=== PATIENT | male | born 1940 | race Asian ===

== ENCOUNTER 2016-05-21 | Outpatient (CLI) | payer MEDICARE, MEDICAID | END 2016-05-21 05:33 | disposition short-term general hospital (02) | CPT/HCPCS: A0425; A0428 ==

== ENCOUNTER 2016-05-21 | Outpatient (CLI) | payer MEDICARE, MEDICAID | END 2016-05-21 00:58 | disposition critical access hospital (66) | CPT/HCPCS: A0425; A0429 ==

== ENCOUNTER 2016-05-21 01:14 | Emergency (ER) | payer MEDICARE, MEDICAID ==
[2016-05-21] MEDS ORDERED: cefTRIAXone 1 GM in SODIUM CHLORIDE 0.9% MINIBAG 100 ML IV STA (02:50)
[2016-05-21] MEDS ORDERED: SODIUM CHLORIDE 0.9% 1,000 ML IV ONE (02:51)
[2016-05-21] MEDS ORDERED: cefTRIAXone 1 GM VIAL ONE (02:53)
== END 2016-05-21 05:31 | disposition short-term general hospital (02) ==
DX: J18.9 Pneumonia, unspecified organism (principal); E86.0 Dehydration; E11.9 Type 2 diabetes mellitus without complications; I10 Essential (primary) hypertension; Z79.82 Long term (current) use of aspirin; Z79.4 Long term (current) use of insulin; Z87.891 Personal history of nicotine dependence; I69.354 Hemiplegia and hemiparesis following cerebral infarction affecting left non-dominant side

== ENCOUNTER 2016-07-24 11:15 | Outpatient (CLI) | payer MEDICARE, MEDICAID | END 2016-07-24 11:16 | disposition critical access hospital (66) | DX: R06.00 Dyspnea, unspecified (principal); R50.9 Fever, unspecified | CPT/HCPCS: A0425; A0427 ==

== ENCOUNTER 2016-07-24 11:32 | Inpatient (IN) | payer MEDICARE, MEDICAID ==
[2016-07-24] MEDS ORDERED: IPRATROPIUM/ALBUTEROL 3 ML NEB INH STA (11:49)
[2016-07-24] MEDS ORDERED: IPRATROPIUM/ALBUTEROL 3 ML NEB INH ONE (11:53)
[2016-07-24] MEDS ORDERED: LORazepam 0.5 MG TABLET PO PRN (15:05)
[2016-07-24] MEDS ORDERED: HYDROcod/ACETAM 5/325 MG TABLET PO PRN (15:06)
[2016-07-24] MEDS ORDERED: SODIUM CHLORIDE FLUSH 0.9% 10 ML SYRINGE IVP PRN (15:06)
[2016-07-24] MEDS ORDERED: PROCHLORPERAZINE 10 MG/2 ML VIAL IVP PRN (15:06)
[2016-07-24] MEDS ORDERED: HYDROcod/ACETAM 10 MG/325 MG TABLET PO PRN (15:06)
[2016-07-24] MEDS ORDERED: ACETAMINOPHEN 325 MG TABLET PO PRN ×2 (15:06→16:48)
[2016-07-24] MEDS ORDERED: ONDANSETRON 4 MG/2 ML VIAL IVP PRN (15:06)
[2016-07-24] MEDS ORDERED: LORazepam 0.5 MG TABLET PEG PRN (15:57)
[2016-07-24] MEDS ORDERED: CLINDAMYCIN 900 MG/50 ML 50 ML IV SCH (16:00)
[2016-07-24] MEDS ORDERED: HYDROcod/ACETAM 5/325 MG TABLET PEG PRN (16:06)
[2016-07-24] MEDS: SODIUM CHLORIDE 0.9% 1,000 ML IV SCH (16:43)
[2016-07-24] MEDS ORDERED: SACCHAROMYCES BOULARDII 250 MG CAPSULE PO SCH (17:00)
[2016-07-24] MEDS: INSULIN ASPART 300 UNIT/3 ML PEN SUBQ SCH ×2 (17:02→21:29)
[2016-07-24] MEDS: SACCHAROMYCES BOULARDII 250 MG CAPSULE PEG SCH (17:10)
[2016-07-24] MEDS: IPRATROPIUM/ALBUTEROL 3 ML NEB INH SCH (17:20)
[2016-07-24] MEDS: HYDROmorphone 1 MG/ML SYRINGE IVP PRN ×2 (19:31→22:28)
[2016-07-24] MEDS ORDERED: METOPROLOL TARTRATE 25 MG TABLET PO SCH (21:00)
[2016-07-24] MEDS ORDERED: ATORVASTATIN 40 MG TABLET PO SCH (21:00)
[2016-07-24] MEDS: ATORVASTATIN 40 MG TABLET PEG SCH (21:18)
[2016-07-24] MEDS: METOPROLOL TARTRATE 25 MG TABLET PEG SCH (21:18)
[2016-07-24] MEDS: DOXAZOSIN 1 MG TABLET PO SCH (21:19)
[2016-07-24] MEDS: methylPREDNISolone SUCCINATE 40 MG/ML VIAL IVP SCH (21:19)
[2016-07-24] MEDS: HYDROcod/ACETAM 10 MG/325 MG TABLET PEG PRN (21:24)
[2016-07-24] MEDS: INSULIN GLARGINE 300 UNIT/3 ML PEN SUBQ SCH (21:29)
[2016-07-24] MEDS: SODIUM CHLORIDE FLUSH 0.9% 10 ML SYRINGE IVP SCH (21:29)
[2016-07-25] MEDS: CLINDAMYCIN 900 MG/50 ML 50 ML IV SCH ×3 (00:36→17:14)
[2016-07-25] MEDS: SODIUM CHLORIDE 0.9% 1,000 ML IV SCH ×3 (03:03→13:47)
[2016-07-25] MEDS: HYDROmorphone 1 MG/ML SYRINGE IVP PRN ×2 (03:35→08:58)
[2016-07-25] MEDS: SODIUM CHLORIDE FLUSH 0.9% 10 ML SYRINGE IVP SCH ×3 (05:30→23:11)
[2016-07-25] MEDS: methylPREDNISolone SUCCINATE 40 MG/ML VIAL IVP SCH ×3 (05:38→23:05)
[2016-07-25] MEDS ORDERED: PANTOPRAZOLE 40 MG TABLET PO SCH (07:00)
[2016-07-25] MEDS: IPRATROPIUM/ALBUTEROL 3 ML NEB INH SCH ×3 (07:10→14:53)
[2016-07-25] MEDS: INSULIN ASPART 300 UNIT/3 ML PEN SUBQ SCH ×3 (08:35→17:46)
[2016-07-25] MEDS: SACCHAROMYCES BOULARDII 250 MG CAPSULE PEG SCH ×2 (08:36→17:51)
[2016-07-25] MEDS: ENOXAPARIN 40 MG/0.4 ML SYRINGE SUBQ SCH (08:36)
[2016-07-25] MEDS: POLYETHYLENE GLYCOL 3350 17 GM PACKET PEG SCH (08:36)
[2016-07-25] MEDS: METOPROLOL TARTRATE 25 MG TABLET PEG SCH ×2 (08:37→23:06)
[2016-07-25] MEDS: ASPIRIN CHEW 81 MG TABLET PEG SCH (08:37)
[2016-07-25] MEDS ORDERED: ASPIRIN CHEW 81 MG TABLET PO SCH (09:00)
[2016-07-25] MEDS ORDERED: DOXAZOSIN 1 MG TABLET PO SCH (09:00)
[2016-07-25] MEDS ORDERED: POLYETHYLENE GLYCOL 3350 17 GM PACKET PO SCH (09:00)
[2016-07-25] MEDS: GABAPENTIN 100 MG CAPSULE PO SCH ×2 (17:21→23:09)
[2016-07-25] MEDS: IPRATROPIUM/ALBUTEROL 3 ML NEB INH PRN (20:40)
[2016-07-25] MEDS ORDERED: INSULIN ASPART 300 UNIT/3 ML PEN SUBQ SCH (21:00)
[2016-07-25] MEDS: DOXAZOSIN 1 MG TABLET PO SCH (23:05)
[2016-07-25] MEDS: ATORVASTATIN 40 MG TABLET PEG SCH (23:06)
[2016-07-25] MEDS: INSULIN GLARGINE 300 UNIT/3 ML PEN SUBQ SCH (23:22)
[2016-07-26] MEDS: SODIUM CHLORIDE 0.9% 1,000 ML IV SCH (01:12)
[2016-07-26] MEDS: CLINDAMYCIN 900 MG/50 ML 50 ML IV SCH ×3 (01:12→18:59)
[2016-07-26] MEDS: GABAPENTIN 100 MG CAPSULE PO SCH ×3 (06:36→21:03)
[2016-07-26] MEDS: methylPREDNISolone SUCCINATE 40 MG/ML VIAL IVP SCH ×3 (06:36→21:08)
[2016-07-26] MEDS: SODIUM CHLORIDE FLUSH 0.9% 10 ML SYRINGE IVP SCH ×3 (06:36→21:08)
[2016-07-26] MEDS: INSULIN ASPART 300 UNIT/3 ML PEN SUBQ SCH ×2 (06:51→07:24)
[2016-07-26] MEDS: IPRATROPIUM/ALBUTEROL 3 ML NEB INH PRN ×3 (07:38→20:45)
[2016-07-26] MEDS: SACCHAROMYCES BOULARDII 250 MG CAPSULE PEG SCH ×2 (08:54→17:44)
[2016-07-26] MEDS: ENOXAPARIN 40 MG/0.4 ML SYRINGE SUBQ SCH (08:54)
[2016-07-26] MEDS: ASPIRIN CHEW 81 MG TABLET PEG SCH (08:54)
[2016-07-26] MEDS: METOPROLOL TARTRATE 25 MG TABLET PEG SCH ×2 (08:55→21:03)
[2016-07-26] MEDS ORDERED: MIN OIL/DIMETHICON/COCONUT OIL 92 GM TUBE TOP ONE (10:36)
[2016-07-26] MEDS: POLYETHYLENE GLYCOL 3350 17 GM PACKET PEG SCH (11:28)
[2016-07-26] MEDS: INSU100V10 SUBQ SCH ×2 (11:50→18:59)
[2016-07-26] MEDS ORDERED: INSULIN ASPART 300 UNIT/3 ML PEN SUBQ SCH ×2 (12:00)
[2016-07-26] MEDS ORDERED: INSU100I18 SUBQ SCH (12:00)
[2016-07-26] MEDS: HYDROcod/ACETAM 10 MG/325 MG TABLET PEG PRN (19:00)
[2016-07-26] MEDS ORDERED: FUROSEMIDE 20 MG/2 ML VIAL IVP SCH (20:47)
[2016-07-26] MEDS ORDERED: INSULIN GLARGINE 300 UNIT/3 ML PEN SUBQ SCH (21:00)
[2016-07-26] MEDS: ATORVASTATIN 40 MG TABLET PEG SCH (21:03)
[2016-07-26] MEDS: amLODIPine 5 MG TABLET PEG SCH (21:03)
[2016-07-26] MEDS: DOXAZOSIN 1 MG TABLET PO SCH (21:03)
[2016-07-27] MEDS: INSULIN REGULAR HUMAN 100 UNIT/1 ML 10 ML MDV SUBQ SCH ×3 (01:07→11:46)
[2016-07-27] MEDS: CLINDAMYCIN 900 MG/50 ML 50 ML IV SCH ×2 (01:12→09:13)
[2016-07-27] MEDS: SODIUM CHLORIDE FLUSH 0.9% 10 ML SYRINGE IVP SCH ×3 (01:12→09:13)
[2016-07-27] MEDS: GABAPENTIN 100 MG CAPSULE PO SCH ×2 (06:58→13:29)
[2016-07-27] MEDS: methylPREDNISolone SUCCINATE 40 MG/ML VIAL IVP SCH ×2 (06:58→13:29)
[2016-07-27] MEDS ORDERED: predniSONE 20 MG TABLET PO SCH (08:00)
[2016-07-27] MEDS: POLYETHYLENE GLYCOL 3350 17 GM PACKET PEG SCH (09:17)
[2016-07-27] MEDS: ASPIRIN CHEW 81 MG TABLET PEG SCH (09:18)
[2016-07-27] MEDS: METOPROLOL TARTRATE 25 MG TABLET PEG SCH (09:18)
[2016-07-27] MEDS: SACCHAROMYCES BOULARDII 250 MG CAPSULE PEG SCH (09:18)
[2016-07-27] MEDS: amLODIPine 5 MG TABLET PEG SCH (09:18)
[2016-07-27] MEDS: ENOXAPARIN 40 MG/0.4 ML SYRINGE SUBQ SCH (09:25)
[2016-07-27] MEDS: HYDROmorphone 1 MG/ML SYRINGE IVP PRN (09:31)
[2016-07-27] MEDS: IPRATROPIUM/ALBUTEROL 3 ML NEB INH PRN (09:37)
[2016-07-27] MEDS: HYDROcod/ACETAM 10 MG/325 MG TABLET PEG PRN (16:35)
== END 2016-07-27 17:20 | disposition home health service (06) | DRG 871 ==
DX: A41.9 Sepsis, unspecified organism (principal); J44.9 Chronic obstructive pulmonary disease, unspecified; J69.0 Pneumonitis due to inhalation of food and vomit; J18.9 Pneumonia, unspecified organism; M10.9 Gout, unspecified; J44.0 Chronic obstructive pulmonary disease with (acute) lower respiratory infection; I69.954 Hemiplegia and hemiparesis following unspecified cerebrovascular disease affecting left non-dominant side; J44.1 Chronic obstructive pulmonary disease with (acute) exacerbation; Z79.4 Long term (current) use of insulin; G89.29 Other chronic pain; M79.602 Pain in left arm; T38.0X5A Adverse effect of glucocorticoids and synthetic analogues, initial encounter; E09.9 Drug or chemical induced diabetes mellitus without complications; M79.605 Pain in left leg; I10 Essential (primary) hypertension; E78.5 Hyperlipidemia, unspecified; H91.90 Unspecified hearing loss, unspecified ear; M24.522 Contracture, left elbow; I69.991 Dysphagia following unspecified cerebrovascular disease; Z93.1 Gastrostomy status; Z87.891 Personal history of nicotine dependence; Z86.73 Personal history of transient ischemic attack (TIA), and cerebral infarction without residual deficits; Z79.82 Long term (current) use of aspirin; Z79.891 Long term (current) use of opiate analgesic; Z79.899 Other long term (current) drug therapy

== ENCOUNTER 2016-07-27 17:23 | Outpatient (CLI) | payer MEDICARE, MEDICAID | END 2016-07-28 17:24 | disposition home or self-care (01) | DX: Z74.01 Bed confinement status (principal) | CPT/HCPCS: A0425; A0428 ==

== ENCOUNTER 2016-08-31 09:43 | Outpatient (CLI) | payer MEDICARE, MEDICAID | END 2016-08-31 09:44 | disposition critical access hospital (66) | LOC: EMS 09:43 | PROVIDERS: ATTEND Surgery | DX: R19.7 Diarrhea, unspecified (principal) | CPT/HCPCS: A0425; A0429 ==

== ENCOUNTER 2016-08-31 10:02 | Inpatient (IN) | payer MEDICARE, MEDICAID ==
[2016-08-31] MEDS ORDERED: SODIUM CHLORIDE 0.9% 1,000 ML IV ONE (10:14)
[2016-08-31] MEDS ORDERED: PANTOPRAZOLE 40 MG VIAL IVP STA (12:32)
[2016-08-31] MEDS ORDERED: PANTOPRAZOLE 40 MG VIAL ONE (12:44)
[2016-08-31] MEDS ORDERED: MORPHINE 2 MG/ML SYRINGE IVP PRN (13:40)
[2016-08-31] MEDS ORDERED: SODIUM CHLORIDE FLUSH 0.9% 10 ML SYRINGE IVP PRN (13:40)
[2016-08-31] MEDS ORDERED: ONDANSETRON 4 MG/2 ML VIAL IVP PRN (13:40)
[2016-08-31] MEDS ORDERED: SODIUM CHLORIDE 0.9% 1,000 ML IV SCH ×2 (14:00→18:00)
[2016-08-31] MEDS: SODIUM CHLORIDE FLUSH 0.9% 10 ML SYRINGE IVP SCH (14:44)
[2016-08-31] MEDS: ALBUTEROL NEB 2.5 MG/3 ML INH PRN ×2 (15:30→23:00)
[2016-08-31] MEDS ORDERED: DEXTROSE 5% 1,000 ML IV PRN (16:19)
[2016-08-31] MEDS ORDERED: DEXTROSE 50% ABBOJECT 25 GM/50 ML SYRINGE IVP PRN (16:19)
[2016-08-31] MEDS ORDERED: DEXTROSE GEL 37.5 GM TUBE PO PRN (16:19)
[2016-08-31] MEDS ORDERED: GLUCAGON 1 MG/ML VIAL SUBQ PRN (16:19)
[2016-08-31] MEDS: INSULIN REGULAR HUMAN 100 UNIT/1 ML 10 ML MDV SUBQ SCH (17:43)
[2016-08-31] MEDS: PIPERACILLIN/TAZOBACTAM 3.375 GM in SODIUM CHLORIDE 0.9% MINIBAG 100 ML IV SCH (17:44)
[2016-08-31] MEDS ORDERED: ACETAMINOPHEN 325 MG TABLET PO SCH (18:00)
[2016-08-31] MEDS ORDERED: diphenhydrAMINE INJ 50 MG/ML VIAL IVP SCH (18:00)
[2016-08-31] MEDS: D5.45NS W/20 MEQ KCL 1,000 ML IV SCH (19:07)
[2016-08-31] MEDS: GABAPENTIN 100 MG CAPSULE PO SCH (20:45)
[2016-08-31] MEDS ORDERED: LIDOCAINE 1% 50 ML MDV SUBQ ONE (21:00)
[2016-08-31] MEDS ORDERED: PROPOFOL 200 MG/20 ML VIAL IVP ONE (21:00)
[2016-08-31] MEDS ORDERED: ROCURONIUM 50 MG/5 ML VIAL IVP ONE (21:00)
[2016-08-31] MEDS ORDERED: MIDAZOLAM 2 MG/2 ML VIAL IVP ONE (21:00)
[2016-08-31] MEDS ORDERED: ePHEDrine 50 MG/ML VIAL IVP ONE (21:00)
[2016-08-31] MEDS ORDERED: fentaNYL 100 MCG/2 ML VIAL IVP ONE (21:00)
[2016-08-31] MEDS ORDERED: SUCCINYLCHOLINE 200 MG/10 ML VIAL IVP ONE (21:00)
[2016-08-31] MEDS ORDERED: LACTATED RINGERS 1,000 ML IV ONE ×2 (21:31→22:30)
[2016-09-01] MEDS: DOXAZOSIN 1 MG TABLET PO SCH ×2 (00:14→21:37)
[2016-09-01] MEDS: GABAPENTIN 100 MG CAPSULE PO SCH ×4 (00:15→21:37)
[2016-09-01] MEDS: D5.45NS W/20 MEQ KCL 1,000 ML IV SCH ×3 (00:49→22:23)
[2016-09-01] MEDS: PIPERACILLIN/TAZOBACTAM 3.375 GM in SODIUM CHLORIDE 0.9% MINIBAG 100 ML IV SCH ×5 (00:49→22:22)
[2016-09-01] MEDS: PANTOPRAZOLE 40 MG VIAL IVP SCH ×3 (00:50→21:37)
[2016-09-01] MEDS: SODIUM CHLORIDE FLUSH 0.9% 10 ML SYRINGE IVP SCH ×4 (00:50→21:37)
[2016-09-01] MEDS: INSULIN REGULAR HUMAN 100 UNIT/1 ML 10 ML MDV SUBQ SCH ×4 (00:50→19:26)
[2016-09-01] MEDS: POLYETHYLENE GLYCOL 3350 17 GM PACKET PO SCH (09:16)
[2016-09-01] MEDS: INSULIN GLARGINE 300 UNIT/3 ML PEN SUBQ SCH (09:17)
[2016-09-01] MEDS: FERROUS SULFATE 325 MG TABLET PO SCH ×2 (09:17→17:05)
[2016-09-01] MEDS: LORazepam 0.5 MG TABLET PO PRN (22:59)
[2016-09-02] MEDS: INSULIN REGULAR HUMAN 100 UNIT/1 ML 10 ML MDV SUBQ SCH ×4 (00:39→18:15)
[2016-09-02] MEDS: HYDROcod/ACETAM 5/325 MG TABLET PO PRN (00:48)
[2016-09-02] MEDS: GABAPENTIN 100 MG CAPSULE PO SCH ×3 (05:49→20:59)
[2016-09-02] MEDS: PIPERACILLIN/TAZOBACTAM 3.375 GM in SODIUM CHLORIDE 0.9% MINIBAG 100 ML IV SCH ×4 (05:49→22:31)
[2016-09-02] MEDS: D5.45NS W/20 MEQ KCL 1,000 ML IV SCH (05:49)
[2016-09-02] MEDS: SODIUM CHLORIDE FLUSH 0.9% 10 ML SYRINGE IVP SCH ×3 (05:50→21:00)
[2016-09-02] MEDS: ALBUTEROL NEB 2.5 MG/3 ML INH PRN (07:30)
[2016-09-02] MEDS: INSULIN GLARGINE 300 UNIT/3 ML PEN SUBQ SCH (09:12)
[2016-09-02] MEDS: PANTOPRAZOLE 40 MG VIAL IVP SCH ×2 (09:12→20:59)
[2016-09-02] MEDS: POLYETHYLENE GLYCOL 3350 17 GM PACKET PO SCH (09:12)
[2016-09-02] MEDS: FERROUS SULFATE 325 MG TABLET PO SCH ×2 (09:13→18:15)
[2016-09-02] MEDS ORDERED: SODIUM CHLORIDE 0.9% 1,000 ML IV SCH (16:00)
[2016-09-02] MEDS: DOXAZOSIN 1 MG TABLET PO SCH (21:00)
[2016-09-02] MEDS ORDERED: amLODIPine 5 MG TABLET PO ONE (22:18)
[2016-09-03] MEDS: INSULIN REGULAR HUMAN 100 UNIT/1 ML 10 ML MDV SUBQ SCH ×5 (00:40→23:57)
[2016-09-03] MEDS: amLODIPine 5 MG TABLET PEG SCH ×2 (00:43→09:03)
[2016-09-03] MEDS: HYDROcod/ACETAM 5/325 MG TABLET PO PRN ×2 (00:58→18:34)
[2016-09-03] MEDS: GABAPENTIN 100 MG CAPSULE PO SCH ×3 (05:15→21:34)
[2016-09-03] MEDS: PIPERACILLIN/TAZOBACTAM 3.375 GM in SODIUM CHLORIDE 0.9% MINIBAG 100 ML IV SCH ×4 (05:15→22:03)
[2016-09-03] MEDS: SODIUM CHLORIDE FLUSH 0.9% 10 ML SYRINGE IVP SCH ×3 (05:15→21:34)
[2016-09-03] MEDS ORDERED: MAGNESIUM SULFATE 2 GRAM 50 ML IV ONE (08:00)
[2016-09-03] MEDS: ALBUTEROL NEB 2.5 MG/3 ML INH PRN (08:00)
[2016-09-03] MEDS ORDERED: amLODIPine 5 MG TABLET PEG SCH (09:00)
[2016-09-03] MEDS: FERROUS SULFATE 325 MG TABLET PO SCH ×2 (09:03→18:34)
[2016-09-03] MEDS: POLYETHYLENE GLYCOL 3350 17 GM PACKET PO SCH (09:03)
[2016-09-03] MEDS: PANTOPRAZOLE 40 MG VIAL IVP SCH (09:03)
[2016-09-03] MEDS: INSULIN GLARGINE 300 UNIT/3 ML PEN SUBQ SCH (09:12)
[2016-09-03] MEDS ORDERED: FUROSEMIDE 40 MG/4 ML VIAL IVP SCH (14:00)
[2016-09-03] MEDS ORDERED: IPRATROPIUM/ALBUTEROL 3 ML NEB INH SCH (14:04)
[2016-09-03] MEDS: SACCHAROMYCES BOULARDII 250 MG CAPSULE PO SCH (18:34)
[2016-09-03] MEDS: LORazepam 0.5 MG TABLET PO PRN (18:35)
[2016-09-03] MEDS: DOXAZOSIN 1 MG TABLET PO SCH (21:33)
[2016-09-04] MEDS: PIPERACILLIN/TAZOBACTAM 3.375 GM in SODIUM CHLORIDE 0.9% MINIBAG 100 ML IV SCH ×2 (04:59→11:50)
[2016-09-04] MEDS: SODIUM CHLORIDE FLUSH 0.9% 10 ML SYRINGE IVP SCH ×2 (04:59→15:10)
[2016-09-04] MEDS: INSULIN REGULAR HUMAN 100 UNIT/1 ML 10 ML MDV SUBQ SCH ×2 (06:28→15:10)
[2016-09-04] MEDS: GABAPENTIN 100 MG CAPSULE PO SCH ×2 (06:28→15:10)
[2016-09-04] MEDS: POLYETHYLENE GLYCOL 3350 17 GM PACKET PO SCH (09:33)
[2016-09-04] MEDS: SACCHAROMYCES BOULARDII 250 MG CAPSULE PO SCH (09:34)
[2016-09-04] MEDS: amLODIPine 5 MG TABLET PEG SCH (09:34)
[2016-09-04] MEDS: FERROUS SULFATE 325 MG TABLET PO SCH (09:34)
[2016-09-04] MEDS: INSULIN GLARGINE 300 UNIT/3 ML PEN SUBQ SCH (10:44)
[2016-09-04] MEDS ORDERED: POTASSIUM CHLORIDE 20 MEQ TABLET PO SCH (11:00)
[2016-09-04] MEDS ORDERED: POTASSIUM CHLORIDE 20 MEQ/15 ML UDC PEG SCH (11:26)
[2016-09-04] MEDS: HYDROcod/ACETAM 5/325 MG TABLET PO PRN (12:29)
== END 2016-09-04 16:55 | disposition home health service (06) | DRG 378 ==
PROC: 0DB78ZX Excision of Stomach, Pylorus, Via Natural or Artificial Opening Endoscopic, Diagnostic (ICD-10-PCS; 2016-08-31)
PROC: 30233N1 Transfusion of Nonautologous Red Blood Cells into Peripheral Vein, Percutaneous Approach (ICD-10-PCS; 2016-08-31)
PROC: 0W3P8ZZ Control Bleeding in Gastrointestinal Tract, Via Natural or Artificial Opening Endoscopic (ICD-10-PCS; principal; 2016-08-31 20:00)
DX: K92.2 Gastrointestinal hemorrhage, unspecified (principal); K25.0 Acute gastric ulcer with hemorrhage; D62 Acute posthemorrhagic anemia; I69.954 Hemiplegia and hemiparesis following unspecified cerebrovascular disease affecting left non-dominant side; G89.29 Other chronic pain; I13.10 Hypertensive heart and chronic kidney disease without heart failure, with stage 1 through stage 4 chronic kidney disease, or unspecified chronic kidney disease; E11.22 Type 2 diabetes mellitus with diabetic chronic kidney disease; E11.42 Type 2 diabetes mellitus with diabetic polyneuropathy; N18.3 Chronic kidney disease, stage 3 (moderate); M1A.9XX0 Chronic gout, unspecified, without tophus (tophi); K57.30 Diverticulosis of large intestine without perforation or abscess without bleeding; E78.5 Hyperlipidemia, unspecified; J44.9 Chronic obstructive pulmonary disease, unspecified; R79.89 Other specified abnormal findings of blood chemistry; F17.211 Nicotine dependence, cigarettes, in remission; H91.90 Unspecified hearing loss, unspecified ear; Z87.01 Personal history of pneumonia (recurrent); Z79.82 Long term (current) use of aspirin; Z79.4 Long term (current) use of insulin; Z79.51 Long term (current) use of inhaled steroids; Z79.891 Long term (current) use of opiate analgesic; Z79.899 Other long term (current) drug therapy; Z93.1 Gastrostomy status; Z99.3 Dependence on wheelchair

== ENCOUNTER 2016-09-04 17:01 | Outpatient (CLI) | payer MEDICARE, MEDICAID | END 2016-09-04 17:02 | disposition home or self-care (01) | LOC: EMS 17:01 | PROVIDERS: ATTEND Surgery | DX: K92.2 Gastrointestinal hemorrhage, unspecified (principal) | CPT/HCPCS: A0425; A0428 ==

== ENCOUNTER 2016-09-11 14:30 | Outpatient (CLI) | payer MEDICARE, MEDICAID ==
--- NOTE | 2016-09-12 09:07 | CONSULTATION NOTE ---
DATE OF CONSULTATION: 09/11/2016 00:00:00 REQUESTING PROVIDER: Dr. Louis Alcantara. Time of visit [id number] TOPIC: Initial palliative care consult. Thank you, Dr. Alcantara, for asking the palliative care consult service to be involved in the care of your patient. I am asked to provide support for pain and symptoms, as well as goals of care. The patient is seen in his home setting secondary to a considerable and taxing effort for him to leave the home secondary to his CVA with left hemiparesis, fatigue and recent hospitalization. History is obtained from medical records. Records reviewed include hospitalizations and physician office records. EXAM LIMITATIONS: The patient is unable to participate secondary to aphasia and cognitive deficits. Most of the information is obtained from his daughter and primary caregiver, Iris. BRIEF HISTORY OF PRESENT ILLNESS: This is a 76-year-old Greek man who had a significant stroke with severe left hemiparesis on 03/24/2016. He had a fairly long and complicated course, which included transitioning in [facility]. On discharge from the hospital at that point in time, he was discharged back to his daughter's home and was actually on hospice for a few days. In the daughter's perspective, they had not really been given other options as far as weighing benefits and burdens and possible home health referral. The patient did become much more acutely, ill , and after 2 or 3 days the patient's daughter revoked the hospice benefit and chose to have him seen at the hospital where he was diagnosed with a left lower lobe pneumonia, for which they treated. He was seen at [facility] from to 05/22 and then was discharged to [facility]. After rehabilitation stay, he was then discharged back to his daughter's home for ongoing care with home health services from [facility] at that time. He was hospitalized yet again from 07/24/2016 to 07/27/2016 at [facility] with community-acquired pneumonia/aspiration pneumonia, COPD exacerbation. Had been doing fairly well until he developed black tarry stools and blood in his PEG tube on 08/31, for which he was again hospitalized from 08/31 to 09/04/2016 with a GI bleed. At that point in time was diagnosed with a pyloric ulcer and anemia due to acute blood loss. He is currently now at home, has been mostly bedbound. There had been concern at one point that he had recurrent aspiration, but this cleared up. This was thought to be related to his tube feedings and had decreased his tube feedings from 70-40 mL an hour. As you can see, the patient has had ongoing sequelae related to his stroke and these also include severe central left-sided stroke pain, aphasia, dysphagia, left hemiparesis, is developing some contractures on that left side, as well as a history of decubitus ulcers. I am seeing the patient today in followup to provide palliative care support, given the seriousness of his illness. There are still quite a few residual questions from his posthospital stay and identifying ways to focus on quality of life, given his current situation and symptom burden. He does remain at high risk for the sequela of recurrent aspiration pneumonia. He does have a large amount of oral secretions. He does have a strong cough, but does have inspiratory and expiratory wheezing in his upper airways and diminished in bases. They do have oral suction, for which the daughter does assist him with managing his secretions. He has been mostly bound except for short periods of time in his wheelchair, does need a Kari lift, and does present with fairly acute uncontrolled neuropathic pain. The patient actually communicates by hand motion about his sharp, shooting, and uses little hand motions to show the landis. This is how he communicates if he needs some pain medication. He had been trialed on gabapentin at 100 mg t.i.d., but has had no titration around, and also intermittent Vicodin. The daughter has concern about opioid dependence with this and also side effects. The other unresolved question is about how best to manage his current tube feeding schedule given his most recent hospitalization. He is on a diabetic source, reports blood sugars are within acceptable range at 50 mL hour, which may be off an hour total. The patient's stools have returned back to normal. They are somewhat on the loose side, but no further signs or symptoms of bleeding, though of note he has not been discharged on any PPI. PAST MEDICAL HISTORY: Includes CVA on 03/24 with residual left-sided weakness, dysphagia and PEG tube placement, insulin-dependent diabetes, hypertension, hyperlipidemia, COPD, gout, chronic hearing loss, nicotine dependence in remission. ALLERGIES: NO KNOWN DRUG ALLERGIES. CURRENT MEDICATION LIST Includes 1. Lorazepam 0.5 mg tabs, 1/2-1 tab as needed for anxiety. 2. Metoprolol tartrate 25 mg b.i.d. 3. Lantus 20 units subcutaneously daily. 4. Does have lispro available as needed. 5. Hydrocodone 5 mg/325 mg 1 tab q.4h. p.r.n. pain. 6. Doxazosin 2 mg q.p.m. 7. Atorvastatin 40 mg q.p.m. 8. Aspirin 81 mg daily. 9. Albuterol inhaler 1-2 puffs q.4h. p.r.n. dyspnea or wheezing. 10. Norvasc. 11. Amlodipine 5 mg daily. 12. Gabapentin 100 mg t.i.d. 13. Risperdal 0.5 mg, currently not using. The patient had a bad reaction to Seroquel. CODE STATUS: THE PATIENT IS A FULL CODE. Please see palliative care discussion. 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 He is currently as of 4 years ago and came to live with his daughter and her family. He is currently being cared for by a fairly robust family system. His daughter, Iris, is the primary caregiver. She has a sister in [place] who comes in and offers respite every 4-6 weeks. He has 2 younger sons from a previous marriage that are in the household, still going to school. There is Iris's family and his grandchildren in the house as well. She has 4 young children. He had come up about 4 years ago to be part of the family constellation. Iris is a [employer] worker, but is unable to access the full [employer], so is looking at agencies who support for this. Marital status, currently . Use of alcohol, none. Tobacco, strong history of smoking, quit right before 03/2016. FAMILY HISTORY: The patient's parents of old age. PERFORMANCE STATUS: The patient is mostly bedbound. They can Kari lift him up into the wheelchair. He is not currently doing any therapy and remains quite sedentary, dependent for all ADLs and IADLs and tube feedings. REVIEW OF SYSTEMS This is done with the daughter. ENT: The patient has difficulty managing his secretions, has significant hearing loss. CARDIOVASCULAR: Unknown. RESPIRATORY: Has a fairly strong cough, a large amount of sputum production, needing suctioning on a frequent basis. Does get some shortness of breath with this. GASTROINTESTINAL: Currently having soft to loose stools. GENITOURINARY: He is incontinent of urine. MUSCULOSKELETAL: Has severe, sharp, shooting pains on his left side, some stiffness and contractions on his left leg. INTEGUMENTARY: History of decubitus. Currently denies any breakdown. NEUROLOGIC: Continues to interact, make verbalizations with his family. Is not really aware or in the present, though does recognize family members and interacts. PSYCHIATRIC: He does have some periods of agitation. ENDOCRINE: Longstanding diabetes. HEMATOLOGIC/IMMUNOLOGIC: He did have recurrent pneumonia. The daughter thought it was once; it does look like twice in the records. As well as recent GI bleed. PHYSICAL EXAMINATION GENERAL APPEARANCE: He does appear chronically ill, frequent coughing, easily distressed, particularly related to his pain, flicking his hand through the process when manipulated or touched. EYES: He has double glasses on. Daughter reports that he feels like that works better, per his report. ENT: He does have a few residual teeth. No signs or symptoms of candidiasis. RESPIRATORY: As noted above. CARDIOVASCULAR: His pulse is 77, blood pressure 152/58, O2 saturation on room air 95%. Temperature is 98.9. ABDOMEN: He does have active bowel tones. Peg site. SKIN: Quite dry. Feet very fungal, no skin breakdown noted though. EXTREMITIES: He does have spontaneous movement and able to move his right arm and right leg with left leg quite straightened and contracted and left arm pulled up. PALLIATIVE CARE DISCUSSION: Who is present, myself, the palliative care practitioner, Giovanna, and daughter, Iris. The patient is unable to participate. In reviewing their goals of care and definition of quality of life , the family is quite happy to have him present. They have adapted the living situation so to be able to respond to his needs. Everyone pretty participates to assist with his care needs, but the majority of it falls to Iris. She is a capable and adequate caregiver. The patient is obviously safely cared for and deeply loved by his family system. In questioning why they still continue to have a FULL CODE, this is complicated in the context that her perception is he continues to cry, that he wants to be around, his 2 young sons and still teenagers, is hoping to participate or be present for some of those events as best they can tell. He is still interacting with the family. They are concerned about receiving ongoing intervention, but also her and her sister who are the major decision makers do recognize that they do not want him to experience prolong suffering including CPR, but are not quite ready to make that transition. Their approach is living in the moment, weighing the benefits and burdens as those decisions come along. They feel it is consistent with who their father is to keep fighting. They are continuing to weigh the benefits and burdens and feel like that is consistent with their healthcare belief model, but are wanting to balance that with relief of suffering and not causing undue harm. We did review the purpose of the POLST, some of the decisions around that. I did provide [employer] for [employer] and encouraged her and his sister to continue with the conversations with the goal for us to have information to be able to support them best as they interact with the healthcare system to be able to meet their needs. Unfortunately, had somewhat of a negative experience with hospice in the context that her perception was all they wanted to do was continue to give him morphine and not really explore the underlying etiology of his pain and distress, thus, the revocation several months ago. His strengths come from their commitment and family system. IMPRESSION: This is a 76-year-old gentleman with multiple comorbidities and continued complications as a results of his CVA and left hemiparesis. He remains at high risk for recurrent aspiration and ongoing complications related to his bedbound status and dependency on tube feedings. Family goals include wanting to focus on quality of life, extend quantity of life, weighing benefits and burdens of decisions as they come along. RECOMMENDATIONS/COUNSELING DONE 1. Central stroke syndrome, acute pain uncontrolled. Counseling done regarding pain management of his current condition. In weighing benefits and burdens, including increasing gabapentin, changing to methadone, increasing opioid dosing. Did settle on titrating gabapentin up to effect. Currently, only on 100 mg t.i.d., originally did get some relief, so expect he may do better with escalating doses. Given the concern for side effects of sedation, will titrate slowly every few days starting with 200 mg in the evening x3 days, add another 100 mg in the a.m. for 3 days, add another 100 mg at noon for 3 days, and then increase to 300 mg in the evening and will see the patient in 2 weeks for further titration instructions. 2. Protein-calorie malnutrition. The patient does appear quite thin with upper and lower body wasting. He is currently on 50 mL an hour of diabetic service. He is serv[facility] by [facility]. I will follow up with the dietitian for further recommendations. It does appear he will decrease aspiration risk, a lower volume may be indicated, but will get the feedback from the dietitian. 3. Caloric ulcer. The patient is not currently on any PPI. I will follow up with his PCP. Surgical recommendations are PPI and Carafate. Carafate would be contraindicated in the context of his tube feeding, would most likely clog the tube. 4. Dysphagia. The patient does have a significant amount of oral secretions. Continues to be at high risk for aspiration pneumonia. We do have the head of the bed up, but the patient does slide down. He does have a strong cough reflex, but I suspect will continue to struggle with this ongoing. 5. Advanced care planning. The patient has had multiple hospitalizations, as well as complications related to his stroke in the last few months. Suspect that this will continue. Daughter is exploring, continuing weighing the benefits and burdens of interventions, particularly on hospitalization if they occur, will need ongoing support regarding this. Have introduced the POLST again. Will continue to provide support. Did provide [employer] for [employer]. We also discussed planning and planning for the future. It does appear she has a fairly good handle of the seriousness of his current condition. Thank you, Dr. Alcantara, for asking the palliative care consult service to be involved in the care of your patient. I will continue to follow him, particularly given the difficulty for getting him and out of the house and transportation. I suspect he will continue to have exacerbations and complications regarding the sequela of his stroke. We will continue to support the daughter and developing goals of care regarding this. TIME SPENT: 90 minutes with greater than 50% of this done in counseling and coordination of care regarding management of pain, coordination of services, goals of care, and anticipatory guidance. JOB #: [id number] EXT JOB #:[id number] ZOHAIB
== END 2016-09-11 14:31 | disposition home or self-care (01) ==
LOC: PC 14:30
PROVIDERS: ATTEND Nurse Practitioner Adult Health
DX: Z51.5 Encounter for palliative care (principal); I63.9 Cerebral infarction, unspecified; G81.94 Hemiplegia, unspecified affecting left nondominant side; K25.9 Gastric ulcer, unspecified as acute or chronic, without hemorrhage or perforation; E46 Unspecified protein-calorie malnutrition; Z74.01 Bed confinement status; Z93.1 Gastrostomy status; I69.319 Unspecified symptoms and signs involving cognitive functions following cerebral infarction; I69.320 Aphasia following cerebral infarction; I69.391 Dysphagia following cerebral infarction; R13.10 Dysphagia, unspecified; R05 Cough; Z79.891 Long term (current) use of opiate analgesic; E11.9 Type 2 diabetes mellitus without complications; I10 Essential (primary) hypertension; E78.5 Hyperlipidemia, unspecified; J44.9 Chronic obstructive pulmonary disease, unspecified; M10.9 Gout, unspecified; H91.90 Unspecified hearing loss, unspecified ear; Z87.891 Personal history of nicotine dependence; Z79.82 Long term (current) use of aspirin; Z79.4 Long term (current) use of insulin; Z79.51 Long term (current) use of inhaled steroids; R45.1 Restlessness and agitation
CPT/HCPCS: 99345

== ENCOUNTER 2016-09-27 16:13 | Outpatient (CLI) | payer MEDICARE, MEDICAID ==
--- NOTE | 2016-09-28 18:12 | CONSULTATION NOTE ---
DATE OF CONSULTATION: 09/27/2016 00:00:00 REQUESTING PROVIDER: Louis Alcantara MD. TIME OF VISIT: 1445 to 1545 TOPIC: Followup palliative care consult. Thank you, Dr. Alcantara, for asking the palliative care consult service to be involved in the care of your patient. I am asked to provide support for pain and symptom management, as well as goals of care. The patient is seen in his home setting secondary to considerable and taxing effort for him to leave the home. He is with CVA, left hemiparesis, fatigue, recent hospitalization, and bed -bound mostly. EXAM LIMITATIONS: The patient is unable to participate secondary to aphasia and cognitive deficits. Information is obtained from his daughter, primary caregiver , Iris. BRIEF HISTORY OF PRESENT ILLNESS: This is a 76-year-old [place] man who had a severe stroke with left hemiparesis on 03/24/2016. He has continued to have a long and complicated course with recurrent pneumonias, most likely related to aspiration, and intermittent COPD exacerbations. He was recently hospitalized to 09/04/2016 with a GI bleed and diagnosis of pyloric acid anemia secondary to his acute blood loss. He has transitioned back home, does have fairly high care needs, and is supported by his tube feedings. The patient had continued to improve. We had started him on some gabapentin for fairly acute central stroke pain syndrome. He has settled at gabapentin 300 mg twice a day with fairly good results, has not needed any hydrocodone for breakthrough pain though he is quite tender with some hyperalgesia to his left side. His respiratory status remains quite fragile. Iris had been able to make contact with [facility] as far as tube feedings. He has slowly increased his feedings to finally at 90 mL an hour to be able to meet his caloric needs. They did find actually running it through the day, when he is more awake and alert, he has tolerated this well with less coughing and less oral secretions. Unfortunately, in the last 24 hours, he has noted some increased cough and wheezing. I do find the patient today afebrile, but with rhonchi in the upper airways that do clear some with cough, but also expiratory and inspiratory rales in his right lower lobe and diminished in his left. He is a long-time smoker and his breath sounds are fairly diminished throughout. He does have oral suction and has needed that less as time has gone over the last few weeks, other than this recent exacerbation. ALLERGIES: NO KNOWN DRUG ALLERGIES. MEDICATION LIST 1. Lorazepam 0.5 mg tabs, 1/2 to 1 tab as needed for anxiety. 2. Metoprolol tartrate 25 mg b.i.d. 3. Lantus 20 units subcu daily. 4. Lispro available as needed; has not needed recently. 5. Hydrocodone 5/325 one tab q.4h. p.r.n. pain. 6. Doxazosin 2 mg 2 tabs at night. 7. Atorvastatin 40 mg in the evening. 8. Aspirin 81 daily. 9. Albuterol inhaler 1-2 puffs q.4h. p.r.n. dyspnea or wheezing. 10. Amlodipine 5 mg daily. 11. Gabapentin 300 mg b.i.d. 12. Protonix 20 mg BID 13. Ondansetron 4 mg every 6 hours as needed for nausea CODE STATUS: Patient remains a FULL CODE. Please see palliative care discussion. 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 He does have a few short sentences that do occasionally make sense. Iris is his primary caregiver. Her sister was here recently to give her somewhat of a break , but she is set up as his main [employer] worker. They are trying to hire for the rest of his hours, he has 213 hours, hoping to get a break. She has young children in the home and now with summer, more activities, which is very stimulating and supportive for he patient. PERFORMANCE STATUS: The patient is mostly bed-bound. They can Kari lift him up in the wheelchair. He remains quite sedentary. REVIEW OF SYSTEMS: This is done with the daughter. ENT: Doing better with managing his secretions. He does have significant hearing loss. CARDIOVASCULAR: Unknown. RESPIRATORY: He does have a strong cough effort. His sputum production had gone down. There is concern that his cough has increased over the last 24 hours. GASTROINTESTINAL: Soft to loose stools without any signs or symptoms of bleeding. GENITOURINARY: He is incontinent of urine but able to tell his daughter when he needs to be changed. MUSCULOSKELETAL: Has sharp shooting pains on his left side, some stiffness and contracture in his left arm and hand. INTEGUMENTARY: History of decubitus. Daughter reports no skin breakdown currently. NEUROLOGIC: Able to interact with family though certainly not oriented to place and time or have any insight into his current situation. PSYCHIATRIC: He does have some intermittent periods of agitation excitement. ENDOCRINE: Longstanding diabetes. HEMATOLOGIC/IMMUNOLOGIC: Continues to have recurrent pneumonia, looks like it has been twice, in the last several months. PHYSICAL EXAMINATION GENERAL APPEARANCE: He does appear actually much better than the last time I saw him a few weeks ago. He is making eye contact. He has some cough but less than prior. EYES: He has glasses on. ENT: A few residual teeth. No signs or symptoms of candidiasis. RESPIRATORY: As noted before. CARDIOVASCULAR: Temperature 97.2, O2 saturation on room air 94%, pulse 66, blood pressure 142/68. ABDOMEN: With active bowel tones. PEG tube site without any signs or symptoms of infection. SKIN: Remains quite dry. No skin breakdown noted on the back, side or heels. EXTREMITIES: He does have some spontaneous movement and able to move his right arm and leg. Left leg is quite stiffened and left hand quite contracted, as well as his arm. They do try to put something in that left hand to help prevent issues, but he will not leave it in there. PALLIATIVE CARE DISCUSSION: Who is present; myself, Giovanna AGUSTIN and daughter Iris. The hope with them that they would be able to have a conversation with the daughter when she came. Iris does have a POLST form, is aware of the fragility of the situation. She would not want his suffering prolonged, but currently would continue to treat the pneumonia as long as he has some perceived quality of life. The patient himself stated several times at this visit that he has cheated twice, that he is wanting to be around for his children. He is Mosque and finds comfort in his geeta. He uses his rosary frequently. It has been quite hectic as far as transitioning and integrating his care routine into the current family constellation and Iris is exhibiting some signs and symptoms of caregiver fatigue, is hoping to get some respite soon. She is aware of needing to further define goals of care and will follow up with her sister. IMPRESSION: This is a 76-year-old gentleman with multiple comorbidities and complications as a result of cerebrovascular accident and left hemiparesis, concerned about recent development of cough and adventitious breath sounds. The patient does appear much stronger and symptoms have just developed in the last 24 hours. Agreed to give another 24 hours to see if the patient improves or worsens. RECOMMENDATIONS/COUNSELING DONE 1. Central stroke syndrome. Pain improved. Titrated up to 300 mg b.i.d., this does appear to be managing him and can titrate further if needed. Has not needed hydrocodone for breakthrough and daughter is pleased with improvement. The patient is less distressed. 2. Protein-calorie malnutrition. He is working with [employer] has gotten his infusion up to 90 mL an hour. They have decreased it today to 75 secondary to increased cough. 3. Pyloric ulcer. The patient is now currently on PPI 40 mg b.i.d. No other signs and symptoms of bleeding noted. 4. Dysphagia. The patient remains high risk for recurrent aspiration pneumonia. He is in the bed with the head up, he does have a strong cough reflex. Concerned may be developing aspiration pneumonia again. 5. Advanced care planning. The patient has had multiple hospitalizations as well as complications. I suspect this will continue. Daughter, Iris, is aware the need to further define goals of care and will be talking to her sister. She does have [employer] for [employer]. She does have insight and understanding of the seriousness of his current condition. TIME SPENT: Sixty minutes with greater than 50% of this done in counseling and evaluation of his current respiratory status. The decision was made to hold and see if the patient improved or will treat with antibiotics, weighing the benefits and burdens. ADDENDUM: Call to Iris 1800, cough about the same, not worse. No fever, chills, increase of confusion from baseline. Feels is doing pretty well. Discussed if pain not adequately controlled can go up to TID on Gabepentin. Appt set for 4 weeks, will call if concerns sooner, reviewed s/s of worsening respiratory status and threshold to treat. JOB #: [id number] EXT JOB #:[id number] ZOHAIB
== END 2016-09-27 16:14 | disposition home or self-care (01) ==
LOC: PC 16:13
PROVIDERS: ATTEND Nurse Practitioner Adult Health
DX: Z51.5 Encounter for palliative care (principal); E46 Unspecified protein-calorie malnutrition; K52.9 Noninfective gastroenteritis and colitis, unspecified; R13.10 Dysphagia, unspecified; I63.9 Cerebral infarction, unspecified; G81.94 Hemiplegia, unspecified affecting left nondominant side; R53.83 Other fatigue; Z74.01 Bed confinement status; Z93.1 Gastrostomy status; E11.9 Type 2 diabetes mellitus without complications
CPT/HCPCS: 99350

== ENCOUNTER 2016-10-25 14:00 | Outpatient (CLI) | payer MEDICARE, MEDICAID ==
--- NOTE | 2016-10-25 16:38 | PROVIDER PROGRESS NOTE ---
Palliative Care Follow Up - Referral Referring Provider: Dr. Alcantara Time of Visit: [id number] Referral setting: Home (It is with considerable and taxing effort for the patient to leave the home, up in wheelchair with jose antonio lift for short periods of time, otherwise mostly bedbound) - Information Sources History obtained from: Family (Daughter not present for visit, but spoke by phone, exwife and son providing support/information) Exam limitations: Clinical condition (Patient with severe stroke, communcates some with family using verbalizations, some sentences and nonverbal gesturing) - History of Present Illness Update Brief HPI Update: This is a 76 year old Monegasque man who had a severe stroke with left hemiparesis on 04/03/2016. He has had recurrent pneumonias related to aspiration , and most recent hospitalization with a BID bleed. He has continued to improve , color improved, continues with cough but managing secretions. Tolerating TF at 90 ml per hour. Seems in good spirits. Daughters perception, pain improved on Gabapentin 300 mg BID for central left sided stroke pain. Social History - Living Situation Living arrangement: At home Living Situation: With family, With caregiver(s) (Patient care for by extended family, main caregiver Iris daughter, but his young sons and ex- provide hands on care. TOMAS pays daughter, and now has new CG for supplemental hours) Medications/Allergies - Medications Home Medications: Ambulatory Orders Medication Instructions Recorded Confirmed Aspirin 81 mg PEG DAILY 05/21/16 10/25/16 Insulin Glargine [Lantus] 20 unit SUBQ 0800 05/21/16 10/25/16 Atorvastatin Calcium 40 mg PEG QPM 07/25/16 10/25/16 Hydrocodone/Acetaminophen 1 tab PEG Q4HR PRN 07/25/16 10/25/16 [Hydrocodon-Acetaminophen 5-325] Insulin Lispro [Humalog Kwikpen 1 - 5 units SUBQ Q6HR PRN 07/25/16 10/25/16 U-100] Metoprolol Tartrate 25 mg PEG BID 07/25/16 10/25/16 Doxazosin Mesylate [Cardura] 4 mg PEG QPM 08/31/16 10/25/16 Gabapentin 300 mg PEG BID 08/31/16 10/25/16 Lorazepam 0.5 - 1 tab PEG BID PRN 08/31/16 10/25/16 Albuterol Sulf [Ventolin Hfa 1 - 2 puffs INH Q4HR PRN 10/17/16 10/25/16 Inhaler] Ondansetron [Ondansetron Odt] 4 mg PO Q6HR PRN 10/17/16 10/25/16 Pantoprazole Sodium [Protonix] 20 mg PEG BID 10/17/16 10/25/16 amLODIPine [Norvasc] 5 mg PEG DAILY 10/17/16 10/25/16 - Allergies Allergies/Adverse Reactions: Allergies Allergy/AdvReac Type Severity Reaction Status Date / Time No Known Drug Allergies Allergy Verified 05/21/16 01:22 Review of Systems - Constitutional Constitutional: reports: Fatigue, Weakness, Other (unable to weigh) - Eyes Eyes: reports: Corrective lenses (unknown), Other - Ears, Nose & Throat Ears, Nose & Throat: reports: Hearing loss, Other (few teeth left). denies: Mouth lesions - Cardiovascular Cariovascular: denies: Irregular heart rate, Edema - Respiratory Respiratory: reports: Cough (Cough strong, frequent, has oral suction can use independently) - Gastrointestinal Gastrointestinal: reports: Other (patient on TF). denies: Abdominal distention , Constipation, Diarrhea, Black stools, Bloody stools, Reflux/heartburn, Bloating - Genitourinary Genitourinary: reports: Incontinence - Musculoskeletal Musculoskeletal: reports: Stiffness, Limited range of motion (left sided hemiparesis) - Integumentary Integumentary: reports: Dryness (particularly in feet, no skin breakdown noted) - Neurological Neurological: reports: Memory problems, Slurred speech - Psychiatric Psychiatric: reports: Anxiety. denies: Depression - Endocrine Endocrine: reports: Intolerance to cold - Hematologic/Lymphatic Hematologic/Lymphatic: reports: Recurrent infections (aspiraton pnemonia) Physical Examination - Vital Signs Temperature: 96.8 C Pulse Rate: 68 Respiratory Rate: 18 O2 Saturation: 98 Blood Pressure: 142/60 - Physical Exam General Appearance: positive: No acute distress, Anxious Eyes Bilateral: positive: Conjunctivae nml ENT: positive: No signs of dehydration. negative: Oral lesions Neck: positive: No JVD, Trachea midline Respiratory: positive: No respiratory distress, Rhonchi (clear with cough effort , better than baseline last several visits). negative: Wheezes Cardiovascular: positive: Irregularly irregular Abdomen: positive: Nml bowel sounds Skin: positive: Dryness (bilat dryness/fungal nails) Extremities: positive: No pedal edema Neurologic/Psychiatric: positive: Mood/affect nml (Very demonstrative, waving and gesturing to communcate), Disoriented to place, Disoriented to time, Weakness (Patient able to move right arm without limitation, limited right leg, no movement left leg/arm contracted) Palliative Care - POLST Patient has POLST: No POLST Status: Full Code Pain: Pain improved, Location (left side contracture, swelling hyperanalgesia) Drowsiness: None Nausea: None Anxiety: Mild (1-3) Insomnia: Sleeps well Constipation: No Feelings of wellbeing/Perceived Quality of Life: Improved Performance Status: Family committed to caring for him at home, are going to have respite stay [place] [facility] [place] so daughter can have bday alliance party for daughter. Have not defined goals of care as far as POLST yet, remains full code, wanting sister to make joint decision with her, she visits every 6 weeks. Have forms to review. - Palliative Care Discussion: Surrogate decision maker []. Patient/Family understanding of the illness []. Information preferences []. Most important goals []. Patient/Family concerns [] . Family conference []. Impression and Recommendations - Palliative Care Impression: This is a 76 year old man at home with sequela of severe stroke with multiple comorbidities. Patient currently improved, tolerating and clearing secretions with cough and suction, tolerating TF. No further signs of GI bleeding, and pain improved. Scheduled for respite stay at [facility] this [place]. Recommendations/Counseling Done: 1. Central Pain Stroke syndrome. Patient improved on gabapentin 300 mg BID, have not needed to titrate, has hydrocodone for BTP, needing rarely. New Rx written. 2. Protien Calorie Malnutrition, do not have weights, but appears still thin but more filled out in face. Is getting 90 ml /hour of diabetic source with 30 ml flush q 3 hours. Off at night, helped with secretion management and aspiration risk. 3.Pyloric ulcer, no reported signs of bleeding or discomfort GERD. 4. Dysphagia, remains at risk for aspiration pneumonia, cough stronger, less need for oral suction. 5. Advanced Care Planning. Patient stable last few weeks, family pleased, increase TOMAS support. Will need to revisit when daughter present POLST and concerns. Time Spent: 30 minutes with greater than 50% done with counseling regarding care needs and facilitating transfer orders to [facility].
== END 2016-10-25 14:01 | disposition home or self-care (01) ==
LOC: PC 14:00
PROVIDERS: ATTEND Nurse Practitioner Adult Health
DX: Z51.5 Encounter for palliative care (principal); G89.0 Central pain syndrome; E46 Unspecified protein-calorie malnutrition; K25.9 Gastric ulcer, unspecified as acute or chronic, without hemorrhage or perforation; K21.9 Gastro-esophageal reflux disease without esophagitis; R13.10 Dysphagia, unspecified; Z74.01 Bed confinement status; I69.354 Hemiplegia and hemiparesis following cerebral infarction affecting left non-dominant side; R05 Cough; Z79.82 Long term (current) use of aspirin; Z79.4 Long term (current) use of insulin; Z79.51 Long term (current) use of inhaled steroids; Z93.1 Gastrostomy status; R53.83 Other fatigue; R53.1 Weakness; H91.90 Unspecified hearing loss, unspecified ear; R32 Unspecified urinary incontinence; F41.9 Anxiety disorder, unspecified; J69.0 Pneumonitis due to inhalation of food and vomit; R41.0 Disorientation, unspecified
CPT/HCPCS: 99348

== ENCOUNTER 2016-11-18 21:09 | Outpatient (CLI) | payer MEDICARE, MEDICAID | END 2016-11-18 21:10 | disposition critical access hospital (66) | LOC: EMS 21:09 | PROVIDERS: ATTEND Surgery | DX: Z43.1 Encounter for attention to gastrostomy (principal) | CPT/HCPCS: A0425; A0429 ==

== ENCOUNTER 2016-11-18 21:25 | Emergency (ER) | payer MEDICARE, MEDICAID ==
[2016-11-18 21:32] VITALS: BP 180/66
--- NOTE | 2016-11-18 23:33 | XRAY Preliminary Report ---
Exam: XR Abdomen 2 View IMPRESSION: Linear metallic density that is seen in the left upper quadrant, could be a foreign body measuring 2 cm, could be in the stomach. There is a tube which projects at the left upper quadrant, c ould be extending into the left upper quadrant. Correlate clinically. [facility] SITE ID: [id number]
--- NOTE | 2016-11-18 23:35 | XRAY Report ---
EXAM: ABDOMEN RADIOGRAPHY EXAM DATE: 11/18/2016 11:08 PM. CLINICAL HISTORY: Dislodged feeding tube, possible remnants . COMPARISON: CT abdomen pelvis 08/31/2016. TECHNIQUE: 2 views. FINDINGS: Bowel Gas Pattern: Nonobstructive nonspecific bowel gas pattern. Linear metallic density that is seen in the left upper quadrant, could be a foreign body measuring 2 cm, could be in the stomach. There is a tube which projects at the left upper quadrant, could be exte nding into the left upper quadrant. Correlate clinically. No definite free air is seen. IMPRESSION: Linear metallic density that is seen in the left upper quadrant, could be a foreign body measuring 2 cm, could be in the stomach. There is a tube which projects at the left upper quadrant, c ould be extending into the left upper quadrant. Correlate clinically. KUNAL Referring Provider Line: [phone] SITE ID: [id number]
[2016-11-18] MEDS ORDERED: LORazepam 0.5 MG TABLET ONE (23:57)
[2016-11-18] MEDS ORDERED: HYDROcod/ACETAM 5/325 MG TABLET ONE (23:57)
[2016-11-19] MEDS ORDERED: LIDOCAINE 2% URO-JET 5 ML SYRINGE UR ONE (00:03)
--- NOTE | 2016-11-19 00:05 | XRAY Preliminary Report ---
Exam: XR Abdomen 1 View IMPRESSION: The previously seen tube has been removed. Linear metallic density foreign body measuring 2 cm is seen in the left upper quadrant, unchanged. [facility] SITE ID: [id number]
--- NOTE | 2016-11-19 00:07 | XRAY Report ---
EXAM: ABDOMEN RADIOGRAPHY EXAM DATE: 11/18/2016 11:19 PM. CLINICAL HISTORY: Retained portion of feeding tube. COMPARISON: Abdomen x-ray 11/18/2016. TECHNIQUE: 1 view. FINDINGS: Bowel Gas Pattern: Within normal limits. No dilated loops. Other: The previously seen tube has been removed. Linear metallic density foreign body measuring 2 cm is seen in the left upper quadrant, unchanged. IMPRESSION: The previously seen tube has been removed. Linear metallic density foreign body measuring 2 cm is seen in the left upper quadrant, unchanged. [facility] Referring Provider Line: [phone] SITE ID: [id number]
[2016-11-19] MEDS ORDERED: SODIUM CHLORIDE FLUSH 0.9% 10 ML SYRINGE IVP ONE (00:10)
--- NOTE | 2016-11-19 01:05 | ED Physician Documentation ---
History of Present Illness - Stated complaint Stated Complaint: DISLODGED FEEDING TUBE - Chief complaint Chief Complaint: General - History obtained from History obtained from: Patient, Family - History of Present Illness Timing: Today - Additonal information Additional information: Patient is a 76 year old male with a history of a prior stroke with a PEG tube in place. patient is coming in becomes his peg tub came out. the tube has been out for about 45 minutes. Review of Systems Constitutional: denies: Fever, Chills Nose: denies: Rhinorrhea / runny nose, Congestion Throat: denies: Sore throat Cardiac: denies: Chest pain / pressure, Palpitations GI: reports: Constipation. denies: Abdominal Pain, Nausea, Vomiting : denies: Dysuria, Frequency Skin: denies: Rash, Lesions Musculoskeletal: denies: Neck pain, Back pain, Extremity pain Neurologic: denies: Generalized weakness, Focal weakness, Numbness Psychiatric: denies: Depressed Immunocompromised: denies: Immunocompromised PD PAST MEDICAL HISTORY - Past Medical History Cardiovascular: Hypertension Respiratory: COPD Neuro: CVA Endocrine/Autoimmune: Type 2 diabetes GI: None : None HEENT: Chronic hearing loss Psych: Anxiety Musculoskeletal: Gout Derm: None - Past Surgical History Past Surgical History: Yes General: Other - Present Medications Home Medications: Ambulatory Orders Medication Instructions Recorded Confirmed Aspirin 81 mg PEG DAILY 05/21/16 10/25/16 Insulin Glargine [Lantus] 20 unit SUBQ 0800 05/21/16 10/25/16 Atorvastatin Calcium 40 mg PEG QPM 07/25/16 10/25/16 Hydrocodone/Acetaminophen 1 tab PEG Q4HR PRN 07/25/16 10/25/16 [Hydrocodon-Acetaminophen 5-325] Insulin Lispro [Humalog Kwikpen 1 - 5 units SUBQ Q6HR PRN 07/25/16 10/25/16 U-100] Metoprolol Tartrate 25 mg PEG BID 07/25/16 10/25/16 Doxazosin Mesylate [Cardura] 4 mg PEG QPM 08/31/16 10/25/16 Gabapentin 300 mg PEG BID 08/31/16 10/25/16 Lorazepam 0.5 - 1 tab PEG BID PRN 08/31/16 10/25/16 Albuterol Sulf [Ventolin Hfa 1 - 2 puffs INH Q4HR PRN 10/17/16 10/25/16 Inhaler] Ondansetron [Ondansetron Odt] 4 mg PO Q6HR PRN 10/17/16 10/25/16 Pantoprazole Sodium [Protonix] 20 mg PEG BID 10/17/16 10/25/16 amLODIPine [Norvasc] 5 mg PEG DAILY 10/17/16 10/25/16 Aspirin [Aspirin] 81 mg PO DAILY 11/18/16 11/18/16 Atorvastatin Calcium 40 mg PO DAILY 11/18/16 11/18/16 Doxazosin [Cardura] 1 mg PO BID 11/18/16 11/18/16 - Allergies Allergies/Adverse Reactions: Allergies Allergy/AdvReac Type Severity Reaction Status Date / Time No Known Drug Allergies Allergy Verified 11/18/16 21:32 - Social History Does the pt smoke?: No Smoking Status: Former smoker Does the pt drink ETOH?: No Does the pt have substance abuse?: No - Immunizations Immunizations are current?: Yes - POLST Patient has POLST: No PD ED PE NORMAL - Vitals Vital signs reviewed: Yes - General General: Alert and oriented X 3 - HEENT HEENT: Atraumatic - Neck Neck: Supple, no meningeal sign - Cardiac Cardiac: RRR, No murmur - Derm Derm: Normal color, Warm and dry, No rash - Extremities Extremities: No deformity, No edema - Neuro Neuro: Alert and oriented X 3 - Psych Psych: Normal mood PD ED PE EXPANDED - General General: Alert, No acute distress - HEENT HEENT: Dry mucous membranes - Respiratory Respiratory: Other (course breath sounds bilaterally) - Abdomen Abdomen: Surgical scars (Peg tub side in left upper quadrant) Results - Vitals Vitals: Vital Signs - 24 hr 11/18/16 21:27 Temperature 36.3 C L Heart Rate 67 Respiratory 18 Rate Blood Pressure 180/66 H O2 Saturation 96 Oxygen O2 Source [Without Activity] Room air O2 Source Room air - Rads (name of study) abd x-ray Radiology: Final report received (properly placed g tube) PD MEDICAL DECISION MAKING - ED course Complexity details: reviewed old records, reviewed results, re-evaluated patient , considered differential, d/w patient, d/w family ED course: Patient was seen and examined at bedside. Patient's g tube had been dislodged and it looked like it was torn on the end so an x-ray was performed to make sure there was no retained fb. after imaging was completed 18g G tube was placed and confirmed by gastrograffin x-ray. patient was treated with his home night meds and was stable for discharge with outpatient follow up. Departure - Departure Disposition: 01 Home, Self Care Clinical Impression: PEG (percutaneous endoscopic gastrostomy) adjustment/replacement/removal Condition: Good Instructions: ED G Tube Replacement Follow-Up: Louis Alcantara MD [Primary Care Provider] - As Needed Comments: Your PEG tube is replaced in the right position. You can use it as you previously were. You are showing signs of constipation so you might want to decrease the amount of opiates that they are taking. YOu should follow up with your doctor as needed. You may return to the emergency department at any time for new, worsening or uncontrollable symptoms.
--- NOTE | 2016-11-19 01:22 | XRAY Preliminary Report ---
Exam: XR Abdomen 1 View IMPRESSION: Gastrostomy tube tip located within the stomach. [facility] SITE ID: [id number]
--- NOTE | 2016-11-19 01:24 | XRAY Report ---
EXAM: ABDOMEN RADIOGRAPHY EXAM DATE: 11/19/2016 01:02 AM. CLINICAL HISTORY: Gastrostomy tube replacement. COMPARISON: 11/18/2016 TECHNIQUE: 1 view. 120 ML Gastrografin contrast material was injected via the gastrostomy tube prior to exposure. FINDINGS: Bowel Gas Pattern: No abnormally dilated bowel loops. Other: Gastrostomy tube tip is located within the stomach. No definite contrast extravasation on the provided radiograph. IMPRESSION: Gastrostomy tube tip located within the stomach. KENNETHA Referring Provider Line: [phone] SITE ID: [id number]
[2016-11-19] MEDS ORDERED: HYDROcod/ACETAM 5/325 MG TABLET ONE ×2 (01:38→01:40)
[2016-11-19] MEDS ORDERED: LORazepam 0.5 MG TABLET ONE (01:38)
[2016-11-19] MEDS: LORazepam 0.5 MG TABLET PO STA (01:40)
[2016-11-19] MEDS: HYDROcod/ACETAM 5/325 MG TABLET PO STA (01:40)
[2016-11-19] MEDS ORDERED: MIN OIL/DIMETHICON/COCONUT OIL 92 GM TUBE TOP ONE (02:23)
== END 2016-11-19 02:30 | disposition home or self-care (01) ==
LOC: EDUNIT# → ED 21:25
DX: K94.23 Gastrostomy malfunction (principal); I10 Essential (primary) hypertension; J44.9 Chronic obstructive pulmonary disease, unspecified; Z86.73 Personal history of transient ischemic attack (TIA), and cerebral infarction without residual deficits; E11.9 Type 2 diabetes mellitus without complications; Z79.4 Long term (current) use of insulin; M10.9 Gout, unspecified; Z79.82 Long term (current) use of aspirin; Z87.891 Personal history of nicotine dependence
CPT/HCPCS: 74000; 74020; 99283; A6250; A9270

== ENCOUNTER 2016-11-19 02:33 | Outpatient (CLI) | payer MEDICARE, MEDICAID | END 2016-11-19 02:34 | disposition home or self-care (01) | LOC: EMS 02:33 | PROVIDERS: ATTEND Surgery | DX: Z43.1 Encounter for attention to gastrostomy (principal) | CPT/HCPCS: A0425; A0428 ==

== ENCOUNTER 2016-12-12 12:00 | Outpatient (CLI) | payer MEDICARE, MEDICAID ==
--- NOTE | 2016-12-12 18:07 | PROVIDER PROGRESS NOTE ---
Palliative Care Follow Up - Referral Referring Provider: Louis Alcantara MD Time of Visit: 12:00 Referral setting: Home (Seen in home setting due to considerable and taxing effort for the patient to leave the home; he is up in a wheelchair with Kari lift for short period of time, otherwise mostly bedbound.) - Information Sources History obtained from: Patient, Family Exam limitations: Clinical condition (verbal communication severely limited and very difficult to interpret; uses hand gestures) - History of Present Illness Update Brief HPI Update: This is a 76-year-old Croatian man who had a severe stroke with left hemiparesis on 04/03/2016. He has had recurrent pneumonias related to aspiration , and his most recent hospitalization on 08/31/2016 was for a GI bleed. He has been generally stable since the prior palliative care visit in October 2016. He looks well, his face remains healthily filled out, his L side pain is adequately managed with scheduled gabapentin and [place] for BTP. Secretions are managed with suctioning. His respiratory status is stable. PEG tube is in place and runs it at 90ml during the day. He has developed persistent pruritus and has scratched raw an area on the right side of his back about 7 cm in diameter as well as a larger sized area on his coccyx and buttocks. His daughter reports that he will take a wash cloth and rub it vigorously until the skin is excoriated. The sacral lesion has a purplish discoloration and may involve some deep tissue damage. His daughter has tried various topical solutions, including Dessitin and A&D, as well as a steroid cream, and has seen it improve, then it returns as he continues to scratch at these two areas. She used cetirizine that had previously been prescribed for itching and found that he became too sedated, but she did give it to him along with [place]. The daughter is the TOMAS caregiver, her mother and the patients teenage son also help care for and they are careful to reposition him every 2 hours and also sit him in his wheelchair every day via Kari lift. He is immobile and mainly bedbound so is at high risk of skin breakdown. Information obtained from daughter, patient, and EMR chart notes from [facility]. Social History - Living Situation Living arrangement: At home Living Situation: With family (Lives with his large, loving extended family. His daughter is his TOMAS caregiver and his former assists with his care, as does his teenage son. He appears well cared for.) Medications/Allergies - Medications Home Medications: Ambulatory Orders Medication Instructions Recorded Confirmed Aspirin 81 mg PEG DAILY 05/21/16 10/25/16 Insulin Glargine [Lantus] 20 unit SUBQ 0800 05/21/16 10/25/16 Atorvastatin Calcium 40 mg PEG QPM 07/25/16 10/25/16 Hydrocodone/Acetaminophen 1 tab PEG Q4HR PRN 07/25/16 12/13/16 [Hydrocodon-Acetaminophen 5-325] Insulin Lispro [Humalog Kwikpen 1 - 5 units SUBQ Q6HR PRN 07/25/16 10/25/16 U-100] Metoprolol Tartrate 25 mg PEG BID 07/25/16 10/25/16 Doxazosin Mesylate [Cardura] 4 mg PEG QPM 08/31/16 10/25/16 Gabapentin 300 mg PEG BID 08/31/16 10/25/16 Lorazepam 0.5 - 1 tab PEG BID PRN 08/31/16 10/25/16 Albuterol Sulf [Ventolin Hfa 1 - 2 puffs INH Q4HR PRN 10/17/16 10/25/16 Inhaler] Ondansetron [Ondansetron Odt] 4 mg PO Q6HR PRN 10/17/16 10/25/16 Pantoprazole Sodium [Protonix] 40 mg PEG BID 10/17/16 12/13/16 amLODIPine [Norvasc] 5 mg PEG DAILY 10/17/16 10/25/16 Aspirin [Aspirin] 81 mg PO DAILY 11/18/16 11/18/16 Atorvastatin Calcium 40 mg PO DAILY 11/18/16 11/18/16 Doxazosin [Cardura] 1 mg PO BID 11/18/16 11/18/16 - Allergies Allergies/Adverse Reactions: Allergies Allergy/AdvReac Type Severity Reaction Status Date / Time No Known Drug Allergies Allergy Verified 11/18/16 21:32 Review of Systems - Constitutional Constitutional: reports: Weakness - Respiratory Respiratory: reports: Sputum production - Gastrointestinal Gastrointestinal: denies: Bloody stools - Musculoskeletal Musculoskeletal: reports: Limited range of motion (left side, with hand contractures), Other (pain on left side) - Integumentary Integumentary: reports: Pruritis (excoriated skin, self-inflicted, on L side of back and buttocks/sacral region) - Neurological Neurological: reports: General weakness, Other (alert, interactive, very difficult to understand his speech patterns) Physical Examination - Vital Signs Temperature: 97.2 C Pulse Rate: 58 O2 Saturation: 95 Blood Pressure: 152/60 - Physical Exam General Appearance: positive: Alert, Mild distress (regarding his pruritus, discomfort on left side) ENT: positive: Other (missing numerous teeth) Neck: positive: Trachea midline Respiratory: positive: Other (crackles on RLL, diminished breath sounds bilaterally, uses accessory muscles) Abdomen: positive: Nml bowel sounds, No distention Skin: positive: Puritis Extremities: positive: No pedal edema, Other (protective bootie on left foot) Neurologic/Psychiatric: positive: Disoriented to place, Disoriented to time, Other (no insight or understanding of his situation) Palliative Care - POLST Patient has POLST: No Pain: Pain unchanged (Left side pain is stable, but pruritus persists and intensified) Drowsiness: None Nausea: None Dyspnea: None Constipation: No Performance Status: Current level of functioning: Bedbound, total care Palliative Care Performance Status: 30% - Palliative Care Discussion: Who is present: Patient, family members, the TOMAS caregiver arrived toward the end of my visit. Surrogate decision maker: Iris Warren, daughter, TOMAS full-time caregiver, Home [phone] Most important goals: Patient currently has no POLST, but Iris has been given a blank copy. She has not yet spoken to her sister about defining their goals of care, and will include all the siblings in the family discussion. Patient/family concerns: Persistent and severe itching is compromising his skin. Also Iris is requesting another respite break and will speak to her university lecturer regarding her eligibility and initiating the process. Impression and Recommendations - Palliative Care Impression: This is a 76-year-old man with multiple comorbidities and complications following a CVA and left hemiparesis less than a year ago. His condition is currently stable, but he has developed persistent pruritus so aggravating that he has excoriated the skin on his back, buttocks and sacral area and is at risk for skin breakdown. Recommendations/Counseling Done: 1. Central stroke syndrome: Continue gabapentin 300mg BID, pain controlled currently, can increase if needed. Renewed script for [place] 08/3250 tab PT Q4h prn. 2. Pruritus of back and buttocks: Use half dose of cetirizine and do not administer it at same time as [place], to avoid over sedation. Start hydrocortisone cream 2.5% apply topically BID until resolved. Continue barrier cream. 3. Pyloric ulcer: Renewed script for pantoprazole 40mg BID per tube. 4. Advanced care planning: Iris to speak with her sister and other sibling (teenage son of her father) to define their goals of care. Time Spent: 45 minutes with greater than 50% done in counseling and evaluation of pruritus and symptom management, and discussing advanced care planning.
== END 2016-12-12 12:01 | disposition home or self-care (01) ==
LOC: PC 12:00
PROVIDERS: ATTEND Nurse Practitioner
DX: Z51.5 Encounter for palliative care (principal); I69.354 Hemiplegia and hemiparesis following cerebral infarction affecting left non-dominant side; Z74.01 Bed confinement status; L29.9 Pruritus, unspecified; Z79.82 Long term (current) use of aspirin; Z79.4 Long term (current) use of insulin; Z79.891 Long term (current) use of opiate analgesic; Z79.51 Long term (current) use of inhaled steroids; K25.9 Gastric ulcer, unspecified as acute or chronic, without hemorrhage or perforation; S30.810D Abrasion of lower back and pelvis, subsequent encounter; Y28.8XXD Contact with other sharp object, undetermined intent, subsequent encounter
CPT/HCPCS: 99349

== ENCOUNTER 2016-12-28 21:08 | Outpatient (CLI) | payer MEDICARE, MEDICAID | END 2016-12-28 21:09 | disposition critical access hospital (66) | LOC: EMS 21:08 | PROVIDERS: ATTEND Surgery | DX: R58 Hemorrhage, not elsewhere classified (principal) | CPT/HCPCS: A0425; A0429 ==

== ENCOUNTER 2016-12-28 21:24 | Inpatient (IN) | payer MEDICARE, MEDICAID ==
[2016-12-28] MEDS ORDERED: PANTOPRAZOLE 40 MG VIAL IVP STA (21:41)
[2016-12-28] MEDS ORDERED: FAMOTIDINE 20 MG/50 ML 50 ML IV ONE ×2 (21:44→21:56)
--- NOTE | 2016-12-28 21:44 | ED Physician Documentation ---
PD HPI GI BLEED - Stated complaint Stated Complaint: FEEDING TUBE COMPLICATIONS - Chief complaint Chief Complaint: Abd Pain - History obtained from History obtained from: Patient, Family, EMS - History of Present Illness Timing - onset: How many hours ago (1), Today Timing - duration: Hours (1) Timing - details: Gradual onset Pain level max: 0 Pain level now: 0 Associated symptoms: Coffee ground emesis (dark blood from G tube today). No: Black/tarry stool, Constipation, Abdominal pain Contributing factors: Other (has been off PPI for the last week due to insurance issues). No: Anticoagulated Improved by: Other (nothing) Worsened by: Other (nothing) Similar symptoms before: Diagnosis (upper GI bleed, ulcer) Recently seen: Not recently seen Review of Systems Ten Systems: 10 systems reviewed and negative Constitutional: denies: Fever, Chills Nose: denies: Rhinorrhea / runny nose, Congestion Respiratory: denies: Cough Skin: denies: Rash Musculoskeletal: denies: Neck pain, Back pain Neurologic: denies: Headache PD PAST MEDICAL HISTORY - Past Medical History Past Medical History: Yes Cardiovascular: Hypertension Respiratory: COPD Neuro: CVA Endocrine/Autoimmune: Type 2 diabetes GI: None : None HEENT: Chronic hearing loss Psych: Anxiety Musculoskeletal: Gout Derm: None - Past Surgical History Past Surgical History: Yes General: Other - Present Medications Home Medications: Ambulatory Orders Medication Instructions Recorded Confirmed Aspirin 81 mg PEG DAILY 05/21/16 12/28/16 Insulin Glargine [Lantus] 20 unit SUBQ 0800 05/21/16 12/28/16 Atorvastatin Calcium 40 mg PEG QPM 07/25/16 12/28/16 Hydrocodone/Acetaminophen 1 tab PEG Q4HR PRN 07/25/16 12/28/16 [Hydrocodon-Acetaminophen 5-325] Insulin Lispro [Humalog Kwikpen 1 - 5 units SUBQ Q6HR PRN 07/25/16 12/28/16 U-100] Metoprolol Tartrate 25 mg PEG BID 07/25/16 12/28/16 Doxazosin Mesylate [Cardura] 4 mg PEG QPM 08/31/16 12/28/16 Gabapentin 300 mg PEG BID 08/31/16 12/28/16 Lorazepam 0.5 - 1 tab PEG BID PRN 08/31/16 12/28/16 Albuterol Sulf [Ventolin Hfa 1 - 2 puffs INH Q4HR PRN 10/17/16 12/28/16 Inhaler] Ondansetron [Ondansetron Odt] 4 mg PO Q6HR PRN 10/17/16 12/28/16 Pantoprazole Sodium [Protonix] 40 mg PEG BID 10/17/16 12/28/16 amLODIPine [Norvasc] 5 mg PEG DAILY 10/17/16 12/28/16 Aspirin [Aspirin] 81 mg PO DAILY 11/18/16 12/28/16 Atorvastatin Calcium 40 mg PO DAILY 11/18/16 12/28/16 Doxazosin [Cardura] 1 mg PO BID 11/18/16 12/28/16 - Allergies Allergies/Adverse Reactions: Allergies Allergy/AdvReac Type Severity Reaction Status Date / Time No Known Drug Allergies Allergy Verified 12/28/16 21:35 - Social History Does the pt smoke?: No Smoking Status: Former smoker Does the pt drink ETOH?: No Does the pt have substance abuse?: No - Immunizations Immunizations are current?: Yes - POLST Patient has POLST: No PD ED PE NORMAL - Vitals Vital signs reviewed: Yes - General General: No acute distress, Well developed/nourished, Other (alert) - HEENT HEENT: PERRL, Moist mucous membranes - Neck Neck: Supple, no meningeal sign - Cardiac Cardiac: RRR, Strong equal pulses - Respiratory Respiratory: No respiratory distress, Clear bilaterally - Abdomen Abdomen: Soft, Non tender, Other (PEG tube in place, coffee ground stomach fluid from g-tube. gastroccult +) - Rectal Rectal: Other (obvious melena, had bowel movement in the ED) - Derm Derm: Warm and dry - Neuro Neuro: Other (alert, difficult to understand speech) Results - Vitals Vitals: Vital Signs - 24 hr 12/28/16 12/28/16 21:32 21:41 Temperature 36.4 C L Heart Rate 90 Heart Rate [ 86 Apical] Respiratory 24 18 Rate Blood Pressure 124/90 H Blood Pressure 126/53 L [Right Brachial artery] O2 Saturation 97 98 Oxygen O2 Source [Without Activity] Room air O2 Source Room air - Labs Labs: Laboratory Tests 12/28/16 12/28/16 12/28/16 21:48 21:48 21:48 WBC 17.2 H RBC 4.47 L Hgb 11.1 L Hct 35.4 L MCV 79.1 L MCH 24.9 L MCHC 31.5 L RDW 16.6 H Plt Count 246 MPV 9.8 Neut # 12.9 H Lymph # 2.6 Pierce # 0.9 Eos # 0.6 Baso # 0.1 Absolute Nucleated RBC 0.00 Nucleated RBCs 0.0 PT 13.1 H INR 1.2 APTT 23.4 L Sodium 142 Potassium 5.0 Chloride 102 Carbon Dioxide 30 Anion Gap 10.0 BUN 55 H Creatinine 0.9 Estimated GFR (MDRD) 82 L Glucose 224 H Calcium 9.1 Total Bilirubin 0.5 AST 49 H ALT 53 Alkaline Phosphatase 90 Total Protein 6.5 L Albumin 3.0 L Globulin 3.5 Albumin/Globulin Ratio 0.9 L Lipase 41 Blood Type Antibody Screen 12/28/16 21:48 WBC RBC Hgb Hct MCV MCH MCHC RDW Plt Count MPV Neut # Lymph # Pierce # Eos # Baso # Absolute Nucleated RBC Nucleated RBCs PT INR APTT Sodium Potassium Chloride Carbon Dioxide Anion Gap BUN Creatinine Estimated GFR (MDRD) Glucose Calcium Total Bilirubin AST ALT Alkaline Phosphatase Total Protein Albumin Globulin Albumin/Globulin Ratio Lipase Blood Type O POSITIVE Antibody Screen NEGATIVE PD MEDICAL DECISION MAKING - ED course Complexity details: reviewed results, re-evaluated patient, considered differential, d/w patient, d/w family, d/w oncology consultant ED course: Patient is a 76-year-old male with a feeding tube who has stopped his PPI and now has an upper GI bleed. Coffee-ground emesis present. Coffee-ground gastric contents removed through the G-tube as well. Given Protonix, IV fluids. Discussed with Dr. Alvarez, hospitalist who will admit. Also discussed with Dr. Marie, surgery who will come and evaluate the patient in the morning. Patient has a history of bleeding ulcers. This document was made in part using voice recognition software. While efforts are made to proofread this document, sound alike and grammatical errors may occur. Departure - Departure Disposition: 66 [facility] DC/Marleen Clinical Impression: Upper GI bleed Condition: Stable Discharge Date/Time: 12/28/16 22:27
[2016-12-28] MEDS ORDERED: PANTOPRAZOLE 40 MG VIAL ONE (21:56)
[2016-12-28] MEDS ORDERED: SODIUM CHLORIDE 0.9% 1,000 ML IV ONE (21:57)
[2016-12-28] MEDS ORDERED: LORazepam 0.5 MG TABLET PEG PRN (22:01)
[2016-12-28 22:04] LABS: BASOPHILS # (AUTO) 0.1 10^3/uL (0.0-0.1); BASOPHILS % (AUTO) 0.5 %; EOSINOPHILS # (AUTO) 0.6 10^3/uL (0.0-0.7); EOSINOPHILS % (AUTO) 3.7 %; HCT - HEMATOCRIT 35.4 % (42.0-52.0); HGB - HEMOGLOBIN 11.1 g/dL (14.0-18.0); LYMPHOCYTES # (AUTO) 2.6 10^3/uL (1.5-3.5); LYMPHOCYTES % (AUTO) 15.2 %; MEAN CORPUSCULAR HEMOGLOBIN 24.9 pg (27.0-31.0); MEAN CORPUSCULAR HGB CONC 31.5 g/dL (32.0-36.0); MEAN CORPUSCULAR VOLUME 79.1 fL (80.0-94.0); MEAN PLATELET VOLUME 9.8 fL (7.4-11.4); MONOCYTES # (AUTO) 0.9 10^3/uL (0.0-1.0); MONOCYTES % (AUTO) 5.4 %; NEUTROPHILS # (AUTO) 12.9 10^3/uL (1.5-6.6); NEUTROPHILS % (AUTO) 75.2 %; RED BLOOD COUNT 4.47 10^6/uL (4.70-6.10); RED CELL DISTRIBUTION WIDTH 16.6 % (12.0-15.0); UNCORRECTED WHITE BLOOD COUNT 17.2 x10^3/uL; WHITE BLOOD COUNT 17.2 x10^3/uL (4.8-10.8)
[2016-12-28] MEDS ORDERED: ACETAMINOPHEN 325 MG TABLET PO PRN (22:04)
[2016-12-28] MEDS ORDERED: SODIUM CHLORIDE FLUSH 0.9% 10 ML SYRINGE IVP PRN (22:04)
[2016-12-28] MEDS ORDERED: PROCHLORPERAZINE 10 MG/2 ML VIAL IVP PRN (22:04)
[2016-12-28] MEDS ORDERED: ONDANSETRON ODT 4 MG TABLET TL PRN (22:04)
[2016-12-28] MEDS ORDERED: HYDROcod/ACETAM 10 MG/325 MG TABLET PEG PRN (22:04)
[2016-12-28 22:08] LABS: INR 1.2 (0.8-1.2); PT - PROTHROMBIN TIME 13.1 secs (9.9-12.6)
[2016-12-28 22:12] LABS: ALBUMIN/GLOBULIN RATIO 0.9 (1.0-2.2); BILIRUBIN,TOTAL 0.5 mg/dL (0.2-1.0); CALCIUM 9.1 mg/dL (8.5-10.3); CREATININE 0.9 mg/dL (0.6-1.2); TOTAL PROTEIN 6.5 g/dL (6.7-8.2)
[2016-12-28 22:13] LABS: PARTIAL THROMBOPLASTIN TIME 23.4 secs (24.9-33.3)
[2016-12-28] MEDS ORDERED: SODIUM CHLORIDE 0.9% 1,000 ML IV SCH (23:00)
[2016-12-28] MEDS: HYDROcod/ACETAM 5/325 MG TABLET PEG PRN (23:43)
[2016-12-28] MEDS ORDERED: PROPOFOL 1000 MG/100 ML 0 ML IV ONE (23:49)
[2016-12-29] MEDS ORDERED: LORazepam 2 MG/ML SYRINGE IVP PRN (00:59)
--- NOTE | 2016-12-29 03:02 | HISTORY & PHYSICAL EXAMINATION ---
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 We were unable to get history from the patient secondary to his aphasia and the history was provided by the patient's daughter and emergency room physician. According to the patient's daughter the patient was in his normal state of health until this evening when the patient was complaining of nausea. The patient's daughter who takes care of the patient noted that the patient had brought up some bloody content in his mouth and therefore she went to check his feeding tube and when she irrigated it she noted there was lewis blood coming out of his PEG tube and she decided to bring him into the emergency department given his recent GI bleeding. The patient's daughter states that the patient has continued on his aspirin since his discharge from the hospital and had been taking Protonix orally until just a week ago when she states that he ran out of his Protonix. She states that she went to the pharmacy to refill it but his insurance company would not allow him to refill it as they thought it was too early for refill. The patient has gone 1 week without taking any PPIs. The patient otherwise denies any headaches, blurred vision, runny nose, sore throat, nasal congestion, cough, fevers, chills , chest pain, shortness of air, orthopnea, PND, increased lower extremity swelling, abdominal pain, changes in weight, urinary urgency, urinary frequency , dysuria or any new focal neurologic deficits. On presentation to the emergency department the patient was afebrile his heart rate was in the 90s but blood pressure was stable and he was not in any respiratory distress. When the emergency room physician went to assess the patient the patient had an episode of hematemesis and had obvious bleeding from his PEG tube. The patient also had an episode of melanotic stools in the emergency department. The patient's lab work revealed a hemoglobin of 11.1 which was near the patient's previous baseline and a leukocytosis of 17.2. The patient otherwise had no other significant lab abnormalities. Although the patient's hemoglobin was stable and he was hemodynamically stable it was obvious he was having a active GI bleed which appeared likely to be an upper GI bleed. The patient was admitted for upper GI bleed and surgery was notified of the patient's admission and asked that the patient be kept n.p.o. for likely EGD tomorrow morning. History - Past Medical History Cardiovascular: reports: Hypertension Respiratory: reports: COPD Neuro: reports: CVA Endocrine/Autoimmune: reports: Type 2 diabetes GI: reports: None : reports: None HEENT: reports: Chronic hearing loss Psych: reports: Anxiety Musculoskeletal: reports: Gout Derm: reports: None MRSA Hx?: No Other Past Medical History: 1. CVA on 03/24/2017 with residual left-sided weakness, dysphasia status post PEG tube placement with current PEG tube feedings and aphasia. 2. Insulin-dependent diabetes. 3. Hypertension. 4. Hyperlipidemia. 5. 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 Moved to [facility] about 4 years ago to be closer to his daughter after he had gone through a bad divorce and was very stressed out. The patient is currently . He has 5 children. He currently lives with his daughter and 2 sons. The patient was previously completely independent prior to his stroke in March 2016. Patient is now completely dependent on his daughter for most of his daily activities of living. The patient was a heavy smoker until March 2016 when he had a stroke. The patient smoked up to 3 packs a day but more recently had been down to just a pack a day. He been smoking over 50 years. He does not drink alcohol or use any illicit drugs. - Substance History Use: Uses substance without health or social issues: NONE Abuse: Recurrent use of substance despite neg consequences: NONE Dependence: Experiences withdrawal or developed tolerances: NONE - POLST Patient has POLST: No POLST Status: Full Code (The family is still deciding about CODE STATUS. The daughter however stated that she does not want him to live on a ventilator or in a vegetative state.) Meds/Allgy - Home Medications Home Medications: Ambulatory Orders Medication Instructions Recorded Confirmed Aspirin 81 mg PEG DAILY 05/21/16 12/28/16 Insulin Glargine [Lantus] 20 unit SUBQ 0800 05/21/16 12/28/16 Atorvastatin Calcium 40 mg PEG QPM 07/25/16 12/28/16 Hydrocodone/Acetaminophen 1 tab PEG Q4HR PRN 07/25/16 12/28/16 [Hydrocodon-Acetaminophen 5-325] Insulin Lispro [Humalog Kwikpen 1 - 5 units SUBQ Q6HR PRN 07/25/16 12/28/16 U-100] Metoprolol Tartrate 25 mg PEG BID 07/25/16 12/28/16 Doxazosin Mesylate [Cardura] 4 mg PEG QPM 08/31/16 12/28/16 Gabapentin 300 mg PEG BID 08/31/16 12/28/16 Lorazepam 0.5 - 1 tab PEG BID PRN 08/31/16 12/28/16 Albuterol Sulf [Ventolin Hfa 1 - 2 puffs INH Q4HR PRN 10/17/16 12/28/16 Inhaler] Ondansetron [Ondansetron Odt] 4 mg PO Q6HR PRN 10/17/16 12/28/16 Pantoprazole Sodium [Protonix] 40 mg PEG BID 10/17/16 12/28/16 amLODIPine [Norvasc] 5 mg PEG DAILY 10/17/16 12/28/16 Aspirin [Aspirin] 81 mg PO DAILY 11/18/16 12/28/16 Atorvastatin Calcium 40 mg PO DAILY 11/18/16 12/28/16 Doxazosin [Cardura] 1 mg PO BID 11/18/16 12/28/16 - Allergies Allergies/Adverse Reactions: Allergies Allergy/AdvReac Type Severity Reaction Status Date / Time No Known Drug Allergies Allergy Verified 12/28/16 21:35 Review of Systems - Other Findings Other Findings: A Comprehensive of review of systems was performed the pertinent positives and negatives are stated above in the HPI the remainder of the review of systems is negative. Exam - Vital Signs Reviewed Vital Signs: Yes Vital Signs: Vital Signs x48h Temp Pulse Pulse Resp BP BP Pulse Ox 12/29/16 00:56 37.3 C 87 18 137/46 H 97 12/28/16 22:15 81 27 H 103/63 97 - Physical Exam General Appearance: positive: No acute distress, Alert, Other (Patient has aphasia but is attempting to speak and his daughter can understand more of what he is saying that can I) Eyes Bilateral: positive: Normal inspection, PERRL, EOMI, No lid inflammation, Conjunctivae nml, No scleral icterus ENT: positive: ENT inspection nml, Pharynx nml, Dry mucous membranes. negative : Purulent nasal drainage, Pharyngeal erythema, Oral lesions Neck: positive: Nml inspection, Thyroid nml, No JVD, Trachea midline. negative : Thyromegaly, Lymphadenopathy (R), Lymphadenopathy (L), Stiff neck, Carotid bruit, Tracheal deviation Respiratory: positive: Chest non-tender, No respiratory distress, Breath sounds nml. negative: Wheezes, Rales, Rhonchi Cardiovascular: positive: Regular rate & rhythm, No murmur, No gallop Peripheral Pulses: positive: 2+ Abdomen: positive: Non-tender, No organomegaly, Nml bowel sounds, No distention , Other (Patient has blood from his PEG tube). negative: Guarding, Rebound, Hepatomegaly Rectal: positive: Black stool (Patient has dark stool that appears melanotic And smells like GI bleed) Back: positive: Nml inspection. negative: CVA tenderness (R), CVA tenderness (L ) Skin: positive: Color nml, No rash, Warm. negative: Cyanosis, Pallor Extremities: positive: Non-tender, Nml appearance, No pedal edema. negative: Joint swelling Neurologic/Psychiatric: positive: Oriented x3, CN's nml (2-12), Weakness (Left- sided hemiparesis with contracture of the left upper extremity.), Slurred/abnml speech (Aphasia), Other (Aphasia) Conclusion/Plan - Problem List (1) Upper GI bleed Conclusion/Plan: The patient presented with blood from his PEG tube. On presentation to the emergency department the patient had an episode of hematemesis and had melanotic stools. The patient's hemoglobin on presentation was stable and patient was hemodynamically stable. However he appear to be having a active upper GI bleed. Because of the patient's GI bleed is likely secondary to the patient running out of Protonix 1 week ago and being unable to get a refill. He is also continued on aspirin for CVA since his previous hospitalization with upper GI bleed. On previous hospitalization for upper GI bleed the patient was found to have 2 medium sized ulcers in the pylorus of the stomach and required epinephrine injection at that time. Patient likely has bleeding from same ulcers which had not completely healed. Plan: 2 large-bore IVs Protonix IV twice daily Surgery consult for EGD N.p.o. Transfuse packed red blood cells if hemoglobin drops below 7 or patient has active bleeding with hemodynamic instability or drastic drop in hemoglobin. H&H every 6 hours Monitor closely Hold aspirin (2) Diabetes Conclusion/Plan: Patient has history of diabetes blood glucose on presentation is elevated at 224. Plan: Patient will be placed on home dose of Lantus and n.p.o. sliding scale until patient is able to restart PEG tube feedings after EGD. We will check hemoglobin A1c We will check patient's blood sugars before meals at bedtime Qualifiers: Diabetes mellitus type: type 2 (3) Hypertension Conclusion/Plan: Patient's blood pressure is well controlled on presentation. Plan: We will hold antihypertensive medication as the patient is currently having an active GI bleed and we are concerned for possibility of hypotension or hemodynamic instability. 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 The patient is on a statin and aspirin at home. Plan: We will continue the patient's home dose of statin but we will hold aspirin as the patient is currently having an upper GI bleed. - Lab Results Lab results reviewed: Yes Fish Bones: 12/28/16 21:48 12/28/16 21:48 Other Lab Results: Laboratory Results WBC 17.2 x10^3/uL (4.8-10.8) H 12/28/16 21:48 RBC 4.47 10^6/uL (4.70-6.10) L 12/28/16 21:48 Hgb 11.1 g/dL (14.0-18.0) L 12/28/16 21:48 Hct 35.4 % (42.0-52.0) L 12/28/16 21:48 MCV 79.1 fL (80.0-94.0) L 12/28/16 21:48 MCH 24.9 pg (27.0-31.0) L 12/28/16 21:48 MCHC 31.5 g/dL (32.0-36.0) L 12/28/16 21:48 RDW 16.6 % (12.0-15.0) H 12/28/16 21:48 Plt Count 246 10^3/uL (130-450) 12/28/16 21:48 MPV 9.8 fL (7.4-11.4) 12/28/16 21:48 Neut # 12.9 10^3/uL (1.5-6.6) H 12/28/16 21:48 Lymph # 2.6 10^3/uL (1.5-3.5) 12/28/16 21:48 Gilchrist # 0.9 10^3/uL (0.0-1.0) 12/28/16 21:48 Eos # 0.6 10^3/uL (0.0-0.7) 12/28/16 21:48 Baso # 0.1 10^3/uL (0.0-0.1) 12/28/16 21:48 Absolute Nucleated RBC 0.00 x10^3/uL 12/28/16 21:48 Nucleated RBCs 0.0 /100WBC 12/28/16 21:48 PT 13.1 secs (9.9-12.6) H 12/28/16 21:48 INR 1.2 (0.8-1.2) 12/28/16 21:48 APTT 23.4 secs (24.9-33.3) L 12/28/16 21:48 Sodium 142 mmol/L (135-145) 12/28/16 21:48 Potassium 5.0 mmol/L (3.5-5.0) 12/28/16 21:48 Chloride 102 mmol/L (101-111) 12/28/16 21:48 Carbon Dioxide 30 mmol/L (21-32) 12/28/16 21:48 Anion Gap 10.0 (6-13) 12/28/16 21:48 BUN 55 mg/dL (6-20) H 12/28/16 21:48 Creatinine 0.9 mg/dL (0.6-1.2) 12/28/16 21:48 Estimated GFR (MDRD) 82 (>89) L 12/28/16 21:48 Glucose 224 mg/dL (70-100) H 12/28/16 21:48 Calcium 9.1 mg/dL (8.5-10.3) 12/28/16 21:48 Total Bilirubin 0.5 mg/dL (0.2-1.0) 12/28/16 21:48 AST 49 IU/L (10-42) H 12/28/16 21:48 ALT 53 IU/L (10-60) 12/28/16 21:48 Alkaline Phosphatase 90 IU/L (42-121) 12/28/16 21:48 Total Protein 6.5 g/dL (6.7-8.2) L 12/28/16 21:48 Albumin 3.0 g/dL (3.2-5.5) L 12/28/16 21:48 Globulin 3.5 g/dL (2.1-4.2) 12/28/16 21:48 Albumin/Globulin Ratio 0.9 (1.0-2.2) L 12/28/16 21:48 Lipase 41 U/L (22-51) 12/28/16 21:48 Blood Type O POSITIVE 12/28/16 21:48 Antibody Screen NEGATIVE 12/28/16 21:48 - Diagnostic Imaging Results Diagnostic Imaging Results Comments: No imaging EGD from 08/31/2016 Impression: 1. 2 medium-sized ulcers were found in the pylorus; submucosal injection of 3 mL of epinephrine 1: 10,000 was performed around the bleeding site 2. Retroflexed views revealed no abnormalities. Issues/Core Measures - Anticipated LOS Anticipated Stay Length: 2 or more midnights - DVT/VTE - Prophylaxis VTE/DVT Device ordered at admit?: Yes
[2016-12-29 03:11] LABS: BILIRUBIN,URINE NEGATIVE (NEGATIVE); PH,URINE 6.5 PH (5.0-7.5)
[2016-12-29 03:28] LABS: UA CHARGE (STRIP ONLY) YES; UR CULTURE IF IND NOT INDICATED
[2016-12-29 05:24] LABS: BASOPHILS # (AUTO) 0.1 10^3/uL (0.0-0.1); BASOPHILS % (AUTO) 0.5 %; EOSINOPHILS # (AUTO) 0.1 10^3/uL (0.0-0.7); HCT - HEMATOCRIT 29.5 % (42.0-52.0); HGB - HEMOGLOBIN 9.3 g/dL (14.0-18.0); LYMPHOCYTES # (AUTO) 1.7 10^3/uL (1.5-3.5); LYMPHOCYTES % (AUTO) 12.2 %; MEAN CORPUSCULAR HEMOGLOBIN 24.9 pg (27.0-31.0); MEAN CORPUSCULAR HGB CONC 31.6 g/dL (32.0-36.0); MEAN CORPUSCULAR VOLUME 78.9 fL (80.0-94.0); MEAN PLATELET VOLUME 9.9 fL (7.4-11.4); MONOCYTES # (AUTO) 0.9 10^3/uL (0.0-1.0); MONOCYTES % (AUTO) 6.4 %; NEUTROPHILS # (AUTO) 11.1 10^3/uL (1.5-6.6); NEUTROPHILS % (AUTO) 79.9 %; RED BLOOD COUNT 3.74 10^6/uL (4.70-6.10); RED CELL DISTRIBUTION WIDTH 16.7 % (12.0-15.0)
[2016-12-29 05:28] LABS: INR 1.1 (0.8-1.2); PT - PROTHROMBIN TIME 12.5 secs (9.9-12.6)
[2016-12-29 05:38] LABS: ALBUMIN/GLOBULIN RATIO 0.9 (1.0-2.2); BILIRUBIN,TOTAL 0.6 mg/dL (0.2-1.0); CALCIUM 8.6 mg/dL (8.5-10.3); CREATININE 0.7 mg/dL (0.6-1.2); POTASSIUM 4.2 mmol/L (3.5-5.0)
[2016-12-29] MEDS ORDERED: INSULIN REGULAR HUMAN 100 UNIT/1 ML 10 ML MDV SUBQ SCH (06:00)
[2016-12-29 06:10] LABS: HEMOGLOBIN A1C 0.43 g/dL
[2016-12-29] MEDS: SODIUM CHLORIDE FLUSH 0.9% 10 ML SYRINGE IVP SCH ×2 (06:22→11:34)
[2016-12-29] MEDS ORDERED: INSULIN GLARGINE 300 UNIT/3 ML PEN SUBQ SCH (08:00)
[2016-12-29] MEDS ORDERED: POLYETHYLENE GLYCOL 3350 17 GM PACKET PO SCH (09:00)
[2016-12-29] MEDS ORDERED: GABAPENTIN 100 MG CAPSULE PEG SCH (09:00)
[2016-12-29] MEDS ORDERED: PANTOPRAZOLE 40 MG VIAL IVP SCH ×2 (09:00)
[2016-12-29] MEDS ORDERED: PROPOFOL 200 MG/20 ML VIAL IVP ONE (09:35)
[2016-12-29] MEDS ORDERED: SODIUM CHLORIDE 0.9% 1,000 ML IV ONE (09:35)
[2016-12-29 10:03] VITALS: BP 103/57
[2016-12-29] MEDS: HYDROcod/ACETAM 5/325 MG TABLET PEG PRN (10:10)
--- NOTE | 2016-12-29 11:53 | Discharge Plan ---
Discharge Plan Disposition: 01 Home, Self Care Condition: Good Prescriptions: Pantoprazole Sodium [Protonix] 40 mg PEG BID #30 tablet. Diet: Regular (PEG TUBE FEEDING) Activity Restrictions: Activity as Tolerated Shower Restrictions: No Driving Restrictions: No Assistance Devices: Wheelchair Weight Bearing: Full Weight Instruction Topics: Feeding Tube PEG Additional Instructions or Follow Up instructions: YOU CAN RETURN TO PEG FEEDINGS TOLERATED. YOU WILL NEED TO CONTINUE HOME MEDICATIONS EXCEPT THE ASPIRIN AT THIS TIME. YOU HAVE BEEN GIVEN A PPI-PROTON PUMP INHIBITOR MEDICATION CALLED PROTONIX. TAKE PRESCRIBED. YOU WILL BE ON A HIGHER DOSE FOR TWO WEEKS AND THEN YOU CAN ADD BACK THE ASPIRIN LOW DOSE AFTER SEEING YOUR PRIMARY CARE PROVIDER AND IT HAS BEEN ABOUT TWO WEEKS. CONTINUE TO MONITOR FOR BLEEDING AROUND THE SITE OR RECTALLY. CONTINUE WITH YOUR ACTIVITES FOR DAILY LIVING TOLERATED. CONTINUE WITH THE SAME SLEEPING AND EATING TIMES. RETURN TO THE ER IF YOU HAVE SYMPTOMS THAT RETURN OR WORSEN. CALL 911 IF YOU HAVE CHEST PAIN OR SHORTNESS OF BREATH TRY TO AVOID FOODS THAT WILL UPSET YOUR STOMACH. NO MOTRIN OR ALEVE OR NAPROXEN BECAUSE THESE MEDICATIONS CAN CAUSE STOMACH BLEEDING. No Smoking: If you smoke, Please STOP! Call for help.
--- NOTE | 2016-12-29 12:00 | DISCHARGE SUMMARY ---
"Discharge Summary Admit Date: 12/28/16 Discharge Date: 12/29/16 Discharging Provider: RADHA HAM APRN Primary Care Provider: NELSY Condition at Discharge: Good Discharge Disposition: 01 Home, Self Care Discharge Facility Name: HOME - DIAGNOSES Admission Diagnoses: 1. ACUTE GI BLEEDING, UPPER UNSPECIFIED 2. TYPE TWO DIABETES WITHOUT COMPLICATIONS 3. ESSENTIAL HYPERTENSION 4. HX OF CVA/TIA WITH LEFT SIDED HEMIPARESIS Discharge Diagnoses with Status of Each Condition: 1. ACUTE GI BLEEDING, UPPER WITH GASTRITIS AND ANTRAL ULCER 2. 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 ESSENTIAL HYPERTENSION 4. 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 We were unable to get history from the patient secondary to his aphasia and the history was provided by the patient's daughter and emergency room physician. According to the patient's daughter the patient was in his normal state of health until this evening when the patient was complaining of nausea. The patient's daughter who takes care of the patient noted that the patient had brought up some bloody content in his mouth and therefore she went to check his feeding tube and when she irrigated it she noted there was lewis blood coming out of his PEG tube and she decided to bring him into the emergency department given his recent GI bleeding. The patient's daughter states that the patient has continued on his aspirin since his discharge from the hospital and had been taking Protonix orally until just a week ago when she states that he ran out of his Protonix. She states that she went to the pharmacy to refill it but his insurance company would not allow him to refill it as they thought it was too early for refill. The patient has gone 1 week without taking any PPIs. The patient otherwise denies any headaches, blurred vision, runny nose, sore throat, nasal congestion, cough, fevers, chills , chest pain, shortness of air, orthopnea, PND, increased lower extremity swelling, abdominal pain, changes in weight, urinary urgency, urinary frequency , dysuria or any new focal neurologic deficits. On presentation to the emergency department the patient was afebrile his heart rate was in the 90s but blood pressure was stable and he was not in any respiratory distress. When the emergency room physician went to assess the patient the patient had an episode of hematemesis and had obvious bleeding from his PEG tube. The patient also had an episode of melanotic stools in the emergency department. The patient's lab work revealed a hemoglobin of 11.1 which was near the patient's previous baseline and a leukocytosis of 17.2. The patient otherwise had no other significant lab abnormalities. Although the patient's hemoglobin was stable and he was hemodynamically stable it was obvious he was having a active GI bleed which appeared likely to be an upper GI bleed. The patient was admitted for upper GI bleed and surgery was notified of the patient's admission and asked that the patient be kept n.p.o. for likely EGD tomorrow morning. - CONSULTS | PROCEDURES Consultations: SURGERY- DR MARIE Procedures: EGD FOR GI BLEEDING WITH A BLOCKED PYLORUS AND ANTRAL ULCER - HOSPITAL COURSE Hospital Course: On presentation to the emergency department the patient was afebrile his heart rate was in the 90s but blood pressure was stable and he was not in any respiratory distress. When the emergency room physician went to assess the patient the patient had an episode of hematemesis and had obvious bleeding from his PEG tube. The patient also had an episode of melanotic stools in the emergency department. The patient's lab work revealed a hemoglobin of 11.1 which was near the patient's previous baseline and a leukocytosis of 17.2. The patient otherwise had no other significant lab abnormalities. Although the patient's hemoglobin was stable and he was hemodynamically stable it was obvious he was having a active GI bleed which appeared likely to be an upper GI bleed. The patient was admitted for upper GI bleed and surgery was notified of the patient's admission and asked that the patient be kept n.p.o. for likely EGD tomorrow morning. Patient was monitored for additional bleeding, H/H monitored with labs and he was given IV Protonix. vital signs monitored and he was NPO before procedure. Patient underwent a EGD with Dr Nish Marie and found to have the balloon from the PEG tube to be blocking the opening of the tube and mild gastritis and antral ulcer. He corrected the balloon and patient was able to now tolerate feeding again. He was instructed to increase his dosage of PPI and stop the aspirin daily at least for two weeks. He was given PPI Protonix while hospitalized and continued on all home medications except ASA when not NPO prior to the procedure. He was continued on his home pain medications. He was on SCD for DVT prophylaxis. He was stable and not febrile at discharge. His family was contacted regarding his discharge and instructed this author that the patient would need BLS transport home. Social work contacted to make arrangements for transport home - ALLERGIES Allergies/Adverse Reactions: Allergies Allergy/AdvReac Type Severity Reaction Status Date / Time No Known Drug Allergies Allergy Verified 12/28/16 21:35 - MEDICATIONS Home Medications: Ambulatory Orders Medication Instructions Recorded Confirmed Insulin Glargine [Lantus] 20 unit SUBQ 0800 05/21/16 12/28/16 Atorvastatin Calcium 40 mg PEG QPM 07/25/16 12/28/16 Hydrocodone/Acetaminophen 1 tab PEG Q4HR PRN 07/25/16 12/28/16 [Hydrocodon-Acetaminophen 5-325] Insulin Lispro [Humalog Kwikpen 1 - 5 units SUBQ Q6HR PRN 07/25/16 12/28/16 U-100] Metoprolol Tartrate 25 mg PEG BID 07/25/16 12/28/16 Doxazosin Mesylate [Cardura] 4 mg PEG QPM 08/31/16 12/28/16 Gabapentin 300 mg PEG BID 08/31/16 12/28/16 Lorazepam 0.5 - 1 tab PEG BID PRN 08/31/16 12/28/16 Albuterol Sulf [Ventolin Hfa 1 - 2 puffs INH Q4HR PRN 10/17/16 12/28/16 Inhaler] Ondansetron [Ondansetron Odt] 4 mg PO Q6HR PRN 10/17/16 12/28/16 amLODIPine [Norvasc] 5 mg PEG DAILY 10/17/16 12/28/16 Aspirin [Aspirin] 81 mg PO DAILY 11/18/16 12/28/16 Atorvastatin Calcium 40 mg PO DAILY 11/18/16 12/28/16 Doxazosin [Cardura] 1 mg PO BID 08/13/17 09/22/17 Pantoprazole Sodium [Protonix] 40 mg PEG BID #30 tablet. 12/29/16 - PHYSICAL EXAM AT DISCHARGE General Appearance: positive: No acute distress, Alert Eyes Bilateral: positive: Normal inspection, PERRL ENT: positive: ENT inspection nml, Pharynx nml, No signs of dehydration Neck: positive: Nml inspection, Thyroid nml, No JVD Respiratory: positive: Chest non-tender, No respiratory distress, Breath sounds nml Cardiovascular: positive: Regular rate & rhythm, No murmur, No gallop Peripheral Pulses: positive: 2+ Abdomen: positive: Non-tender, No organomegaly, No distention, Other (peg tube placement). negative: Guarding, Rebound Rectal: positive: Stool - heme POS Back: positive: Nml inspection Skin: positive: Color nml, No rash, Warm Extremities: positive: Non-tender, Full ROM, No pedal edema Neurologic/Psychiatric: positive: Disoriented to place, Disoriented to time ( PATIENT KNOWS HIS NAME AND CAN MUMBLE WITH PAIN, ALERT), Weakness - LABS Result Diagrams: 12/29/16 04:50 12/29/16 04:50 Other Lab Results: Abnormal Lab Results 12/28/16 12/28/16 12/28/16 21:48 21:48 21:48 WBC 17.2 x10^3/uL H x10^3/uL (4.8-10.8) RBC 4.47 10^6/uL L 10^6/uL (4.70-6.10) Hgb 11.1 g/dL L g/dL (14.0-18.0) Hct 35.4 % L % (42.0-52.0) MCV 79.1 fL L fL (80.0-94.0) MCH 24.9 pg L pg (27.0-31.0) MCHC 31.5 g/dL L g/dL (32.0-36.0) RDW 16.6 % H % (12.0-15.0) Neut # 12.9 10^3/uL H 10^3/uL (1.5-6.6) PT 13.1 secs H secs (9.9-12.6) APTT 23.4 secs L secs (24.9-33.3) BUN 55 mg/dL H mg/dL (6-20) Estimated GFR (MDRD) 82 L (>89) Glucose 224 mg/dL H mg/dL (70-100) Estim Average Glucose AST 49 IU/L H IU/L (10-42) Total Protein 6.5 g/dL L g/dL (6.7-8.2) Albumin 3.0 g/dL L g/dL (3.2-5.5) Albumin/Globulin Ratio 0.9 L (1.0-2.2) 12/29/16 12/29/16 12/29/16 04:50 04:50 04:50 WBC 14.0 x10^3/uL H x10^3/uL (4.8-10.8) RBC 3.74 10^6/uL L 10^6/uL (4.70-6.10) Hgb 9.3 g/dL L g/dL (14.0-18.0) Hct 29.5 % L % (42.0-52.0) MCV 78.9 fL L fL (80.0-94.0) MCH 24.9 pg L pg (27.0-31.0) MCHC 31.6 g/dL L g/dL (32.0-36.0) RDW 16.7 % H % (12.0-15.0) Neut # 11.1 10^3/uL H 10^3/uL (1.5-6.6) PT APTT BUN 62 mg/dL H mg/dL (6-20) Estimated GFR (MDRD) Glucose 171 mg/dL H mg/dL (70-100) Estim Average Glucose 131 H (70-100) AST Total Protein 6.0 g/dL L g/dL (6.7-8.2) Albumin 2.9 g/dL L g/dL (3.2-5.5) Albumin/Globulin Ratio 0.9 L (1.0-2.2) - DIAGNOSTIC IMAGING Diagnostic Imaging Results: Prelim report reviewed Diagnostic Imaging Results Comments: EGD: IMPRESSION FOR GASTRITIS AND ANTRAL ULCERATION AT THE PEG TUBE SITE - FOLLOW UP Follow Up: PATIENT FAMILY ADVISED OF PATIENT RETURNING HOME. HE WAS SENT WITH DISCHARGE INSTRUCTIONS FOR FOLLOWUP FOR THE GI BLEED AROUND THE PEG TUBE. HE HAD AN ANTRAL ULCERATION THAT WAS BLEEDING AROUND THE PEG TUBE SITE WITH MODERATE GASTRITIS. HE WAS INSTRUCTED TO SEE HIS PRIMARY CARE PROVIDER WITHIN THE FIRST WEEK OF DISCHARGE. HE IS NOT TO TAKE ANY ASPIRIN OR NSAIDS HE IS ON A PPI PER SURGERY PATIENT WAS SENT WITH PRESCRIPTIONS FOR PPI AND INSTRUCTED TO RETURN IF SYMPTOMS WORSEN - TIME SPENT Time Spent in Discharge (Minutes): 32"
[2016-12-29] MEDS ORDERED: LIDOCAINE-MPF 2% 5 ML VIAL IM ONE (13:19)
[2016-12-29] MEDS ORDERED: ATORVASTATIN 40 MG TABLET PEG SCH (21:00)
[2016-12-29] MEDS ORDERED: DOXAZOSIN 4 MG TABLET PEG SCH (21:00)
--- NOTE | 2017-01-03 02:17 | CONSULTATION NOTE ---
DATE OF CONSULTATION: 12/29/2016 00:00:00 REFERRING PHYSICIAN: Bentley Alvarez MD. REASON FOR REFERRAL: Upper gastrointestinal bleeding. HISTORY OF PRESENT ILLNESS: The patient is a 76-year-old male with history of stroke. He has had a pr evious upper GI bleed, recently undergoing an esophagogastroduodenoscopy. At that time, he was found to have a gastric ulcer, which was injected and clipped controlling the bleeding. He has had previous ly placed PEG tube and is getting feedings through this. The day prior to this consult the patient's daughter noticed blood coming from the PEG tube and then brought him to the emergency room to be eval uated. He had been on proton pump inhibitor,but this has been stopped within the last week. In the em ergency room, the patient was found to have a hemoglobin 11. This was the same as previous admission. PAST MEDICAL HISTORY: Hypertension, COPD, stroke, diabetes, gout, anxiety. PAST SURGICAL HISTORY: PEG tube placement. SOCIAL HISTORY: The patient is being taken care of by his daughter. HABITS: The patient is not currently using any drugs, alcohol or drug use. MEDICATIONS: 1. Aspirin. 2. Insulin. 3. Atorvastatin. 4. Andale. 5. Metoprolol. 6. Cardura. 7. Gabapentin. 8. Lorazepam. 9. Albuterol. 10. Zofran. 11. Protonix. 12. Norvasc. ALLERGIES TO MEDICATIONS: NONE. REVIEW OF SYSTEMS: Unable to be obtained due to the patient to having history of strokes and not able to communicate. PHYSICAL EXAMINATION: VITAL SIGNS: Temperature is 37.3, pulse 87, respiration 18, blood pressure 137/46. GENERAL: The patient is lying in bed. He does speak incoherently. HEART: Regular. ABDOMEN: Soft, nontender. PEG tube in the left upper quadrant. LUNGS: Clear. DIAGNOSTIC DATA: Hemoglobin 11. ASSESSMENT: Upper gastrointestinal bleed with a recent history due to ulcer disease. He had been on p roton pump inhibitors until the last week. Given that it was over a month ago that he has been on pro ton pump inhibitors I would think any ulcer disease that he had wound have healed. Because this is a new onset further investigation is needed. PLAN: We will contact the patient's daughter, who has power of trial attorney and will get consent for esop hagogastroduodenoscopy with possible biopsy or control of bleeding. Once consent had been obtained we will proceed with the procedure. JOB #: [id number] EXT JOB #:[id number]
== END 2016-12-29 13:20 | disposition home or self-care (01) | DRG 378 ==
LOC: EDUNIT# → ED 21:24 → MS2 22:04
PROVIDERS: ADMIT Internal Medicine; ATTEND Nurse Practitioner
PROC: 0DB98ZX Excision of Duodenum, Via Natural or Artificial Opening Endoscopic, Diagnostic (ICD-10-PCS; principal; 2016-12-28)
PROC: 0DB68ZX Excision of Stomach, Via Natural or Artificial Opening Endoscopic, Diagnostic (ICD-10-PCS; 2016-12-28)
DX: K92.0 Hematemesis (principal); K25.4 Chronic or unspecified gastric ulcer with hemorrhage; I69.954 Hemiplegia and hemiparesis following unspecified cerebrovascular disease affecting left non-dominant side; E11.9 Type 2 diabetes mellitus without complications; K44.9 Diaphragmatic hernia without obstruction or gangrene; K29.80 Duodenitis without bleeding; K20.9 Esophagitis, unspecified; I69.991 Dysphagia following unspecified cerebrovascular disease; I69.920 Aphasia following unspecified cerebrovascular disease; J44.9 Chronic obstructive pulmonary disease, unspecified; I10 Essential (primary) hypertension; E78.5 Hyperlipidemia, unspecified; M10.9 Gout, unspecified; H91.90 Unspecified hearing loss, unspecified ear; Z79.82 Long term (current) use of aspirin; Z79.4 Long term (current) use of insulin; Z79.891 Long term (current) use of opiate analgesic; Z79.51 Long term (current) use of inhaled steroids; Z87.891 Personal history of nicotine dependence; Z79.899 Other long term (current) drug therapy; Z93.4 Other artificial openings of gastrointestinal tract status
CPT/HCPCS: 36415; 80053; 81001; 81003; 83036; 83690; 85025; 85610; 85730; 86850; 86900; 86901; 87086; 88106; 88305; 88341; 88342; 96365; 96375; 99284; 99285

== ENCOUNTER 2016-12-29 13:28 | Outpatient (CLI) | payer MEDICARE, MEDICAID | END 2016-12-29 13:29 | disposition home or self-care (01) | LOC: EMS 13:28 | PROVIDERS: ATTEND Surgery | DX: R58 Hemorrhage, not elsewhere classified (principal) | CPT/HCPCS: A0425; A0428 ==

== ENCOUNTER 2017-01-16 17:02 | Outpatient (CLI) | payer MEDICARE, MEDICAID | END 2017-01-16 17:03 | disposition critical access hospital (66) | LOC: EMS 17:02 | PROVIDERS: ATTEND Surgery | DX: T85.598A Other mechanical complication of other gastrointestinal prosthetic devices, implants and grafts, initial encounter (principal) | CPT/HCPCS: A0425; A0428; A0429 ==

== ENCOUNTER 2017-01-16 17:08 | Emergency (ER) | payer MEDICARE, MEDICAID ==
[2017-01-16 17:17] VITALS: BP 163/37
--- NOTE | 2017-01-16 17:34 | ED Physician Documentation ---
History of Present Illness - Stated complaint Stated Complaint: CLOGGED PEG TUBE - Chief complaint Chief Complaint: General - History obtained from History obtained from: EMS - History of Present Illness Timing: Other (Nonverbal gentleman with a PEG tube due to previous stroke and aspiration pneumonia presents because of clogged PEG tube.) Review of Systems Unable to obtain: Confused PD PAST MEDICAL HISTORY - Past Medical History Cardiovascular: Hypertension Respiratory: COPD Neuro: CVA Endocrine/Autoimmune: Type 2 diabetes GI: None : None HEENT: Chronic hearing loss Psych: Anxiety Musculoskeletal: Gout Derm: None - Past Surgical History Past Surgical History: Yes General: Other - Present Medications Home Medications: Ambulatory Orders Medication Instructions Recorded Confirmed Insulin Glargine [Lantus] 20 unit SUBQ 0800 05/21/16 12/28/16 Atorvastatin Calcium 40 mg PEG QPM 07/25/16 12/28/16 Hydrocodone/Acetaminophen 1 tab PEG Q4HR PRN 07/25/16 12/28/16 [Hydrocodon-Acetaminophen 5-325] Insulin Lispro [Humalog Kwikpen 1 - 5 units SUBQ Q6HR PRN 07/25/16 12/28/16 U-100] Metoprolol Tartrate 25 mg PEG BID 07/25/16 12/28/16 Doxazosin Mesylate [Cardura] 4 mg PEG QPM 08/31/16 12/28/16 Gabapentin 300 mg PEG BID 08/31/16 12/28/16 Lorazepam 0.5 - 1 tab PEG BID PRN 08/31/16 12/28/16 Albuterol Sulf [Ventolin Hfa 1 - 2 puffs INH Q4HR PRN 10/17/16 12/28/16 Inhaler] Ondansetron [Ondansetron Odt] 4 mg PO Q6HR PRN 10/17/16 12/28/16 amLODIPine [Norvasc] 5 mg PEG DAILY 10/17/16 12/28/16 Aspirin [Aspirin] 81 mg PO DAILY 11/18/16 12/28/16 Atorvastatin Calcium 40 mg PO DAILY 11/18/16 12/28/16 Doxazosin [Cardura] 1 mg PO BID 11/18/16 12/28/16 Pantoprazole Sodium [Protonix] 40 mg PEG BID #30 tablet. 12/29/16 - Allergies Allergies/Adverse Reactions: Allergies Allergy/AdvReac Type Severity Reaction Status Date / Time No Known Drug Allergies Allergy Verified 12/28/16 21:35 - Social History Does the pt smoke?: No Smoking Status: Former smoker Does the pt drink ETOH?: No Does the pt have substance abuse?: No - Immunizations Immunizations are current?: Yes - POLST Patient has POLST: No POLST Status: Full Code (The family is still deciding about CODE STATUS. The daughter however stated that she does not want him to live on a ventilator or in a vegetative state.) PD ED PE NORMAL - Vitals Vital signs reviewed: Yes - General General: Other (He is alert and cooperative but basically nonverbal, he is able to say a few things, he is contractured on the left side.) - Abdomen Abdomen: Non tender, Other (PEG tube in place.) - Psych Psych: Normal mood, Normal affect Results - Vitals Vitals: Vital Signs - 24 hr 01/16/17 17:10 Temperature 36.1 C L Heart Rate 68 Respiratory 20 Rate Blood Pressure 163/37 H O2 Saturation 94 Oxygen O2 Source [Without Activity] Room air O2 Source Room air PD MEDICAL DECISION MAKING - ED course ED course: Initially I was unable to clear the PEG tube with Coke, I used a wire guide and was able to unclog it and then it flushed easily. Departure - Departure Disposition: 01 Home, Self Care Clinical Impression: Malfunction of percutaneous endoscopic gastrostomy (PEG) tube Condition: Good Record reviewed to determine appropriate education?: Yes Instructions: Feeding Tube PEG Comments: Your blood pressure was elevated today on check into the emergency department. This does not mean that you have hypertension, it is a common phenomenon to come to the emergency department and have elevated blood pressure. I recommend that she see your primary care physician within the week to have it rechecked when you are feeling better.
== END 2017-01-16 17:59 | disposition home or self-care (01) ==
LOC: EDUNIT# → ED 17:08
DX: K94.23 Gastrostomy malfunction (principal); I10 Essential (primary) hypertension; J44.9 Chronic obstructive pulmonary disease, unspecified; Z86.73 Personal history of transient ischemic attack (TIA), and cerebral infarction without residual deficits; E11.9 Type 2 diabetes mellitus without complications; Z79.4 Long term (current) use of insulin; M10.9 Gout, unspecified; Z79.82 Long term (current) use of aspirin; Z87.891 Personal history of nicotine dependence
CPT/HCPCS: 99283

== ENCOUNTER 2017-01-16 18:00 | Outpatient (CLI) | payer MEDICARE, MEDICAID | END 2017-01-16 18:01 | LOC: EMS 18:00 | PROVIDERS: ATTEND Surgery | DX: T85.598A Other mechanical complication of other gastrointestinal prosthetic devices, implants and grafts, initial encounter (principal) ==

== ENCOUNTER 2017-01-23 13:30 | Outpatient (CLI) | payer MEDICARE, MEDICAID ==
--- NOTE | 2017-01-23 20:56 | CONSULTATION NOTE ---
Palliative Care Follow Up - Referral Referring Provider: Dr. Louis Alcantara Referral setting: Home (Seen in home setting secondary to due to considerable and taxing effort for the patient to leave the home since he is mostly bedbound secondary to advanced stage COPD and hemiparesis s/p CVA, and is able to tolerate being in a wheelchair for only short periods of time.) - History of Present Illness Update Brief HPI Update: This is a 76-year-old Irish man who had a severe stroke with left hemiparesis on 04/03/2016. He has a history of recurrent pneumonias related to aspiration and he was hospitalized in August 2016 for GI bleed and was found to have two ulcers. He has had subsequent ER visits in December for GI bleeding and last week for a clogged feeding tube, which occurred while he was at [facility] for [employer]-sponsored respite. He continues to be stable, apart from the clogged tube occurring while he was at [facility] for 5 days last week. His daughter is his TOMAS caregiver and takes extremely good care of him, and his improving appearance reflects this good care. He sleeps often during the day, but easily woke during this visit and was alert and cooperative. His has expressive aphasia but is able to communicate his needs adequately to his family. His breathing is very stable, and his daughter reports having to use the nebulizer only occasionally. She did request a refill for an albuterol MDI inhaler as rescue medicine. She does suction his secretions as needed, which is less than previously. His raw area on his back has improved and there is no open ruelas currently. His daughter continues to use the cetirizine and hydrocortisone cream as needed when his scratching flairs up. It is likely related to a nervous habit. His pain from left side hemiparesis is controlled with 900 mg gabapentin daily, as well as Pandora as needed. He is mostly bedbound but occasionally sits in his wheelchair, transferred using a Kari lift. Daughter requested several prescription refills during my visit. Social History - Living Situation Living arrangement: At home Living Situation: With family (Patient lives with his large, loving extended family. His daughter, Iris, is his TOMAS caregiver and his former assists with his care, as does his teenage son. He is quite obviously well- loved and well-cared for.) Medications/Allergies - Medications Home Medications: Ambulatory Orders Medication Instructions Recorded Confirmed Insulin Glargine [Lantus] 20 unit SUBQ 0800 05/21/16 01/23/17 Atorvastatin Calcium 40 mg PEG QPM 07/25/16 01/23/17 Hydrocodone/Acetaminophen 1 tab PEG Q4HR PRN 07/25/16 01/23/17 [Hydrocodon-Acetaminophen 5-325] Insulin Lispro [Humalog Kwikpen 1 - 5 units SUBQ Q6HR PRN 07/25/16 01/23/17 U-100] Metoprolol Tartrate 25 mg PEG BID 07/25/16 01/23/17 Doxazosin Mesylate [Cardura] 4 mg PEG QPM 08/31/16 01/23/17 Gabapentin 300 mg PEG TID 08/31/16 01/23/17 Lorazepam 0.5 mg PEG BID PRN 08/31/16 01/23/17 Albuterol Sulf [Ventolin Hfa 1 - 2 puffs INH Q4HR PRN 10/17/16 01/23/17 Inhaler] Ondansetron [Ondansetron Odt] 4 mg PO Q6HR PRN 10/17/16 01/23/17 amLODIPine [Norvasc] 5 mg PEG DAILY 10/17/16 01/23/17 Aspirin [Aspirin] 81 mg PEG DAILY 11/18/16 01/23/17 Pantoprazole Sodium [Protonix] 40 mg PEG BID #30 tablet. 12/29/16 01/23/17 Cetirizine [ZyrTEC] 10 mg PEG DAILY PRN 01/23/17 01/23/17 - Allergies Allergies/Adverse Reactions: Allergies Allergy/AdvReac Type Severity Reaction Status Date / Time No Known Drug Allergies Allergy Verified 12/28/16 21:35 Review of Systems - Constitutional Constitutional: reports: Weight stable. denies: Fatigue, Fever, Chills, Poor appetite - Ears, Nose & Throat Ears, Nose & Throat: reports: Hearing loss, Other - Cardiovascular Cardiovascular: denies: Chest pain, Edema, Exertional dyspnea - Respiratory Respiratory: reports: Cough, Sputum production (requires suctioning), SOB at rest (occasional). denies: Pleuritic pain - Gastrointestinal Gastrointestinal: reports: Other (history of ulcers and GI bleeds) - Genitourinary Genitourinary: denies: Dysuria, Incontinence - Musculoskeletal Musculoskeletal: reports: Muscle pain (due to left side hemiparesis, s/p CVA), Limited range of motion (on left side, but improving), Gout (not active) - Integumentary Integumentary: reports: Lesions (on back due to scratching) - Neurological Neurological: reports: Focal weakness (left side hemiparesis) - Hematologic/Lymphatic Hematologic/Lymphatic: reports: Recurrent infections (history of recurrent aspiration pneumonia) Physical Exam - Vital Signs Temperature: 97.8 F Pulse Rate: 52 O2 Saturation: 92 (on room air) Blood Pressure: 120/50 - Physical Exam General Appearance: positive: No acute distress, Alert Eyes Bilateral: positive: EOMI, No lid inflammation, Conjunctivae nml, No scleral icterus ENT: positive: Pharynx nml, No signs of dehydration Neck: positive: Thyroid nml, No JVD, Trachea midline Cardiovascular: positive: Regular rate & rhythm, No murmur, No gallop Respiratory: positive: Chest non-tender, No respiratory distress, Rales (chronic , lower right lobe, less in left lower lobe) Skin: positive: Other (large, resolving discolored area on back due to h/o compulsive scratching) Extremities: positive: No pedal edema Neurologic/Psychiatric: positive: Sensation nml, Mood/affect nml, Disoriented to time, Weakness, Slurred/abnml speech Palliative Care - POLST Patient has POLST: No Pain: Pain unchanged, Location (left side) Tiredness/Fatigue: None Drowsiness/Sedation: Mild (1-3) Nausea: None Depression: None Anxiety: None Dyspnea: None Anorexia: None Sleep: Sleeps well Constipation: No Feelings of wellbeing/Perceived Quality of Life: Good Performance Status: Current level of functioning: Mostly bedbound, requires total care, transferred by Kari lift to wheelchair occasionally. He is continent of bowel and bladder. Palliative Care Performance Status: 30% - Palliative Care Discussion: Who is present: Patient, daughter Iris Simmons's mother, myself. Surrogate decision maker: Iris Warren, daughter, TOMAS full-time caregiver, home [phone]. Most important goals: Daughter has not signed a POLST yet because she does not totally agree with the DNR. She does not want CPR chest compressions performed but does want AED without CPR. She currently does not understand that the POLST can't be parsed like that; the closest is choosing CPR and writing in the "goals " section her preference. Family concerns: Iris was dissatisfied with the care her father received at [facility] for this respite break. She had previously been very satisfied with the care they had given him on his previous stay there. At that time, our Palliative Care RN had prepared a thorough Care Plan and the facility had followed it. This time they did not go through Palliative Care, and the Care Plan was not forwarded to the facility. During his stay there he was sent to the ED for a clogged feeding tube. She also reports he did not have a shower while there, and just had a sponge bath on the final day. Also his PEG tube feedings were not occurring at his regular schedule. I advised her present her concerns to the socially responsible investment adviser. We will also coordinate in the future to be sure the patient's Care Plan is provided to [facility] during respite breaks. Impression and Recommendations - Palliative Care Impression: This is a 76-year-old gentleman with multiple co-morbidities and complications following a CVA and left side hemiparesis almost a year ago. He has experienced significant decline in functionality as a result, but is well cared for by his family and is currently stable. Daughter is still working on getting a POLST she can agree with, one that permits AED but not DNR. He does not meet the criteria for Hospice, we will monitor and transition to Hospice when appropriate. 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 Using Pandora 5/325 1 tab as needed. Pruritis of back and buttocks: Improved, controlled with cetirizine half dose ( ie, 5 mg) and hydrocortisone cream 2.5% BID as needed, and barrier cream as needed. COPD: Stable, use nebulizer as needed and Ventolin (albuterol) MDI inhaler 1-2 puffs q4-6hrs as needed. Advanced care planning: POLST is not in place, daughter does not want chest compressions but does want AED used. Follow this up at our next visit to clarify that isn't doable in the context of EMS; instead her best option is to choose CPR and we fill in the "patient goals" section her preference for no chest compressions, just AED, if possible. [facility] will want to have s signed POLST whenever the patient is there for respite. Schedule follow up visits every 1-2 months or as needed. Time Spent: 45 minutes with greater than 50% done in counseling, medicine reconciliation, and coordination of care, and discussing advanced care planning.
== END 2017-01-23 13:31 | disposition home or self-care (01) ==
LOC: PC 13:30
PROVIDERS: ATTEND Nurse Practitioner
DX: Z51.5 Encounter for palliative care (principal); I69.954 Hemiplegia and hemiparesis following unspecified cerebrovascular disease affecting left non-dominant side; L29.8 Other pruritus; J44.9 Chronic obstructive pulmonary disease, unspecified; Z99.3 Dependence on wheelchair; Z93.1 Gastrostomy status; Z79.51 Long term (current) use of inhaled steroids; Z79.4 Long term (current) use of insulin; Z79.891 Long term (current) use of opiate analgesic; Z79.82 Long term (current) use of aspirin; Z87.01 Personal history of pneumonia (recurrent)
CPT/HCPCS: 99349

== ENCOUNTER 2017-02-13 12:45 | Outpatient (CLI) | payer MEDICARE, MEDICAID ==
--- NOTE | 2017-02-13 19:40 | CONSULTATION NOTE ---
Palliative Care Follow Up - Referral Referring Provider: Dr. Louis Alcantara Time of Visit: 12:45-1:15 Referral setting: Home (Patient cannot leave the home except by ambulance is at a considerable and taxing effort for the patient because he is mostly bedbound) Referral Reason: Late effects of stroke: left hemiparesis nondominant - Information Sources Records reviewed: Previous records reviewed History/Review of Systems obtained from: Family (spoke with daughter for update; ex caregiver at visit) Exam limitations: Clinical condition (patient aphasic and unable to participate) - History of Present Illness Update Brief HPI Update: This is a 76-year-old Iraqi man who had a severe stroke with Left hemiparesis in 03/2016. He has had several hospitalizations for pneumonias, and GI bleeds. This most recently hospitalized 12/28-12/29/2016For another acute GI bleedRelated to gastritis and antral ulcer. This was precipitated by running out of his Protonix. She has not seen any further signs or symptoms of bleeding, bloody stool, any discharge or concerns with the tube feeding. Unfortunately he also recently had an ER visit for a clogged feeding tube during the time he was [facility]. His most pressing symptoms have continued to be the pruritus, with uncontrolled scratching on his right hip and left back area. This is fluctuating and is unclear what precipitates this. It is somewhat exacerbated on examination during my visit today, particularly the right hip area.There is dark pink scar tissue, compounded by moist desquamation.It actually looks somewhat inflamed, it is in the dark moist area and suspicious may be complicated by candidiasis as well.His coccyx, heels, PEG exit site and other pressure points are without any symptoms or concerns. He does have dysphasia, continues with intermittent cough, does have upper airway rhonchi that do clear. He is had less need for respiratory support with nebulizers and suctioning. 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 He is currently up to gabapentin 300 mg 3 times daily, she does use the [place] twice daily. Does feel he is still not currently well controlled. Social History - Living Situation Living arrangement: At home Living Situation: With family Support System: Patient's daughter Iris is her main oversight. She is the DPOAE and his lucero worker. His ex- and her mother does assist during the day while she works. He also has still a son at home who is in high school that assist with meeting his care needs as well. He has his own bedroom, he is in a hospital bed , well attended to by many family members. Medications/Allergies - Medications Home Medications: Ambulatory Orders Medication Instructions Recorded Confirmed Insulin Glargine [Lantus] 20 unit SUBQ 0800 05/21/16 01/23/17 Atorvastatin Calcium 40 mg PEG QPM 07/25/16 01/23/17 Hydrocodone/Acetaminophen 1 tab PEG Q4HR PRN 07/25/16 01/23/17 [Hydrocodon-Acetaminophen 5-325] Insulin Lispro [Humalog Kwikpen 1 - 5 units SUBQ Q6HR PRN 07/25/16 01/23/17 U-100] Metoprolol Tartrate 25 mg PEG BID 07/25/16 01/23/17 Doxazosin Mesylate [Cardura] 4 mg PEG QPM 08/31/16 01/23/17 Gabapentin 400 mg PEG TID 08/31/16 01/23/17 Lorazepam 0.5 mg PEG BID PRN 08/31/16 01/23/17 Albuterol Sulf [Ventolin Hfa 1 - 2 puffs INH Q4HR PRN 10/17/16 01/23/17 Inhaler] Ondansetron [Ondansetron Odt] 4 mg PO Q6HR PRN 10/17/16 01/23/17 amLODIPine [Norvasc] 5 mg PEG DAILY 10/17/16 01/23/17 Aspirin [Aspirin] 81 mg PEG DAILY 11/18/16 01/23/17 Pantoprazole Sodium [Protonix] 40 mg PEG BID #30 tablet. 12/29/16 01/23/17 Cetirizine [ZyrTEC] 10 mg PEG DAILY PRN 01/23/17 01/23/17 Lidocaine [Anecream] 1 applic TOP Q6HR PRN 02/13/17 02/13/17 Nystatin/Triamcin 1 applic TOP BID 02/13/17 02/13/17 [Nystatin-Triamcinolone Ointm] - Allergies Allergies/Adverse Reactions: Allergies Allergy/AdvReac Type Severity Reaction Status Date / Time No Known Drug Allergies Allergy Verified 12/28/16 21:35 Review of Systems - Constitutional Constitutional: reports: Other (unable to weigh; thin) - Eyes Eyes: reports: Corrective lenses - Ears, Nose & Throat Ears, Nose & Throat: reports: Dental decay - Respiratory Respiratory: reports: Cough - Gastrointestinal Gastrointestinal: reports: Other (tube feedings) - Genitourinary Genitourinary: reports: Incontinence - Musculoskeletal Musculoskeletal: reports: Limited range of motion (left hemiplegia) - Integumentary Integumentary: reports: Rash - Neurological Neurological: reports: Memory problems, Other (aphasic) - Psychiatric Psychiatric: reports: Depression (exwife wonders if patient not depressed; her perception presents with depressive affect/irritablilty) - Endocrine Endocrine: reports: Diabetes type 2 - Hematologic/Lymphatic Hematologic/Lymphatic: reports: Anemia (on discharge 12/29) - Other Findings Other Findings: ROS limited, patient unable to participate Physical Exam - Vital Signs Temperature: 97.6 C Pulse Rate: 54 Respiratory Rate: 18 O2 Saturation: 95 (ra@ rest) Blood Pressure: 132/72 - Physical Exam General Appearance: positive: Alert, Anxious Eyes Bilateral: positive: No lid inflammation, Conjunctivae nml ENT: positive: No signs of dehydration, Other (tooth decay/loss) Neck: positive: Trachea midline Cardiovascular: positive: Irregular, Bradycardia Respiratory: positive: Diminished in bases, Rhonchi (upper airways) Abdomen: positive: Soft, Nml bowel sounds Skin: positive: Pallor, Pruritis (excoriation on right hip from scratchy; moist and reddened; patch on left back as well) Neurologic/Psychiatric: positive: Disoriented to person, Disoriented to place, Disoriented to time, Unintelligible speech, Other (strike out and irritable during visit with help from ex- she says he is "mean and ornery " to her at times and others quite sweet) Palliative Care - POLST Patient has POLST: No Pain: Pain worsening, Comment (daugther perceives patient still quite painful; calls out and complains frequently some improvement with moving to TID) Constipation: No - Palliative Care Discussion: Patient remains at home, will supported by his family and daughter. No unmet needs. Patient's daughter not at visit to further any further discussion about advanced directives. Ex-, caregiver, does wonder if patient may benefit from antidepressant, she says she pretty much stays "out of it", but recognizes patient does have some glimmer of his current quality of life and distress with his lack of ability to be independent. 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 Results - Lab Results Lab results reviewed: Yes Lab and Imaging Results: Hct 36.8, Hg 11.3 back to baseline no further s/s of blood loss; White count normal range Impression and Recommendations - Palliative Care Impression: This is a 76-year-old man with multiple co-morbidities including COPD, DM, hypertension and complications following a CVA with left hemiparesis including aphasia, chronic pain syndrome, and dysphagia. This is resulted in the need for tube feedings and presents with high aspiration risk. He has developed persistent pruritis and continues to struggle with skin issues, Is mostly bedbound, but is well cared for by his family. Recommendations/Counseling Done: 1. 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 Does present with neuropathic components of sharp shooting pains, has had some response to gabapentin, but is perceived still to have significant discomfort. Will titrate up slowly prescription added of 100 mg tabs to increase the gabapentin to 400 mg 3 times daily. 2. Rash of unknown etiology. It does fluctuate as far as discomfort, but currently is quite excoriated. Patient is somewhat diaphoretic and rashes area is moist, suspect candidiasis as well. Did order nystatin triamcinolone ointment to apply twice daily for 2 weeks and evaluate response. When skin intact, inst. can use aspercreme/lidocaine (4%) topical to see if this would numb the irritate nerve endings at least temporarily when patient agitated by discomfort. 3. Hyperlipidemia. Blood draw done for lipid panel and follow-up for active his statin. And follow-up labs look adequate. 4. Anemia secondary to acute GI bleed 40573 secondary gastritis and antral ulcer. CBC done, hematocrit hemoglobin only slightly decreased. No further signs or symptoms of bleeding noted. 5. Medication adherence. Unable to review medications his daughter was not present for visit. Did not express any concerns prior to appointment. 6. Depression. Caregiver did express concern for patient's current quality of life, perceived irritability and depressive symptoms, patient somewhat less cooperative and more irritable today. Will explore with daughter perceptions and offer antidepressant if would like to try. Would recommend sertraline 25 mg in liquid form, and titrate to effect. This would also address his underlying anxiety and can be beneficial in patients with dementia. Time Spent: 30 minutes spent with counseling regarding symptom management, management of rash reviewed this with caregiver to follow-up with daughter
== END 2017-02-13 12:46 | disposition home or self-care (01) ==
LOC: PC 12:45
PROVIDERS: ATTEND Nurse Practitioner Adult Health
DX: Z51.5 Encounter for palliative care (principal); I69.954 Hemiplegia and hemiparesis following unspecified cerebrovascular disease affecting left non-dominant side; L29.8 Other pruritus; G89.0 Central pain syndrome; J44.9 Chronic obstructive pulmonary disease, unspecified; E11.9 Type 2 diabetes mellitus without complications; I10 Essential (primary) hypertension; I69.320 Aphasia following cerebral infarction; I69.391 Dysphagia following cerebral infarction; Z74.01 Bed confinement status; E78.5 Hyperlipidemia, unspecified; K29.71 Gastritis, unspecified, with bleeding; K25.4 Chronic or unspecified gastric ulcer with hemorrhage; D50.0 Iron deficiency anemia secondary to blood loss (chronic); F32.9 Major depressive disorder, single episode, unspecified; Z79.51 Long term (current) use of inhaled steroids; Z79.4 Long term (current) use of insulin; Z79.891 Long term (current) use of opiate analgesic; Z79.82 Long term (current) use of aspirin; Z87.01 Personal history of pneumonia (recurrent)
CPT/HCPCS: 99348

== ENCOUNTER 2017-05-19 00:21 | Outpatient (CLI) | payer MEDICARE, MEDICAID | END 2017-05-19 00:22 | disposition critical access hospital (66) | LOC: EMS 00:21 | PROVIDERS: ATTEND Surgery | DX: R07.9 Chest pain, unspecified (principal) | CPT/HCPCS: A0425; A0427 ==

== ENCOUNTER 2017-05-19 00:36 | Emergency (ER) | payer MEDICARE, MEDICAID ==
[2017-05-19 01:26] LABS: BASOPHILS # (AUTO) 0.1 10^3/uL (0.0-0.1); BASOPHILS % (AUTO) 0.8 %; EOSINOPHILS # (AUTO) 1.2 10^3/uL (0.0-0.7); EOSINOPHILS % (AUTO) 8.6 %; HGB - HEMOGLOBIN 12.7 g/dL (14.0-18.0); LYMPHOCYTES # (AUTO) 1.3 10^3/uL (1.5-3.5); LYMPHOCYTES % (AUTO) 9.2 %; MEAN CORPUSCULAR HEMOGLOBIN 23.4 pg (27.0-31.0); MEAN CORPUSCULAR HGB CONC 31.5 g/dL (32.0-36.0); MEAN CORPUSCULAR VOLUME 74.4 fL (80.0-94.0); MEAN PLATELET VOLUME 10.1 fL (7.4-11.4); MONOCYTES # (AUTO) 0.7 10^3/uL (0.0-1.0); MONOCYTES % (AUTO) 4.7 %; NEUTROPHILS # (AUTO) 10.7 10^3/uL (1.5-6.6); NEUTROPHILS % (AUTO) 76.7 %; PLT - PLATELET COUNT 286 10^3/uL (130-450); RED BLOOD COUNT 5.42 10^6/uL (4.70-6.10); RED CELL DISTRIBUTION WIDTH 17.5 % (12.0-15.0); WHITE BLOOD COUNT 13.9 x10^3/uL (4.8-10.8)
[2017-05-19 01:28] LABS: ALBUMIN 3.1 g/dL (3.2-5.5); ALBUMIN/GLOBULIN RATIO 0.7 (1.0-2.2); BILIRUBIN,TOTAL 0.5 mg/dL (0.2-1.0); CALCIUM 8.9 mg/dL (8.5-10.3); CREATININE 0.7 mg/dL (0.6-1.2); MAGNESIUM 2.1 mg/dL (1.7-2.8); PHOSPHORUS 2.8 mg/dL (2.5-4.6); TOTAL PROTEIN 7.5 g/dL (6.7-8.2)
--- NOTE | 2017-05-19 01:38 | XRAY Preliminary Report ---
Exam: XR CHEST 1 VIEW X-RAY IMPRESSION: No acute process seen in the chest. [facility] SITE ID: [id number]
--- NOTE | 2017-05-19 01:47 | XRAY Report ---
EXAM: CHEST RADIOGRAPHY EXAM DATE: 05/19/2017 01:18 AM. CLINICAL HISTORY: Chest pain, shortness of breath. COMPARISON: 09/03/2016. TECHNIQUE: 1 view. FINDINGS: Lungs/Pleura: No focal opacities evident. No pleural effusion. No pneumothorax. Mediastinum: Normal heart size with stable calcified hilar/mediastinal lymph nodes. Other: None. IMPRESSION: No acute process seen in the chest. [facility] Referring Provider Line: [phone] SITE ID: [id number]
--- NOTE | 2017-05-19 01:53 | ED Physician Documentation ---
PD HPI CHEST PAIN - Stated complaint Stated Complaint: CHEST PAIN - Chief complaint Chief Complaint: General - History obtained from History obtained from: Patient, Family, EMS - History of Present Illness Timing - onset: Today Timing - onset during: Rest Timing - details: Gradual onset Quality: Aching Location: Left chest Recently seen: Not recently seen - Additional information Additional information: Patient is a 77 year old male with left sided deficit secondary to a stroke who was brought to the emergency department for chest pain. Patient is minimally verbal and it is difficult to describe the pain. Patient was also found to have multiple excoriations on his back and a vesicular rash on his arm. Daughter states that the rash on the arm is new within the last few days but the rash on his back has been there for months. Review of Systems Unable to obtain: Other (minimally verbal) PD PAST MEDICAL HISTORY - Past Medical History Past Medical History: Yes Cardiovascular: Hypertension Respiratory: COPD Neuro: CVA Endocrine/Autoimmune: Type 2 diabetes GI: None : None HEENT: Chronic hearing loss Psych: Anxiety Musculoskeletal: Gout Derm: None - Past Surgical History Past Surgical History: Yes General: Other - Present Medications Home Medications: Ambulatory Orders Medication Instructions Recorded Confirmed Insulin Glargine [Lantus] 20 unit SUBQ 0800 05/21/16 01/23/17 Atorvastatin Calcium 40 mg PEG QPM 07/25/16 01/23/17 Hydrocodone/Acetaminophen 1 tab PEG Q4HR PRN 07/25/16 01/23/17 [Hydrocodone-Acetamin 5-325 mg] Insulin Lispro [Humalog Kwikpen 1 - 5 units SUBQ Q6HR PRN 07/25/16 01/23/17 U-100] Metoprolol Tartrate 25 mg PEG BID 07/25/16 01/23/17 Doxazosin Mesylate [Cardura] 4 mg PEG QPM 08/31/16 01/23/17 Gabapentin 400 mg PEG TID 08/31/16 01/23/17 Lorazepam 0.5 mg PEG BID PRN 08/31/16 01/23/17 Albuterol Sulf [Ventolin Hfa 1 - 2 puffs INH Q4HR PRN 10/17/16 01/23/17 Inhaler] Ondansetron [Ondansetron Odt] 4 mg PO Q6HR PRN 10/17/16 01/23/17 amLODIPine [Norvasc] 5 mg PEG DAILY 10/17/16 01/23/17 Aspirin [Aspirin] 81 mg PEG DAILY 11/18/16 01/23/17 Pantoprazole Sodium [Protonix] 40 mg PEG BID #30 tablet. 12/29/16 01/23/17 Cetirizine [ZyrTEC] 10 mg PEG DAILY PRN 01/23/17 01/23/17 Lidocaine [Anecream] 1 applic TOP Q6HR PRN 02/13/17 02/13/17 Nystatin/Triamcin 1 applic TOP BID 02/13/17 02/13/17 [Nystatin-Triamcinolone Ointm] Clobetasol 0.05% Oint [Temovate 15 gm TOP BID #600 gm 05/19/17 0.05% Oint] Doxycycline Calcium [Vibramycin] 10 ml PO BID #200 ml 05/19/17 - Allergies Allergies/Adverse Reactions: Allergies Allergy/AdvReac Type Severity Reaction Status Date / Time No Known Drug Allergies Allergy Verified 05/19/17 00:45 - Social History Does the pt smoke?: No Smoking Status: Never smoker Does the pt drink ETOH?: No Does the pt have substance abuse?: No - Immunizations Immunizations are current?: Yes - POLST Patient has POLST: No POLST Status: Full Code (The family is still deciding about CODE STATUS. The daughter however stated that she does not want him to live on a ventilator or in a vegetative state.) PD ED PE NORMAL - Vitals Vital signs reviewed: Yes - General General: Alert and oriented X 3 - HEENT HEENT: Atraumatic - Cardiac Cardiac: No murmur - Abdomen Abdomen: Soft, Non distended PD ED PE EXPANDED - HEENT HEENT: Dry mucous membranes - Respiratory Respiratory: Other (course breath sounds) - Back Back: Other (excorations and skin breakdown of back diffusely) - Derm Derm: Rash (erythematous rash with multiple excoriations on patient's back, minmal active bleeding) - Extremities Extremities: Left arm (contracture of left arm), Right wrist (erythematous rash with phemigus reaction of right wrist, ) - Neuro Neuro: Other (left sided upper and lower deficit with contractures) Results - Vitals Vitals: Vital Signs - 24 hr 05/19/17 00:38 Temperature 36.0 C L Heart Rate 98 Respiratory 20 Rate Blood Pressure 173/68 H O2 Saturation 97 Oxygen O2 Source [] Room air O2 Source Room air - EKG (time done) 0046 Rate: Rate (enter#) (101) Rhythm: Sinus tachycardia Altha: Normal Intervals: Normal MS Ischemia: ST depression Other comments: Other comments (poor quality) 0320 Rate: Rate (enter#) (93) Rhythm: NSR Altha: Normal Intervals: Normal MS QRS: Normal Compare to prior EKG: Unchanged from prior EKG - Labs Labs: Laboratory Tests 05/19/17 05/19/17 05/19/17 01:05 01:05 01:05 WBC 13.9 H RBC 5.42 Hgb 12.7 L Hct 40.3 L MCV 74.4 L MCH 23.4 L MCHC 31.5 L RDW 17.5 H Plt Count 286 MPV 10.1 Neut # 10.7 H Lymph # 1.3 L Henderson # 0.7 Eos # 1.2 H Baso # 0.1 Absolute Nucleated RBC 0.01 Nucleated RBC % 0.0 Sodium 142 Potassium 4.2 Chloride 108 Carbon Dioxide 25 Anion Gap 9.0 BUN 32 H Creatinine 0.7 Estimated GFR (MDRD) 109 Glucose 179 H Calcium 8.9 Phosphorus 2.8 Magnesium 2.1 Total Bilirubin 0.5 AST 27 ALT 28 Alkaline Phosphatase 118 Troponin I < 0.04 B-Natriuretic Peptide Total Protein 7.5 Albumin 3.1 L Globulin 4.3 H Albumin/Globulin Ratio 0.7 L Lipase 16 L 05/19/17 05/19/17 01:05 03:20 WBC RBC Hgb Hct MCV MCH MCHC RDW Plt Count MPV Neut # Lymph # Henderson # Eos # Baso # Absolute Nucleated RBC Nucleated RBC % Sodium Potassium Chloride Carbon Dioxide Anion Gap BUN Creatinine Estimated GFR (MDRD) Glucose Calcium Phosphorus Magnesium Total Bilirubin AST ALT Alkaline Phosphatase Troponin I < 0.04 B-Natriuretic Peptide 64 Total Protein Albumin Globulin Albumin/Globulin Ratio Lipase - Rads (name of study) chest x-ray Radiology: Final report received (no acute disease process) PD MEDICAL DECISION MAKING - ED course Complexity details: reviewed old records, reviewed results, re-evaluated patient , considered differential, d/w patient, d/w family ED course: Patient was seen and examined at bedside. ekg was performed. iv access was gained and labs were drawn. patient was treated with a fluid bolus. Patient's labs showed a mild leukocytosis but not much different from his baseline. Patient's rash was concerning. Hopsitalist was consulted and the case was discussed with her. She stated that the patient likely needed derm consult which would not be able to be offered here inpatient. Case was discussed with the family, along with the option of transfer to another facility. Patient's rash appeared to be bullous pemphigous and family stated that they would try the high dose steroids and doxycycline. Family reported that they would follow up with their doctor on saturday. Patient was treated with vicodin which he normally takes at night. patient required no furhter work up and was stable for discharge with outpatient follow up. Departure - Departure Disposition: Home, Self Care Clinical Impression: Bullous pemphigoid Condition: Stable Instructions: Bullous Pemphigoid Follow-Up: Louis Alcantara MD [Provider Admit Priv/Credential] - Tomorrow Prescriptions: Clobetasol 0.05% Oint [Temovate 0.05% Oint] 15 gm TOP BID #600 gm Doxycycline Calcium [Vibramycin] 10 ml PO BID #200 ml Comments: The chest pain work up today was negative. The rash on the wrist and possibly on the back looks like something called bullous pemphigoid. We will start the patient on doxycycline bid and a high dose steroid cream. You should apply the cream twice a day. Most people have improvement within three weeks. You should follow up with your doctor on saturday for re-evaluation. You may return to the emergency department at any time for new, worsening or uncontrollable symptoms.
[2017-05-19] MEDS ORDERED: MORPHINE SOL 10 MG/0.5 ML SYRINGE PO STA (03:21)
[2017-05-19] MEDS ORDERED: SULFAMETH/TRIMETH DS 800/160 MG TABLET PO STA (03:36)
[2017-05-19] MEDS ORDERED: cephALEXin 250 MG CAPSULE PO STA (03:36)
[2017-05-19] MEDS ORDERED: HYDROcod/ACETAM 5/325 MG TABLET PO STA (03:37)
[2017-05-19 04:35] VITALS: BP 152/61
--- NOTE | 2017-05-19 13:50 | CONSULTATION NOTE ---
DATE OF SERVICE: 05/19/2017 Physician: Marilin Li MD DATE OF CONSULTATION: 05/19/2017 REQUESTING PHYSICIAN: ER physician, Dr. Oliver Martinez. REASON FOR CONSULTATION: To evaluate this patient for a rash, chest pain ,and possible admission to [facility]. SOURCE OF HISTORY: History was obtained interviewing the patient's daughter, Iris, and reviewing medical records and discussing the case with Dr. Martinez. The patient was nonverbal and hard of hearing, could not meaningfully interact. 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 Subsequently, the patient required full care. He receives nutrition via PEG feeding tube. He stays at his home and is taken care of by multiple loving family members, his main caregiver and power of trial attorney is his daughter , Iris. I reviewed an informative note, which was available online from Amanda Sawant, as this patient has palliative retirement visits. In the note from February 2017, is documented that the patient has pruritus and a rash. He does scratch uncontrollably and he develops excoriations and worsening rash. In addition, he has central pain syndrome, for which he had been on opiates and on gabapentin as well. Due to his dysphagia, although he is PEG tube fed, he has microaspirations, as he often coughs and has difficulty handling his oral secretions. Patient's function had been declining and most recently his rash had been giving him significant discomfort. Overnight on 05/18/2017 to 05/19/2017, patient's daughter brought the patient to the ER stating that this patient complained of chest pain. The patient is hard of hearing and basically is nonverbal, although he utters some words, his words are incomprehensible. He cannot be redirected, could not carry a reasonable conversation. It is not really clear in what way he complained of chest pain and what his exact symptoms were, but his family seemed to believe that he had chest discomfort. For the chest discomfort, he had negative Troponin in the ER, which was actually repeated 3 hours later and remained negative. He also had an EKG, which was nonischemic. I discussed my opinion regarding the chest pain, both with Dr. Martinez and with Iris, the patient's daughter, which is that in a bedbound, chronically impaired patient, rapid cardiac rule out per enzyme criteria is the standard of care. In particular, this patient would not be a candidate for stress testing and he would only be considered for invasive cardiology evaluation if there would be a severe presentation such as significant EKG change or elevated troponin. Even then, it would be a judgment call and given the patient's background, conservative management would likely be preferred versus invasive evaluation. In any case, considering current scenario having negative cardiac markers and unremarkable EKG, even if the patient would have a positive stress test, I do not think it would prompt invasive evaluation to follow. Therefore, a stress test really does not have clinical significance and that is even more so because usually a stress test is not appropriate in a bedbound patient. An additional issue I was requested to evaluate for was a skin rash. As mentioned above, the patient has uncontrollable pruritus. He scratches to the point when there is bloody tissue debris under his fingernails. He has deep wounds secondary to scratching. This is one kind of rash which he has in the hip area and on his back. This has been ongoing for several months, got worse due to the time course and due to the patient's uncontrollable scratching, but it is not something that is new. A new issue, however, is blistering erythematous maculopapular rash on the right forearm. The daughter stated that the patient was wearing a watch on the forearm and when he was putting his arm under his body scratching his back, then this rash developed and was partly attributed to wearing a watch. After the watch was removed; however, the rash got significantly worse. There are more blisters and more inflammatory signs. This rash formed during the past couple of days. I examined the patient 's rash and it did look like a pemphigoid rash with blisters. I discussed with the patient's daughter and with Dr. Martinez that at [facility] we neither have the talent nor the resources to treat and evaluate for a rash. In particular, if this is a pemphigoid rash or a complicated rash, which it seems to be, then patient should be evaluated by a specialist such as referral rn, have skin biopsy, and might also need evaluation by a branding specialist. We do not have access to these services in [facility]. Dr. Martinez and I spoke with the patient's daughter together and it was discussed that transfer to another facility could be pursued or they could discharge from the ER and seek help as outpatient. I refer the reader to Dr. Martinez's note regarding that decision. In any case, as far as admitting to [facility], I did not feel that we could treat this here or handle it to any resolution and I do not feel that we could provide necessary services. In fact, we would delay the care of this patient by admitting him here and possibly providing the wrong kind of treatment. Therefore, I did not recommend admission to [facility]. PAST MEDICAL HISTORY 1. Cerebrovascular accident, status post PEG tube placement, with residual deficits of dysphagia and left dense left-sided hemiparesis, chronically impaired bedbound status. 2. History of pneumonia/aspiration. 3. History of gastrointestinal bleed/peptic ulcers. 4. COPD. 5. Diabetes. 6. Hypertension. 7. Central pain syndrome. OUTPATIENT MEDICATIONS: Reviewed per electronic medical record. CODE STATUS: In December 2016, it was FULL CODE. Most recently in Palliative Care's notes it was documented that no chest compressions should be given. However, daughter still considers aggressive interventions and they would want advanced airway management if needed. I did not rediscuss this issue, as the patient is not getting admitted to our hospital. SOCIAL HISTORY: The patient is bedbound, chronically impaired, requires full care. PRIMARY CARE PHYSICIAN: Dr. Louis Alcantara. FAMILY HISTORY: The patient could not provide, he is nonverbal. REVIEW OF SYMPTOMS: The patient could not provide. He is nonverbal and appeared agitated, not redirectable. PHYSICAL EXAMINATION VITAL SIGNS: Temperature 36.7 Celsius. Heart rate between 80 and 90, blood pressure 150/60, respiratory rate 22, oxygen saturation 98% on room air. GENERAL: The patient is a well-developed, chronically ill-appearing male. During my bedside presence, he was gesturing to his daughter. He was uttering some incomprehensible words, appeared agitated, uncomfortable. When I tried to touch him, even just lifting his blanket, made him wince and he tried to push my hand away. He appeared uncomfortable, did not want to be examined or touched. CARDIOVASCULAR: S1, S2, regular. RESPIRATORY: No increased work of breathing, no significant wheezes or crackles. ABDOMEN: Benign. Bowel tones present. LYMPH: No lymphedema. MUSCULOSKELETAL: Thin, frail with left upper extremity contracture. SKIN: Pemphigoid-like, vesicular blistering rash on the right upper extremity. Different kind of rash in other body areas, which appear excoriated, erythematous with different healing stages, with secondary inflammatory signs and possibly secondary superinfection. PSYCH: Agitated. ER workup reviewed per electronic medical record. ACTIVE ISSUES/DIAGNOSES/RECOMMENDATIONS 1. Chest pain. Chest pain is most likely related to gastroesophageal reflux plus/minus aspirations. In addition, could be musculoskeletal pain. Stress test is not recommended in this bedbound patient. The standard of care is rapid cardiac rule out per enzyme criteria and with a negative EKG, that was completed and no further workup is recommended. 2. Regarding different skin rashes, including pemphigoid right upper extremity rash, I recommended the patient get evaluated by a referral rn. He might or might not need acute care and hospital admission. However, here at [facility], we cannot evaluate for or treat concerning skin rashes. Patient might need wound care and ongoing care for the skin rash. I also recommended conservative measures such as using mitts and gloves on the patient's hand to prevent from scratching. I would also increase pain medications and sedatives in this patient who clearly looks uncomfortable. For this, however, he does have outpatient palliative care followup every month and he does have a primary care physician, Dr. Alcantara. I recommended that the patient get transferred to another hospital; however, after discussing it with family, the decision was to discharge him, have outpatient Dermatology evaluation, and then pursue treatment based on Dermatology opinion. Time spent in the care of this patient overnight was 40 minutes, which included review of medical records, coordinating the care with the patient's daughter and the ER physician and this was an outpatient ER consult. cc: Louis Alcantara, TD: 05/19/2017 13:47 [id number]
== END 2017-05-19 05:02 | disposition home or self-care (01) ==
LOC: EDUNIT# → ED 00:36
DX: L12.0 Bullous pemphigoid (principal); K21.9 Gastro-esophageal reflux disease without esophagitis; D72.829 Elevated white blood cell count, unspecified; I69.354 Hemiplegia and hemiparesis following cerebral infarction affecting left non-dominant side; I69.391 Dysphagia following cerebral infarction; I10 Essential (primary) hypertension; J44.9 Chronic obstructive pulmonary disease, unspecified; E11.9 Type 2 diabetes mellitus without complications; Z79.4 Long term (current) use of insulin; M10.9 Gout, unspecified; Z87.11 Personal history of peptic ulcer disease; Z79.82 Long term (current) use of aspirin
CPT/HCPCS: 36415; 71045; 80053; 83690; 83735; 83880; 84100; 84484; 85025; 93005; 99284; A9270; 87252

== ENCOUNTER 2017-05-19 04:59 | Outpatient (CLI) | payer MEDICARE, MEDICAID | END 2017-05-19 05:00 | disposition home or self-care (01) | LOC: EMS 04:59 | PROVIDERS: ATTEND Surgery | DX: R07.9 Chest pain, unspecified (principal); G82.20 Paraplegia, unspecified | CPT/HCPCS: A0425; A0428 ==

== ENCOUNTER 2017-07-31 16:28 | Outpatient (CLI) | payer MEDICARE, MEDICAID ==
--- NOTE | 2017-07-31 20:06 | CONSULTATION NOTE ---
Palliative Care Follow Up - Referral Referring Provider: Dr Alcantara Time of Visit: 07/31/2017. 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 He has had several hospitalizations or emergency room visits for pneumonia and GI bleeds. His most recent ED visit was 05/19/17 for chest pain. EKG was negative and labs showed mild leukocytosis. He was diagnosed with bullous pemphigoid and treated with doxycycline and high dose steroid cream which cleared up the pruritic rash he had had for several months. 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 -The patient has been stable and doing very well since his last ED visit and the treatment and resolution of the bullous pemphigoid. -The patient lives with his daughter and extensive family (his daughter's and their children, his younger sons, his former ). -They have recently moved into a larger home close to their former home. -The patient's daughter is his TOMAS caregiver and reports the chronic pain from left side hemiparesis is currently managed well with [place] twice a day and gabapentin three times a day via PEG. -His breathing and SOB is stabilized, he uses the albuterol inhaler 1-3x/week. -Suctioning his secretions also helps. -She reports patient had diarrhea for a few days recently, but today it has improved and appears to be resolving. -She uses the medicaid respite benefit very sparingly. Last time was for the weekend of the house move. -She needs podiatry to clip the patient's toenails; they are too hard and thick for her to do. Social History - Living Situation Living arrangement: At home Living Situation: With family Support System: -The patient lives with his loving and extended family, which includes his daughter Iris and her and young children, his teenage sons, and his former , Iris's mother. -All the family participates in his caregiving but the bulk of it is done by Iris, who is his TOMAS caregiver. Medications/Allergies - Medications Home Medications: Ambulatory Orders Medication Instructions Recorded Confirmed Insulin Glargine [Lantus] 20 unit SUBQ 0800 05/21/16 07/31/17 Atorvastatin Calcium 40 mg PEG QPM 07/25/16 07/31/17 Hydrocodone/Acetaminophen 1 tab PEG Q4HR PRN 07/25/16 07/31/17 [Hydrocodone-Acetamin 5-325 mg] Insulin Lispro [Humalog Kwikpen 1 - 5 units SUBQ Q6HR PRN 07/25/16 07/31/17 U-100] Metoprolol Tartrate 25 mg PEG BID 07/25/16 07/31/17 Doxazosin Mesylate [Cardura] 4 mg PEG QPM 08/31/16 07/31/17 Gabapentin 400 mg PEG TID 08/31/16 07/31/17 Lorazepam 0.5 mg PEG BID PRN 08/31/16 07/31/17 Albuterol Sulf [Ventolin Hfa 1 - 2 puffs INH Q4HR PRN 10/17/16 07/31/17 Inhaler] Ondansetron [Ondansetron Odt] 4 mg PO Q6HR PRN 10/17/16 01/23/17 amLODIPine [Norvasc] 5 mg PEG DAILY 10/17/16 01/23/17 Aspirin [Aspirin] 81 mg PEG DAILY 11/18/16 07/31/17 Pantoprazole Sodium [Protonix] 40 mg PEG BID #30 tablet. 12/29/16 01/23/17 Cetirizine [ZyrTEC] 10 mg PEG DAILY PRN 01/23/17 07/31/17 - Allergies Allergies/Adverse Reactions: Allergies Allergy/AdvReac Type Severity Reaction Status Date / Time No Known Drug Allergies Allergy Verified 05/19/17 00:45 Review of Systems - Constitutional Constitutional: reports: Weakness, Weight stable. denies: Poor appetite - Ears, Nose & Throat Ears, Nose & Throat: reports: Hearing loss - Cardiovascular Cardiovascular: denies: Chest pain, Edema - Gastrointestinal Gastrointestinal: reports: Diarrhea (x 4 days, now resolving). denies: Poor appetite - Genitourinary Genitourinary: reports: Incontinence - Musculoskeletal Musculoskeletal: reports: Limited range of motion (left side hemiparesis), Muscle weakness (left side, s/p CVA) - Integumentary Integumentary: reports: Other (resolving bullous pemphigoid) - Neurological Neurological: reports: General weakness - Psychiatric Psychiatric: denies: Depression, Behavior disturbances - Endocrine Endocrine: reports: Diabetes type 2 - Other Findings Other Findings: ROS obtained from daughter Physical Exam - Vital Signs Temperature: 96.3 F Pulse Rate: 95 O2 Saturation: 95 (room air) Blood Pressure: 150/62 - Physical Exam General Appearance: positive: No acute distress Eyes Bilateral: positive: No lid inflammation, Conjunctivae nml, No scleral icterus ENT: positive: No signs of dehydration, Other (front teeth missing) Neck: positive: Trachea midline Cardiovascular: positive: Regular rate & rhythm, No murmur, No gallop Respiratory: positive: Chest non-tender, No respiratory distress, Diminished in bases, Wheezes (inspiratory) Abdomen: positive: Non-tender, Soft, Nml bowel sounds Skin: positive: Other (resolving scars and discoloration on back, hips and forearms of the bullous pemphigoid condition) Extremities: positive: No pedal edema Neurologic/Psychiatric: positive: Disoriented to person, Disoriented to place, Disoriented to time, Unintelligible speech Palliative Care - POLST Patient has POLST: No Pain: Pain improved Anorexia: None Sleep: Sleeps well Constipation: No, Comment (had a recent bout of diarrhea for several days which appears to be clearing on its own) Feelings of wellbeing/Perceived Quality of Life: Good Performance Status: bed bound, total dependence for ADLs - Palliative Care Discussion: Iris has not done the POLST yet, and realizes he is currently on full code. She is planning to fill out and POLST and change his code status, but is waiting for another discussion with her sister. They have already discussed this , but she does not remember their decision. There has been a lot going on with the move to this new place, and she is not yet unpacked. I left a blank POLST form. Impression and Recommendations - Palliative Care Impression: This is a 77-year-old man with multiple comorbidities and complications following a CVA that left him with left hemiparesis, aphasia, chronic pain syndrome and dysphagia requiring PEG tube for feeding. He remains at high risk for aspiration pneumonia but has been very stable lately. He has had several days of diarrhea which is resolving. He had a pruritic rash that turned out to be bullous pemphigoid and was diagnosed and successfully treated after a visit to the ED in May. 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 Diarrhea: Acute for several days, and now resolving. Encouraged increased hydration and instructed her to call if conditions returns or worsens, in which case we can take a stool sample. Diabetic foot care: Patient would benefit from regular oversight and maintenance of feet and nails. Referring him to shop girl; sent script to patient's daughter: [facility]. Bullous pemphigoid: Pruritic rash resolved after treatment with doxycycline and high-dose steroid cream. Discoloration and scarring fading on arms, buttocks, back, legs. Advanced care planning: POLST has not been signed. Daughter and her sister have discussed, want to move forward on the code status, and plan to discuss next time they are together. Left a blank POLST form with daughter. Agreed to have follow-up visits every 2-3 months, and as needed. Time Spent: 25 minutes were spent with more than 50% of the time spent on counseling, education, and coordination of care.
== END 2017-07-31 16:29 | disposition home or self-care (01) ==
LOC: PC 16:28
PROVIDERS: ATTEND Nurse Practitioner
DX: Z51.5 Encounter for palliative care (principal); I69.398 Other sequelae of cerebral infarction; R19.7 Diarrhea, unspecified; I69.354 Hemiplegia and hemiparesis following cerebral infarction affecting left non-dominant side; I69.391 Dysphagia following cerebral infarction; I69.320 Aphasia following cerebral infarction; I10 Essential (primary) hypertension; J44.9 Chronic obstructive pulmonary disease, unspecified; M10.9 Gout, unspecified; E11.9 Type 2 diabetes mellitus without complications; H91.90 Unspecified hearing loss, unspecified ear; F17.201 Nicotine dependence, unspecified, in remission; Z79.51 Long term (current) use of inhaled steroids; Z79.82 Long term (current) use of aspirin; Z79.4 Long term (current) use of insulin; Z74.01 Bed confinement status; Z93.1 Gastrostomy status
CPT/HCPCS: 99348

== ENCOUNTER 2017-08-01 17:30 | Emergency (ER) | payer MEDICARE, MEDICAID ==
--- NOTE | 2017-08-01 17:36 | ED Physician Documentation ---
PD HPI ABD PAIN - Stated complaint Stated Complaint: FEEDING TUBE OUT - History obtained from History obtained from: Family, EMS - History of Present Illness Timing - onset: Today (He has a G-tube for history of stroke, came out today and they need it replaced.) Review of Systems Unable to obtain: Confused PD PAST MEDICAL HISTORY - Past Medical History Cardiovascular: Hypertension Respiratory: COPD Neuro: CVA Endocrine/Autoimmune: Type 2 diabetes GI: None : None HEENT: Chronic hearing loss Psych: Anxiety Musculoskeletal: Gout Derm: None - Past Surgical History Past Surgical History: Yes General: Other - Present Medications Home Medications: Ambulatory Orders Medication Instructions Recorded Confirmed Aspirin 81 mg NG DAILY 08/01/17 Atorvastatin Calcium 40 mg NG DAILY 08/01/17 Doxazosin [Cardura] 2 mg NG DAILY 08/01/17 Gabapentin 300 mg NG BID 08/01/17 Gabapentin [Neurontin] 100 mg NG TID 08/01/17 Insulin Glargine [Lantus Solostar] 08/01/17 Metoprolol Tartrate 25 mg NG BID 08/01/17 Pantoprazole [Protonix] 40 mg NG DAILY 08/01/17 amLODIPine [Norvasc] 5 mg NG DAILY 08/01/17 - Allergies Allergies/Adverse Reactions: Allergies Allergy/AdvReac Type Severity Reaction Status Date / Time No Known Drug Allergies Allergy Verified 05/19/17 00:45 - Social History Does the pt smoke?: No Smoking Status: Never smoker Does the pt drink ETOH?: No Does the pt have substance abuse?: No - Immunizations Immunizations are current?: Yes - POLST Patient has POLST: No POLST Status: Full Code (The family is still deciding about CODE STATUS. The daughter however stated that she does not want him to live on a ventilator or in a vegetative state.) PD ED PE NORMAL - Vitals Vital signs reviewed: Yes - General General: Other (He is alert and cooperative, seems to have a hemiplegic left side. He is basically nonverbal) - Abdomen Abdomen: Soft, Non tender, Other (There is a G-tube site in the left upper quadrant.) Results - Vitals Vitals: Vital Signs - 24 hr 08/01/17 17:34 Temperature 36.8 C Heart Rate 76 Respiratory 24 Rate Blood Pressure 145/51 H O2 Saturation 96 Oxygen O2 Source [Without Activity] Room air O2 Source Room air - Rads (name of study) abd xr Radiology: EMP read contemporaneously (Tip of the G-tube is in the stomach without contrast extravasation.) PD MEDICAL DECISION MAKING - ED course ED course: The G-tube was replaced at bedside with a 22 Kazakh G-tube, it was technically easy and he was sent for an x-ray to confirm placement. Departure - Departure Disposition: Home, Self Care Clinical Impression: Dislodged gastrostomy tube Condition: Good Record reviewed to determine appropriate education?: Yes Instructions: ED G Tube Replacement Comments: Call your doctor to arrange a follow-up appointment, make the next available appointment. In the interim, return anytime if worse or if new symptoms develop. Your blood pressure was elevated today on check into the emergency department. This does not mean that you have hypertension, it is a common phenomenon to come to the emergency department and have elevated blood pressure. I recommend that you see your primary care physician within the week to have it rechecked when you are feeling better.
[2017-08-01] MEDS ORDERED: DIATR MEGLU/DIATRIZOATE SODIUM 120 ML BOTTLE PO ONE (18:13)
--- NOTE | 2017-08-01 18:19 | XRAY Report ---
EXAM: ABDOMEN RADIOGRAPHY EXAM DATE: 08/01/2017 06:13 PM. CLINICAL HISTORY: With contrast in G tube, eval placement. COMPARISON: 11/19/2016. TECHNIQUE: 1 view. FINDINGS: Bowel Gas Pattern: There is oral contrast material within the stomach and within a percutaneous gastr ostomy tube. There is no extravasation of contrast. Other: None. IMPRESSION: The tip of the gastrostomy tube is within the stomach with no contrast extravasation seen . [facility] Referring Provider Line: [phone] SITE ID: [id number]
[2017-08-01 19:25] VITALS: BP 143/49
== END 2017-08-01 19:30 | disposition home or self-care (01) ==
LOC: ED 17:30
DX: K94.23 Gastrostomy malfunction (principal); I10 Essential (primary) hypertension; J44.9 Chronic obstructive pulmonary disease, unspecified; E11.9 Type 2 diabetes mellitus without complications; Z79.4 Long term (current) use of insulin; Z86.73 Personal history of transient ischemic attack (TIA), and cerebral infarction without residual deficits; M10.9 Gout, unspecified; Z79.82 Long term (current) use of aspirin
CPT/HCPCS: 74018; 99283; 99284; Q9963

== ENCOUNTER 2017-08-01 19:32 | Outpatient (CLI) | payer MEDICARE, MEDICAID | END 2017-08-01 19:33 | disposition home or self-care (01) | LOC: EMS 19:32 | PROVIDERS: ATTEND Surgery | DX: Z46.59 Encounter for fitting and adjustment of other gastrointestinal appliance and device (principal); R53.1 Weakness | CPT/HCPCS: A0425; A0428 ==

== ENCOUNTER 2017-11-19 16:18 | Outpatient (CLI) | payer MEDICARE, MEDICAID ==
--- NOTE | 2017-11-19 21:12 | CONSULTATION NOTE ---
Palliative Care Follow Up - Referral Referring Provider: Dr. Alcantara Time of Visit: 11/20/2007. [id number] Referral setting: Home (Seen in home setting due to taxing and considerable effort required to leave the home due to being bedbound secondary to late effects of stroke with left hemiparesis.) Referral Reason: Pain control - Information Sources Records reviewed: Previous records reviewed History/Review of Systems obtained from: Patient, Family Exam limitations: Clinical condition (Patient aphasic) - History of Present Illness Update Brief HPI Update: This is a 77-year-old [place] gentleman who had a severe stroke with left hemiparesis in March 2016 and is on PEG tube feeding due to dysphagia. He has had several hospitalizations or emergency room visits for pneumonia and GI bleeds. His most recent ED visit was 05/19/17 for chest pain. EKG was negative and labs showed mild leukocytosis. He was diagnosed with bullous pemphigoid and treated with doxycycline and high dose steroid cream which cleared up the pruritic rash he had had for several months. 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 -Patient has been very stable. About a month ago he was at [facility] for respite for his daughter who is his TOMAS caregiver. -His chronic pain is at baseline and Iris reports it is well controlled with [place] via PEG. They need a new prescription for this visit. -The skin on his back is clear although it is quite scarred and discolored from bullous pemphigoid, which was successfully treated. -There are no pressure wounds on his torso or heels, his skin is looking very good. -Iris's mother, the patient's former , says that he is bathed every other day and she does a skin check and puts lotion on him. He does have dry skin on his feet along with very yellowed, long, fungal toenails and would benefit from synthetic plasterer care. I have previously given a referral prescription to Iris to take him. -He is on full PEG tube feeding; the most recent PEG tube dislocation was back in July. -Iris reports only occasional SOA; they use the nebulizer only occasionally. Social History - Living Situation Living arrangement: At home Living Situation: With family Support System: Patient lives in the home of his daughter, with his extended family around him. Iris, his daughter, is his TOMAS caregiver. His teenage sons are there, his grandchildren, and his former , Iris's mother, lives nearby and is there most days, helping with childcare. Medications/Allergies - Medications Home Medications: Ambulatory Orders Medication Instructions Recorded Confirmed Aspirin 81 mg NG DAILY 08/01/17 11/19/17 Atorvastatin Calcium 40 mg NG DAILY 08/01/17 11/19/17 Doxazosin [Cardura] 2 mg NG DAILY 08/01/17 11/19/17 Gabapentin [Neurontin] 300 mg PEG TID 08/01/17 11/19/17 Metoprolol Tartrate 25 mg NG BID 08/01/17 11/19/17 Pantoprazole [Protonix] 40 mg NG DAILY 08/01/17 11/19/17 amLODIPine [Norvasc] 5 mg NG DAILY 08/01/17 11/19/17 Cetirizine [ZyrTEC] 10 mg PEG DAILY PRN 11/19/17 11/19/17 HYDROcod/ACETAM 5/325 [[place] 5/325] 1 tab PO TID PRN 11/19/17 11/19/17 Insulin Glargine [Lantus Solostar] 20 unit SUBQ 0800 11/19/17 11/19/17 Insulin Lispro [Humalog] 1 - 5 unit SUBQ Q6H PRN 11/19/17 11/19/17 Vitamin B Complex 1 tab PEG DAILY 11/19/17 11/19/17 - Allergies Allergies/Adverse Reactions: Allergies Allergy/AdvReac Type Severity Reaction Status Date / Time No Known Drug Allergies Allergy Verified 05/19/17 00:45 Review of Systems - Constitutional Constitutional: reports: Weakness, Weight stable - Ears, Nose & Throat Ears, Nose & Throat: reports: Hearing loss - Cardiovascular Cardiovascular: denies: Edema - Respiratory Respiratory: reports: Wheezing (mild) - Gastrointestinal Gastrointestinal: denies: Change in bowel habits - Genitourinary Genitourinary: reports: Incontinence - Musculoskeletal Musculoskeletal: reports: Muscle aches, Transfer issues (requires full assist) - Integumentary Integumentary: reports: Pruritis - Psychiatric Psychiatric: reports: Other (Constant incoherent verbalizations when people are present in his room) Physical Exam - Vital Signs Temperature: 96.8 F Pulse Rate: 67 O2 Saturation: 95 Blood Pressure: 140/65 - Physical Exam General Appearance: positive: No acute distress, Alert Eyes Bilateral: positive: No lid inflammation ENT: positive: No signs of dehydration, Other (front teeth missing) Neck: positive: No JVD, Trachea midline Cardiovascular: positive: Regular rate & rhythm, No murmur, No gallop Respiratory: positive: Chest non-tender, No respiratory distress, Diminished in bases, Other (accessory muscle usage) Abdomen: positive: Non-tender, Soft, Nml bowel sounds Skin: positive: No symptoms, Other (scars and discoloration on back s/p bulous pemphigoid, treated previously) Extremities: positive: No pedal edema, Other (Protective bootie on R foot; dry skin on feet; overgrown, fungal toenails). negative: Full ROM (L side hemiparesis) Neurologic/Psychiatric: positive: Disoriented to person, Disoriented to place, Disoriented to time, Unintelligible speech, Flat affect Palliative Care - POLST Patient has POLST: No Pain: Pain unchanged Performance Status: Mostly bedbound; occasionally gets up in his wheelchair. Dependent for all ADLs. PEG tube feeding, NPO. - Palliative Care Discussion: Patient's daughter was not present at today's visit. His former was there , she is not closely involved in his care. She stays at the house during the days to help watch her grandchildren. There is no POLST for this patient. The daughter has stated in the past that she is aware that they should be making a decision on the patient's code status ; she understands that the default is full code. She uses the [facility] respite benefit judiciously; she had the patient on respite about a month ago. Palliative Care provides coordination of patient's medicine orders whenever he goes into respite. Impression and Recommendations - Palliative Care Impression: This is a 77-year-old man with multiple comorbidities and complications s/p CVA in March 2016 that left him with left hemiparesis, aphasia, chronic pain syndrome and dysphagia requiring PEG tube for feeding. He is also bedbound and at high risk for aspiration pneumonia. He is well cared for by family at home, and Palliative Care will continue to provide support and oversight, with eventual transition to Hospice when appropriate. 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 Wrote script today for 90 tablets. Diabetic foot care: Yellowed, overgrown fungal toenails. Patient would benefit from regular oversight and maintenance of feet and nails. I previously supplied a script to the daughter referring him to synthetic plasterer. One is the [facility]. Skin on heels and soles is dry and flaky; recommended exfoliation during bathing and dry skin lotion such as cetaphil. Advanced care planning: No POLST. Daughter was not present today, she has stated in the past she wants to discuss this with her sister in [place], they do want to move forward on the code status. Previously left a blank POLST form with her. Follow-up visits every 2-3 months, and as needed. Time Spent: 30 minutes were spent with more than 50% of the time spent on counseling, education, and coordination of care.
== END 2017-11-19 16:19 | disposition home or self-care (01) ==
LOC: PC 16:18
PROVIDERS: ATTEND Nurse Practitioner
DX: Z51.5 Encounter for palliative care (principal); I69.354 Hemiplegia and hemiparesis following cerebral infarction affecting left non-dominant side; I69.391 Dysphagia following cerebral infarction; R13.10 Dysphagia, unspecified; Z93.1 Gastrostomy status; E11.9 Type 2 diabetes mellitus without complications; Z79.4 Long term (current) use of insulin; J44.9 Chronic obstructive pulmonary disease, unspecified; Z79.82 Long term (current) use of aspirin; M79.1 Myalgia; Z74.01 Bed confinement status
CPT/HCPCS: 99348

== ENCOUNTER 2018-02-14 20:05 | Outpatient (CLI) | payer MEDICARE, MEDICAID ==
[2018-02-14 20:35] LABS: BASOPHILS # (AUTO) 0.1 10^3/uL (0.0-0.1); BASOPHILS % (AUTO) 1.2 %; EOSINOPHILS # (AUTO) 0.7 10^3/uL (0.0-0.7); EOSINOPHILS % (AUTO) 7.9 %; HGB - HEMOGLOBIN 13.6 g/dL (14.0-18.0); LYMPHOCYTES # (AUTO) 1.2 10^3/uL (1.5-3.5); LYMPHOCYTES % (AUTO) 14.3 %; MEAN CORPUSCULAR HEMOGLOBIN 26.6 pg (27.0-31.0); MEAN CORPUSCULAR HGB CONC 32.6 g/dL (32.0-36.0); MEAN CORPUSCULAR VOLUME 81.7 fL (80.0-94.0); MONOCYTES # (AUTO) 0.6 10^3/uL (0.0-1.0); MONOCYTES % (AUTO) 7.3 %; NEUTROPHILS # (AUTO) 5.9 10^3/uL (1.5-6.6); NEUTROPHILS % (AUTO) 69.3 %; PLT - PLATELET COUNT 152 10^3/uL (130-450); RED BLOOD COUNT 5.11 10^6/uL (4.70-6.10); RED CELL DISTRIBUTION WIDTH 16.1 % (12.0-15.0); WHITE BLOOD COUNT 8.5 x10^3/uL (4.8-10.8)
[2018-02-14 20:38] LABS: ALBUMIN 2.9 g/dL (3.2-5.5); ALBUMIN/GLOBULIN RATIO 0.9 (1.0-2.2); BILIRUBIN,TOTAL 0.7 mg/dL (0.2-1.0); CALCIUM 8.4 mg/dL (8.5-10.3); CREATININE 0.8 mg/dL (0.6-1.2); TOTAL PROTEIN 6.2 g/dL (6.7-8.2)
== END 2018-02-14 20:06 | disposition home or self-care (01) ==
LOC: LAB.R 20:05
DX: J44.1 Chronic obstructive pulmonary disease with (acute) exacerbation (principal); I10 Essential (primary) hypertension; D55.1 Anemia due to other disorders of glutathione metabolism
CPT/HCPCS: 80053; 85025

== ENCOUNTER 2018-02-15 10:34 | Outpatient (CLI) | payer MEDICARE, MEDICAID | END 2018-02-15 10:35 | disposition critical access hospital (66) | LOC: EMS 10:34 | PROVIDERS: ATTEND Surgery | DX: Z43.1 Encounter for attention to gastrostomy (principal) | CPT/HCPCS: A0425; A0429 ==

== ENCOUNTER 2018-02-15 10:39 | Emergency (ER) | payer MEDICARE, MEDICAID ==
[2018-02-15] MEDS ORDERED: WATER FOR INJECTION,STERILE 10 ML ONE (11:57)
--- NOTE | 2018-02-15 12:03 | ED Physician Documentation ---
History of Present Illness - Stated complaint Stated Complaint: FEEDING TUBE REMOVAL - Chief complaint Chief Complaint: General - History obtained from History obtained from: Patient, EMS - History of Present Illness Timing: Today Pain level max: 0 Pain level now: 0 - Additonal information Additional information: Patient is a 77-year-old male who present after his feeding tube fell out today. Here for replacement. No complaints. Nothing makes it better or worse Review of Systems Skin: denies: Rash PD PAST MEDICAL HISTORY - Past Medical History Cardiovascular: Hypertension Respiratory: COPD Endocrine/Autoimmune: Type 2 diabetes GI: None : None HEENT: Chronic hearing loss Psych: Anxiety Musculoskeletal: Gout Derm: None - Past Surgical History Past Surgical History: Yes General: Other - Present Medications Home Medications: Ambulatory Orders Medication Instructions Recorded Confirmed Aspirin 81 mg NG DAILY 08/01/17 11/19/17 Atorvastatin Calcium 40 mg NG DAILY 08/01/17 11/19/17 Doxazosin [Cardura] 2 mg NG DAILY 08/01/17 11/19/17 Gabapentin [Neurontin] 300 mg PEG TID 08/01/17 11/19/17 Metoprolol Tartrate 25 mg NG BID 08/01/17 11/19/17 Pantoprazole [Protonix] 40 mg NG DAILY 08/01/17 11/19/17 amLODIPine [Norvasc] 5 mg NG DAILY 08/01/17 11/19/17 Cetirizine [ZyrTEC] 10 mg PEG DAILY PRN 11/19/17 11/19/17 HYDROcod/ACETAM 5/325 [[place] 5/325] 1 tab PO TID PRN 11/19/17 11/19/17 Insulin Glargine [Lantus Solostar] 20 unit SUBQ 0800 11/19/17 11/19/17 Insulin Lispro [Humalog] 1 - 5 unit SUBQ Q6H PRN 11/19/17 11/19/17 Vitamin B Complex 1 tab PEG DAILY 11/19/17 11/19/17 - Allergies Allergies/Adverse Reactions: Allergies Allergy/AdvReac Type Severity Reaction Status Date / Time No Known Drug Allergies Allergy Verified 05/19/17 00:45 - Social History Does the pt smoke?: No Smoking Status: Never smoker Does the pt drink ETOH?: No Does the pt have substance abuse?: No - Immunizations Immunizations are current?: Yes - POLST Patient has POLST: No POLST Status: Full Code (The family is still deciding about CODE STATUS. The daughter however stated that she does not want him to live on a ventilator or in a vegetative state.) PD ED PE NORMAL - Vitals Vital signs reviewed: Yes - General General: No acute distress - HEENT HEENT: Moist mucous membranes - Cardiac Cardiac: RRR - Respiratory Respiratory: No respiratory distress, Clear bilaterally - Abdomen Abdomen: Soft, Non tender - Derm Derm: Warm and dry - Neuro Neuro: Other (alert) Results - Vitals Vitals: Vital Signs - 24 hr 02/15/18 10:44 Temperature 36.2 C L Heart Rate 49 L Respiratory 16 Rate Blood Pressure 155/53 H O2 Saturation 94 Oxygen O2 Source [Without Activity] Room air O2 Source Room air PD MEDICAL DECISION MAKING - ED course Complexity details: considered differential, d/w patient ED course: 22 British G-tube was replaced at the bedside. Tolerated well. Flushes easily and pulls back gastric contents. Dressing applied and will follow up with his doctor. This document was made in part using voice recognition software. While efforts are made to proofread this document, sound alike and grammatical errors may occur. Departure - Departure Disposition: 01 Home, Self Care Clinical Impression: Gastrostomy tube dysfunction Condition: Good Instructions: ED G Tube Replacement Follow-Up: Louis Alcantara MD [Primary Care Provider] - As Needed Comments: His G -tube was replaced today.
[2018-02-15 13:26] VITALS: BP 155/56
== END 2018-02-15 13:30 | disposition home or self-care (01) ==
LOC: EDUNIT# → ED 10:39
DX: K94.29 Other complications of gastrostomy (principal); E11.9 Type 2 diabetes mellitus without complications; I10 Essential (primary) hypertension; Z79.4 Long term (current) use of insulin; Z79.82 Long term (current) use of aspirin
CPT/HCPCS: 43760; 99282; 99283

== ENCOUNTER 2018-02-22 17:04 | Outpatient (CLI) | payer MEDICARE, MEDICAID | END 2018-02-22 17:05 | disposition critical access hospital (66) | LOC: EMS 17:04 | PROVIDERS: ATTEND Surgery | DX: R10.9 Unspecified abdominal pain (principal) | CPT/HCPCS: A0425; A0429 ==

== ENCOUNTER 2018-02-22 17:09 | Emergency (ER) | payer MEDICARE, MEDICAID ==
[2018-02-22 18:10] LABS: BASOPHILS # (AUTO) 0.1 10^3/uL (0.0-0.1); BASOPHILS % (AUTO) 0.6 %; EOSINOPHILS # (AUTO) 0.7 10^3/uL (0.0-0.7); EOSINOPHILS % (AUTO) 7.2 %; HGB - HEMOGLOBIN 14.7 g/dL (14.0-18.0); LYMPHOCYTES % (AUTO) 19.8 %; MEAN CORPUSCULAR HEMOGLOBIN 26.3 pg (27.0-31.0); MEAN CORPUSCULAR HGB CONC 31.8 g/dL (32.0-36.0); MEAN CORPUSCULAR VOLUME 82.8 fL (80.0-94.0); MEAN PLATELET VOLUME 10.2 fL (7.4-11.4); MONOCYTES # (AUTO) 0.6 10^3/uL (0.0-1.0); MONOCYTES % (AUTO) 6.4 %; NEUTROPHILS # (AUTO) 6.6 10^3/uL (1.5-6.6); PLT - PLATELET COUNT 140 10^3/uL (130-450); RED CELL DISTRIBUTION WIDTH 15.8 % (12.0-15.0); WHITE BLOOD COUNT 10.1 x10^3/uL (4.8-10.8)
[2018-02-22] MEDS ORDERED: IOPAMIDOL-300 100 ML VIAL ONE (18:13)
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
[2018-02-22 18:47] LABS: ALBUMIN 3.2 g/dL (3.2-5.5); BILIRUBIN,TOTAL 0.9 mg/dL (0.2-1.0); CALCIUM 8.7 mg/dL (8.5-10.3); CREATININE 0.7 mg/dL (0.6-1.2); TOTAL PROTEIN 6.4 g/dL (6.7-8.2)
[2018-02-22 19:04] LABS: BILIRUBIN,URINE NEGATIVE (NEGATIVE); GLUCOSE, URINE (UA) NEGATIVE (NEGATIVE); KETONES,URINE (UA) NEGATIVE (NEGATIVE); LEUKOCYTE ESTERASE, URINE NEGATIVE (NEGATIVE); NITRITE,URINE NEGATIVE (NEGATIVE); OCCULT BLOOD,URINE NEGATIVE (NEGATIVE); PH,URINE 8.5 PH (5.0-7.5); PROTEIN,URINE TRACE mg/dL (NEGATIVE); UROBILINOGEN,URINE 0.2 (NORMAL) E.U./dL (NORMAL)
[2018-02-22 19:07] LABS: CLARITY,URINE CLEAR (CLEAR)
[2018-02-22] MEDS ORDERED: IOPAMIDOL-300 100 ML VIAL IVP ONE (19:28)
--- NOTE | 2018-02-22 20:13 | CT Report ---
Reason: pain, distended, w/ PEG tube Procedure Date: 02/22/2018 Accession Number: [id number] / [id number] Procedure: CT - Abdomen/Pelvis W/ CPT Code: FULL RESULT: EXAM: CT ABDOMEN AND PELVIS EXAM DATE: 02/22/2018 07:26 PM. CLINICAL HISTORY: Pain, distended, w/ PEG tube. COMPARISONS: 08/31/2016. TECHNIQUE: Routine helical CT imaging was performed through the abdomen and pelvis. IV contrast: ISOVUE 300 100mL. Enteric contrast: No. Reconstructions: Coronal and sagittal. In accordance with CT protocol optimization, one or more of the following dose reduction techniques were utilized for this exam: automated exposure control, adjustment of mA and/or KV based on patient size, or use of iterative reconstructive technique. FINDINGS: Lung Bases: Right lower lobe infiltrate small right effusion. Left basilar atelectasis. Small left effusion Liver: Normal. No masses. Gallbladder/Bile Ducts: Unremarkable. Spleen: Normal. Pancreas: Normal. Adrenal Glands: Right adrenal 8 mm nodule stable. Left adrenal unremarkable. Kidneys: Bilateral renal cysts. Scarring right kidney. Peritoneal Cavity/Bowel: PEG tube in stomach. No retroperitoneal adenopathy. No free fluid in the abdomen. No small bowel distention. Increased fecal material in the colon. The appendix is well visualized and normal. Pelvic Organs: Bladder unremarkable. Mildly enlarged prostate with calcifications Vasculature: Atherosclerotic changes Bones: DJD hips, spine Other: None. IMPRESSION: 1. Right lower lobe infiltrate with small effusion. Left basal atelectasis and small effusion 2. Bilateral renal cysts. 3. Increased fecal material but no obstruction. 4. Normal appendix RADIA
--- NOTE | 2018-02-22 20:21 | XRAY Report ---
Reason: chest pain Procedure Date: 02/22/2018 Accession Number: [id number] / [id number] Procedure: XR - Chest 1 View X-Ray CPT Code: 74963 FULL RESULT: EXAM: CHEST RADIOGRAPHY EXAM DATE: 02/22/2018 07:40 PM. CLINICAL HISTORY: Chest pain. COMPARISON: 05/19/2017. TECHNIQUE: 1 view. FINDINGS: Lungs/Pleura: No focal opacities evident. No pleural effusion. No pneumothorax. Decreased lung volumes. Mediastinum: Top normal size heart ectatic aorta. Calcified mediastinal and hilar lymph nodes Other: None. IMPRESSION: No active disease RADIA
[2018-02-22] MEDS ORDERED: cefTRIAXone 1 GM in SODIUM CHLORIDE 0.9% MINIBAG 100 ML IV STA (22:24)
[2018-02-22] MEDS ORDERED: SODIUM CHLORIDE 0.9% 500 ML IV ONE (22:24)
[2018-02-22] MEDS ORDERED: KETOROLAC 60 MG/2 ML VIAL IVP STA (22:25)
[2018-02-22 23:26] VITALS: BP 117/66
== END 2018-02-22 23:26 | disposition home or self-care (01) ==
LOC: EDUNIT# → ED 17:09
DX: S30.811A Abrasion of abdominal wall, initial encounter (principal); W22.8XXA Striking against or struck by other objects, initial encounter; J18.9 Pneumonia, unspecified organism; K59.03 Drug induced constipation; I25.10 Atherosclerotic heart disease of native coronary artery without angina pectoris; J44.9 Chronic obstructive pulmonary disease, unspecified; E11.9 Type 2 diabetes mellitus without complications; I10 Essential (primary) hypertension; G81.90 Hemiplegia, unspecified affecting unspecified side; Z86.73 Personal history of transient ischemic attack (TIA), and cerebral infarction without residual deficits; Z79.4 Long term (current) use of insulin; Z79.82 Long term (current) use of aspirin; Z93.1 Gastrostomy status
CPT/HCPCS: 36415; 51701; 71045; 74177; 80053; 81003; 83690; 85025; 96365; 96375; 99284; Q9967; 81001; 87086

== ENCOUNTER 2018-02-22 23:34 | Outpatient (CLI) | payer MEDICARE, MEDICAID | END 2018-02-22 23:35 | disposition home or self-care (01) | LOC: EMS 23:34 | PROVIDERS: ATTEND Surgery | DX: J18.9 Pneumonia, unspecified organism (principal); I69.954 Hemiplegia and hemiparesis following unspecified cerebrovascular disease affecting left non-dominant side | CPT/HCPCS: A0425; A0428 ==

== ENCOUNTER 2018-03-06 10:10 | Outpatient (CLI) | payer MEDICARE, MEDICAID ==
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
== END 2018-03-06 10:11 | disposition home or self-care (01) ==
LOC: PC 10:10
PROVIDERS: ATTEND Nurse Practitioner
DX: Z51.5 Encounter for palliative care (principal); I69.954 Hemiplegia and hemiparesis following unspecified cerebrovascular disease affecting left non-dominant side; I69.922 Dysarthria following unspecified cerebrovascular disease; I69.991 Dysphagia following unspecified cerebrovascular disease; R13.10 Dysphagia, unspecified; I69.998 Other sequelae following unspecified cerebrovascular disease; G89.4 Chronic pain syndrome; Z93.1 Gastrostomy status; Z74.01 Bed confinement status; J44.9 Chronic obstructive pulmonary disease, unspecified; N40.0 Benign prostatic hyperplasia without lower urinary tract symptoms; I10 Essential (primary) hypertension; E11.9 Type 2 diabetes mellitus without complications; F43.10 Post-traumatic stress disorder, unspecified; K59.00 Constipation, unspecified; Z79.4 Long term (current) use of insulin; E78.5 Hyperlipidemia, unspecified; M10.9 Gout, unspecified; H91.90 Unspecified hearing loss, unspecified ear; Z87.891 Personal history of nicotine dependence; Z87.01 Personal history of pneumonia (recurrent); Z79.82 Long term (current) use of aspirin; Z79.891 Long term (current) use of opiate analgesic; Z79.2 Long term (current) use of antibiotics; Z79.51 Long term (current) use of inhaled steroids; Z79.52 Long term (current) use of systemic steroids
CPT/HCPCS: 99349

== ENCOUNTER 2018-03-10 11:59 | Emergency (ER) | payer MEDICARE, MEDICAID ==
--- NOTE | 2018-03-10 12:36 | ED Physician Documentation ---
PD HPI DYSPNEA - Stated complaint Stated Complaint: SOA - Chief complaint Chief Complaint: Resp - History obtained from History obtained from: Patient - History of Present Illness Timing - onset: How many days ago (few) Timing - onset during: Light activity Timing - duration: Days Timing - details: Gradual onset, Still present Inciting event(s): URI. No: Out of meds, Immobilization/travel Improved by: Inhaler/neb Worsened by: Exertion, Coughing Associated symptoms: Fever, Cough, Wheezing, Chest pain / discomfort. No: Palpitations, Bilateral edema Similar symptoms before: Diagnosis (asthma and pneumonia) Review of Systems Constitutional: reports: Fever, Chills, Myalgias Nose: reports: Congestion. denies: Rhinorrhea / runny nose Throat: denies: Sore throat Cardiac: reports: Chest pain / pressure (with coughing). denies: Palpitations Respiratory: reports: Dyspnea, Cough, Wheezing GI: denies: Nausea, Vomiting, Diarrhea Skin: denies: Rash, Lesions Neurologic: reports: Difficulty speaking. denies: Altered mental status, Headache PD PAST MEDICAL HISTORY - Past Medical History Past Medical History: No Cardiovascular: Hypertension Respiratory: COPD Neuro: CVA Endocrine/Autoimmune: Type 2 diabetes GI: None : None HEENT: Chronic hearing loss Psych: Anxiety Musculoskeletal: Gout Derm: None - Past Surgical History Past Surgical History: Yes General: Other - Present Medications Home Medications: Ambulatory Orders Medication Instructions Recorded Confirmed Aspirin 81 mg NG DAILY 08/01/17 03/06/18 Atorvastatin Calcium 40 mg NG DAILY 08/01/17 03/10/18 Doxazosin [Cardura] 2 mg NG DAILY 08/01/17 03/06/18 Gabapentin [Neurontin] 300 mg PEG TID 08/01/17 03/10/18 Metoprolol Tartrate 25 mg NG BID 08/01/17 03/10/18 Pantoprazole [Protonix] 40 mg NG DAILY 08/01/17 03/10/18 amLODIPine [Norvasc] 5 mg NG DAILY 08/01/17 03/06/18 Cetirizine [ZyrTEC] 10 mg PEG DAILY PRN 11/19/17 03/06/18 HYDROcod/ACETAM 5/325 [[place] 5/325] 1 tab PO TID PRN 11/19/17 03/10/18 Insulin Glargine [Lantus Solostar] 20 unit SUBQ 0800 11/19/17 03/10/18 Insulin Lispro [Humalog] 1 - 5 unit SUBQ Q6H PRN 11/19/17 03/10/18 Vitamin B Complex 1 tab PEG DAILY 11/19/17 03/10/18 Azithromycin [Zithromax Tri-Zeb] 500 mg PEG DAILY #3 tablet MDD For 02/22/18 03/10/18 3 days Docusate Sodium 250Mg Capsule 250 mg PEG DAILY #10 capsule MDD 02/22/18 03/10/18 [Colace 250Mg Capsule] for 10 days Polyethylene Glycol 3350 [Miralax] 17 gm PO DAILY #10 packet 02/22/18 03/10/18 diphenhydrAMINE [Benadryl] 25 mg PO Q6HR PRN #20 capsule 02/22/18 03/10/18 Albuterol Sulf [Ventolin Hfa 1 - 2 puffs INH Q4HR PRN 03/06/18 03/10/18 Inhaler] Ipratropium/Albuterol [Duoneb] 3 ml PO QID PRN 03/06/18 03/10/18 LORazepam [Ativan] 0.25 - 0.5 mg NG Q8H PRN 03/06/18 03/10/18 Senna [Senokot] 1 - 2 tab NG DAILY PRN 03/06/18 03/10/18 Albuterol 2.5 mg INH Q4H PRN #30 neb 03/10/18 Dexamethasone [Decadron] 4 mg PO DAILY #7 tablet 03/10/18 Docusate Calcium 240 mg PO DAILY #30 capsule 03/10/18 Doxycycline Hyclate 100 mg PO BID #20 capsule 03/10/18 Ipratropium [Atrovent] 0.5 mg INH Q6H #30 neb 03/10/18 QUEtiapine [SEROquel] 25 mg PO ONCE 03/10/18 03/10/18 Risperidone [Risperdal] 0.5 mg PO 03/10/18 Sucralfate 1 gm PO 03/10/18 - Allergies Allergies/Adverse Reactions: Allergies Allergy/AdvReac Type Severity Reaction Status Date / Time No Known Drug Allergies Allergy Verified 05/19/17 00:45 - Social History Does the pt smoke?: No Smoking Status: Never smoker Does the pt drink ETOH?: No Does the pt have substance abuse?: No - Immunizations Immunizations are current?: Yes - POLST Patient has POLST: No POLST Status: Full Code (The family is still deciding about CODE STATUS. The daughter however stated that she does not want him to live on a ventilator or in a vegetative state.) PD ED PE NORMAL - Vitals Vital signs reviewed: Yes - General General: Alert and oriented X 3, No acute distress, Well developed/nourished - HEENT HEENT: Pharynx benign - Neck Neck: Supple, no meningeal sign, No adenopathy - Cardiac Cardiac: RRR, No murmur - Respiratory Respiratory: No: Clear bilaterally (wheezing but no coarse sounds) - Abdomen Abdomen: Soft, Non tender - Derm Derm: Normal color, Warm and dry - Extremities Extremities: No tenderness to palpate, No edema, No calf tenderness / cord Results - Vitals Vitals: Oxygen O2 Source [Without Activity] Room air O2 Source Room air - Labs Labs: Microbiology 03/10/18 13:15 Respiratory Culture - Preliminary Sputum Laboratory Tests 03/10/18 03/10/18 03/10/18 13:00 13:00 13:00 WBC 7.9 RBC 5.20 Hgb 14.0 Hct 42.6 MCV 82.0 MCH 27.0 MCHC 32.9 RDW 16.5 H Plt Count 177 MPV 10.1 Neut # (Auto) 5.5 Lymph # (Auto) 1.1 L [place] # (Auto) 0.6 Eos # (Auto) 0.6 Baso # (Auto) 0.0 Absolute Nucleated RBC 0.00 Nucleated RBC % 0.0 Sodium 137 Potassium 3.7 Chloride 105 Carbon Dioxide 26 Anion Gap 6.0 BUN 21 H Creatinine 0.6 Estimated GFR (MDRD) 130 Glucose 148 H Lactic Acid 1.3 Calcium 8.8 Magnesium 2.0 Total Bilirubin 0.9 AST 26 ALT 27 Alkaline Phosphatase 78 Total Protein 6.6 L Albumin 3.3 Globulin 3.3 Albumin/Globulin Ratio 1.0 Lipase 35 - Rads (name of study) chest xray Radiology: Prelim report reviewed, EMP read contemporaneously (no infiltrates nor other acute process) PD MEDICAL DECISION MAKING - ED course Complexity details: re-evaluated patient (improved), considered differential (has asthma and with current URI symptoms and sputum, consider steroids/abx/ cough meds), d/w patient Departure - Departure Disposition: 01 Home, Self Care Clinical Impression: Bronchitis Dyspnea Qualifiers: Dyspnea type: shortness of breath Qualified Code(s): R06.02 - Shortness of breath Exacerbation of asthma Qualifiers: Asthma severity: moderate Asthma persistence: persistent Qualified Code(s): J45.41 - Moderate persistent asthma with (acute) exacerbation Condition: Stable Record reviewed to determine appropriate education?: Yes Follow-Up: Louis Alcantara MD [Primary Care Provider] - Prescriptions: Albuterol 2.5 mg INH Q4H PRN #30 neb PRN Reason: Wheezing Dexamethasone [Decadron] 4 mg PO DAILY #7 tablet Docusate Calcium 240 mg PO DAILY #30 capsule Doxycycline Hyclate 100 mg PO BID #20 capsule Ipratropium [Atrovent] 0.5 mg INH Q6H #30 neb Comments: Combine the Atrovent with the albuterol you have and use of both together in his nebulizer 4 times a day. Continue albuterol nebulizer every 1-2 hours as needed for wheezing. Give the Decadron steroid daily for the next 7 days. Doxycycline antibiotic twice daily for the next week. Give docusate stool softener daily for the next week or so. Recheck if he is not improving well in the next day or 2 and return to the ER sooner if worsening. Forms: Activity restrictions Discharge Date/Time: 03/10/18 17:00
[2018-03-10] MEDS ORDERED: DEXAMETHASONE 10 MG/ML VIAL IVP STA (12:53)
[2018-03-10] MEDS ORDERED: SODIUM CHLORIDE 0.9% 1,000 ML IV ONE (12:53)
[2018-03-10] MEDS ORDERED: IPRATROPIUM/ALBUTEROL 3 ML NEB INH STA (12:53)
[2018-03-10] MEDS ORDERED: MORPHINE 2 MG/ML CARPUJECT IVP STA (13:33)
[2018-03-10 13:49] LABS: ALBUMIN 3.3 g/dL (3.2-5.5); BILIRUBIN,TOTAL 0.9 mg/dL (0.2-1.0); CALCIUM 8.8 mg/dL (8.5-10.3); CREATININE 0.6 mg/dL (0.6-1.2); TOTAL PROTEIN 6.6 g/dL (6.7-8.2)
--- NOTE | 2018-03-10 14:17 | XRAY Report ---
Reason: dyspnea and cough Procedure Date: 03/10/2018 Accession Number: [id number] / [id number] Procedure: XR - Chest 1 View X-Ray CPT Code: 76874 FULL RESULT: EXAM: CHEST RADIOGRAPHY EXAM DATE: 03/10/2018 01:49 PM. CLINICAL HISTORY: Dyspnea and cough. COMPARISON: 02/22/2018. 05/19/2017. TECHNIQUE: 1 view. FINDINGS: Lungs/Pleura: Stable calcified mass in the right perihilar region with distortion of the right hilum. No new airspace opacities are identified. No sizable pleural effusion or pneumothorax. Elevation of the right hemidiaphragm is more pronounced on today's examination, right lung base therefore not able to be evaluated on single AP portable view. Mediastinum: Stable cardiomediastinal silhouette including tortuous calcified aorta and prominent cardiac shadow. Other: None. IMPRESSION: Interval increase in elevation of the right hemidiaphragm with no definite acute cardiopulmonary abnormality detected. If evaluation of the right lung base is desired, formal PA and lateral radiographs could be considered. RADIA
[2018-03-10 14:22] LABS: BASOPHILS % (AUTO) 0.6 %; EOSINOPHILS # (AUTO) 0.6 10^3/uL (0.0-0.7); EOSINOPHILS % (AUTO) 8.1 %; LYMPHOCYTES # (AUTO) 1.1 10^3/uL (1.5-3.5); LYMPHOCYTES % (AUTO) 14.6 %; MEAN CORPUSCULAR HGB CONC 32.9 g/dL (32.0-36.0); MEAN PLATELET VOLUME 10.1 fL (7.4-11.4); MONOCYTES # (AUTO) 0.6 10^3/uL (0.0-1.0); MONOCYTES % (AUTO) 7.2 %; NEUTROPHILS # (AUTO) 5.5 10^3/uL (1.5-6.6); NEUTROPHILS % (AUTO) 69.5 %; PLT - PLATELET COUNT 177 10^3/uL (130-450); RED CELL DISTRIBUTION WIDTH 16.5 % (12.0-15.0); WHITE BLOOD COUNT 7.9 x10^3/uL (4.8-10.8)
[2018-03-10] MEDS ORDERED: ALBUTEROL NEB 2.5 MG/3 ML INH STA (14:24)
[2018-03-10 16:38] VITALS: BP 165/71
--- NOTE | 2018-03-13 07:36 | ED Physician Documentation ---
ED Addendum - Addendum Addendum: 03/13/18 07:35 Chart accessed for culture review. Sputum culture grows pseudomonas aeruginosa, resistant to tetracycline. It is sensitive to levaquin and thus I recommend start Levaquin 500mg PO BID x 1 week
== END 2018-03-10 17:00 | disposition home or self-care (01) ==
LOC: EDUNIT# → ED 11:59
DX: J40 Bronchitis, not specified as acute or chronic (principal); J45.41 Moderate persistent asthma with (acute) exacerbation; I10 Essential (primary) hypertension; E11.9 Type 2 diabetes mellitus without complications; Z79.4 Long term (current) use of insulin; Z86.73 Personal history of transient ischemic attack (TIA), and cerebral infarction without residual deficits
CPT/HCPCS: 36415; 71045; 80053; 83605; 83690; 83735; 85025; 87070; 87077; 87181; 87205; 94640; 94664; 96361; 96374; 96375; 99283

== ENCOUNTER 2018-06-25 15:35 | Outpatient (CLI) | payer MEDICARE, MEDICAID | END 2018-06-25 15:36 | disposition critical access hospital (66) | LOC: EMS 15:35 | PROVIDERS: ATTEND Surgery | DX: R06.02 Shortness of breath (principal); R05 Cough; R03.0 Elevated blood-pressure reading, without diagnosis of hypertension; R00.0 Tachycardia, unspecified; Z74.01 Bed confinement status | CPT/HCPCS: A0425; A0427 ==

== ENCOUNTER 2018-06-25 15:57 | Inpatient (IN) | payer MEDICARE, MEDICAID ==
--- NOTE | 2018-06-25 16:22 | ED Physician Documentation ---
History of Present Illness - Stated complaint Stated Complaint: SOA - Chief complaint Chief Complaint: Resp - Additonal information Additional information: 78-year-old male was brought to the emergency department by EMS for shortness of breath and hypoxia. The patient has dementia and resides in a nursing facility, the patient does have a history of COPD. The patient does not use oxygen on a regular basis. Staff on the patient short of breath. EMS found the patient tachypneic with saturations around 70% on room air. The patient improved with DuoNeb and oxygen. The patient provides no history secondary to his dementia Review of Systems Unable to obtain: Dementia PD PAST MEDICAL HISTORY - Past Medical History Cardiovascular: Hypertension Respiratory: COPD Neuro: CVA Endocrine/Autoimmune: Type 2 diabetes GI: None : None HEENT: Chronic hearing loss Psych: Anxiety Musculoskeletal: Gout Derm: None - Past Surgical History Past Surgical History: Yes General: Other - Present Medications Home Medications: Ambulatory Orders Medication Instructions Recorded Confirmed Aspirin 81 mg NG DAILY 08/01/17 03/06/18 Atorvastatin Calcium 40 mg NG DAILY 08/01/17 03/10/18 Doxazosin [Cardura] 2 mg NG DAILY 08/01/17 03/06/18 Gabapentin [Neurontin] 300 mg PEG TID 08/01/17 03/10/18 Metoprolol Tartrate 25 mg NG BID 08/01/17 03/10/18 Pantoprazole [Protonix] 40 mg NG DAILY 08/01/17 03/10/18 amLODIPine [Norvasc] 5 mg NG DAILY 08/01/17 03/06/18 Cetirizine [ZyrTEC] 10 mg PEG DAILY PRN 11/19/17 03/06/18 HYDROcod/ACETAM 5/325 [[place] 5/325] 1 tab PO TID PRN 11/19/17 03/10/18 Insulin Glargine [Lantus Solostar] 20 unit SUBQ 0800 11/19/17 03/10/18 Insulin Lispro [Humalog] 1 - 5 unit SUBQ Q6H PRN 11/19/17 03/10/18 Vitamin B Complex 1 tab PEG DAILY 11/19/17 03/10/18 Azithromycin [Zithromax Tri-Zeb] 500 mg PEG DAILY #3 tablet MDD For 02/22/18 03/10/18 3 days Docusate Sodium 250Mg Capsule 250 mg PEG DAILY #10 capsule MDD 02/22/18 03/10/18 [Colace 250Mg Capsule] for 10 days Polyethylene Glycol 3350 [Miralax] 17 gm PO DAILY #10 packet 02/22/18 03/10/18 diphenhydrAMINE [Benadryl] 25 mg PO Q6HR PRN #20 capsule 02/22/18 03/10/18 Albuterol Sulf [Ventolin Hfa 1 - 2 puffs INH Q4HR PRN 03/06/18 03/10/18 Inhaler] Ipratropium/Albuterol [Duoneb] 3 ml PO QID PRN 03/06/18 03/10/18 LORazepam [Ativan] 0.25 - 0.5 mg NG Q8H PRN 03/06/18 03/10/18 Senna [Senokot] 1 - 2 tab NG DAILY PRN 03/06/18 03/10/18 Albuterol 2.5 mg INH Q4H PRN #30 neb 03/10/18 Dexamethasone [Decadron] 4 mg PO DAILY #7 tablet 03/10/18 Docusate Calcium 240 mg PO DAILY #30 capsule 03/10/18 Doxycycline Hyclate 100 mg PO BID #20 capsule 03/10/18 Ipratropium [Atrovent] 0.5 mg INH Q6H #30 neb 03/10/18 QUEtiapine [SEROquel] 25 mg PO ONCE 03/10/18 03/10/18 Risperidone [Risperdal] 0.5 mg PO 03/10/18 Sucralfate 1 gm PO 03/10/18 - Allergies Allergies/Adverse Reactions: Allergies Allergy/AdvReac Type Severity Reaction Status Date / Time No Known Drug Allergies Allergy Verified 06/25/18 16:07 - Social History Does the pt smoke?: No Smoking Status: Never smoker Does the pt drink ETOH?: No Does the pt have substance abuse?: No - Immunizations Immunizations are current?: Yes - POLST Patient has POLST: No POLST Status: Full Code (The family is still deciding about CODE STATUS. The daughter however stated that she does not want him to live on a ventilator or in a vegetative state.) PD ED PE NORMAL - General General: Other (78-year-old male who appears to be in a poor state of health at baseline is slightly Tachypneic but in no respiratory failure) - HEENT HEENT: Atraumatic, PERRL, Other (Poor dental hygiene) - Cardiac Cardiac: RRR, Strong equal pulses - Respiratory Respiratory: Other (Tachypnea, bilateral rhonchi) - Abdomen Abdomen: Soft - Derm Derm: Normal color - Neuro Neuro: Other (The patient's alert, the patient has had a prior stroke with left- sided deficits) Results - Vitals Vitals: Vital Signs - 24 hr 06/25/18 06/25/18 16:01 16:52 Temperature 36.5 C Heart Rate 84 82 Respiratory 26 H 26 H Rate Blood Pressure 130/47 L 129/47 L O2 Saturation 97 92 Oxygen O2 Source [Without Activity] Room air O2 Source Nasal cannula Oxygen Flow Rate 5 - EKG (time done) 16:09 Rate: Rate (enter#) Rhythm: NSR Intervals: Normal NV, Other (Nonspecific intraventricular conduction delay) Ischemia: Non specific changes - Labs Labs: Laboratory Tests 06/25/18 06/25/18 06/25/18 16:17 16:17 16:17 WBC 8.6 RBC 5.50 Hgb 14.4 Hct 45.8 MCV 83.4 MCH 26.1 L MCHC 31.3 L RDW 16.7 H Plt Count 168 MPV 9.9 Neut # (Auto) 7.4 H Lymph # (Auto) 0.4 L [place] # (Auto) 0.6 Eos # (Auto) 0.1 Baso # (Auto) 0.1 Absolute Nucleated RBC 0.00 Nucleated RBC % 0.0 PT 13.1 H INR 1.2 Sodium 143 Potassium 4.4 Chloride 100 L Carbon Dioxide 35 H Anion Gap 8.0 BUN 34 H Creatinine 0.8 Estimated GFR (MDRD) 93 Glucose 312 H Calcium 8.5 Total Bilirubin 0.7 AST 22 ALT 20 Alkaline Phosphatase 75 Troponin I B-Natriuretic Peptide Total Protein 6.6 L Albumin 2.8 L Globulin 3.8 Albumin/Globulin Ratio 0.7 L Lipase 31 06/25/18 06/25/18 16:17 16:17 WBC RBC Hgb Hct MCV MCH MCHC RDW Plt Count MPV Neut # (Auto) Lymph # (Auto) [place] # (Auto) Eos # (Auto) Baso # (Auto) Absolute Nucleated RBC Nucleated RBC % PT INR Sodium Potassium Chloride Carbon Dioxide Anion Gap BUN Creatinine Estimated GFR (MDRD) Glucose Calcium Total Bilirubin AST ALT Alkaline Phosphatase Troponin I < 0.04 B-Natriuretic Peptide 162 H Total Protein Albumin Globulin Albumin/Globulin Ratio Lipase - Rads (name of study) CXR Radiology: Final report received PD MEDICAL DECISION MAKING - ED course ED course: The patient's symptoms appear to be secondary to an acute pneumonia, the patient is also requiring supplemental oxygen and will require admission to the hospital. The case was discussed with the hospitalist Dr. Patel who accepts the patient onto her service. Departure - Departure Disposition: 66 [facility] DC/Xfer Clinical Impression: Hypoxia Pneumonia Qualifiers: Pneumonia type: due to unspecified organism Laterality: unspecified laterality Lung location: unspecified part of lung Qualified Code(s): J18.9 - Pneumonia, unspecified organism COPD (chronic obstructive pulmonary disease) Qualifiers: COPD type: unspecified COPD Qualified Code(s): J44.9 - Chronic obstructive pulmonary disease, unspecified Dementia Qualifiers: Dementia type: unspecified type Dementia behavioral disturbance: without behavioral disturbance Qualified Code(s): F03.90 - Unspecified dementia without behavioral disturbance Condition: Fair
[2018-06-25 16:23] LABS: BASOPHILS # (AUTO) 0.1 10^3/uL (0.0-0.1); BASOPHILS % (AUTO) 0.9 %; EOSINOPHILS # (AUTO) 0.1 10^3/uL (0.0-0.7); EOSINOPHILS % (AUTO) 1.7 %; HGB - HEMOGLOBIN 14.4 g/dL (14.0-18.0); LYMPHOCYTES # (AUTO) 0.4 10^3/uL (1.5-3.5); MEAN CORPUSCULAR HEMOGLOBIN 26.1 pg (27.0-31.0); MEAN CORPUSCULAR HGB CONC 31.3 g/dL (32.0-36.0); MEAN CORPUSCULAR VOLUME 83.4 fL (80.0-94.0); MEAN PLATELET VOLUME 9.9 fL (7.4-11.4); MONOCYTES # (AUTO) 0.6 10^3/uL (0.0-1.0); MONOCYTES % (AUTO) 6.8 %; NEUTROPHILS # (AUTO) 7.4 10^3/uL (1.5-6.6); NEUTROPHILS % (AUTO) 85.6 %; PLT - PLATELET COUNT 168 10^3/uL (130-450); RED CELL DISTRIBUTION WIDTH 16.7 % (12.0-15.0); WHITE BLOOD COUNT 8.6 x10^3/uL (4.8-10.8)
[2018-06-25 16:34] LABS: INR 1.2 (0.8-1.2); PT - PROTHROMBIN TIME 13.1 secs (9.9-12.6)
[2018-06-25 16:36] LABS: ALBUMIN 2.8 g/dL (3.2-5.5); ALBUMIN/GLOBULIN RATIO 0.7 (1.0-2.2); BILIRUBIN,TOTAL 0.7 mg/dL (0.2-1.0); CALCIUM 8.5 mg/dL (8.5-10.3); CREATININE 0.8 mg/dL (0.6-1.2); TOTAL PROTEIN 6.6 g/dL (6.7-8.2)
[2018-06-25] MEDS ORDERED: INSULIN REGULAR HUMAN 100 UNIT/1 ML 10 ML MDV IVP STA (16:39)
--- NOTE | 2018-06-25 17:28 | XRAY Report ---
Reason: soa Procedure Date: 06/25/2018 Accession Number: [id number] / [id number] Procedure: XR - Chest 2 View X-Ray CPT Code: 69355 FULL RESULT: EXAM: CHEST RADIOGRAPHY EXAM DATE: 06/25/2018 04:49 PM. CLINICAL HISTORY: Shortness of breath. COMPARISON: CHEST 1 VIEW 03/10/2018 1:36 PM. TECHNIQUE: 2 views. FINDINGS: Lungs/Pleura: Increased right base haziness. Stable right midlung scarring. Otherwise no focal opacities evident. No pleural effusion. No pneumothorax. Normal volumes. Stable elevation of the right hemidiaphragm. Mediastinum: Normal heart size for technique. Stable right paratracheal and right hilar lymph nodes. Other: No compression fractures identified. IMPRESSION: No left lower lobe haziness concerning for left lower lobe pneumonia. RAD[facility]
[2018-06-25] MEDS ORDERED: CEFEPIME 2 GM in SODIUM CHLORIDE 0.9% MINIBAG 100 ML IV STA (17:39)
--- NOTE | 2018-06-25 18:22 | HISTORY & PHYSICAL EXAMINATION ---
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 He presents to the ER today for shortness of breath and hypoxia. The patients daughter (Iris) noticed the patient developed labored breathing a couple of days ago. The daughter gave the patient his nebulizer treatment. She reports coming home from work today and checked the patient's vital signs given his work of breathing. He was found to be hypoxic with Spo2 of 70% on room air. Given the above constellation of symptoms, EMS was called and the patient was brought to the hospital. The patient is not on oxygen at home. Daughter reports that he has a chronic cough, given his COPD. Work-up in the ER revealed a normal WBC, afebrile, tachypneic in the mid 20s, CXR with new left lower lobe haziness concerning for LLL pneumonia. His blood glucose was in the 300s. He is requiring 4L NC to maintain adequate oxygenation. He was given a dose of cefepime and regular insulin. He is being admitted to the hospital for treatment of pneumonia. Patient has a POLST form at home. Per the daughter, it states the patient is a full code. 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 Moved to [facility] about 5 years ago to be closer to his daughter after he had gone through a bad divorce and was very stressed out. The patient is currently . He has 6 children. He curr ently lives with his daughter and 2 sons. The patient was previously completely independent prior to his stroke in March 2016. Patient is now completely dependent on his daughter for most of his daily activities of living. The patient was a heavy smoker until March 2016 when he had a stroke. The patient smoked up to 3 packs a day. He been smoking over 50 years. He does not drink alcohol or use any illicit drugs. - Substance History Use: Uses substance without health or social issues: NONE - POLST Patient has POLST: No POLST Status: Full Code (The family is still deciding about CODE STATUS. The daughter however stated that she does not want him to live on a ventilator or in a vegetative state.) Meds/Allgy - Home Medications Home Medications: Ambulatory Orders Medication Instructions Recorded Confirmed Aspirin 81 mg NG DAILY 08/01/17 03/06/18 Atorvastatin Calcium 40 mg NG DAILY 08/01/17 03/10/18 Doxazosin [Cardura] 2 mg NG DAILY 08/01/17 03/06/18 Gabapentin [Neurontin] 300 mg PEG TID 08/01/17 03/10/18 Metoprolol Tartrate 25 mg NG BID 08/01/17 03/10/18 Pantoprazole [Protonix] 40 mg NG DAILY 08/01/17 03/10/18 amLODIPine [Norvasc] 5 mg NG DAILY 08/01/17 03/06/18 Cetirizine [ZyrTEC] 10 mg PEG DAILY PRN 11/19/17 03/06/18 HYDROcod/ACETAM 5/325 [[place] 5/325] 1 tab PO TID PRN 11/19/17 03/10/18 Insulin Glargine [Lantus Solostar] 20 unit SUBQ 0800 11/19/17 03/10/18 Insulin Lispro [Humalog] 1 - 5 unit SUBQ Q6H PRN 11/19/17 03/10/18 Vitamin B Complex 1 tab PEG DAILY 11/19/17 03/10/18 Azithromycin [Zithromax Tri-Zeb] 500 mg PEG DAILY #3 tablet MDD For 02/22/18 03/10/18 3 days Docusate Sodium 250Mg Capsule 250 mg PEG DAILY #10 capsule MDD 02/22/18 03/10/18 [Colace 250Mg Capsule] for 10 days Polyethylene Glycol 3350 [Miralax] 17 gm PO DAILY #10 packet 11/17/18 12/03/18 diphenhydrAMINE [Benadryl] 25 mg PO Q6HR PRN #20 capsule 02/22/18 03/10/18 Albuterol Sulf [Ventolin Hfa 1 - 2 puffs INH Q4HR PRN 03/06/18 03/10/18 Inhaler] Ipratropium/Albuterol [Duoneb] 3 ml PO QID PRN 03/06/18 03/10/18 LORazepam [Ativan] 0.25 - 0.5 mg NG Q8H PRN 03/06/18 03/10/18 Senna [Senokot] 1 - 2 tab NG DAILY PRN 03/06/18 03/10/18 Albuterol 2.5 mg INH Q4H PRN #30 neb 03/10/18 Dexamethasone [Decadron] 4 mg PO DAILY #7 tablet 03/10/18 Docusate Calcium 240 mg PO DAILY #30 capsule 03/10/18 Doxycycline Hyclate 100 mg PO BID #20 capsule 03/10/18 Ipratropium [Atrovent] 0.5 mg INH Q6H #30 neb 03/10/18 QUEtiapine [SEROquel] 25 mg PO ONCE 03/10/18 03/10/18 Risperidone [Risperdal] 0.5 mg PO 03/10/18 Sucralfate 1 gm PO 03/10/18 - Allergies Allergies/Adverse Reactions: Allergies Allergy/AdvReac Type Severity Reaction Status Date / Time No Known Drug Allergies Allergy Verified 06/25/18 16:07 Review of Systems - Ears, Nose & Throat Ears, Nose & Throat: reports: Hearing loss (Patient is deaf. He is able to talk per the daughter and he can read lips and write) - Respiratory Respiratory: reports: Cough, SOB at rest - All Other Systems All Other Systems: reports: Other (Review of systems limited given patient's inability to answer questions at this time due to his decreased level of awareness) Prior Level of Functionality: Patient is completely dependent on others for his care. He is incontinent. He does sit up in a wheelchair at home for roughly 4 hours a day Exam - Vital Signs Reviewed Vital Signs: Yes Vital Signs: Vital Signs x48h Temp Pulse Resp BP Pulse Ox 06/25/18 16:52 82 26 H 129/47 L 92 06/25/18 16:01 36.5 C 84 26 H 130/47 L 97 - Physical Exam General Appearance: positive: Mild distress, Other (He is laying in the bed in mild respiratory distress using accessory muscles. He does respond at times with me, mainly letting me know that it is painful to move his left arm.) Eyes Bilateral: positive: Normal inspection ENT: positive: Dry mucous membranes, Other (poor dentition) Neck: positive: Nml inspection, Trachea midline Respiratory: positive: Chest non-tender, Wheezes (end expiration wheezes), Rhonchi Cardiovascular: positive: Regular rate & rhythm, No murmur, No gallop Peripheral Pulses: positive: 2+ Abdomen: positive: Non-tender, No organomegaly, Nml bowel sounds, No distention, Other (PEG tube present with dressing c/d/i) Skin: positive: Warm, Dry Extremities: positive: No pedal edema Neurologic/Psychiatric: positive: Other (He is oriented to self. Left he miplegia.) Conclusion/Plan - Problem List (1) Pneumonia Conclusion/Plan: Patient with tachypnea, hypoxia and CXR evidence of LLL consolidation. He is afebrile and WBC wnl. Lactic acid and blood cultures were obtained in the ER. He was given cefepime. Plan: - continue cefepime - monitor temperature - follow-up labs Qualifiers: Pneumonia type: due to unspecified organism Laterality: unspecified laterality Lung location: unspecified part of lung Qualified Code(s): J18.9 - Pneumonia, unspecified organism (2) Hypoxia Conclusion/Plan: New onset with pneumonia. He is currently on 4L NC to maintain oxygen saturation >92% Plan: - RT consult - titrate oxygen (3) COPD (chronic obstructive pulmonary disease) Conclusion/Plan: Without exacerbation. Plan: - continue home medications Qualifiers: COPD type: unspecified COPD Qualified Code(s): J44.9 - Chronic obstructive pulmonary disease, unspecified (4) Diabetes Conclusion/Plan: Patient with longstanding diabetes on insulin Plan: - continue diabetic tube feeding formula - obtain Hgb A1c - blood glucose q6hr - SSI Qualifiers: Diabetes mellitus type: type 2 Diabetes mellitus intermediate project manager insulin use: with intermediate project manager use Diabetes mellitus complication status: with unspecified complications Qualified Code(s): E11.8 - Type 2 diabetes mellitus with unspecified complications; Z79.4 - longterm (current) use of insulin (5) History of CVA (cerebrovascular accident) Conclusion/Plan: Occured in 2016. He is hemiplegic and bedbound. He is cared for at home by his daughter and caregivers when his daughter is at work. He is fed and medications administered via PEG tube. He does get up to the wheelchair via lift for roughly 4 hours (or a long as tolerated) everyday Plan: - NPO status - continue aspirin and atorvastatin - tube feeding per PEG tube (6) Hypertension Conclusion/Plan: Blood pressure stable. Plan: - continue home amlodipine and metoprolol Qualifiers: Hypertension type: essential hypertension Qualified Code(s): I10 - Essential (primary) hypertension - Lab Results Lab results reviewed: Yes Yogesh Bones: 06/25/18 16:17 06/25/18 16:17 - Diagnostic Imaging Results Diagnostic Imaging Results: positive: Final report reviewed Diagnostic Imaging Results Comments: 2-view CXR 06/25/2018 -- New left lower lobe haziness concerning for left lower lobe pneumonia - EKG Results EKG Interpreted Independently: Yes EKG Comparison: Unchanged from prior EKG EKG Findings: NSR with HR 85 Core Measures - Anticipated LOS I expect patient to be DC'd or transferred within 96 hours.: Yes - DVT/VTE - Prophylaxis VTE/DVT Device ordered at admit?: Yes
[2018-06-25] MEDS ORDERED: LACTATED RINGERS 1,000 ML IV ONE (19:13)
[2018-06-25] MEDS ORDERED: ALBUTEROL NEB 2.5 MG/3 ML INH PRN (19:18)
[2018-06-25] MEDS: IPRATROPIUM/ALBUTEROL 3 ML NEB INH SCH (19:52)
[2018-06-25] MEDS ORDERED: ATORVASTATIN 40 MG TABLET PO SCH (21:00)
[2018-06-25] MEDS ORDERED: DOXAZOSIN 1 MG TABLET PO SCH ×2 (21:00)
[2018-06-25] MEDS ORDERED: ATORVASTATIN 40 MG TABLET PEG SCH (21:00)
[2018-06-25] MEDS ORDERED: METOPROLOL TARTRATE 25 MG TABLET PO SCH (21:00)
[2018-06-25] MEDS ORDERED: guaiFENesin 600 MG TABLET PO SCH (21:00)
[2018-06-25] MEDS ORDERED: METOPROLOL TARTRATE 25 MG TABLET PEG SCH (21:00)
[2018-06-25] MEDS ORDERED: hydrALAZINE INJ 20 MG/ML VIAL IVP PRN (21:12)
[2018-06-25] MEDS ORDERED: guaiFENesin 100 MG/5 ML UDC PEG PRN (21:28)
[2018-06-25] MEDS: GABAPENTIN 300 MG CAPSULE PEG SCH (21:57)
[2018-06-25] MEDS ORDERED: GABAPENTIN 300 MG CAPSULE PO SCH (22:00)
[2018-06-25] MEDS: DEXTROSE 5%-0.45% NACL 1,000 ML IV SCH (22:25)
[2018-06-26] MEDS ORDERED: CEFEPIME 2 GM in SODIUM CHLORIDE 0.9% MINIBAG 100 ML IV SCH (01:00)
[2018-06-26] MEDS: INSULIN REGULAR HUMAN 100 UNIT/1 ML 10 ML MDV SUBQ SCH ×4 (01:02→19:38)
[2018-06-26] MEDS: SODIUM CHLORIDE FLUSH 0.9% 10 ML SYRINGE IVP SCH ×3 (01:05→18:12)
[2018-06-26] MEDS ORDERED: diphenhydrAMINE 25 MG CAPSULE PO PRN (02:13)
[2018-06-26 05:02] LABS: BASOPHILS # (AUTO) 0.1 10^3/uL (0.0-0.1); BASOPHILS % (AUTO) 0.8 %; EOSINOPHILS # (AUTO) 0.6 10^3/uL (0.0-0.7); EOSINOPHILS % (AUTO) 6.4 %; HGB - HEMOGLOBIN 12.8 g/dL (14.0-18.0); LYMPHOCYTES % (AUTO) 11.2 %; MEAN CORPUSCULAR HEMOGLOBIN 26.1 pg (27.0-31.0); MEAN CORPUSCULAR HGB CONC 31.3 g/dL (32.0-36.0); MEAN CORPUSCULAR VOLUME 83.2 fL (80.0-94.0); MEAN PLATELET VOLUME 10.2 fL (7.4-11.4); MONOCYTES # (AUTO) 0.8 10^3/uL (0.0-1.0); MONOCYTES % (AUTO) 9.5 %; NEUTROPHILS # (AUTO) 6.2 10^3/uL (1.5-6.6); NEUTROPHILS % (AUTO) 72.1 %; PLT - PLATELET COUNT 170 10^3/uL (130-450); RED CELL DISTRIBUTION WIDTH 16.2 % (12.0-15.0); WHITE BLOOD COUNT 8.6 x10^3/uL (4.8-10.8)
[2018-06-26 05:13] LABS: CALCIUM 8.7 mg/dL (8.5-10.3); CREATININE 0.9 mg/dL (0.6-1.2)
[2018-06-26] MEDS: GABAPENTIN 300 MG CAPSULE PEG SCH ×3 (05:24→21:26)
[2018-06-26] MEDS ORDERED: GABAPENTIN 100 MG CAPSULE PEG SCH (06:00)
[2018-06-26] MEDS: IPRATROPIUM/ALBUTEROL 3 ML NEB INH SCH ×4 (06:19→19:31)
[2018-06-26] MEDS ORDERED: PANTOPRAZOLE 40 MG TABLET PO SCH ×2 (07:00)
--- NOTE | 2018-06-26 08:11 | PROVIDER PROGRESS NOTE ---
Subjective - Prog Note Date Prog Note Date: 06/26/18 Prog Note Time: 08:00 - Subjective Subjective: Patient awakes to touch, does not sustain attention long Attempts to write on paper, but dozes off quickly after starting On 3L NC Product cough Afebrile, WBC wnl Current Medications - Current Medications Current Medications: Acetaminophen (Tylenol) 650 mg PO Q4HR PRN PRN Reason: Pain or Fever > 38C (100.4F) Albuterol () 2.5 mg INH RTQ4H PRN PRN Reason: Wheezing Last Admin: 06/26/18 01:12 Dose: 2.5 mg Albuterol/Ipratropium (Duoneb) 3 ml INH RTQID EVELIO Last Admin: 06/26/18 06:19 Dose: 3 ml Amlodipine Besylate (Norvasc) 5 mg PEG DAILY [facility] Last Admin: 06/26/18 10:39 Dose: 5 mg Aspirin ([place] Aspirin) 81 mg PEG DAILY [facility] Last Admin: 06/26/18 10:38 Dose: 81 mg Atorvastatin Calcium (Lipitor) 40 mg PEG QPM [facility] Last Admin: 06/25/18 21:58 Dose: 40 mg Diphenhydramine HCl (Benadryl) 25 mg PO Q6HR PRN PRN Reason: ITCHING Last Admin: 06/26/18 10:38 Dose: 25 mg Doxazosin Mesylate (Cardura) 2 mg PO QPM EVELIO Last Admin: 06/25/18 21:33 Dose: Not Given Gabapentin (Neurontin) 300 mg PEG TID [facility] Last Admin: 06/26/18 05:24 Dose: 300 mg Gabapentin (Neurontin) 300 mg PEG TID [facility] Last Admin: 06/26/18 06:27 Dose: Not Given Guaifenesin (Robitussin Liquid) 100 mg PEG Q6HR PRN PRN Reason: Cough Last Admin: 06/25/18 21:58 Dose: 100 mg Hydralazine HCl (Apresoline Inj) 10 mg IVP DAILY PRN PRN Reason: SBP>160 Dextrose/Sodium Chloride (D5.45ns) 1,000 mls @ 100 mls/hr IV .Q10H [facility] Last Admin: 06/26/18 09:03 Dose: 100 mls/hr Cefepime HCl 2 gm/ Sodium (Chloride) 100 mls @ 200 mls/hr IV Q8H [facility] Last Infusion: 06/26/18 10:43 Dose: Infused Insulin Human Regular (Novolin R) 1 - 5 unit SUBQ Q6HR [facility]; Protocol Last Admin: 06/26/18 05:55 Dose: 1 unit Lorazepam (Ativan) 0.5 mg NG Q8H PRN PRN Reason: Anxiety Nystatin (Mycostatin) 5 ml PO QID [facility] Last Admin: 06/26/18 10:39 Dose: 5 ml Oxycodone HCl (Roxicodone) 5 mg PO Q4HR PRN PRN Reason: PAIN Pantoprazole Sodium (Protonix) 40 mg PO QDAC [facility] Last Admin: 06/26/18 06:00 Dose: 40 mg Polyethylene Glycol (Miralax) 17 gm PEG DAILY [facility] Last Admin: 06/26/18 10:39 Dose: 17 gm Sodium Chloride (Normal Saline Flush 0.9%) 10 ml IVP PRN PRN PRN Reason: NEEDED PER PROVIDER ORDERS Sodium Chloride (Normal Saline Flush 0.9%) 10 ml IVP 0100,0900,1700 [facility] Last Admin: 06/26/18 10:39 Dose: Not Given Objective - Vital Signs/Intake & Output Reviewed Vital Signs: Yes Vital Signs: Vital Signs x48h Temp Pulse Pulse Resp BP Pulse Ox 06/26/18 08:00 36.9 C 18 134/47 H 96 06/26/18 06:18 57 L 22 06/26/18 05:00 36.3 C L 62 20 140/44 H 97 06/26/18 01:13 62 22 Intake & Output: Intake & Output 06/23/18 06/24/18 06/25/18 06/26/18 23:59 23:59 23:59 23:59 Intake Total 160 100 Balance 160 100 - Objective General Appearance: positive: No acute distress, Other (drowsy with periods of a lertness.) Eyes Bilateral: positive: Normal inspection, PERRL ENT: positive: Dry mucous membranes, Other (thrush-like appearance of tongue. Poor dentition/missing teeth) Neck: positive: Nml inspection, Trachea midline Respiratory: positive: Chest non-tender, No respiratory distress, Breath sounds nml, Rhonchi Cardiovascular: positive: Regular rate & rhythm, Systolic murmur Peripheral Pulses: 1+ Dorsalis pedis (R), 1+ Dorsalis pedis (L) Abdomen: positive: Non-tender, No organomegaly, Nml bowel sounds, No distention, Other (PEG tube present with dressing c/d/i) Skin: positive: Warm, Dry (blanchable redness to sacrum/buttocks), Other Neurologic/Psychiatric: positive: Other (Oriented to self. Attempts to write with right hand but falls asleep in the middle of writing. Left hemiplegia) - Lab Results Fish Bones: 06/26/18 04:30 06/26/18 04:30 Other Labs: Lab Results x24hrs 06/26/18 06/26/18 06/25/18 Range/Units 04:30 04:30 22:03 WBC 8.6 (4.8-10.8) x10^3/uL RBC 4.90 (4.70-6.10) 10^6/uL Hgb 12.8 L (14.0-18.0) g/dL Hct 40.8 L (42.0-52.0) % MCV 83.2 (80.0-94.0) fL MCH 26.1 L (27.0-31.0) pg MCHC 31.3 L (32.0-36.0) g/dL RDW 16.2 H (12.0-15.0) % Plt Count 170 (130-450) 10^3/uL MPV 10.2 (7.4-11.4) fL Neut # (Auto) 6.2 (1.5-6.6) 10^3/uL Lymph # (Auto) 1.0 L (1.5-3.5) 10^3/uL Bradley # (Auto) 0.8 (0.0-1.0) 10^3/uL Eos # (Auto) 0.6 (0.0-0.7) 10^3/uL Baso # (Auto) 0.1 (0.0-0.1) 10^3/uL Absolute Nucleated RBC 0.01 x10^3/uL Nucleated RBC % 0.1 /100WBC PT (9.9-12.6) secs INR (0.8-1.2) Sodium 147 H (135-145) mmol/L Potassium 3.8 (3.5-5.0) mmol/L Chloride 106 (101-111) mmol/L Carbon Dioxide 32 (21-32) mmol/L Anion Gap 9.0 (6-13) BUN 30 H (6-20) mg/dL Creatinine 0.9 (0.6-1.2) mg/dL Estimated GFR (MDRD) 81 L (>89) Glucose 185 H (70-100) mg/dL Lactic Acid 1.5 (0.5-2.2) mmol/L Calcium 8.7 (8.5-10.3) mg/dL Total Bilirubin (0.2-1.0) mg/dL AST (10-42) IU/L ALT (10-60) IU/L Alkaline Phosphatase (42-121) IU/L Troponin I (<0.49) ng/mL B-Natriuretic Peptide (5-100) pg/mL Total Protein (6.7-8.2) g/dL Albumin (3.2-5.5) g/dL Globulin (2.1-4.2) g/dL Albumin/Globulin Ratio (1.0-2.2) Lipase (22-51) U/L 06/25/18 06/25/18 06/25/18 Range/Units 18:00 16:17 16:17 WBC (4.8-10.8) x10^3/uL RBC (4.70-6.10) 10^6/uL Hgb (14.0-18.0) g/dL Hct (42.0-52.0) % MCV (80.0-94.0) fL MCH (27.0-31.0) pg MCHC (32.0-36.0) g/dL RDW (12.0-15.0) % Plt Count (130-450) 10^3/uL MPV (7.4-11.4) fL Neut # (Auto) (1.5-6.6) 10^3/uL Lymph # (Auto) (1.5-3.5) 10^3/uL Bradley # (Auto) (0.0-1.0) 10^3/uL Eos # (Auto) (0.0-0.7) 10^3/uL Baso # (Auto) (0.0-0.1) 10^3/uL Absolute Nucleated RBC x10^3/uL Nucleated RBC % /100WBC PT (9.9-12.6) secs INR (0.8-1.2) Sodium (135-145) mmol/L Potassium (3.5-5.0) mmol/L Chloride (101-111) mmol/L Carbon Dioxide (21-32) mmol/L Anion Gap (6-13) BUN (6-20) mg/dL Creatinine (0.6-1.2) mg/dL Estimated GFR (MDRD) (>89) Glucose (70-100) mg/dL Lactic Acid 2.1 (0.5-2.2) mmol/L Calcium (8.5-10.3) mg/dL Total Bilirubin (0.2-1.0) mg/dL AST (10-42) IU/L ALT (10-60) IU/L Alkaline Phosphatase (42-121) IU/L Troponin I < 0.04 (<0.49) ng/mL B-Natriuretic Peptide 162 H (5-100) pg/mL Total Protein (6.7-8.2) g/dL Albumin (3.2-5.5) g/dL Globulin (2.1-4.2) g/dL Albumin/Globulin Ratio (1.0-2.2) Lipase (22-51) U/L 06/25/18 06/25/18 06/25/18 Range/Units 16:17 16:17 16:17 WBC 8.6 (4.8-10.8) x10^3/uL RBC 5.50 (4.70-6.10) 10^6/uL Hgb 14.4 (14.0-18.0) g/dL Hct 45.8 (42.0-52.0) % MCV 83.4 (80.0-94.0) fL MCH 26.1 L (27.0-31.0) pg MCHC 31.3 L (32.0-36.0) g/dL RDW 16.7 H (12.0-15.0) % Plt Count 168 (130-450) 10^3/uL MPV 9.9 (7.4-11.4) fL Neut # (Auto) 7.4 H (1.5-6.6) 10^3/uL Lymph # (Auto) 0.4 L (1.5-3.5) 10^3/uL Bradley # (Auto) 0.6 (0.0-1.0) 10^3/uL Eos # (Auto) 0.1 (0.0-0.7) 10^3/uL Baso # (Auto) 0.1 (0.0-0.1) 10^3/uL Absolute Nucleated RBC 0.00 x10^3/uL Nucleated RBC % 0.0 /100WBC PT 13.1 H (9.9-12.6) secs INR 1.2 (0.8-1.2) Sodium 143 (135-145) mmol/L Potassium 4.4 (3.5-5.0) mmol/L Chloride 100 L (101-111) mmol/L Carbon Dioxide 35 H (21-32) mmol/L Anion Gap 8.0 (6-13) BUN 34 H (6-20) mg/dL Creatinine 0.8 (0.6-1.2) mg/dL Estimated GFR (MDRD) 93 (>89) Glucose 312 H (70-100) mg/dL Lactic Acid (0.5-2.2) mmol/L Calcium 8.5 (8.5-10.3) mg/dL Total Bilirubin 0.7 (0.2-1.0) mg/dL AST 22 (10-42) IU/L ALT 20 (10-60) IU/L Alkaline Phosphatase 75 (42-121) IU/L Troponin I (<0.49) ng/mL B-Natriuretic Peptide (5-100) pg/mL Total Protein 6.6 L (6.7-8.2) g/dL Albumin 2.8 L (3.2-5.5) g/dL Globulin 3.8 (2.1-4.2) g/dL Albumin/Globulin Ratio 0.7 L (1.0-2.2) Lipase 31 (22-51) U/L Assessment/Plan - Problem List (1) Pneumonia Impression: Patient with tachypnea, hypoxia and CXR evidence of LLL consolidation upon presentation to the ER. He is afebrile and WBC wnl. Lactic acid wnl. Blood cultures pending. He was given cefepime. He continues to require oxygen. Plan: - continue cefepime - monitor temperature - follow-up labs Qualifiers: Pneumonia type: due to unspecified organism Laterality: unspecified laterality Lung location: unspecified part of lung Qualified Code(s): J18.9 - Pneumonia, unspecified organism (2) Hypoxia Impression: New onset with pneumonia. He is currently on 3-4L NC to maintain oxygen saturation >92% Plan: - RT consult - titrate oxygen - continue duonebs and PRN albuterol (3) COPD (chronic obstructive pulmonary disease) Impression: Without exacerbation. Plan: - continue home medications Qualifiers: COPD type: unspecified COPD Qualified Code(s): J44.9 - Chronic obstructive pulmonary disease, unspecified (4) Diabetes Impression: Patient with longstanding diabetes on insulin. Hgb A1c pending. Blood sugars still slightly elevated. Plan: - dietitian consulted for TF -- per available TF options, will substitute jevity - blood glucose q6hr - SSI - will add back lantus as necessary Qualifiers: Diabetes mellitus type: type 2 Diabetes mellitus chcf insulin use: with superintendent container terminal use Diabetes mellitus complication status: with unspecified complications Qualified Code(s): E11.8 - Type 2 diabetes mellitus with unspecified complications; Z79.4 - marine oil terminal superintendent (current) use of insulin (5) History of CVA (cerebrovascular accident) Impression: Occured in 2016. He is hemiplegic and bedbound. He is cared for at home by his daughter and caregivers when his daughter is at work. He is fed and medications administered via PEG tube. He does get up to the wheelchair via lift for roughly 4 hours (or a long as tolerated) everyday Plan: - NPO status - continue aspirin and atorvastatin - tube feeding per PEG tube - frequent turns (6) Hypertension Impression: Blood pressure stable. Plan: - continue home amlodipine and metoprolol Qualifiers: Hypertension type: essential hypertension Qualified Code(s): I10 - Essential (primary) hypertension
[2018-06-26] MEDS ORDERED: amLODIPine 5 MG TABLET PEG SCH (09:00)
[2018-06-26] MEDS ORDERED: POLYETHYLENE GLYCOL 3350 17 GM PACKET PEG SCH (09:00)
[2018-06-26] MEDS ORDERED: amLODIPine 5 MG TABLET PO SCH (09:00)
[2018-06-26] MEDS ORDERED: ASPIRIN CHEW 81 MG TABLET PO SCH (09:00)
[2018-06-26] MEDS ORDERED: POLYETHYLENE GLYCOL 3350 17 GM PACKET PO SCH (09:00)
[2018-06-26] MEDS ORDERED: ASPIRIN CHEW 81 MG TABLET PEG SCH (09:00)
[2018-06-26] MEDS: DEXTROSE 5%-0.45% NACL 1,000 ML IV SCH (09:03)
[2018-06-26] MEDS: CEFEPIME 2 GM in SODIUM CHLORIDE 0.9% MINIBAG 100 ML IV SCH ×2 (09:38→18:11)
[2018-06-26] MEDS: NYSTATIN 500000 UNITS/5 ML UDC PO SCH ×4 (10:39→21:25)
[2018-06-26] MEDS ORDERED: oxyCODONE 5 MG TABLET PO PRN (10:58)
[2018-06-26] MEDS ORDERED: CETIRIZINE 10 MG TABLET PEG PRN (11:25)
[2018-06-26] MEDS: oxyCODONE 5 MG TABLET PEG PRN (11:55)
[2018-06-26 13:54] LABS: HB2 TOTAL 11.3 g/dL; HEMOGLOBIN A1C 0.64 g/dL; HEMOGLOBIN A1C % 7.3 % (4.6-6.2)
[2018-06-26] MEDS ORDERED: DOXAZOSIN MESYLATE 4 MG PO SCH (21:00)
[2018-06-26] MEDS ORDERED: PANTOPRAZOLE 40 MG TABLET NG SCH (21:00)
[2018-06-26] MEDS: INSULIN GLARGINE 300 UNIT/3 ML PEN SUBQ SCH (21:25)
[2018-06-26] MEDS: METOPROLOL TARTRATE 25 MG TABLET PEG SCH (21:26)
[2018-06-26] MEDS: ATORVASTATIN 40 MG TABLET PEG SCH (21:26)
[2018-06-26] MEDS: DOXAZOSIN 4 MG TABLET PEG SCH (21:27)
[2018-06-27] MEDS: ALBUTEROL NEB 2.5 MG/3 ML INH PRN ×2 (02:25→23:27)
[2018-06-27] MEDS: SODIUM CHLORIDE FLUSH 0.9% 10 ML SYRINGE IVP SCH ×3 (02:33→21:37)
[2018-06-27] MEDS: INSULIN REGULAR HUMAN 100 UNIT/1 ML 10 ML MDV SUBQ SCH ×5 (02:33→18:36)
[2018-06-27] MEDS: CEFEPIME 2 GM in SODIUM CHLORIDE 0.9% MINIBAG 100 ML IV SCH ×3 (02:33→17:17)
[2018-06-27 05:10] LABS: ALBUMIN 2.4 g/dL (3.2-5.5); ALBUMIN/GLOBULIN RATIO 0.7 (1.0-2.2); CALCIUM 8.2 mg/dL (8.5-10.3); CREATININE 0.7 mg/dL (0.6-1.2); MAGNESIUM 2.2 mg/dL (1.7-2.8); PHOSPHORUS 4.5 mg/dL (2.5-4.6); TOTAL PROTEIN 5.7 g/dL (6.7-8.2)
[2018-06-27 05:18] LABS: BASOPHILS # (AUTO) 0.1 10^3/uL (0.0-0.1); BASOPHILS % (AUTO) 0.8 %; EOSINOPHILS # (AUTO) 0.7 10^3/uL (0.0-0.7); EOSINOPHILS % (AUTO) 10.8 %; HGB - HEMOGLOBIN 12.8 g/dL (14.0-18.0); LYMPHOCYTES # (AUTO) 0.7 10^3/uL (1.5-3.5); MEAN CORPUSCULAR HEMOGLOBIN 26.3 pg (27.0-31.0); MEAN CORPUSCULAR HGB CONC 31.3 g/dL (32.0-36.0); MEAN PLATELET VOLUME 10.3 fL (7.4-11.4); MONOCYTES # (AUTO) 0.6 10^3/uL (0.0-1.0); MONOCYTES % (AUTO) 8.5 %; NEUTROPHILS # (AUTO) 4.5 10^3/uL (1.5-6.6); NEUTROPHILS % (AUTO) 68.9 %; PLT - PLATELET COUNT 144 10^3/uL (130-450); RED BLOOD COUNT 4.86 10^6/uL (4.70-6.10); RED CELL DISTRIBUTION WIDTH 16.4 % (12.0-15.0); WHITE BLOOD COUNT 6.5 x10^3/uL (4.8-10.8)
[2018-06-27] MEDS: IPRATROPIUM/ALBUTEROL 3 ML NEB INH SCH ×4 (06:28→19:17)
[2018-06-27] MEDS ORDERED: PANTOPRAZOLE 40 MG TABLET NG SCH (07:00)
[2018-06-27] MEDS: GABAPENTIN 300 MG CAPSULE PEG SCH ×3 (07:44→21:38)
[2018-06-27] MEDS: SCOPOLAMINE PATCH TOP SCH (07:46)
--- NOTE | 2018-06-27 08:12 | PROVIDER PROGRESS NOTE ---
Subjective - Prog Note Date Prog Note Date: 06/27/18 Prog Note Time: 07:45 - Subjective Subjective: Patient mentation is improved, he is more alert and attempts to communicate Communication is limited and patient got frustrated that I was unable to underst and what he was trying to communicate Requiring 3L NC On IV antibiotics Has wet productive cough Current Medications - Current Medications Current Medications: Active Medications Acetaminophen (Tylenol) 650 mg PO Q4HR PRN PRN Reason: Pain or Fever > 38C (100.4F) Albuterol () 2.5 mg INH Q4H PRN PRN Reason: Wheezing Last Admin: 06/27/18 02:25 Dose: 2.5 mg Albuterol/Ipratropium (Duoneb) 3 ml INH RTQID [facility] Last Admin: 06/27/18 06:28 Dose: 3 ml Amlodipine Besylate (Norvasc) 5 mg PEG DAILY [facility] Last Admin: 06/27/18 08:57 Dose: 5 mg Aspirin ([place] Aspirin) 81 mg PEG DAILY [facility] Last Admin: 06/27/18 08:57 Dose: 81 mg Atorvastatin Calcium (Lipitor) 40 mg PEG QPM [facility] Last Admin: 06/26/18 21:26 Dose: 40 mg Cetirizine HCl (Zyrtec) 10 mg PEG DAILY PRN PRN Reason: ITCHING Diphenhydramine HCl (Benadryl) 25 mg PO Q6HR PRN PRN Reason: ITCHING Last Admin: 06/26/18 10:38 Dose: 25 mg Doxazosin Mesylate (Cardura) 4 mg PEG QPM [facility] Last Admin: 06/26/18 21:27 Dose: 4 mg Gabapentin (Neurontin) 300 mg PEG TID [facility] Last Admin: 06/27/18 07:44 Dose: 300 mg Guaifenesin (Robitussin Liquid) 100 mg PEG Q6HR PRN PRN Reason: Cough Last Admin: 06/25/18 21:58 Dose: 100 mg Hydralazine HCl (Apresoline Inj) 10 mg IVP DAILY PRN PRN Reason: SBP>160 Cefepime HCl 2 gm/ Sodium (Chloride) 100 mls @ 200 mls/hr IV Q8H [facility] Last Infusion: 06/27/18 10:30 Dose: Infused Insulin Glargine (Lantus Solostar) 5 unit SUBQ QPM [facility] Last Admin: 06/26/18 21:25 Dose: 5 unit Insulin Human Regular (Novolin R) 1 - 5 unit SUBQ Q6HR [facility]; Protocol Last Admin: 06/27/18 06:58 Dose: 2 unit Lorazepam (Ativan) 0.5 mg NG Q8H PRN PRN Reason: Anxiety Last Admin: 06/27/18 08:57 Dose: 0.5 mg Metoprolol Tartrate (Lopressor) 25 mg PEG BID [facility] Last Admin: 06/27/18 08:56 Dose: 25 mg Nystatin (Mycostatin) 5 ml PO QID [facility] Last Admin: 06/27/18 08:57 Dose: 5 ml Oxycodone HCl (Roxicodone) 5 mg PEG Q4HR PRN PRN Reason: PAIN Last Admin: 06/26/18 11:55 Dose: 5 mg Pantoprazole Sodium (Protonix) 40 mg NG BID [facility] Last Admin: 06/27/18 08:56 Dose: 40 mg Vitamin B Complex 1 each PEG DAILY [facility] Last Admin: 06/27/18 08:58 Dose: Not Given Polyethylene Glycol (Miralax) 17 gm PEG DAILY [facility] Last Admin: 06/27/18 08:55 Dose: 17 gm Scopolamine HBr (Transderm-Scop) 1 patch TOP Q3D [facility] Last Admin: 06/27/18 07:46 Dose: 1 patch Sodium Chloride (Normal Saline Flush 0.9%) 10 ml IVP PRN PRN PRN Reason: NEEDED PER PROVIDER ORDERS Sodium Chloride (Normal Saline Flush 0.9%) 10 ml IVP 0100,0900,1700 [facility] Last Admin: 06/27/18 08:57 Dose: 10 ml Objective - Vital Signs/Intake & Output Reviewed Vital Signs: Yes Vital Signs: Vital Signs x48h Temp Pulse Pulse Resp BP Pulse Ox 06/27/18 06:28 59 L 22 06/27/18 04:11 36.4 C L 63 16 145/56 H 99 06/27/18 02:26 57 L 22 Intake & Output: Intake & Output 06/24/18 06/25/18 06/26/18 06/27/18 23:59 23:59 23:59 23:59 Intake Total 160 3710 837 Output Total 70 Balance 160 3640 837 - Objective General Appearance: positive: No acute distress, Alert Eyes Bilateral: positive: Normal inspection, PERRL, EOMI ENT: positive: Dry mucous membranes, Other (poor dentition) Neck: positive: Nml inspection, Trachea midline Respiratory: positive: Chest non-tender, No respiratory distress, Rhonchi. negative: Wheezes, Rales Cardiovascular: positive: Regular rate & rhythm, Systolic murmur Peripheral Pulses: 2+ Dorsalis pedis (R), 2+ Dorsalis pedis (L) Abdomen: positive: Other (PEG tube present with dressing c/d/i) Skin: positive: Warm, Dry Extremities: positive: No pedal edema Neurologic/Psychiatric: positive: Other (Patient is alert. 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 Attempts to communicate with words today and gets frustrated when unable to convery needs. He was able to write semi-legibly today.) - Lab Results Fish Bones: 06/27/18 04:25 06/27/18 04:25 Other Labs: Lab Results x24hrs 06/27/18 06/27/18 06/27/18 Range/Units 06:07 04:25 04:25 WBC 6.5 (4.8-10.8) x10^3/uL RBC 4.86 (4.70-6.10) 10^6/uL Hgb 12.8 L (14.0-18.0) g/dL Hct 40.8 L (42.0-52.0) % MCV 84.0 (80.0-94.0) fL MCH 26.3 L (27.0-31.0) pg MCHC 31.3 L (32.0-36.0) g/dL RDW 16.4 H (12.0-15.0) % Plt Count 144 (130-450) 10^3/uL MPV 10.3 (7.4-11.4) fL Neut # (Auto) 4.5 (1.5-6.6) 10^3/uL Lymph # (Auto) 0.7 L (1.5-3.5) 10^3/uL [place] # (Auto) 0.6 (0.0-1.0) 10^3/uL Eos # (Auto) 0.7 (0.0-0.7) 10^3/uL Baso # (Auto) 0.1 (0.0-0.1) 10^3/uL Absolute Nucleated RBC 0.00 x10^3/uL Nucleated RBC % 0.1 /100WBC Sodium 139 (135-145) mmol/L Potassium 4.4 (3.5-5.0) mmol/L Chloride 102 (101-111) mmol/L Carbon Dioxide 30 (21-32) mmol/L Anion Gap 7.0 (6-13) BUN 23 H (6-20) mg/dL Creatinine 0.7 (0.6-1.2) mg/dL Estimated GFR (MDRD) 109 (>89) Glucose 194 H (70-100) mg/dL POC Whole Bld Glucose 187 H (70 - 100) mg/dL Glycated Hemoglobin (4.6-6.2) % Estim Average Glucose (70-100) Calcium 8.2 L (8.5-10.3) mg/dL Phosphorus 4.5 (2.5-4.6) mg/dL Magnesium 2.2 (1.7-2.8) mg/dL Total Bilirubin 1.0 (0.2-1.0) mg/dL AST 17 (10-42) IU/L ALT 17 (10-60) IU/L Alkaline Phosphatase 54 (42-121) IU/L Total Protein 5.7 L (6.7-8.2) g/dL Albumin 2.4 L (3.2-5.5) g/dL Globulin 3.3 (2.1-4.2) g/dL Albumin/Globulin Ratio 0.7 L (1.0-2.2) Prealbumin 14 L (18-45) mg/dL 06/27/18 06/26/18 06/26/18 Range/Units 00:00 18:13 11:28 WBC (4.8-10.8) x10^3/uL RBC (4.70-6.10) 10^6/uL Hgb (14.0-18.0) g/dL Hct (42.0-52.0) % MCV (80.0-94.0) fL MCH (27.0-31.0) pg MCHC (32.0-36.0) g/dL RDW (12.0-15.0) % Plt Count (130-450) 10^3/uL MPV (7.4-11.4) fL Neut # (Auto) (1.5-6.6) 10^3/uL Lymph # (Auto) (1.5-3.5) 10^3/uL [place] # (Auto) (0.0-1.0) 10^3/uL Eos # (Auto) (0.0-0.7) 10^3/uL Baso # (Auto) (0.0-0.1) 10^3/uL Absolute Nucleated RBC x10^3/uL Nucleated RBC % /100WBC Sodium (135-145) mmol/L Potassium (3.5-5.0) mmol/L Chloride (101-111) mmol/L Carbon Dioxide (21-32) mmol/L Anion Gap (6-13) BUN (6-20) mg/dL Creatinine (0.6-1.2) mg/dL Estimated GFR (MDRD) (>89) Glucose (70-100) mg/dL POC Whole Bld Glucose 187 H 323 H 193 H (70 - 100) mg/dL Glycated Hemoglobin (4.6-6.2) % Estim Average Glucose (70-100) Calcium (8.5-10.3) mg/dL Phosphorus (2.5-4.6) mg/dL Magnesium (1.7-2.8) mg/dL Total Bilirubin (0.2-1.0) mg/dL AST (10-42) IU/L ALT (10-60) IU/L Alkaline Phosphatase (42-121) IU/L Total Protein (6.7-8.2) g/dL Albumin (3.2-5.5) g/dL Globulin (2.1-4.2) g/dL Albumin/Globulin Ratio (1.0-2.2) Prealbumin (18-45) mg/dL 06/26/18 06/26/18 06/26/18 Range/Units 05:47 04:32 00:38 WBC (4.8-10.8) x10^3/uL RBC (4.70-6.10) 10^6/uL Hgb (14.0-18.0) g/dL Hct (42.0-52.0) % MCV (80.0-94.0) fL MCH (27.0-31.0) pg MCHC (32.0-36.0) g/dL RDW (12.0-15.0) % Plt Count (130-450) 10^3/uL MPV (7.4-11.4) fL Neut # (Auto) (1.5-6.6) 10^3/uL Lymph # (Auto) (1.5-3.5) 10^3/uL [place] # (Auto) (0.0-1.0) 10^3/uL Eos # (Auto) (0.0-0.7) 10^3/uL Baso # (Auto) (0.0-0.1) 10^3/uL Absolute Nucleated RBC x10^3/uL Nucleated RBC % /100WBC Sodium (135-145) mmol/L Potassium (3.5-5.0) mmol/L Chloride (101-111) mmol/L Carbon Dioxide (21-32) mmol/L Anion Gap (6-13) BUN (6-20) mg/dL Creatinine (0.6-1.2) mg/dL Estimated GFR (MDRD) (>89) Glucose (70-100) mg/dL POC Whole Bld Glucose 161 H 182 H (70 - 100) mg/dL Glycated Hemoglobin 7.3 H (4.6-6.2) % Estim Average Glucose 163 H (70-100) Calcium (8.5-10.3) mg/dL Phosphorus (2.5-4.6) mg/dL Magnesium (1.7-2.8) mg/dL Total Bilirubin (0.2-1.0) mg/dL AST (10-42) IU/L ALT (10-60) IU/L Alkaline Phosphatase (42-121) IU/L Total Protein (6.7-8.2) g/dL Albumin (3.2-5.5) g/dL Globulin (2.1-4.2) g/dL Albumin/Globulin Ratio (1.0-2.2) Prealbumin (18-45) mg/dL Assessment/Plan - Problem List (1) Pneumonia Impression: Patient with tachypnea, hypoxia and CXR evidence of LLL consolidation upon presentation to the ER. He is afebrile and WBC wnl. Lactic acid wnl. Blood cultures pending. He was given cefepime. He continues to require oxygen. Plan: - continue cefepime, plan to transition to PO antibiotics tomorrow if oxygenation continues to improve - monitor temperature - follow-up labs Qualifiers: Pneumonia type: due to unspecified organism Laterality: unspecified laterality Lung location: unspecified part of lung Qualified Code(s): J18.9 - Pneumonia, unspecified organism (2) Hypoxia Impression: New onset with pneumonia. He is currently on 2-3L NC to maintain oxygen saturation >92% Plan: - RT consulted - titrate oxygen - continue duonebs and PRN albuterol (3) COPD (chronic obstructive pulmonary disease) Impression: Without exacerbation. Plan: - continue home medications Qualifiers: COPD type: unspecified COPD Qualified Code(s): J44.9 - Chronic obstructive pulmonary disease, unspecified (4) Diabetes Impression: Patient with longstanding diabetes on insulin. Hgb A1c 7.3. Blood sugars still slightly elevated. Plan: - dietitian consulted for TF -- per available TF options, will substitute jevity - blood glucose q6hr - SSI - lantus at 5 units daily, will adjust as necessary Qualifiers: Diabetes mellitus type: type 2 Diabetes mellitus mcc insulin use: with predatory animal exterminator use Diabetes mellitus complication status: with unspecified complications Qualified Code(s): E11.8 - Type 2 diabetes mellitus with unspecified complications; Z79.4 - MCFP (current) use of insulin (5) History of CVA (cerebrovascular accident) Impression: Occured in 2016. He is hemiplegic and bedbound. He is cared for at home by his daughter and caregivers when his daughter is at work. He is fed and medications administered via PEG tube. He does get up to the wheelchair via lift for roughly 4 hours (or a long as tolerated) everyday Plan: - NPO status - continue aspirin and atorvastatin - tube feeding per PEG tube - frequent turns (6) Hypertension Impression: Blood pressure stable. Plan: - continue home amlodipine and metoprolol Qualifiers: Hypertension type: essential hypertension Qualified Code(s): I10 - Essential (primary) hypertension
[2018-06-27] MEDS: POLYETHYLENE GLYCOL 3350 17 GM PACKET PEG SCH (08:55)
[2018-06-27] MEDS: PANTOPRAZOLE 40 MG TABLET NG SCH ×2 (08:56→21:37)
[2018-06-27] MEDS: METOPROLOL TARTRATE 25 MG TABLET PEG SCH (08:56)
[2018-06-27] MEDS: NYSTATIN 500000 UNITS/5 ML UDC PO SCH ×4 (08:57→21:49)
[2018-06-27] MEDS: LORazepam 0.5 MG TABLET NG PRN (08:57)
[2018-06-27] MEDS: amLODIPine 5 MG TABLET PEG SCH (08:57)
[2018-06-27] MEDS: ASPIRIN CHEW 81 MG TABLET PEG SCH (08:57)
[2018-06-27] MEDS ORDERED: DOCUSATE CALCIUM 240 MG PEG SCH (09:00)
[2018-06-27] MEDS: oxyCODONE 5 MG TABLET PEG PRN (13:24)
[2018-06-27] MEDS: DOXAZOSIN 4 MG TABLET PEG SCH (21:37)
[2018-06-27] MEDS: ATORVASTATIN 40 MG TABLET PEG SCH (21:38)
[2018-06-27] MEDS: INSULIN GLARGINE 300 UNIT/3 ML PEN SUBQ SCH (21:50)
[2018-06-28] MEDS: INSULIN REGULAR HUMAN 100 UNIT/1 ML 10 ML MDV SUBQ SCH ×4 (01:13→18:26)
[2018-06-28] MEDS: SODIUM CHLORIDE FLUSH 0.9% 10 ML SYRINGE IVP SCH ×3 (01:14→18:26)
[2018-06-28] MEDS: CEFEPIME 2 GM in SODIUM CHLORIDE 0.9% MINIBAG 100 ML IV SCH ×3 (01:14→17:12)
[2018-06-28 06:58] LABS: BASOPHILS % (AUTO) 0.7 %; EOSINOPHILS # (AUTO) 0.8 10^3/uL (0.0-0.7); EOSINOPHILS % (AUTO) 10.5 %; HGB - HEMOGLOBIN 12.5 g/dL (14.0-18.0); LYMPHOCYTES # (AUTO) 0.6 10^3/uL (1.5-3.5); LYMPHOCYTES % (AUTO) 7.6 %; MEAN CORPUSCULAR HEMOGLOBIN 26.3 pg (27.0-31.0); MEAN CORPUSCULAR HGB CONC 31.2 g/dL (32.0-36.0); MEAN CORPUSCULAR VOLUME 84.2 fL (80.0-94.0); MEAN PLATELET VOLUME 10.2 fL (7.4-11.4); MONOCYTES # (AUTO) 0.6 10^3/uL (0.0-1.0); MONOCYTES % (AUTO) 8.4 %; NEUTROPHILS # (AUTO) 5.4 10^3/uL (1.5-6.6); NEUTROPHILS % (AUTO) 72.8 %; PLT - PLATELET COUNT 156 10^3/uL (130-450); RED BLOOD COUNT 4.75 10^6/uL (4.70-6.10); RED CELL DISTRIBUTION WIDTH 16.1 % (12.0-15.0); WHITE BLOOD COUNT 7.4 x10^3/uL (4.8-10.8)
[2018-06-28] MEDS: GABAPENTIN 300 MG CAPSULE PEG SCH ×3 (07:03→21:33)
[2018-06-28] MEDS: IPRATROPIUM/ALBUTEROL 3 ML NEB INH SCH ×4 (07:13→23:31)
[2018-06-28] MEDS: ACETAMINOPHEN 325 MG TABLET PO PRN (08:28)
[2018-06-28] MEDS: NYSTATIN 500000 UNITS/5 ML UDC PO SCH ×4 (08:28→21:48)
[2018-06-28] MEDS: POLYETHYLENE GLYCOL 3350 17 GM PACKET PEG SCH (08:28)
[2018-06-28] MEDS: PANTOPRAZOLE 40 MG TABLET NG SCH ×2 (08:29→21:33)
[2018-06-28] MEDS: amLODIPine 5 MG TABLET PEG SCH (08:29)
[2018-06-28] MEDS: oxyCODONE 5 MG TABLET PEG PRN ×2 (08:30→18:18)
[2018-06-28] MEDS: ASPIRIN CHEW 81 MG TABLET PEG SCH (08:31)
[2018-06-28] MEDS: LORazepam 0.5 MG TABLET NG PRN (08:31)
[2018-06-28] MEDS: ENOXAPARIN 40 MG/0.4 ML SYRINGE SUBQ SCH (08:39)
[2018-06-28] MEDS ORDERED: VANCOMYCIN PER PHARMACY 1 GM in SODIUM CHLORIDE 0.9% 250 ML IV SCH (09:00)
[2018-06-28] MEDS ORDERED: INSULIN GLARGINE 300 UNIT/3 ML PEN SUBQ SCH (09:00)
--- NOTE | 2018-06-28 09:40 | XRAY Report ---
Reason: sob Procedure Date: 06/28/2018 Accession Number: [id number] / [id number] Procedure: XR - Chest 1 View X-Ray CPT Code: 20950 FULL RESULT: EXAM: CHEST RADIOGRAPHY EXAM DATE: 06/28/2018 09:05 AM. CLINICAL HISTORY: Shortness of breath. COMPARISON: Chest radiograph from 06/25/2018, 03/10/2018. TECHNIQUE: 1 view. FINDINGS: Lungs/Pleura: There is bilateral diffuse interstitial prominence. Mild linear right midlung opacities are most compatible with atelectasis. A small left pleural effusion is present. No definite right pleural effusion. No pneumothorax. Mediastinum: Cardiac silhouette is mildly enlarged. Mediastinal contour is slightly prominent but similar to prior examinations. Pulmonary vasculature is engorged. There appears to be right hilar calcification, suggesting sequela of previous granulomas disease. Other: None. IMPRESSION: 1. Findings suggesting mild CHF/fluid overload. 2. Small left pleural effusion. RADIA
[2018-06-28] MEDS ORDERED: VANCOMYCIN INJ 1.75 GM in SODIUM CHLORIDE 0.9% 500 ML IV SCH ×4 (10:00)
[2018-06-28] MEDS: SODIUM CHLORIDE FLUSH 0.9% 10 ML SYRINGE IVP PRN (11:00)
[2018-06-28] MEDS ORDERED: FUROSEMIDE 20 MG/2 ML VIAL IVP ONE (11:00)
--- NOTE | 2018-06-28 13:49 | PROVIDER PROGRESS NOTE ---
Subjective - Prog Note Date Prog Note Date: 06/28/18 - Subjective Pt reports feeling: No change Subjective: pt can not speak due to his hx of CVA. pt's lung sound is still with crackles, and wet cough, 92% with 2 liter of O2, pt has no O2 at home. order CXR, and add Vancomycin Current Medications - Current Medications Current Medications: Active Medications Acetaminophen (Tylenol) 650 mg PO Q4HR PRN PRN Reason: Pain or Fever > 38C (100.4F) Last Admin: 06/28/18 08:28 Dose: 650 mg Albuterol () 2.5 mg INH Q4H PRN PRN Reason: Wheezing Last Admin: 06/27/18 23:27 Dose: 2.5 mg Albuterol/Ipratropium (Duoneb) 3 ml INH RTQID [facility] Last Admin: 06/28/18 11:35 Dose: 3 ml Amlodipine Besylate (Norvasc) 5 mg PEG DAILY [facility] Last Admin: 06/28/18 08:29 Dose: 5 mg Aspirin ([place] Aspirin) 81 mg PEG DAILY [facility] Last Admin: 06/28/18 08:31 Dose: 81 mg Atorvastatin Calcium (Lipitor) 40 mg PEG QPM [facility] Last Admin: 06/27/18 21:38 Dose: 40 mg Cetirizine HCl (Zyrtec) 10 mg PEG DAILY PRN PRN Reason: ITCHING Diphenhydramine HCl (Benadryl) 25 mg PO Q6HR PRN PRN Reason: ITCHING Last Admin: 06/26/18 10:38 Dose: 25 mg Doxazosin Mesylate (Cardura) 4 mg PEG QPM [facility] Last Admin: 06/27/18 21:37 Dose: 4 mg Enoxaparin Sodium (Lovenox) 40 mg SUBQ DAILY [facility] Last Admin: 06/28/18 08:39 Dose: 40 mg Furosemide (Lasix) 20 mg PO DAILY [facility] Gabapentin (Neurontin) 300 mg PEG TID [facility] Last Admin: 06/28/18 07:03 Dose: 300 mg Guaifenesin (Robitussin Liquid) 100 mg PEG Q6HR PRN PRN Reason: Cough Last Admin: 06/25/18 21:58 Dose: 100 mg Guaifenesin (Mucinex) 600 mg PO BID [facility] Hydralazine HCl (Apresoline Inj) 10 mg IVP DAILY PRN PRN Reason: SBP>160 Cefepime HCl 2 gm/ Sodium (Chloride) 100 mls @ 200 mls/hr IV Q8H [facility] Last Infusion: 06/28/18 09:05 Dose: Infused Vancomycin HCl 1 gm/Vancomycin HCl 250 mg/ Sodium Chloride 250 mls @ 166.667 mls/hr IV Q12H [facility] Insulin Glargine (Lantus Solostar) 5 unit SUBQ QPM [facility] Last Admin: 06/27/18 21:50 Dose: 5 unit Insulin Glargine (Lantus Solostar) 5 unit SUBQ QDBREAKFAST [facility] Last Admin: 06/28/18 08:40 Dose: 5 unit Insulin Human Regular (Novolin R) 1 - 5 unit SUBQ Q6HR [facility]; Protocol Last Admin: 06/28/18 12:17 Dose: 2 unit Lorazepam (Ativan) 0.5 mg NG Q8H PRN PRN Reason: Anxiety Last Admin: 06/28/18 08:31 Dose: 0.5 mg Nystatin (Mycostatin) 5 ml PO QID [facility] Last Admin: 06/28/18 08:28 Dose: 5 ml Oxycodone HCl (Roxicodone) 5 mg PEG Q4HR PRN PRN Reason: PAIN Last Admin: 06/28/18 08:30 Dose: 5 mg Pantoprazole Sodium (Protonix) 40 mg NG BID [facility] Last Admin: 06/28/18 08:29 Dose: 40 mg Vitamin B Complex 1 each PEG DAILY [facility] Last Admin: 06/28/18 08:26 Dose: Not Given Polyethylene Glycol (Miralax) 17 gm PEG DAILY [facility] Last Admin: 06/28/18 08:28 Dose: 17 gm Scopolamine HBr (Transderm-Scop) 1 patch TOP Q3D [facility] Last Admin: 06/27/18 07:46 Dose: 1 patch Sodium Chloride (Normal Saline Flush 0.9%) 10 ml IVP PRN PRN PRN Reason: NEEDED PER PROVIDER ORDERS Last Admin: 06/28/18 11:00 Dose: 10 ml Sodium Chloride (Normal Saline Flush 0.9%) 10 ml IVP 0100,0900,1700 [facility] Last Admin: 06/28/18 08:31 Dose: 10 ml Aspirin 81 mg NG DAILY 08/01/17 Atorvastatin Calcium 40 mg NG DAILY 08/01/17 Gabapentin [Neurontin] 300 mg PEG BID 08/01/17 Metoprolol Tartrate 25 mg PEG BID 08/01/17 Pantoprazole [Protonix] 40 mg PEG BID 08/01/17 amLODIPine [Norvasc] 5 mg NG DAILY 08/01/17 Cetirizine [ZyrTEC] 10 mg PEG DAILY PRN 11/19/17 Insulin Glargine [Lantus Solostar] 20 unit SUBQ 0800 11/19/17 Insulin Lispro [Humalog] 1 - 5 unit SUBQ ACHS PRN 11/19/17 Vitamin B Complex 1 tab PEG DAILY 11/19/17 Albuterol Sulf [Ventolin Hfa Inhaler] 1 - 2 puffs INH Q4HR PRN 03/06/18 Senna [Senokot] 1 - 2 tab PEG DAILY PRN 03/06/18 Docusate Calcium 240 mg PEG DAILY 06/26/18 Doxazosin Mesylate [Cardura] 4 mg PO QPM 06/26/18 Polyethylene Glycol 3350 [Miralax] 17 gm PEG DAILY 06/26/18 Objective - Vital Signs/Intake & Output Reviewed Vital Signs: Yes Vital Signs: Vital Signs x48h Temp Pulse Pulse Resp BP Pulse Ox 06/28/18 11:37 80 24 06/28/18 08:08 37.2 C 79 24 140/57 H 92 06/28/18 07:16 84 24 Intake & Output: Intake & Output 06/25/18 06/26/18 06/27/18 06/28/18 23:59 23:59 23:59 23:59 Intake Total 160 3710 2430 1375 Output Total 70 5 125 Balance 160 3640 2425 1250 - Objective General Appearance: positive: No acute distress, Alert. negative: Lethargic Eyes Bilateral: positive: Normal inspection, PERRL, No lid inflammation, Conjunctivae nml ENT: positive: ENT inspection nml, Pharynx nml, No signs of dehydration. ne gative: Purulent nasal drainage, Pharyngeal erythema, Oral lesions Neck: positive: Nml inspection, Thyroid nml, No JVD, Trachea midline. negative: Thyromegaly, Lymphadenopathy (R), Lymphadenopathy (L), Stiff neck, Swelling/bruising, Tracheal deviation Respiratory: positive: Chest non-tender, No respiratory distress, Rhonchi. negative: Breath sounds nml, Wheezes Cardiovascular: positive: Regular rate & rhythm, No murmur, No gallop. negative: Irregularly irregular, Extrasystoles, Tachycardia, Bradycardia, JVD present, Systolic murmur, Diastolic murmur Peripheral Pulses: 2+ Radial (R), 2+ Radial (L), 2+ Dorsalis pedis (R), 2+ Dorsalis pedis (L) Abdomen: positive: Non-tender, No organomegaly, Nml bowel sounds, No distention. negative: Tenderness, Guarding, Rebound Back: positive: Nml inspection. negative: CVA tenderness (R), CVA tenderness (L) Skin: positive: Color nml, No rash, Warm, Dry. negative: Cyanosis, Diaphoresis, Pallor Extremities: positive: Non-tender, Nml appearance. negative: Full ROM, Pedal edema, Calf tenderness, Joint swelling, Mariah's sign/cords Neurologic/Psychiatric: positive: Slurred/abnml speech. negative: Weakness, Sensory loss, Facial droop - Lab Results Fish Bones: 06/28/18 06:20 06/27/18 04:25 Other Labs: Lab Results x24hrs 06/28/18 06/28/18 06/28/18 Range/Units 11:39 06:55 06:20 WBC 7.4 (4.8-10.8) x10^3/uL RBC 4.75 (4.70-6.10) 10^6/uL Hgb 12.5 L (14.0-18.0) g/dL Hct 40.0 L (42.0-52.0) % MCV 84.2 (80.0-94.0) fL MCH 26.3 L (27.0-31.0) pg MCHC 31.2 L (32.0-36.0) g/dL RDW 16.1 H (12.0-15.0) % Plt Count 156 (130-450) 10^3/uL MPV 10.2 (7.4-11.4) fL Neut # (Auto) 5.4 (1.5-6.6) 10^3/uL Lymph # (Auto) 0.6 L (1.5-3.5) 10^3/uL [place] # (Auto) 0.6 (0.0-1.0) 10^3/uL Eos # (Auto) 0.8 H (0.0-0.7) 10^3/uL Baso # (Auto) 0.0 (0.0-0.1) 10^3/uL Absolute Nucleated RBC 0.00 x10^3/uL Nucleated RBC % 0.1 /100WBC POC Whole Bld Glucose 188 H 208 H (70 - 100) mg/dL 06/27/18 06/27/18 Range/Units 23:53 16:59 WBC (4.8-10.8) x10^3/uL RBC (4.70-6.10) 10^6/uL Hgb (14.0-18.0) g/dL Hct (42.0-52.0) % MCV (80.0-94.0) fL MCH (27.0-31.0) pg MCHC (32.0-36.0) g/dL RDW (12.0-15.0) % Plt Count (130-450) 10^3/uL MPV (7.4-11.4) fL Neut # (Auto) (1.5-6.6) 10^3/uL Lymph # (Auto) (1.5-3.5) 10^3/uL [place] # (Auto) (0.0-1.0) 10^3/uL Eos # (Auto) (0.0-0.7) 10^3/uL Baso # (Auto) (0.0-0.1) 10^3/uL Absolute Nucleated RBC x10^3/uL Nucleated RBC % /100WBC POC Whole Bld Glucose 225 H 218 H (70 - 100) mg/dL ABX Reporting Has patient been on IV antibiotics over the past 48 hours?: Yes Sepsis Event Note (H) - Evaluation Current Stage of Sepsis: Ruled out Assessment/Plan - Problem List (1) Pneumonia Impression: pt' progress is limited, pt still present bilateral lung crackles, O2 dependent at hospital, cough add vancomycin CXR reveals pulmonary edema, add Lasix IV 20mg , then change to PO Lasix ECHO reveals normal EF without wall abnormality continue Cefepime (2) Hypoxia Impression: pt is still on 2-3L NC to maintain oxygen saturation >92% continue - RT consulted - titrate oxygen - continue duonebs and PRN albuterol (3) COPD (chronic obstructive pulmonary disease) Impression: stable, Without exacerbation. Plan: - continue home medications (4) uncontrolled Diabetes Impression: Hgb A1c 7.3. Blood sugars still slightly elevated. slide scale, ACHS, hypoglycemia protocol -add morning 5 units lantus - lantus at 5 units on the night, will adjust as necessary (5) History of CVA (cerebrovascular accident) Impression: CVA was Occured in 2016. He is hemiplegic and bedbound. He is cared for at home by his daughter and caregivers when his daughter is at work. He is fed and medications administered via PEG tube. He does get up to the wheelchair via lift for roughly 4 hours (or a long as tolerated) everyday Plan: - NPO status - continue aspirin and atorvastatin - tube feeding per PEG tube - frequent turns add PT/OT, although pt has hx of CVA, pt will benefit for his pneumonia with PT /OT and ambulation (6) Hypertension Impression: stable. Plan: - continue home amlodipine and metoprolol Qualifiers: Pneumonia type: due to unspecified organism Laterality: unspecified laterality Lung location: unspecified part of lung Qualified Code(s): J18.9 - Pneumonia, unspecified organism
[2018-06-28] MEDS ORDERED: guaiFENesin 600 MG TABLET PO SCH (14:00)
[2018-06-28] MEDS ORDERED: guaiFENesin 100 MG/5 ML UDC PEG PRN (14:30)
[2018-06-28] MEDS: guaiFENesin 100 MG/5 ML UDC PEG SCH ×2 (14:35→18:18)
[2018-06-28] MEDS: MORPHINE 2 MG/ML SYRINGE IVP PRN (21:32)
[2018-06-28] MEDS: ATORVASTATIN 40 MG TABLET PEG SCH (21:33)
[2018-06-28] MEDS: DOXAZOSIN 4 MG TABLET PEG SCH (21:33)
[2018-06-28] MEDS: INSULIN GLARGINE 300 UNIT/3 ML PEN SUBQ SCH (21:48)
[2018-06-28] MEDS ORDERED: VANCOMYCIN 1 GM VIAL ONE (23:03)
[2018-06-28] MEDS ORDERED: VANCOMYCIN 500 MG VIAL ONE (23:03)
[2018-06-28] MEDS: VANCOMYCIN INJ 1 GM, VANCOMYCIN INJ 250 MG in SODIUM CHLORIDE 0.9% 250 ML IV SCH (23:07)
[2018-06-29] MEDS: INSULIN REGULAR HUMAN 100 UNIT/1 ML 10 ML MDV SUBQ SCH ×4 (00:34→20:34)
[2018-06-29] MEDS: guaiFENesin 100 MG/5 ML UDC PEG SCH ×4 (00:35→20:34)
[2018-06-29] MEDS: CEFEPIME 2 GM in SODIUM CHLORIDE 0.9% MINIBAG 100 ML IV SCH ×4 (00:35→19:43)
[2018-06-29] MEDS: MORPHINE 2 MG/ML SYRINGE IVP PRN ×2 (00:36→10:06)
[2018-06-29] MEDS: SODIUM CHLORIDE FLUSH 0.9% 10 ML SYRINGE IVP SCH ×3 (00:36→19:47)
[2018-06-29 05:08] LABS: BASOPHILS # (AUTO) 0.1 10^3/uL (0.0-0.1); BASOPHILS % (AUTO) 0.8 %; EOSINOPHILS # (AUTO) 0.7 10^3/uL (0.0-0.7); EOSINOPHILS % (AUTO) 8.8 %; HGB - HEMOGLOBIN 13.4 g/dL (14.0-18.0); LYMPHOCYTES # (AUTO) 0.7 10^3/uL (1.5-3.5); LYMPHOCYTES % (AUTO) 9.3 %; MEAN CORPUSCULAR HEMOGLOBIN 25.9 pg (27.0-31.0); MEAN CORPUSCULAR HGB CONC 30.7 g/dL (32.0-36.0); MEAN CORPUSCULAR VOLUME 84.3 fL (80.0-94.0); MEAN PLATELET VOLUME 10.2 fL (7.4-11.4); MONOCYTES # (AUTO) 0.5 10^3/uL (0.0-1.0); NEUTROPHILS # (AUTO) 5.5 10^3/uL (1.5-6.6); NEUTROPHILS % (AUTO) 74.1 %; PLT - PLATELET COUNT 156 10^3/uL (130-450); RED BLOOD COUNT 5.19 10^6/uL (4.70-6.10); RED CELL DISTRIBUTION WIDTH 16.4 % (12.0-15.0); WHITE BLOOD COUNT 7.5 x10^3/uL (4.8-10.8)
[2018-06-29 05:21] LABS: ALBUMIN 2.7 g/dL (3.2-5.5); ALBUMIN/GLOBULIN RATIO 0.7 (1.0-2.2); CALCIUM 8.6 mg/dL (8.5-10.3); CREATININE 0.6 mg/dL (0.6-1.2); PHOSPHORUS 3.2 mg/dL (2.5-4.6); TOTAL PROTEIN 6.4 g/dL (6.7-8.2)
[2018-06-29] MEDS: GABAPENTIN 300 MG CAPSULE PEG SCH ×3 (06:59→22:52)
[2018-06-29] MEDS: IPRATROPIUM/ALBUTEROL 3 ML NEB INH SCH ×4 (07:15→20:25)
[2018-06-29] MEDS ORDERED: METOPROLOL TARTRATE 25 MG TABLET PO SCH (07:51)
[2018-06-29] MEDS ORDERED: FUROSEMIDE 20 MG TABLET PO SCH (09:00)
[2018-06-29] MEDS ORDERED: SODIUM CHLORIDE 0.9% 1,000 ML IV ONE (09:17)
[2018-06-29] MEDS: ACETAMINOPHEN 325 MG TABLET PO PRN (09:55)
[2018-06-29] MEDS ORDERED: SODIUM CHLORIDE 0.9% 1,000 ML IV SCH ×2 (10:00→10:18)
[2018-06-29] MEDS: INSULIN GLARGINE 300 UNIT/3 ML PEN SUBQ SCH ×2 (10:24→22:51)
[2018-06-29] MEDS ORDERED: ACETAMINOPHEN 650 MG SUPP PR PRN (10:36)
--- NOTE | 2018-06-29 10:49 | PROVIDER PROGRESS NOTE ---
Subjective - Prog Note Date Prog Note Date: 06/29/18 - Subjective Pt reports feeling: Worse Subjective: pt had lower degree of fever at 38.1. pt does not show respiratory distress in the morning, breathing normal as his baseline. Pt is aphasia as his baseline due to his hx of CVA. Current Medications - Current Medications Current Medications: Active Medications Acetaminophen (Tylenol) 640 mg PEG Q4HR PRN PRN Reason: Pain or Fever > 38C (100.4F) Acetaminophen (Tylenol) 650 mg UT Q6HR PRN PRN Reason: Pain or Fever > 38C (100.4F) Albuterol () 2.5 mg INH Q4H PRN PRN Reason: Wheezing Last Admin: 06/27/18 23:27 Dose: 2.5 mg Albuterol/Ipratropium (Duoneb) 3 ml INH RTQID [facility] Last Admin: 06/29/18 07:15 Dose: 3 ml Amlodipine Besylate (Norvasc) 5 mg PEG DAILY [facility] Last Admin: 06/28/18 08:29 Dose: 5 mg Aspirin ([place] Aspirin) 81 mg PEG DAILY [facility] Last Admin: 06/28/18 08:31 Dose: 81 mg Atorvastatin Calcium (Lipitor) 40 mg PEG QPM [facility] Last Admin: 06/28/18 21:33 Dose: 40 mg Cetirizine HCl (Zyrtec) 10 mg PEG DAILY PRN PRN Reason: ITCHING Diphenhydramine HCl (Benadryl) 25 mg PO Q6HR PRN PRN Reason: ITCHING Last Admin: 06/26/18 10:38 Dose: 25 mg Doxazosin Mesylate (Cardura) 4 mg PEG QPM [facility] Last Admin: 06/28/18 21:33 Dose: 4 mg Enoxaparin Sodium (Lovenox) 40 mg SUBQ DAILY [facility] Last Admin: 06/28/18 08:39 Dose: 40 mg Furosemide (Lasix) 20 mg PO DAILY [facility] Gabapentin (Neurontin) 300 mg PEG TID [facility] Last Admin: 06/29/18 06:59 Dose: 300 mg Guaifenesin (Robitussin Liquid) 100 mg PEG Q6HR [facility] Last Admin: 06/29/18 06:59 Dose: 100 mg Hydralazine HCl (Apresoline Inj) 10 mg IVP DAILY PRN PRN Reason: SBP>160 Cefepime HCl 2 gm/ Sodium (Chloride) 100 mls @ 200 mls/hr IV Q8H [facility] Last Infusion: 06/29/18 10:05 Dose: Infused Vancomycin HCl 1 gm/Vancomycin HCl 250 mg/ Sodium Chloride 250 mls @ 166.667 mls/hr IV Q12H [facility] Last Infusion: 06/29/18 00:37 Dose: Infused Sodium Chloride (Normal Saline 0.9%) 1,000 mls @ 100 mls/hr IV .Q10H [facility] Stop: 06/30/18 06:17 Last Admin: 06/29/18 10:39 Dose: 100 mls/hr Insulin Glargine (Lantus Solostar) 5 unit SUBQ QPM [facility] Last Admin: 06/28/18 21:48 Dose: 5 unit Insulin Glargine (Lantus Solostar) 10 unit SUBQ QDBREAKFAST [facility] Last Admin: 06/29/18 10:24 Dose: 10 unit Insulin Human Regular (Novolin R) 1 - 5 unit SUBQ Q6HR [facility]; Protocol Last Admin: 06/29/18 06:59 Dose: 1 unit Lorazepam (Ativan) 0.5 mg NG Q8H PRN PRN Reason: Anxiety Last Admin: 06/28/18 08:31 Dose: 0.5 mg Metoprolol Tartrate (Lopressor) 25 mg PO BID [facility] Morphine Sulfate (Morphine) 2 mg IVP Q2H PRN PRN Reason: PAIN Last Admin: 06/29/18 10:06 Dose: 2 mg Nystatin (Mycostatin) 5 ml PO QID [facility] Last Admin: 06/28/18 21:48 Dose: 5 ml Oxycodone HCl (Roxicodone) 5 mg PEG Q4HR PRN PRN Reason: PAIN Last Admin: 06/28/18 18:18 Dose: 5 mg Pantoprazole Sodium (Protonix) 40 mg NG BID [facility] Last Admin: 06/28/18 21:33 Dose: 40 mg Vitamin B Complex 1 each PEG DAILY [facility] Last Admin: 06/28/18 08:26 Dose: Not Given Polyethylene Glycol (Miralax) 17 gm PEG DAILY [facility] Last Admin: 06/28/18 08:28 Dose: 17 gm Scopolamine HBr (Transderm-Scop) 1 patch TOP Q3D [facility] Last Admin: 06/27/18 07:46 Dose: 1 patch Sodium Chloride (Normal Saline Flush 0.9%) 10 ml IVP PRN PRN PRN Reason: NEEDED PER PROVIDER ORDERS Last Admin: 06/28/18 11:00 Dose: 10 ml Sodium Chloride (Normal Saline Flush 0.9%) 10 ml IVP 0100,0900,1700 [facility] Last Admin: 06/29/18 09:29 Dose: 10 ml Aspirin 81 mg NG DAILY 08/01/17 Atorvastatin Calcium 40 mg NG DAILY 08/01/17 Gabapentin [Neurontin] 300 mg PEG BID 08/01/17 Metoprolol Tartrate 25 mg PEG BID 08/01/17 Pantoprazole [Protonix] 40 mg PEG BID 08/01/17 amLODIPine [Norvasc] 5 mg NG DAILY 08/01/17 Cetirizine [ZyrTEC] 10 mg PEG DAILY PRN 11/19/17 Insulin Glargine [Lantus Solostar] 20 unit SUBQ 0800 11/19/17 Insulin Lispro [Humalog] 1 - 5 unit SUBQ ACHS PRN 11/19/17 Vitamin B Complex 1 tab PEG DAILY 11/19/17 Albuterol Sulf [Ventolin Hfa Inhaler] 1 - 2 puffs INH Q4HR PRN 03/06/18 Senna [Senokot] 1 - 2 tab PEG DAILY PRN 03/06/18 Docusate Calcium 240 mg PEG DAILY 06/26/18 Doxazosin Mesylate [Cardura] 4 mg PO QPM 06/26/18 Polyethylene Glycol 3350 [Miralax] 17 gm PEG DAILY 06/26/18 Objective - Vital Signs/Intake & Output Reviewed Vital Signs: Yes Vital Signs: Vital Signs x48h Temp Pulse Pulse Resp BP Pulse Ox 06/29/18 10:31 37.7 C H 06/29/18 08:40 38.1 C H 105 H 26 H 116/51 L 93 06/29/18 07:18 90 24 Intake & Output: Intake & Output 06/26/18 06/27/18 06/28/18 06/29/18 23:59 23:59 23:59 23:59 Intake Total 3710 2430 2172 475 Output Total 70 5 125 30 Balance 3640 2425 2047 445 - Objective General Appearance: positive: No acute distress, Alert. negative: Lethargic Eyes Bilateral: positive: Normal inspection, PERRL, No lid inflammation, Conjunctivae nml ENT: positive: ENT inspection nml, Pharynx nml, No signs of dehydration. negative: Purulent nasal drainage, Pharyngeal erythema, Oral lesions Neck: positive: Nml inspection, Thyroid nml, No JVD, Trachea midline. negative: Thyromegaly, Lymphadenopathy (R), Lymphadenopathy (L), Stiff neck, Swelling/bruising, Tracheal deviation Respiratory: positive: Chest non-tender, No respiratory distress, Rhonchi. negative: Wheezes, Rales Cardiovascular: positive: Regular rate & rhythm, No murmur, No gallop. negative: Irregularly irregular, Extrasystoles, Tachycardia, Bradycardia, JVD present, Systolic murmur Peripheral Pulses: 2+ Radial (R), 2+ Radial (L), 2+ Dorsalis pedis (R), 2+ Dorsalis pedis (L) Abdomen: positive: Non-tender, No organomegaly, Nml bowel sounds, No distention. negative: Tenderness, Guarding, Rebound Back: positive: Nml inspection. negative: CVA tenderness (R), CVA tenderness (L) Skin: positive: Color nml, No rash, Warm, Dry. negative: Cyanosis, Diaphoresis, Pallor Extremities: positive: Non-tender. negative: Calf tenderness, Joint swelling, Mariah's sign/cords Neurologic/Psychiatric: positive: Slurred/abnml speech. negative: Facial droop - Lab Results Fish Bones: 06/29/18 04:40 06/29/18 04:40 Other Labs: Lab Results x24hrs 06/29/18 06/29/18 06/29/18 Range/Units 06:29 04:40 04:40 WBC 7.5 (4.8-10.8) x10^3/uL RBC 5.19 (4.70-6.10) 10^6/uL Hgb 13.4 L (14.0-18.0) g/dL Hct 43.7 (42.0-52.0) % MCV 84.3 (80.0-94.0) fL MCH 25.9 L (27.0-31.0) pg MCHC 30.7 L (32.0-36.0) g/dL RDW 16.4 H (12.0-15.0) % Plt Count 156 (130-450) 10^3/uL MPV 10.2 (7.4-11.4) fL Neut # (Auto) 5.5 (1.5-6.6) 10^3/uL Lymph # (Auto) 0.7 L (1.5-3.5) 10^3/uL Anderson # (Auto) 0.5 (0.0-1.0) 10^3/uL Eos # (Auto) 0.7 (0.0-0.7) 10^3/uL Baso # (Auto) 0.1 (0.0-0.1) 10^3/uL Absolute Nucleated RBC 0.01 x10^3/uL Nucleated RBC % 0.1 /100WBC Sodium 140 (135-145) mmol/L Potassium 5.1 H (3.5-5.0) mmol/L Chloride 101 (101-111) mmol/L Carbon Dioxide 32 (21-32) mmol/L Anion Gap 7.0 (6-13) BUN 21 H (6-20) mg/dL Creatinine 0.6 (0.6-1.2) mg/dL Estimated GFR (MDRD) 130 (>89) Glucose 190 H (70-100) mg/dL POC Whole Bld Glucose 178 H (70 - 100) mg/dL Calcium 8.6 (8.5-10.3) mg/dL Phosphorus 3.2 (2.5-4.6) mg/dL Magnesium 2.0 (1.7-2.8) mg/dL Total Bilirubin 1.0 (0.2-1.0) mg/dL AST 20 (10-42) IU/L ALT 18 (10-60) IU/L Alkaline Phosphatase 73 (42-121) IU/L Total Protein 6.4 L (6.7-8.2) g/dL Albumin 2.7 L (3.2-5.5) g/dL Globulin 3.7 (2.1-4.2) g/dL Albumin/Globulin Ratio 0.7 L (1.0-2.2) Prealbumin 17 L (18-45) mg/dL Influenza A (Rapid) (Negative) Influenza B (Rapid) (Negative) 06/29/18 06/28/18 06/28/18 Range/Units 00:22 17:54 14:30 WBC (4.8-10.8) x10^3/uL RBC (4.70-6.10) 10^6/uL Hgb (14.0-18.0) g/dL Hct (42.0-52.0) % MCV (80.0-94.0) fL MCH (27.0-31.0) pg MCHC (32.0-36.0) g/dL RDW (12.0-15.0) % Plt Count (130-450) 10^3/uL MPV (7.4-11.4) fL Neut # (Auto) (1.5-6.6) 10^3/uL Lymph # (Auto) (1.5-3.5) 10^3/uL Anderson # (Auto) (0.0-1.0) 10^3/uL Eos # (Auto) (0.0-0.7) 10^3/uL Baso # (Auto) (0.0-0.1) 10^3/uL Absolute Nucleated RBC x10^3/uL Nucleated RBC % /100WBC Sodium (135-145) mmol/L Potassium (3.5-5.0) mmol/L Chloride (101-111) mmol/L Carbon Dioxide (21-32) mmol/L Anion Gap (6-13) BUN (6-20) mg/dL Creatinine (0.6-1.2) mg/dL Estimated GFR (MDRD) (>89) Glucose (70-100) mg/dL POC Whole Bld Glucose 238 H 214 H (70 - 100) mg/dL Calcium (8.5-10.3) mg/dL Phosphorus (2.5-4.6) mg/dL Magnesium (1.7-2.8) mg/dL Total Bilirubin (0.2-1.0) mg/dL AST (10-42) IU/L ALT (10-60) IU/L Alkaline Phosphatase (42-121) IU/L Total Protein (6.7-8.2) g/dL Albumin (3.2-5.5) g/dL Globulin (2.1-4.2) g/dL Albumin/Globulin Ratio (1.0-2.2) Prealbumin (18-45) mg/dL Influenza A (Rapid) Negative (Negative) Influenza B (Rapid) Negative (Negative) 06/28/18 Range/Units 11:39 WBC (4.8-10.8) x10^3/uL RBC (4.70-6.10) 10^6/uL Hgb (14.0-18.0) g/dL Hct (42.0-52.0) % MCV (80.0-94.0) fL MCH (27.0-31.0) pg MCHC (32.0-36.0) g/dL RDW (12.0-15.0) % Plt Count (130-450) 10^3/uL MPV (7.4-11.4) fL Neut # (Auto) (1.5-6.6) 10^3/uL Lymph # (Auto) (1.5-3.5) 10^3/uL Anderson # (Auto) (0.0-1.0) 10^3/uL Eos # (Auto) (0.0-0.7) 10^3/uL Baso # (Auto) (0.0-0.1) 10^3/uL Absolute Nucleated RBC x10^3/uL Nucleated RBC % /100WBC Sodium (135-145) mmol/L Potassium (3.5-5.0) mmol/L Chloride (101-111) mmol/L Carbon Dioxide (21-32) mmol/L Anion Gap (6-13) BUN (6-20) mg/dL Creatinine (0.6-1.2) mg/dL Estimated GFR (MDRD) (>89) Glucose (70-100) mg/dL POC Whole Bld Glucose 188 H (70 - 100) mg/dL Calcium (8.5-10.3) mg/dL Phosphorus (2.5-4.6) mg/dL Magnesium (1.7-2.8) mg/dL Total Bilirubin (0.2-1.0) mg/dL AST (10-42) IU/L ALT (10-60) IU/L Alkaline Phosphatase (42-121) IU/L Total Protein (6.7-8.2) g/dL Albumin (3.2-5.5) g/dL Globulin (2.1-4.2) g/dL Albumin/Globulin Ratio (1.0-2.2) Prealbumin (18-45) mg/dL Influenza A (Rapid) (Negative) Influenza B (Rapid) (Negative) ABX Reporting Has patient been on IV antibiotics over the past 48 hours?: Yes Sepsis Event Note (H) - Evaluation Current Stage of Sepsis: Sepsis Possible source of Sepsis: positive: Pulmonary - Sepsis Criteria Sepsis Criteria: Recorded Temperature greater than 38.3C or Less than 36C (`), Recorded Heart Rate greater than 90 bpm Assessment/Plan - Problem List (1) Pneumonia Impression: 06/29 lung is better than yesterday, cough is reduced. but pt had lower degree fever today morning. continue Cefepimen and Vancomycin start gently IVF of NS continue lab and vital monitor pt' progress is limited, pt still present bilateral lung crackles, O2 dependent at hospital, cough add vancomycin CXR reveals pulmonary edema, add Lasix IV 20mg , then change to PO Lasix ECHO reveals normal EF without wall abnormality (2)fever pt had lower degree of fever at today morning 38.1 degree. unknown etiology order CXR, followup order blood culture, UA culture Tylenol sup PRN continue cefepime and vancomycin IVF of NS lab and vital monitor (3) Hypoxia Impression: 06/29 remain stable, 93% at3 liter of O2 - RT consulted - titrate oxygen - continue duonebs and PRN albuterol pt is still on 2-3L NC to maintain oxygen saturation >92% continue - RT consulted - titrate oxygen - continue duonebs and PRN albuterol (4) COPD (chronic obstructive pulmonary disease) Impression: stable, Without exacerbation. Plan: - continue home medications (5) uncontrolled Diabetes Impression: 06/29 Hgb A1c 7.3. Blood sugars still slightly elevated. slide scale, ACHS, hypoglycemia protocol -add morning 5 units lantus - lantus at 5 units on the night, will adjust as necessary add morning Lantus 10 unit, sine pt elevated sugar level (6) History of CVA (cerebrovascular accident) Impression: 06/29, continue PT/OT, prevention of pressure ulcer protocol CVA was Occured in 2015. He is hemiplegic and bedbound. He is cared for at home by his daughter and caregivers when his daughter is at work. He is fed and medications administered via PEG tube. He does get up to the wheelchair via lift for roughly 4 hours (or a long as tolerated) everyday Plan: - NPO status - continue aspirin and atorvastatin - tube feeding per PEG tube - frequent turns add PT/OT, although pt has hx of CVA, pt will benefit for his pneumonia with PT/OT and ambulation (7) Hypertension Impression: stable. Plan: - continue home amlodipine and metoprolol Qualifiers: Pneumonia type: due to unspecified organism Laterality: unspecified laterality Lung location: unspecified part of lung Qualified Code(s): J18.9 - Pneumonia, unspecified organism
[2018-06-29] MEDS: VANCOMYCIN INJ 1 GM, VANCOMYCIN INJ 250 MG in SODIUM CHLORIDE 0.9% 250 ML IV SCH ×2 (11:07→22:52)
[2018-06-29] MEDS: amLODIPine 5 MG TABLET PEG SCH (11:28)
[2018-06-29] MEDS: ASPIRIN CHEW 81 MG TABLET PEG SCH (11:30)
[2018-06-29] MEDS: PANTOPRAZOLE 40 MG TABLET NG SCH ×2 (11:30→20:35)
[2018-06-29] MEDS: POLYETHYLENE GLYCOL 3350 17 GM PACKET PEG SCH (11:38)
[2018-06-29] MEDS: METOPROLOL TARTRATE 25 MG TABLET PO SCH ×2 (11:40→20:32)
[2018-06-29] MEDS: ENOXAPARIN 40 MG/0.4 ML SYRINGE SUBQ SCH (11:42)
[2018-06-29] MEDS: NYSTATIN 500000 UNITS/5 ML UDC PO SCH ×4 (12:15→23:02)
--- NOTE | 2018-06-29 12:39 | XRAY Report ---
Reason: fever Procedure Date: 06/29/2018 Accession Number: [id number] / [id number] Procedure: XR - Chest 1 View X-Ray CPT Code: 91759 FULL RESULT: EXAM: CHEST RADIOGRAPHY EXAM DATE: 06/29/2018 09:32 AM. CLINICAL HISTORY: Fever. COMPARISON: Chest radiograph from 06/28/2018, 06/25/2018, 03/15/2018. TECHNIQUE: 1 view. FINDINGS: Lungs/Pleura: There are diffuse interstitial opacities throughout both lungs, which appear increased from the prior examination. No definite pleural effusion or pneumothorax. Mediastinum: Cardiomediastinal silhouette is similar. Pulmonary vasculature is indistinct. There appear to be mediastinal and right hilar calcifications. Other: None. IMPRESSION: Increasing interstitial opacities. Given the clinical history, findings may represent atypical pneumonia rather than pulmonary edema. [facility]
[2018-06-29] MEDS: SODIUM CHLORIDE FLUSH 0.9% 10 ML SYRINGE IVP PRN (14:29)
[2018-06-29] MEDS: LORazepam 0.5 MG TABLET NG PRN (15:05)
[2018-06-29] MEDS: FUROSEMIDE 20 MG TABLET PO SCH (15:05)
[2018-06-29 15:08] LABS: BILIRUBIN,URINE NEGATIVE (NEGATIVE); GLUCOSE, URINE (UA) NEGATIVE (NEGATIVE); KETONES,URINE (UA) TRACE mg/dL (NEGATIVE); LEUKOCYTE ESTERASE, URINE NEGATIVE (NEGATIVE); NITRITE,URINE NEGATIVE (NEGATIVE); OCCULT BLOOD,URINE TRACE-INTA (NEGATIVE); PROTEIN,URINE 30 mg/dL (NEGATIVE); UROBILINOGEN,URINE 0.2 (NORMAL) E.U./dL (NORMAL)
[2018-06-29 15:13] LABS: CLARITY,URINE HAZY (CLEAR)
[2018-06-29 15:42] LABS: AMORPHOUS SEDIMENT,UR Few /LPF; BACTERIA,URINE None Seen /HPF (None Seen); CASTS, URINE 0-2 Hyaline Casts /LPF; SQUAMOUS EPITHELIAL CELL,UR NONE SEEN (<= Few); WBC CLUMPS,URINE PRESENT
[2018-06-29] MEDS: DOXAZOSIN 4 MG TABLET PEG SCH (20:32)
[2018-06-29] MEDS: ATORVASTATIN 40 MG TABLET PEG SCH (20:34)
[2018-06-29] MEDS: MONTELUKAST 10 MG TABLET PO SCH (23:02)
[2018-06-30] MEDS: INSULIN REGULAR HUMAN 100 UNIT/1 ML 10 ML MDV SUBQ SCH ×4 (00:32→18:58)
[2018-06-30] MEDS: guaiFENesin 100 MG/5 ML UDC PEG SCH ×4 (00:33→17:37)
[2018-06-30] MEDS: SODIUM CHLORIDE FLUSH 0.9% 10 ML SYRINGE IVP SCH ×3 (00:46→17:37)
[2018-06-30] MEDS: CEFEPIME 2 GM in SODIUM CHLORIDE 0.9% MINIBAG 100 ML IV SCH ×3 (03:56→21:17)
[2018-06-30] MEDS: ALBUTEROL NEB 2.5 MG/3 ML INH PRN (04:21)
[2018-06-30 05:14] LABS: BASOPHILS % (AUTO) 0.5 %; EOSINOPHILS # (AUTO) 0.6 10^3/uL (0.0-0.7); EOSINOPHILS % (AUTO) 9.7 %; HGB - HEMOGLOBIN 12.3 g/dL (14.0-18.0); LYMPHOCYTES # (AUTO) 0.6 10^3/uL (1.5-3.5); LYMPHOCYTES % (AUTO) 9.5 %; MEAN CORPUSCULAR HEMOGLOBIN 25.9 pg (27.0-31.0); MEAN CORPUSCULAR HGB CONC 31.1 g/dL (32.0-36.0); MEAN CORPUSCULAR VOLUME 83.3 fL (80.0-94.0); MEAN PLATELET VOLUME 10.2 fL (7.4-11.4); MONOCYTES # (AUTO) 0.6 10^3/uL (0.0-1.0); MONOCYTES % (AUTO) 8.7 %; NEUTROPHILS # (AUTO) 4.7 10^3/uL (1.5-6.6); NEUTROPHILS % (AUTO) 71.6 %; PLT - PLATELET COUNT 136 10^3/uL (130-450); RED BLOOD COUNT 4.76 10^6/uL (4.70-6.10); WHITE BLOOD COUNT 6.6 x10^3/uL (4.8-10.8)
[2018-06-30 05:18] LABS: CALCIUM 8.4 mg/dL (8.5-10.3); CREATININE 0.7 mg/dL (0.6-1.2)
[2018-06-30] MEDS: SCOPOLAMINE PATCH TOP SCH (05:57)
[2018-06-30] MEDS: FUROSEMIDE 20 MG TABLET PO SCH ×2 (06:02→14:25)
[2018-06-30] MEDS: GABAPENTIN 300 MG CAPSULE PEG SCH ×3 (06:02→21:17)
[2018-06-30] MEDS ORDERED: MIN OIL/DIMETHICON/COCONUT OIL 92 GM TUBE TOP PRN (06:55)
[2018-06-30] MEDS: IPRATROPIUM/ALBUTEROL 3 ML NEB INH SCH ×5 (07:38→22:03)
[2018-06-30] MEDS: BUDESONIDE 0.5 MG/2 ML NEB INH SCH ×3 (07:39→22:07)
[2018-06-30] MEDS: INSULIN GLARGINE 300 UNIT/3 ML PEN SUBQ SCH ×2 (09:43→21:40)
[2018-06-30] MEDS: amLODIPine 5 MG TABLET PEG SCH (09:45)
[2018-06-30] MEDS: METOPROLOL TARTRATE 25 MG TABLET PO SCH ×2 (09:45→21:19)
[2018-06-30] MEDS: PANTOPRAZOLE 40 MG TABLET NG SCH ×2 (09:45→21:16)
[2018-06-30] MEDS: ASPIRIN CHEW 81 MG TABLET PEG SCH (09:46)
[2018-06-30] MEDS: ENOXAPARIN 40 MG/0.4 ML SYRINGE SUBQ SCH (09:46)
[2018-06-30] MEDS: POLYETHYLENE GLYCOL 3350 17 GM PACKET PEG SCH (10:05)
[2018-06-30] MEDS: NYSTATIN 500000 UNITS/5 ML UDC PO SCH ×4 (10:06→21:18)
[2018-06-30] MEDS: VANCOMYCIN INJ 1 GM, VANCOMYCIN INJ 250 MG in SODIUM CHLORIDE 0.9% 250 ML IV SCH (10:43)
[2018-06-30] MEDS: SODIUM CHLORIDE FLUSH 0.9% 10 ML SYRINGE IVP PRN (10:45)
--- NOTE | 2018-06-30 13:00 | PROVIDER PROGRESS NOTE ---
Subjective - Prog Note Date Prog Note Date: 06/30/18 - Subjective Pt reports feeling: Improved Subjective: pt's breath is better. his O2 sat is 95-98% on 3 liter, RR decrease to 22. pt's aphasia is as his baseline. No fever, chill or CP were reported. Current Medications - Current Medications Current Medications: Active Medications Acetaminophen (Tylenol) 640 mg PEG Q4HR PRN PRN Reason: Pain or Fever > 38C (100.4F) Acetaminophen (Tylenol) 650 mg AK Q6HR PRN PRN Reason: Pain or Fever > 38C (100.4F) Last Admin: 06/29/18 11:13 Dose: 650 mg Albuterol () 2.5 mg INH Q4H PRN PRN Reason: Wheezing Last Admin: 06/30/18 04:21 Dose: 2.5 mg Albuterol/Ipratropium (Duoneb) 3 ml INH RTQID [facility] Last Admin: 06/30/18 11:51 Dose: 3 ml Amlodipine Besylate (Norvasc) 5 mg PEG DAILY [facility] Last Admin: 06/30/18 09:45 Dose: 5 mg Aspirin ([place] Aspirin) 81 mg PEG DAILY [facility] Last Admin: 06/30/18 09:46 Dose: 81 mg Atorvastatin Calcium (Lipitor) 40 mg PEG QPM EVELIO Last Admin: 06/29/18 20:34 Dose: 40 mg Budesonide (Pulmicort) 0.5 mg INH RTBID [facility] Last Admin: 06/30/18 07:39 Dose: 0.5 mg Cetirizine HCl (Zyrtec) 10 mg PEG DAILY PRN PRN Reason: ITCHING Diphenhydramine HCl (Benadryl) 25 mg PO Q6HR PRN PRN Reason: ITCHING Last Admin: 06/26/18 10:38 Dose: 25 mg Doxazosin Mesylate (Cardura) 4 mg PEG QPM EVELIO Last Admin: 06/29/18 20:32 Dose: 4 mg Enoxaparin Sodium (Lovenox) 40 mg SUBQ DAILY [facility] Last Admin: 06/30/18 09:46 Dose: 40 mg Furosemide (Lasix) 20 mg PO BIDDIURETIC [facility] Last Admin: 06/30/18 06:02 Dose: 20 mg Gabapentin (Neurontin) 300 mg PEG TID EVELIO Last Admin: 06/30/18 06:02 Dose: 300 mg Guaifenesin (Robitussin Liquid) 100 mg PEG Q6HR [facility] Last Admin: 06/30/18 12:08 Dose: 100 mg Hydralazine HCl (Apresoline Inj) 10 mg IVP DAILY PRN PRN Reason: SBP>160 Cefepime HCl 2 gm/ Sodium (Chloride) 100 mls @ 200 mls/hr IV Q8H [facility] Last Admin: 06/30/18 12:22 Dose: 200 mls/hr Vancomycin HCl 1 gm/Vancomycin HCl 250 mg/ Sodium Chloride 250 mls @ 166.667 mls/hr IV Q12H [facility] Insulin Glargine (Lantus Solostar) 5 unit SUBQ QPM [facility] Last Admin: 06/29/18 22:51 Dose: 5 unit Insulin Glargine (Lantus Solostar) 10 unit SUBQ QDBREAKFAST [facility] Last Admin: 06/30/18 09:43 Dose: 10 unit Insulin Human Regular (Novolin R) 1 - 5 unit SUBQ Q6HR [facility]; Protocol Last Admin: 06/30/18 12:00 Dose: 3 unit Lorazepam (Ativan) 0.5 mg NG Q8H PRN PRN Reason: Anxiety Last Admin: 06/29/18 15:05 Dose: 0.5 mg Metoprolol Tartrate (Lopressor) 25 mg PO BID [facility] Last Admin: 06/30/18 09:45 Dose: 25 mg Mineral Oil (Cavilon) 1 applic TOP PRN PRN PRN Reason: Skin Care Montelukast Sodium (Singulair) 10 mg PO QPM [facility] Last Admin: 06/29/18 23:02 Dose: 10 mg Morphine Sulfate (Morphine) 2 mg IVP Q2H PRN PRN Reason: PAIN Last Admin: 06/29/18 10:06 Dose: 2 mg Nystatin (Mycostatin) 5 ml PO QID [facility] Last Admin: 06/30/18 12:08 Dose: 5 ml Oxycodone HCl (Roxicodone) 5 mg PEG Q4HR PRN PRN Reason: PAIN Last Admin: 06/28/18 18:18 Dose: 5 mg Pantoprazole Sodium (Protonix) 40 mg NG BID [facility] Last Admin: 06/30/18 09:45 Dose: 40 mg Vitamin B Complex 1 each PEG DAILY [facility] Last Admin: 06/30/18 10:06 Dose: Not Given Polyethylene Glycol (Miralax) 17 gm PEG DAILY [facility] Last Admin: 06/30/18 10:05 Dose: Not Given Scopolamine HBr (Transderm-Scop) 1 patch TOP Q3D [facility] Last Admin: 06/30/18 05:57 Dose: 1 patch Sodium Chloride (Normal Saline Flush 0.9%) 10 ml IVP PRN PRN PRN Reason: NEEDED PER PROVIDER ORDERS Last Admin: 06/30/18 10:45 Dose: 10 ml Sodium Chloride (Normal Saline Flush 0.9%) 10 ml IVP 0100,0900,1700 [facility] Last Admin: 06/30/18 10:07 Dose: 10 ml Aspirin 81 mg NG DAILY 08/01/17 Atorvastatin Calcium 40 mg NG DAILY 08/01/17 Gabapentin [Neurontin] 300 mg PEG BID 08/01/17 Metoprolol Tartrate 25 mg PEG BID 08/01/17 Pantoprazole [Protonix] 40 mg PEG BID 08/01/17 amLODIPine [Norvasc] 5 mg NG DAILY 08/01/17 Cetirizine [ZyrTEC] 10 mg PEG DAILY PRN 11/19/17 Insulin Glargine [Lantus Solostar] 20 unit SUBQ 0800 11/19/17 Insulin Lispro [Humalog] 1 - 5 unit SUBQ ACHS PRN 11/19/17 Vitamin B Complex 1 tab PEG DAILY 11/19/17 Albuterol Sulf [Ventolin Hfa Inhaler] 1 - 2 puffs INH Q4HR PRN 03/06/18 Senna [Senokot] 1 - 2 tab PEG DAILY PRN 03/06/18 Docusate Calcium 240 mg PEG DAILY 06/26/18 Doxazosin Mesylate [Cardura] 4 mg PO QPM 06/26/18 Polyethylene Glycol 3350 [Miralax] 17 gm PEG DAILY 06/26/18 Objective - Vital Signs/Intake & Output Reviewed Vital Signs: Yes Vital Signs: Vital Signs x48h Temp Pulse Pulse Resp BP Pulse Ox 06/30/18 11:51 78 22 06/30/18 08:00 36.5 C 78 24 141/70 H 95 06/30/18 07:28 80 20 Intake & Output: Intake & Output 06/27/18 06/28/18 06/29/1825/19 23:59 23:59 23:59 23:59 Intake Total 2430 2177 8748 657 Output Total 5 125 510 Balance 2425 4 2248 655 - Objective General Appearance: positive: No acute distress, Alert. negative: Lethargic Eyes Bilateral: positive: Normal inspection, No lid inflammation, Conjunctivae nml ENT: positive: ENT inspection nml, Pharynx nml, No signs of dehydration. negative: Purulent nasal drainage, Pharyngeal erythema, Oral lesions Neck: positive: Nml inspection, Thyroid nml, No JVD, Trachea midline. negative: Thyromegaly, Lymphadenopathy (R), Lymphadenopathy (L), Stiff neck, Swelling/bruising, Tracheal deviation Respiratory: positive: Chest non-tender, No respiratory distress, Rhonchi. negative: Wheezes, Rales Cardiovascular: positive: Regular rate & rhythm, No murmur, No gallop. negative: Irregularly irregular, Extrasystoles, Tachycardia, Bradycardia, JVD present, Systolic murmur, Diastolic murmur Peripheral Pulses: 2+ Radial (R), 2+ Radial (L), 2+ Dorsalis pedis (R), 2+ Dorsalis pedis (L) Abdomen: positive: Non-tender, No organomegaly, Nml bowel sounds, No distention. negative: Tenderness, Guarding, Rebound Back: positive: Nml inspection. negative: CVA tenderness (R), CVA tenderness (L) Skin: positive: Color nml, No rash, Warm, Dry. negative: Cyanosis, Diaphoresis, Pallor Extremities: negative: Calf tenderness, Joint swelling, Mariah's sign/cords Neurologic/Psychiatric: negative: Facial droop - Lab Results Fish Bones: 06/30/18 04:34 06/30/18 04:34 Other Labs: Lab Results x24hrs 06/30/18 06/30/18 06/30/18 Range/Units 11:26 09:15 05:26 WBC (4.8-10.8) x10^3/uL RBC (4.70-6.10) 10^6/uL Hgb (14.0-18.0) g/dL Hct (42.0-52.0) % MCV (80.0-94.0) fL MCH (27.0-31.0) pg MCHC (32.0-36.0) g/dL RDW (12.0-15.0) % Plt Count (130-450) 10^3/uL MPV (7.4-11.4) fL Neut # (Auto) (1.5-6.6) 10^3/uL Lymph # (Auto) (1.5-3.5) 10^3/uL [place] # (Auto) (0.0-1.0) 10^3/uL Eos # (Auto) (0.0-0.7) 10^3/uL Baso # (Auto) (0.0-0.1) 10^3/uL Absolute Nucleated RBC x10^3/uL Nucleated RBC % /100WBC Sodium (135-145) mmol/L Potassium (3.5-5.0) mmol/L Chloride (101-111) mmol/L Carbon Dioxide (21-32) mmol/L Anion Gap (6-13) BUN (6-20) mg/dL Creatinine (0.6-1.2) mg/dL Estimated GFR (MDRD) (>89) Glucose (70-100) mg/dL POC Whole Bld Glucose 155 H 183 H (70 - 100) mg/dL Calcium (8.5-10.3) mg/dL Urine Color Urine Clarity (CLEAR) Urine pH (5.0-7.5) PH Ur Specific [place] (1.002-1.030) Urine Protein (NEGATIVE) mg/dL Urine Glucose (UA) (NEGATIVE) mg/dL Urine Ketones (NEGATIVE) mg/dL Urine Occult Blood (NEGATIVE) Urine Nitrite (NEGATIVE) Urine Bilirubin (NEGATIVE) Urine Urobilinogen (NORMAL) E.U./dL Ur Leukocyte Esterase (NEGATIVE) Urine RBC (0-5) /HPF Urine WBC (0-3) /HPF Urine WBC Clumps Ur Squamous Epith Cells (<= Few) Amorphous Sediment /LPF Urine Bacteria (None Seen) /HPF Urine Casts /LPF Urine Culture Comments Last Dose Date 06/30/18 Last Dose Time 00:30 Vancomycin Trough 33.4 H* (10.0-20.0) ug/mL 06/30/18 06/30/18 06/29/18 Range/Units 04:34 04:34 23:53 WBC 6.6 (4.8-10.8) x10^3/uL RBC 4.76 (4.70-6.10) 10^6/uL Hgb 12.3 L (14.0-18.0) g/dL Hct 39.6 L (42.0-52.0) % MCV 83.3 (80.0-94.0) fL MCH 25.9 L (27.0-31.0) pg MCHC 31.1 L (32.0-36.0) g/dL RDW 16.0 H (12.0-15.0) % Plt Count 136 (130-450) 10^3/uL MPV 10.2 (7.4-11.4) fL Neut # (Auto) 4.7 (1.5-6.6) 10^3/uL Lymph # (Auto) 0.6 L (1.5-3.5) 10^3/uL [place] # (Auto) 0.6 (0.0-1.0) 10^3/uL Eos # (Auto) 0.6 (0.0-0.7) 10^3/uL Baso # (Auto) 0.0 (0.0-0.1) 10^3/uL Absolute Nucleated RBC 0.00 x10^3/uL Nucleated RBC % 0.1 /100WBC Sodium 138 (135-145) mmol/L Potassium 4.6 (3.5-5.0) mmol/L Chloride 99 L (101-111) mmol/L Carbon Dioxide 33 H (21-32) mmol/L Anion Gap 6.0 (6-13) BUN 26 H (6-20) mg/dL Creatinine 0.7 (0.6-1.2) mg/dL Estimated GFR (MDRD) 109 (>89) Glucose 205 H (70-100) mg/dL POC Whole Bld Glucose 173 H (70 - 100) mg/dL Calcium 8.4 L (8.5-10.3) mg/dL Urine Color Urine Clarity (CLEAR) Urine pH (5.0-7.5) PH Ur Specific [place] (1.002-1.030) Urine Protein (NEGATIVE) mg/dL Urine Glucose (UA) (NEGATIVE) mg/dL Urine Ketones (NEGATIVE) mg/dL Urine Occult Blood (NEGATIVE) Urine Nitrite (NEGATIVE) Urine Bilirubin (NEGATIVE) Urine Urobilinogen (NORMAL) E.U./dL Ur Leukocyte Esterase (NEGATIVE) Urine RBC (0-5) /HPF Urine WBC (0-3) /HPF Urine WBC Clumps Ur Squamous Epith Cells (<= Few) Amorphous Sediment /LPF Urine Bacteria (None Seen) /HPF Urine Casts /LPF Urine Culture Comments Last Dose Date Last Dose Time Vancomycin Trough (10.0-20.0) ug/mL 06/29/18 06/29/18 Range/Units 17:43 15:00 WBC (4.8-10.8) x10^3/uL RBC (4.70-6.10) 10^6/uL Hgb (14.0-18.0) g/dL Hct (42.0-52.0) % MCV (80.0-94.0) fL MCH (27.0-31.0) pg MCHC (32.0-36.0) g/dL RDW (12.0-15.0) % Plt Count (130-450) 10^3/uL MPV (7.4-11.4) fL Neut # (Auto) (1.5-6.6) 10^3/uL Lymph # (Auto) (1.5-3.5) 10^3/uL [place] # (Auto) (0.0-1.0) 10^3/uL Eos # (Auto) (0.0-0.7) 10^3/uL Baso # (Auto) (0.0-0.1) 10^3/uL Absolute Nucleated RBC x10^3/uL Nucleated RBC % /100WBC Sodium (135-145) mmol/L Potassium (3.5-5.0) mmol/L Chloride (101-111) mmol/L Carbon Dioxide (21-32) mmol/L Anion Gap (6-13) BUN (6-20) mg/dL Creatinine (0.6-1.2) mg/dL Estimated GFR (MDRD) (>89) Glucose (70-100) mg/dL POC Whole Bld Glucose 183 H (70 - 100) mg/dL Calcium (8.5-10.3) mg/dL Urine Color YELLOW Urine Clarity HAZY (CLEAR) Urine pH 6.0 (5.0-7.5) PH Ur Specific [place] 1.025 (1.002-1.030) Urine Protein 30 H (NEGATIVE) mg/dL Urine Glucose (UA) NEGATIVE (NEGATIVE) mg/dL Urine Ketones TRACE (NEGATIVE) mg/dL Urine Occult Blood [place] (NEGATIVE) Urine Nitrite NEGATIVE (NEGATIVE) Urine Bilirubin NEGATIVE (NEGATIVE) Urine Urobilinogen 0.2 (NORMAL) (NORMAL) E.U./dL Ur Leukocyte Esterase NEGATIVE (NEGATIVE) Urine RBC 6-10 H (0-5) /HPF Urine WBC 0-3 (0-3) /HPF Urine WBC Clumps PRESENT Ur Squamous Epith Cells NONE SEEN (<= Few) Amorphous Sediment Few /LPF Urine Bacteria None Seen (None Seen) /HPF Urine Casts 0-2 Hyaline Casts /LPF Urine Culture Comments NOT INDICATED Last Dose Date Last Dose Time Vancomycin Trough (10.0-20.0) ug/mL ABX Reporting Has patient been on IV antibiotics over the past 48 hours?: Yes Sepsis Event Note (H) - Evaluation Current Stage of Sepsis: Sepsis Possible source of Sepsis: positive: Pulmonary - Sepsis Criteria Sepsis Criteria: Recorded Temperature greater than 38.3C or Less than 36C (`), Recorded Heart Rate greater than 90 bpm Assessment/Plan - Problem List (1) Pneumonia Impression: 06/30 pt's breath is better, sats 95-98% on 3 liter of O2, reduced RR to 22. continue Cefepimen and Vancomycin continue lab and vital monitor 06/29 lung is better than yesterday, cough is reduced. but pt had lower degree fever today morning. continue Cefepimen and Vancomycin start gently IVF of NS continue lab and vital monitor pt' progress is limited, pt still present bilateral lung crackles, O2 dependent at hospital, cough add vancomycin CXR reveals pulmonary edema, add Lasix IV 20mg , then change to PO Lasix ECHO reveals normal EF without wall abnormality (2)fever 06/30, no fever, WBC is normal, blood culture is negative preliminary continue Cefepime and Vancomycin pt had lower degree of fever at today morning 38.1 degree. unknown etiology order CXR, followup order blood culture, UA culture Tylenol sup PRN continue cefepime and vancomycin IVF of NS lab and vital monitor (3) Hypoxia Impression: 06/30 improved continue RT consult, breath treatment with Duoneb albuterol PRN 06/29 remain stable, 93% at3 liter of O2 - RT consulted - titrate oxygen - continue duonebs and PRN albuterol pt is still on 2-3L NC to maintain oxygen saturation >92% continue - RT consulted - titrate oxygen - continue duonebs and PRN albuterol (4) COPD (chronic obstructive pulmonary disease) Impression: stable, Without exacerbation. Plan: - continue home medications (5) uncontrolled Diabetes Impression: 06/30 glucose level is controlled now, continue slide scale for insulin 06/29 Hgb A1c 7.3. Blood sugars still slightly elevated. slide scale, ACHS, hypoglycemia protocol -add morning 5 units lantus - lantus at 5 units on the night, will adjust as necessary add morning Lantus 10 unit, sine pt elevated sugar level (6) History of CVA (cerebrovascular accident) Impression: 06/29, continue PT/OT, prevention of pressure ulcer protocol CVA was Occured in 2015. He is hemiplegic and bedbound. He is cared for at home by his daughter and caregivers when his daughter is at work. He is fed and medications administered via PEG tube. He does get up to the wheelchair via lift for roughly 4 hours (or a long as tolerated) everyday Plan: - NPO status - continue aspirin and atorvastatin - tube feeding per PEG tube - frequent turns add PT/OT, although pt has hx of CVA, pt will benefit for his pneumonia with PT/OT and ambulation (7) Hypertension Impression: stable. Plan: - continue home amlodipine and metoprolol Qualifiers: Pneumonia type: due to unspecified organism Laterality: unspecified laterality Lung location: unspecified part of lung Qualified Code(s): J18.9 - Pneumonia, unspecified organism
[2018-06-30 17:14] LABS: VANCOMYCIN,TROUGH 33.4 ug/mL (10.0-20.0)
[2018-06-30] MEDS: MORPHINE 2 MG/ML SYRINGE IVP PRN (17:30)
[2018-06-30] MEDS: DOXAZOSIN 4 MG TABLET PEG SCH (21:16)
[2018-06-30] MEDS: MONTELUKAST 10 MG TABLET PO SCH (21:16)
[2018-06-30] MEDS: ATORVASTATIN 40 MG TABLET PEG SCH (21:16)
[2018-06-30 22:44] LABS: VANCOMYCIN,TROUGH 33.3 ug/mL (10.0-20.0)
[2018-06-30] MEDS ORDERED: VANCOMYCIN INJ 1 GM, VANCOMYCIN INJ 250 MG in SODIUM CHLORIDE 0.9% 250 ML IV SCH (23:00)
[2018-07-01] MEDS: INSULIN REGULAR HUMAN 100 UNIT/1 ML 10 ML MDV SUBQ SCH ×3 (01:27→12:15)
[2018-07-01] MEDS: guaiFENesin 100 MG/5 ML UDC PEG SCH ×4 (01:28→17:33)
[2018-07-01] MEDS: SODIUM CHLORIDE FLUSH 0.9% 10 ML SYRINGE IVP SCH ×3 (01:31→17:34)
[2018-07-01] MEDS: CEFEPIME 2 GM in SODIUM CHLORIDE 0.9% MINIBAG 100 ML IV SCH ×3 (04:00→19:46)
[2018-07-01 05:44] LABS: BASOPHILS # (AUTO) 0.1 10^3/uL (0.0-0.1); BASOPHILS % (AUTO) 0.9 %; EOSINOPHILS # (AUTO) 0.7 10^3/uL (0.0-0.7); LYMPHOCYTES # (AUTO) 0.6 10^3/uL (1.5-3.5); LYMPHOCYTES % (AUTO) 9.4 %; MEAN CORPUSCULAR HEMOGLOBIN 26.2 pg (27.0-31.0); MEAN CORPUSCULAR HGB CONC 31.6 g/dL (32.0-36.0); MEAN CORPUSCULAR VOLUME 82.9 fL (80.0-94.0); MEAN PLATELET VOLUME 9.7 fL (7.4-11.4); MONOCYTES # (AUTO) 0.6 10^3/uL (0.0-1.0); NEUTROPHILS # (AUTO) 4.2 10^3/uL (1.5-6.6); NEUTROPHILS % (AUTO) 68.7 %; PLT - PLATELET COUNT 134 10^3/uL (130-450); RED BLOOD COUNT 4.59 10^6/uL (4.70-6.10); WHITE BLOOD COUNT 6.2 x10^3/uL (4.8-10.8)
[2018-07-01 05:57] LABS: CALCIUM 8.2 mg/dL (8.5-10.3); CREATININE 0.8 mg/dL (0.6-1.2)
[2018-07-01] MEDS: GABAPENTIN 300 MG CAPSULE PEG SCH ×3 (06:33→21:15)
[2018-07-01] MEDS: FUROSEMIDE 20 MG TABLET PO SCH ×2 (06:33→14:14)
[2018-07-01] MEDS: BUDESONIDE 0.5 MG/2 ML NEB INH SCH ×2 (08:00→22:20)
[2018-07-01] MEDS: IPRATROPIUM/ALBUTEROL 3 ML NEB INH SCH ×4 (08:00→22:20)
[2018-07-01] MEDS: INSULIN GLARGINE 300 UNIT/3 ML PEN SUBQ SCH ×2 (09:11→21:16)
[2018-07-01] MEDS: ASPIRIN CHEW 81 MG TABLET PEG SCH (09:14)
[2018-07-01] MEDS: POLYETHYLENE GLYCOL 3350 17 GM PACKET PEG SCH (09:14)
[2018-07-01] MEDS: METOPROLOL TARTRATE 25 MG TABLET PO SCH ×2 (09:14→21:14)
[2018-07-01] MEDS: PANTOPRAZOLE 40 MG TABLET NG SCH ×2 (09:14→21:14)
[2018-07-01] MEDS: amLODIPine 5 MG TABLET PEG SCH (09:14)
[2018-07-01] MEDS: ENOXAPARIN 40 MG/0.4 ML SYRINGE SUBQ SCH (09:15)
[2018-07-01] MEDS: NYSTATIN 500000 UNITS/5 ML UDC PO SCH ×3 (09:15→14:31)
--- NOTE | 2018-07-01 11:35 | XRAY Report ---
Reason: cough, aspiration Procedure Date: 07/01/2018 Accession Number: [id number] / [id number] Procedure: XR - Chest 1 View X-Ray CPT Code: 42838 FULL RESULT: EXAM: CHEST RADIOGRAPHY EXAM DATE: 07/01/2018 11:22 AM. CLINICAL HISTORY: Cough, aspiration. COMPARISON: CHEST 1 VIEW 06/29/2018 9:16 AM. TECHNIQUE: 1 view. FINDINGS: Limited visualization of the lung apices due to positioning. Lungs/Pleura: Lung bases are poorly evaluated with suggestion of bibasilar opacities. Small amount of fluid is seen in the horizontal fissure. Mediastinum: Cardiomediastinal silhouette is only partly evaluated due to positioning with redemonstration of calcified aortic arch and prominent pulmonary arteries. Other: None. IMPRESSION: Limited examination with suggestion of bibasilar opacities. RADIA
--- NOTE | 2018-07-01 13:10 | PROVIDER PROGRESS NOTE ---
Subjective - Prog Note Date Prog Note Date: 07/01/18 - Subjective Pt reports feeling: No change Subjective: pt present some cough in the morning. pt still require 3 litter of O2 at 93% sats. I discussed with pt's daughter, VALERY, at pt's bedside. I updated pt's medical condition to her, and discussed pt's care plan and pt's code status with her. DPRICKY at this point state she will discuss with her sister to see if pt's code status can be changed. I answer DPRICKY's concerns and questions Current Medications - Current Medications Current Medications: Active Medications Acetaminophen (Tylenol) 640 mg PEG Q4HR PRN PRN Reason: Pain or Fever > 38C (100.4F) Acetaminophen (Tylenol) 650 mg AK Q6HR PRN PRN Reason: Pain or Fever > 38C (100.4F) Last Admin: 06/29/18 11:13 Dose: 650 mg Albuterol () 2.5 mg INH Q4H PRN PRN Reason: Wheezing Last Admin: 06/30/18 04:21 Dose: 2.5 mg Albuterol/Ipratropium (Duoneb) 3 ml INH RTQID [facility] Last Admin: 07/01/18 11:40 Dose: 3 ml Amlodipine Besylate (Norvasc) 5 mg PEG DAILY [facility] Last Admin: 07/01/18 09:14 Dose: 5 mg Aspirin ([place] Aspirin) 81 mg PEG DAILY [facility] Last Admin: 07/01/18 09:14 Dose: 81 mg Atorvastatin Calcium (Lipitor) 40 mg PEG QPM [facility] Last Admin: 06/30/18 21:16 Dose: 40 mg Budesonide (Pulmicort) 0.5 mg INH RTBID [facility] Last Admin: 07/01/18 08:00 Dose: 0.5 mg Cetirizine HCl (Zyrtec) 10 mg PEG DAILY PRN PRN Reason: ITCHING Diphenhydramine HCl (Benadryl) 25 mg PO Q6HR PRN PRN Reason: ITCHING Last Admin: 06/26/18 10:38 Dose: 25 mg Doxazosin Mesylate (Cardura) 4 mg PEG QPM [facility] Last Admin: 06/30/18 21:16 Dose: 4 mg Enoxaparin Sodium (Lovenox) 40 mg SUBQ DAILY [facility] Last Admin: 07/01/18 09:15 Dose: 40 mg Furosemide (Lasix) 20 mg PO BIDDIURETIC [facility] Last Admin: 07/01/18 06:33 Dose: 20 mg Gabapentin (Neurontin) 300 mg PEG TID [facility] Last Admin: 07/01/18 06:33 Dose: 300 mg Guaifenesin (Robitussin Liquid) 100 mg PEG Q6HR [facility] Last Admin: 07/01/18 12:37 Dose: 100 mg Hydralazine HCl (Apresoline Inj) 10 mg IVP DAILY PRN PRN Reason: SBP>160 Cefepime HCl 2 gm/ Sodium (Chloride) 100 mls @ 200 mls/hr IV Q8H [facility] Last Admin: 07/01/18 12:12 Dose: 200 mls/hr Vancomycin HCl 1 gm/Vancomycin HCl 250 mg/ Sodium Chloride 250 mls @ 166.667 mls/hr IV Q24H [facility] Insulin Aspart (Novolog) 2 - 10 unit SUBQ 0800,1200,1700,2100 [facility]; Protocol Insulin Glargine (Lantus Solostar) 10 unit SUBQ QDBREAKFAST [facility] Last Admin: 07/01/18 09:11 Dose: 10 unit Insulin Glargine (Lantus Solostar) 10 unit SUBQ QPM [facility] Lorazepam (Ativan) 0.5 mg NG Q8H PRN PRN Reason: Anxiety Last Admin: 06/29/18 15:05 Dose: 0.5 mg Metoprolol Tartrate (Lopressor) 25 mg PO BID [facility] Last Admin: 07/01/18 09:14 Dose: 25 mg Mineral Oil (Cavilon) 1 applic TOP PRN PRN PRN Reason: Skin Care Montelukast Sodium (Singulair) 10 mg PO QPM [facility] Last Admin: 06/30/18 21:16 Dose: 10 mg Morphine Sulfate (Morphine) 2 mg IVP Q2H PRN PRN Reason: PAIN Last Admin: 06/30/18 17:30 Dose: 2 mg Oxycodone HCl (Roxicodone) 5 mg PEG Q4HR PRN PRN Reason: PAIN Last Admin: 06/28/18 18:18 Dose: 5 mg Pantoprazole Sodium (Protonix) 40 mg NG BID [facility] Last Admin: 07/01/18 09:14 Dose: 40 mg Vitamin B Complex 1 each PEG DAILY [facility] Last Admin: 07/01/18 09:15 Dose: Not Given Polyethylene Glycol (Miralax) 17 gm PEG DAILY [facility] Last Admin: 07/01/18 09:14 Dose: 17 gm Scopolamine HBr (Transderm-Scop) 1 patch TOP Q3D [facility] Last Admin: 06/30/18 05:57 Dose: 1 patch Sodium Chloride (Normal Saline Flush 0.9%) 10 ml IVP PRN PRN PRN Reason: NEEDED PER PROVIDER ORDERS Last Admin: 06/30/18 10:45 Dose: 10 ml Sodium Chloride (Normal Saline Flush 0.9%) 10 ml IVP 0100,0900,1700 [facility] Last Admin: 07/01/18 12:37 Dose: 10 ml Aspirin 81 mg NG DAILY 08/01/17 Atorvastatin Calcium 40 mg NG DAILY 08/01/17 Gabapentin [Neurontin] 300 mg PEG BID 08/01/17 Metoprolol Tartrate 25 mg PEG BID 08/01/17 Pantoprazole [Protonix] 40 mg PEG BID 08/01/17 amLODIPine [Norvasc] 5 mg NG DAILY 08/01/17 Cetirizine [ZyrTEC] 10 mg PEG DAILY PRN 11/19/17 Insulin Glargine [Lantus Solostar] 20 unit SUBQ 0800 11/19/17 Insulin Lispro [Humalog] 1 - 5 unit SUBQ ACHS PRN 11/19/17 Vitamin B Complex 1 tab PEG DAILY 11/19/17 Albuterol Sulf [Ventolin Hfa Inhaler] 1 - 2 puffs INH Q4HR PRN 03/06/18 Senna [Senokot] 1 - 2 tab PEG DAILY PRN 03/06/18 Docusate Calcium 240 mg PEG DAILY 06/26/18 Doxazosin Mesylate [Cardura] 4 mg PO QPM 06/26/18 Polyethylene Glycol 3350 [Miralax] 17 gm PEG DAILY 06/26/18 Objective - Vital Signs/Intake & Output Reviewed Vital Signs: Yes Vital Signs: Vital Signs x48h Temp Pulse Pulse Resp BP Pulse Ox 07/01/18 11:40 59 L 24 07/01/18 08:00 54 L 26 H 07/01/18 07:52 36.9 C 62 24 146/62 H 92 Intake & Output: Intake & Output 03/06/29/18 06/30/18 07/01/18 23:59 23:59 23:59 23:59 Intake Total 2172 1365 880 130 Output Total 125 510 30 Balance 20465 880 100 - Objective General Appearance: positive: No acute distress, Alert. negative: Lethargic Eyes Bilateral: positive: Normal inspection, PERRL, No lid inflammation, Conjunctivae nml ENT: positive: ENT inspection nml, Pharynx nml, No signs of dehydration. negative: Purulent nasal drainage, Pharyngeal erythema, Oral lesions Neck: positive: Nml inspection, Thyroid nml, No JVD, Trachea midline. negative: Thyromegaly, Lymphadenopathy (R), Lymphadenopathy (L), Stiff neck, Swelling/bruising, Tracheal deviation Respiratory: positive: Chest non-tender, Rhonchi Cardiovascular: positive: Regular rate & rhythm, No murmur, No gallop. negative: Irregularly irregular, Extrasystoles, Tachycardia, Bradycardia, JVD present, Systolic murmur, Diastolic murmur Peripheral Pulses: 2+ Radial (R), 2+ Radial (L), 2+ Dorsalis pedis (R), 2+ Dorsalis pedis (L) Abdomen: positive: Non-tender, No organomegaly, Nml bowel sounds, No distention. negative: Tenderness, Guarding, Rebound Back: positive: Nml inspection. negative: CVA tenderness (R), CVA tenderness (L) Skin: positive: Color nml, No rash, Warm, Dry. negative: Cyanosis, Diaphoresis, Pallor Extremities: positive: Nml appearance. negative: Calf tenderness, Joint swelling, Mariah's sign/cords Neurologic/Psychiatric: negative: Facial droop - Lab Results Fish Bones: 07/01/18 05:35 07/01/18 05:35 Other Labs: Lab Results x24hrs 07/01/18 07/01/18 07/01/18 Range/Units 11:09 05:59 05:35 WBC (4.8-10.8) x10^3/uL RBC (4.70-6.10) 10^6/uL Hgb (14.0-18.0) g/dL Hct (42.0-52.0) % MCV (80.0-94.0) fL MCH (27.0-31.0) pg MCHC (32.0-36.0) g/dL RDW (12.0-15.0) % Plt Count (130-450) 10^3/uL MPV (7.4-11.4) fL Neut # (Auto) (1.5-6.6) 10^3/uL Lymph # (Auto) (1.5-3.5) 10^3/uL Kane # (Auto) (0.0-1.0) 10^3/uL Eos # (Auto) (0.0-0.7) 10^3/uL Baso # (Auto) (0.0-0.1) 10^3/uL Absolute Nucleated RBC x10^3/uL Nucleated RBC % /100WBC Sodium 138 (135-145) mmol/L Potassium 4.3 (3.5-5.0) mmol/L Chloride 98 L (101-111) mmol/L Carbon Dioxide 34 H (21-32) mmol/L Anion Gap 6.0 (6-13) BUN 24 H (6-20) mg/dL Creatinine 0.8 (0.6-1.2) mg/dL Estimated GFR (MDRD) 93 (>89) Glucose 191 H (70-100) mg/dL POC Whole Bld Glucose 198 H 189 H (70 - 100) mg/dL Calcium 8.2 L (8.5-10.3) mg/dL Last Dose Date Last Dose Time Vancomycin Trough (10.0-20.0) ug/mL 07/01/18 07/01/18 06/30/18 Range/Units 05:35 00:12 22:25 WBC 6.2 (4.8-10.8) x10^3/uL RBC 4.59 L (4.70-6.10) 10^6/uL Hgb 12.0 L (14.0-18.0) g/dL Hct 38.0 L (42.0-52.0) % MCV 82.9 (80.0-94.0) fL MCH 26.2 L (27.0-31.0) pg MCHC 31.6 L (32.0-36.0) g/dL RDW 16.0 H (12.0-15.0) % Plt Count 134 (130-450) 10^3/uL MPV 9.7 (7.4-11.4) fL Neut # (Auto) 4.2 (1.5-6.6) 10^3/uL Lymph # (Auto) 0.6 L (1.5-3.5) 10^3/uL Kane # (Auto) 0.6 (0.0-1.0) 10^3/uL Eos # (Auto) 0.7 (0.0-0.7) 10^3/uL Baso # (Auto) 0.1 (0.0-0.1) 10^3/uL Absolute Nucleated RBC 0.00 x10^3/uL Nucleated RBC % 0.0 /100WBC Sodium (135-145) mmol/L Potassium (3.5-5.0) mmol/L Chloride (101-111) mmol/L Carbon Dioxide (21-32) mmol/L Anion Gap (6-13) BUN (6-20) mg/dL Creatinine (0.6-1.2) mg/dL Estimated GFR (MDRD) (>89) Glucose (70-100) mg/dL POC Whole Bld Glucose 192 H (70 - 100) mg/dL Calcium (8.5-10.3) mg/dL Last Dose Date 06/30/18 Last Dose Time 1220 Vancomycin Trough 33.3 H* (10.0-20.0) ug/mL 06/30/18 06/30/18 Range/Units 16:48 09:15 WBC (4.8-10.8) x10^3/uL RBC (4.70-6.10) 10^6/uL Hgb (14.0-18.0) g/dL Hct (42.0-52.0) % MCV (80.0-94.0) fL MCH (27.0-31.0) pg MCHC (32.0-36.0) g/dL RDW (12.0-15.0) % Plt Count (130-450) 10^3/uL MPV (7.4-11.4) fL Neut # (Auto) (1.5-6.6) 10^3/uL Lymph # (Auto) (1.5-3.5) 10^3/uL Kane # (Auto) (0.0-1.0) 10^3/uL Eos # (Auto) (0.0-0.7) 10^3/uL Baso # (Auto) (0.0-0.1) 10^3/uL Absolute Nucleated RBC x10^3/uL Nucleated RBC % /100WBC Sodium (135-145) mmol/L Potassium (3.5-5.0) mmol/L Chloride (101-111) mmol/L Carbon Dioxide (21-32) mmol/L Anion Gap (6-13) BUN (6-20) mg/dL Creatinine (0.6-1.2) mg/dL Estimated GFR (MDRD) (>89) Glucose (70-100) mg/dL POC Whole Bld Glucose 182 H (70 - 100) mg/dL Calcium (8.5-10.3) mg/dL Last Dose Date Last Dose Time Vancomycin Trough 33.4 H* (10.0-20.0) ug/mL ABX Reporting Has patient been on IV antibiotics over the past 48 hours?: Yes Sepsis Event Note (H) - Evaluation Current Stage of Sepsis: Sepsis Possible source of Sepsis: positive: Pulmonary - Sepsis Criteria Sepsis Criteria: Recorded Temperature greater than 38.3C or Less than 36C (`), Recorded Heart Rate greater than 90 bpm Assessment/Plan - Problem List (1) Pneumonia Impression: 07/01 pt had cough at morning, order CXR. discussed with Nurse about pt's NPO only status continue antibiotics Cefepimen and Vancomycin continue Muscnix 06/30 pt's breath is better, sats 95-98% on 3 liter of O2, reduced RR to 22. continue Cefepimen and Vancomycin continue lab and vital monitor 06/29 lung is better than yesterday, cough is reduced. but pt had lower degree fever today morning. continue Cefepimen and Vancomycin start gently IVF of NS continue lab and vital monitor pt' progress is limited, pt still present bilateral lung crackles, O2 dependent at hospital, cough add vancomycin CXR reveals pulmonary edema, add Lasix IV 20mg , then change to PO Lasix ECHO reveals normal EF without wall abnormality (2)fever resolved 06/30, no fever, WBC is normal, blood culture is negative preliminary continue Cefepime and Vancomycin pt had lower degree of fever at today morning 38.1 degree. unknown etiology order CXR, followup order blood culture, UA culture Tylenol sup PRN continue cefepime and vancomycin IVF of NS lab and vital monitor (3) Hypoxia Impression: 07/01, stable, but still need O2 supplement continue breath treatment with Duoneb, albuterol PRN 06/30 improved continue RT consult, breath treatment with Duoneb albuterol PRN 06/29 remain stable, 93% at3 liter of O2 - RT consulted - titrate oxygen - continue duonebs and PRN albuterol pt is still on 2-3L NC to maintain oxygen saturation >92% continue - RT consulted - titrate oxygen - continue duonebs and PRN albuterol (4) COPD (chronic obstructive pulmonary disease) Impression: CXR reveals atypical pneumonia, without steroid stable, Without exacerbation. Plan: - continue home medications (5) uncontrolled Diabetes Impression: 07/01 increase lantus at night to 10 units and increase slide scale for insulin to control glucose. 06/30 glucose level is controlled now, continue slide scale for insulin 06/29 Hgb A1c 7.3. Blood sugars still slightly elevated. slide scale, ACHS, hypoglycemia protocol -add morning 5 units lantus - lantus at 5 units on the night, will adjust as necessary add morning Lantus 10 unit, sine pt elevated sugar level (6) History of CVA (cerebrovascular accident) Impression: 07/01 pt's daughter report pt had very bad stroke two years ago, since that, pt need total care, bed bound. continue support Q2H turn by nurse care NPO with G-tube only. 06/29, continue PT/OT, prevention of pressure ulcer protocol CVA was Occured in 2015. He is hemiplegic and bedbound. He is cared for at home by his daughter and caregivers when his daughter is at work. He is fed and medications administered via PEG tube. He does get up to the wheelchair via lift for roughly 4 hours (or a long as tolerated) everyday Plan: - NPO status - continue aspirin and atorvastatin - tube feeding per PEG tube - frequent turns add PT/OT, although pt has hx of CVA, pt will benefit for his pneumonia with PT/OT and ambulation (7) Hypertension Impression: stable. Plan: - continue home amlodipine and metoprolol Qualifiers: Pneumonia type: due to unspecified organism Laterality: unspecified laterality Lung location: unspecified part of lung Qualified Code(s): J18.9 - Pneumonia, unspecified organism
[2018-07-01] MEDS ORDERED: INSULIN ASPART 300 UNIT/3 ML PEN SUBQ SCH ×2 (17:00)
[2018-07-01] MEDS: SODIUM CHLORIDE 0.9% 500 ML IV PRN (17:34)
[2018-07-01] MEDS: ACETAMINOPHEN 160 MG/5 ML SUSP UDC PEG PRN (17:34)
[2018-07-01] MEDS: LORazepam 0.5 MG TABLET NG PRN (21:14)
[2018-07-01] MEDS: DOXAZOSIN 4 MG TABLET PEG SCH (21:14)
[2018-07-01] MEDS: MONTELUKAST 10 MG TABLET PO SCH (21:15)
[2018-07-01] MEDS: ATORVASTATIN 40 MG TABLET PEG SCH (21:15)
[2018-07-01 23:42] LABS: VANCOMYCIN,TROUGH 15.4 ug/mL (10.0-20.0)
[2018-07-01] MEDS: VANCOMYCIN INJ 1 GM, VANCOMYCIN INJ 250 MG in SODIUM CHLORIDE 0.9% 250 ML IV SCH (23:52)
[2018-07-02] MEDS: INSULIN ASPART 300 UNIT/3 ML PEN SUBQ SCH ×5 (00:12→21:11)
[2018-07-02] MEDS: guaiFENesin 100 MG/5 ML UDC PEG SCH ×4 (00:13→17:27)
[2018-07-02] MEDS: MORPHINE 2 MG/ML SYRINGE IVP PRN ×3 (01:11→15:47)
[2018-07-02] MEDS: SODIUM CHLORIDE FLUSH 0.9% 10 ML SYRINGE IVP SCH ×3 (01:53→16:56)
[2018-07-02] MEDS: CEFEPIME 2 GM in SODIUM CHLORIDE 0.9% MINIBAG 100 ML IV SCH ×3 (04:01→20:09)
[2018-07-02] MEDS: IPRATROPIUM/ALBUTEROL 3 ML NEB INH SCH ×4 (05:43→18:40)
[2018-07-02] MEDS: BUDESONIDE 0.5 MG/2 ML NEB INH SCH ×2 (05:43→18:40)
[2018-07-02 05:49] LABS: BASOPHILS # (AUTO) 0.1 10^3/uL (0.0-0.1); BASOPHILS % (AUTO) 0.8 %; EOSINOPHILS # (AUTO) 0.6 10^3/uL (0.0-0.7); EOSINOPHILS % (AUTO) 10.1 %; HGB - HEMOGLOBIN 12.6 g/dL (14.0-18.0); LYMPHOCYTES # (AUTO) 0.7 10^3/uL (1.5-3.5); MEAN CORPUSCULAR HEMOGLOBIN 26.1 pg (27.0-31.0); MEAN CORPUSCULAR HGB CONC 31.5 g/dL (32.0-36.0); MEAN CORPUSCULAR VOLUME 82.7 fL (80.0-94.0); MEAN PLATELET VOLUME 10.9 fL (7.4-11.4); MONOCYTES # (AUTO) 0.6 10^3/uL (0.0-1.0); MONOCYTES % (AUTO) 10.2 %; NEUTROPHILS # (AUTO) 4.1 10^3/uL (1.5-6.6); NEUTROPHILS % (AUTO) 66.9 %; PLT - PLATELET COUNT 142 10^3/uL (130-450); RED BLOOD COUNT 4.83 10^6/uL (4.70-6.10); RED CELL DISTRIBUTION WIDTH 16.1 % (12.0-15.0); WHITE BLOOD COUNT 6.1 x10^3/uL (4.8-10.8)
[2018-07-02 06:01] LABS: ALBUMIN 2.5 g/dL (3.2-5.5); ALBUMIN/GLOBULIN RATIO 0.7 (1.0-2.2); CALCIUM 8.6 mg/dL (8.5-10.3); CREATININE 0.7 mg/dL (0.6-1.2); MAGNESIUM 2.1 mg/dL (1.7-2.8); PHOSPHORUS 3.5 mg/dL (2.5-4.6); TOTAL PROTEIN 5.9 g/dL (6.7-8.2)
[2018-07-02] MEDS: FUROSEMIDE 20 MG TABLET PO SCH ×2 (06:02→13:58)
[2018-07-02] MEDS: GABAPENTIN 300 MG CAPSULE PEG SCH ×3 (06:02→21:05)
[2018-07-02] MEDS: INSULIN GLARGINE 300 UNIT/3 ML PEN SUBQ SCH ×2 (08:20→21:11)
[2018-07-02] MEDS: ENOXAPARIN 40 MG/0.4 ML SYRINGE SUBQ SCH (08:22)
[2018-07-02] MEDS: METOPROLOL TARTRATE 25 MG TABLET PO SCH ×2 (08:22→21:05)
[2018-07-02] MEDS: POLYETHYLENE GLYCOL 3350 17 GM PACKET PEG SCH (08:22)
[2018-07-02] MEDS: ASPIRIN CHEW 81 MG TABLET PEG SCH (08:23)
[2018-07-02] MEDS: amLODIPine 5 MG TABLET PEG SCH (08:23)
[2018-07-02] MEDS: PANTOPRAZOLE 40 MG TABLET NG SCH ×2 (08:23→21:05)
[2018-07-02] MEDS: LORazepam 0.5 MG TABLET NG PRN ×2 (09:53→17:27)
[2018-07-02] MEDS: SODIUM CHLORIDE FLUSH 0.9% 10 ML SYRINGE IVP PRN (09:54)
[2018-07-02] MEDS: oxyCODONE 5 MG TABLET PEG PRN ×3 (09:54→21:41)
[2018-07-02] MEDS ORDERED: ZINC OXIDE 20% OINT 28.35 GM TUBE TOP PRN (10:38)
[2018-07-02] MEDS ORDERED: predniSONE 20 MG TABLET PO SCH (11:00)
[2018-07-02] MEDS: HYDROCORTISONE 1% CREAM 28 GM TUBE TOP SCH ×2 (13:51→21:10)
[2018-07-02] MEDS: methylPREDNISolone SUCCINATE 40 MG/ML VIAL IVP SCH ×2 (14:25→21:07)
[2018-07-02] MEDS ORDERED: FUROSEMIDE 20 MG/2 ML VIAL IVP SCH (15:00)
--- NOTE | 2018-07-02 15:22 | PROVIDER PROGRESS NOTE ---
Subjective - Prog Note Date Prog Note Date: 07/02/18 - Subjective Pt reports feeling: Improved Subjective: pt's sat is improved to 95% on room air but his lung sound and SOB are still limited improved. discussed with pt's DPOA at the bedside and answer all her questions. DPOA still does not want to change pt's code status yet. Current Medications - Current Medications Current Medications: Active Medications Acetaminophen (Tylenol) 640 mg PEG Q4HR PRN PRN Reason: Pain or Fever > 38C (100.4F) Last Admin: 07/01/18 17:34 Dose: 640 mg Acetaminophen (Tylenol) 650 mg AR Q6HR PRN PRN Reason: Pain or Fever > 38C (100.4F) Last Admin: 06/29/18 11:13 Dose: 650 mg Albuterol () 2.5 mg INH Q4H PRN PRN Reason: Wheezing Last Admin: 06/30/18 04:21 Dose: 2.5 mg Albuterol/Ipratropium (Duoneb) 3 ml INH RTQID [facility], [facility] Last Admin: 07/02/18 15:00 Dose: 3 ml Amlodipine Besylate (Norvasc) 5 mg PEG DAILY [facility], [facility] Last Admin: 07/02/18 08:23 Dose: 5 mg Aspirin ([place] Aspirin) 81 mg PEG DAILY [facility], [facility] Last Admin: 07/02/18 08:23 Dose: 81 mg Atorvastatin Calcium (Lipitor) 40 mg PEG QPM [facility], [facility] Last Admin: 07/01/18 21:15 Dose: 40 mg Budesonide (Pulmicort) 0.5 mg INH RTBID [facility], [facility] Last Admin: 07/02/18 05:43 Dose: 0.5 mg Cetirizine HCl (Zyrtec) 10 mg PEG DAILY PRN PRN Reason: ITCHING Diphenhydramine HCl (Benadryl) 25 mg PO Q6HR PRN PRN Reason: ITCHING Last Admin: 06/26/18 10:38 Dose: 25 mg Doxazosin Mesylate (Cardura) 4 mg PEG QPM [facility] Last Admin: 07/01/18 21:14 Dose: 4 mg Enoxaparin Sodium (Lovenox) 40 mg SUBQ DAILY [facility], [facility] Last Admin: 07/02/18 08:22 Dose: 40 mg Furosemide (Lasix Inj 20mg Vial) 20 mg IVP BIDDIURETIC EVELIO Gabapentin (Neurontin) 300 mg PEG TID [facility] Last Admin: 07/02/18 13:58 Dose: 300 mg Guaifenesin (Robitussin Liquid) 100 mg PEG Q6HR [facility] Last Admin: 07/02/18 12:08 Dose: 100 mg Hydralazine HCl (Apresoline Inj) 10 mg IVP DAILY PRN PRN Reason: SBP>160 Hydrocortisone (Hydrocortisone) 1 applic TOP BID [facility], [facility] Last Admin: 07/02/18 13:51 Dose: Not Given Cefepime HCl 2 gm/ Sodium (Chloride) 100 mls @ 200 mls/hr IV Q8H [facility] Last Infusion: 07/02/18 12:45 Dose: Infused Vancomycin HCl 1 gm/Vancomycin HCl 250 mg/ Sodium Chloride 250 mls @ 166.667 mls/hr IV Q24H [facility] Last Infusion: 07/02/18 02:09 Dose: Infused Sodium Chloride (Normal Saline 0.9%) 500 mls @ 0 mls/hr IV Q24H PRN PRN Reason: TKO RATE Last Admin: 07/01/18 17:34 Dose: 20 mls/hr Insulin Aspart (Novolog) 2 - 10 unit SUBQ 0800,1200,1700,2100 [facility], [facility]; Protocol Last Admin: 07/02/18 12:06 Dose: 4 unit Insulin Glargine (Lantus Solostar) 10 unit SUBQ QDBREAKFAST [facility], [facility] Last Admin: 07/02/18 08:20 Dose: 10 unit Insulin Glargine (Lantus Solostar) 10 unit SUBQ QPM [facility] Last Admin: 07/01/18 21:16 Dose: 10 unit Lorazepam (Ativan) 0.5 mg NG Q8H PRN PRN Reason: Anxiety Last Admin: 07/02/18 09:53 Dose: 0.5 mg Methylprednisolone (Solu-Medrol (40mg Vial)) 30 mg IVP TID [facility] Last Admin: 07/02/18 14:25 Dose: 30 mg Metoprolol Tartrate (Lopressor) 25 mg PO BID [facility] Last Admin: 07/02/18 08:22 Dose: 25 mg Mineral Oil (Cavilon) 1 applic TOP PRN PRN PRN Reason: Skin Care Montelukast Sodium (Singulair) 10 mg PO QPM [facility] Last Admin: 07/01/18 21:15 Dose: 10 mg Morphine Sulfate (Morphine) 2 mg IVP Q2H PRN PRN Reason: PAIN Last Admin: 07/02/18 09:53 Dose: 2 mg Multi-Ingredient Ointment (Zinc Oxide) 1 applic TOP PRN PRN PRN Reason: Skin Care Oxycodone HCl (Roxicodone) 5 mg PEG Q4HR PRN PRN Reason: PAIN Last Admin: 07/02/18 09:54 Dose: 5 mg Pantoprazole Sodium (Protonix) 40 mg NG BID [facility] Last Admin: 07/02/18 08:23 Dose: 40 mg Vitamin B Complex 1 each PEG DAILY [facility] Last Admin: 07/02/18 10:51 Dose: Not Given Polyethylene Glycol (Miralax) 17 gm PEG DAILY [facility] Last Admin: 07/02/18 08:22 Dose: 17 gm Scopolamine HBr (Transderm-Scop) 1 patch TOP Q3D [facility] Last Admin: 06/30/18 05:57 Dose: 1 patch Sodium Chloride (Normal Saline Flush 0.9%) 10 ml IVP PRN PRN PRN Reason: NEEDED PER PROVIDER ORDERS Last Admin: 07/02/18 09:54 Dose: 10 ml Sodium Chloride (Normal Saline Flush 0.9%) 10 ml IVP 0100,0900,1700 [facility] Last Admin: 07/02/18 10:51 Dose: 10 ml Aspirin 81 mg NG DAILY 08/01/17 Atorvastatin Calcium 40 mg NG DAILY 08/01/17 Gabapentin [Neurontin] 300 mg PEG BID 08/01/17 Metoprolol Tartrate 25 mg PEG BID 08/01/17 Pantoprazole [Protonix] 40 mg PEG BID 08/01/17 amLODIPine [Norvasc] 5 mg NG DAILY 08/01/17 Cetirizine [ZyrTEC] 10 mg PEG DAILY PRN 11/19/17 Insulin Glargine [Lantus Solostar] 20 unit SUBQ 0800 11/19/17 Insulin Lispro [Humalog] 1 - 5 unit SUBQ ACHS PRN 11/19/17 Vitamin B Complex 1 tab PEG DAILY 11/19/17 Albuterol Sulf [Ventolin Hfa Inhaler] 1 - 2 puffs INH Q4HR PRN 03/06/18 Senna [Senokot] 1 - 2 tab PEG DAILY PRN 03/06/18 Docusate Calcium 240 mg PEG DAILY 06/26/18 Doxazosin Mesylate [Cardura] 4 mg PO QPM 06/26/18 Polyethylene Glycol 3350 [Miralax] 17 gm PEG DAILY 06/26/18 Objective - Vital Signs/Intake & Output Reviewed Vital Signs: Yes Vital Signs: Vital Signs x48h Temp Pulse Pulse Resp BP Pulse Ox 07/02/18 15:00 84 24 07/02/18 10:22 92 26 H 07/02/18 08:00 37.0 C 65 18 109/75 100 Intake & Output: Intake & Output 06/29/18 06/30/18 07/01/18 07/02/18 23:59 23:59 23:59 23:59 Intake Total 2725 880 475 505 Output Total 510 30 23 Balance 2215 880 445 482 - Objective General Appearance: positive: No acute distress, Alert. negative: Lethargic Eyes Bilateral: positive: Normal inspection, PERRL, No lid inflammation, Conjunctivae nml ENT: positive: ENT inspection nml, Pharynx nml, No signs of dehydration. negative: Purulent nasal drainage, Pharyngeal erythema, Oral lesions Neck: positive: Nml inspection, Thyroid nml, No JVD, Trachea midline. negative: Thyromegaly, Lymphadenopathy (R), Lymphadenopathy (L), Stiff neck, Swelling/bruising, Tracheal deviation Respiratory: positive: Chest non-tender, Wheezes, Rhonchi. negative: No respiratory distress, Breath sounds nml, Rales Cardiovascular: positive: Regular rate & rhythm, No murmur, No gallop. negative: Irregularly irregular, Extrasystoles, Tachycardia, Bradycardia, JVD present, Systolic murmur, Diastolic murmur Peripheral Pulses: 2+ Radial (R), 2+ Radial (L), 2+ Dorsalis pedis (R), 2+ Dorsalis pedis (L) Abdomen: positive: Non-tender, No organomegaly, Nml bowel sounds, No distention. negative: Tenderness, Guarding, Rebound Back: positive: Nml inspection. negative: CVA tenderness (R), CVA tenderness (L) Skin: positive: Color nml, No rash, Warm, Dry. negative: Cyanosis, Diaphoresis, Pallor Extremities: positive: Non-tender. negative: Full ROM, Calf tenderness, Joint swelling, Mariah's sign/cords Neurologic/Psychiatric: negative: Facial droop - Lab Results Fish Bones: 07/02/18 05:15 07/02/18 05:15 Other Labs: Lab Results x24hrs 07/02/18 07/02/18 07/02/18 Range/Units 06:11 06:08 05:15 WBC 6.1 (4.8-10.8) x10^3/uL RBC 4.83 (4.70-6.10) 10^6/uL Hgb 12.6 L (14.0-18.0) g/dL Hct 40.0 L (42.0-52.0) % MCV 82.7 (80.0-94.0) fL MCH 26.1 L (27.0-31.0) pg MCHC 31.5 L (32.0-36.0) g/dL RDW 16.1 H (12.0-15.0) % Plt Count 142 (130-450) 10^3/uL MPV 10.9 (7.4-11.4) fL Neut # (Auto) 4.1 (1.5-6.6) 10^3/uL Lymph # (Auto) 0.7 L (1.5-3.5) 10^3/uL Yancey # (Auto) 0.6 (0.0-1.0) 10^3/uL Eos # (Auto) 0.6 (0.0-0.7) 10^3/uL Baso # (Auto) 0.1 (0.0-0.1) 10^3/uL Absolute Nucleated RBC 0.00 x10^3/uL Nucleated RBC % 0.0 /100WBC Sodium (135-145) mmol/L Potassium (3.5-5.0) mmol/L Chloride (101-111) mmol/L Carbon Dioxide (21-32) mmol/L Anion Gap (6-13) BUN (6-20) mg/dL Creatinine (0.6-1.2) mg/dL Estimated GFR (MDRD) (>89) Glucose (70-100) mg/dL POC Whole Bld Glucose 228 H 214 H (70 - 100) mg/dL Calcium (8.5-10.3) mg/dL Phosphorus (2.5-4.6) mg/dL Magnesium (1.7-2.8) mg/dL Total Bilirubin (0.2-1.0) mg/dL AST (10-42) IU/L ALT (10-60) IU/L Alkaline Phosphatase (42-121) IU/L Total Protein (6.7-8.2) g/dL Albumin (3.2-5.5) g/dL Globulin (2.1-4.2) g/dL Albumin/Globulin Ratio (1.0-2.2) Prealbumin (18-45) mg/dL Last Dose Date Last Dose Time Vancomycin Trough (10.0-20.0) ug/mL 07/02/18 07/02/18 07/01/18 Range/Units 05:15 00:03 23:15 WBC (4.8-10.8) x10^3/uL RBC (4.70-6.10) 10^6/uL Hgb (14.0-18.0) g/dL Hct (42.0-52.0) % MCV (80.0-94.0) fL MCH (27.0-31.0) pg MCHC (32.0-36.0) g/dL RDW (12.0-15.0) % Plt Count (130-450) 10^3/uL MPV (7.4-11.4) fL Neut # (Auto) (1.5-6.6) 10^3/uL Lymph # (Auto) (1.5-3.5) 10^3/uL Yancey # (Auto) (0.0-1.0) 10^3/uL Eos # (Auto) (0.0-0.7) 10^3/uL Baso # (Auto) (0.0-0.1) 10^3/uL Absolute Nucleated RBC x10^3/uL Nucleated RBC % /100WBC Sodium 141 (135-145) mmol/L Potassium 4.4 (3.5-5.0) mmol/L Chloride 101 (101-111) mmol/L Carbon Dioxide 33 H (21-32) mmol/L Anion Gap 7.0 (6-13) BUN 25 H (6-20) mg/dL Creatinine 0.7 (0.6-1.2) mg/dL Estimated GFR (MDRD) 109 (>89) Glucose 186 H (70-100) mg/dL POC Whole Bld Glucose 198 H (70 - 100) mg/dL Calcium 8.6 (8.5-10.3) mg/dL Phosphorus 3.5 (2.5-4.6) mg/dL Magnesium 2.1 (1.7-2.8) mg/dL Total Bilirubin 1.0 (0.2-1.0) mg/dL AST 30 (10-42) IU/L ALT 28 (10-60) IU/L Alkaline Phosphatase 67 (42-121) IU/L Total Protein 5.9 L (6.7-8.2) g/dL Albumin 2.5 L (3.2-5.5) g/dL Globulin 3.4 (2.1-4.2) g/dL Albumin/Globulin Ratio 0.7 L (1.0-2.2) Prealbumin 21 (18-45) mg/dL Last Dose Date UNK Last Dose Time UNK Vancomycin Trough 15.4 (10.0-20.0) ug/mL 07/01/18 Range/Units 17:51 WBC (4.8-10.8) x10^3/uL RBC (4.70-6.10) 10^6/uL Hgb (14.0-18.0) g/dL Hct (42.0-52.0) % MCV (80.0-94.0) fL MCH (27.0-31.0) pg MCHC (32.0-36.0) g/dL RDW (12.0-15.0) % Plt Count (130-450) 10^3/uL MPV (7.4-11.4) fL Neut # (Auto) (1.5-6.6) 10^3/uL Lymph # (Auto) (1.5-3.5) 10^3/uL Yancey # (Auto) (0.0-1.0) 10^3/uL Eos # (Auto) (0.0-0.7) 10^3/uL Baso # (Auto) (0.0-0.1) 10^3/uL Absolute Nucleated RBC x10^3/uL Nucleated RBC % /100WBC Sodium (135-145) mmol/L Potassium (3.5-5.0) mmol/L Chloride (101-111) mmol/L Carbon Dioxide (21-32) mmol/L Anion Gap (6-13) BUN (6-20) mg/dL Creatinine (0.6-1.2) mg/dL Estimated GFR (MDRD) (>89) Glucose (70-100) mg/dL POC Whole Bld Glucose 185 H (70 - 100) mg/dL Calcium (8.5-10.3) mg/dL Phosphorus (2.5-4.6) mg/dL Magnesium (1.7-2.8) mg/dL Total Bilirubin (0.2-1.0) mg/dL AST (10-42) IU/L ALT (10-60) IU/L Alkaline Phosphatase (42-121) IU/L Total Protein (6.7-8.2) g/dL Albumin (3.2-5.5) g/dL Globulin (2.1-4.2) g/dL Albumin/Globulin Ratio (1.0-2.2) Prealbumin (18-45) mg/dL Last Dose Date Last Dose Time Vancomycin Trough (10.0-20.0) ug/mL ABX Reporting Has patient been on IV antibiotics over the past 48 hours?: Yes Sepsis Event Note (H) - Evaluation Current Stage of Sepsis: Sepsis Possible source of Sepsis: positive: Pulmonary - Sepsis Criteria Sepsis Criteria: Recorded Temperature greater than 38.3C or Less than 36C (`), Recorded Heart Rate greater than 90 bpm Assessment/Plan - Problem List (1) Pneumonia Impression: 07/02 CXR reveal still similar pneumonia bilaterally. Lung sound still present crackles and wheezing. but sats is up to 95% on room air continue IV antibiotics, and breath treatment PRN pt seems slowly recovering 07/01 pt had cough at morning, order CXR. discussed with Nurse about pt's NPO only status continue antibiotics Cefepimen and Vancomycin continue Muscnix 06/30 pt's breath is better, sats 95-98% on 3 liter of O2, reduced RR to 22. continue Cefepimen and Vancomycin continue lab and vital monitor 06/29 lung is better than yesterday, cough is reduced. but pt had lower degree fever today morning. continue Cefepimen and Vancomycin start gently IVF of NS continue lab and vital monitor pt' progress is limited, pt still present bilateral lung crackles, O2 dependent at hospital, cough add vancomycin CXR reveals pulmonary edema, add Lasix IV 20mg , then change to PO Lasix ECHO reveals normal EF without wall abnormality (2)fever resolved 06/30, no fever, WBC is normal, blood culture is negative preliminary continue Cefepime and Vancomycin pt had lower degree of fever at today morning 38.1 degree. unknown etiology order CXR, followup order blood culture, UA culture Tylenol sup PRN continue cefepime and vancomycin IVF of NS lab and vital monitor (3) Hypoxia Impression: 07/02 improved, not he is 95% sat on room air continue antibiotics treatment continue RT treatment 07/01, stable, but still need O2 supplement continue breath treatment with Duoneb, albuterol PRN 06/30 improved continue RT consult, breath treatment with Duoneb albuterol PRN 06/29 remain stable, 93% at3 liter of O2 - RT consulted - titrate oxygen - continue duonebs and PRN albuterol pt is still on 2-3L NC to maintain oxygen saturation >92% continue - RT consulted - titrate oxygen - continue duonebs and PRN albuterol (4) COPD (chronic obstructive pulmonary disease) Impression: 07/02, hx of COPD, now with Wheezing sound, add solu-metro continue Duoneb and albuterol PRN CXR reveals atypical pneumonia, without steroid stable, Without exacerbation. Plan: - continue home medications (5) uncontrolled Diabetes Impression: 07/02 increase lantus 10 unit to night and morning continue slide scale 07/01 increase lantus at night to 10 units and increase slide scale for insulin to control glucose. 06/30 glucose level is controlled now, continue slide scale for insulin 06/29 Hgb A1c 7.3. Blood sugars still slightly elevated. slide scale, ACHS, hypoglycemia protocol -add morning 5 units lantus - lantus at 5 units on the night, will adjust as necessary add morning Lantus 10 unit, sine pt elevated sugar level (6) History of CVA (cerebrovascular accident) Impression: 07/02 continue support care Q2H turn by nurse care NPO with G-tube only. 07/01 pt's daughter report pt had very bad stroke two years ago, since that, pt need total care, bed bound. continue support Q2H turn by nurse care NPO with G-tube only. 06/29, continue PT/OT, prevention of pressure ulcer protocol CVA was Occured in 2016. He is hemiplegic and bedbound. He is cared for at home by his daughter and caregivers when his daughter is at work. He is fed and medications administered via PEG tube. He does get up to the wheelchair via lift for roughly 4 hours (or a long as tolerated) everyday Plan: - NPO status - continue aspirin and atorvastatin - tube feeding per PEG tube - frequent turns add PT/OT, although pt has hx of CVA, pt will benefit for his pneumonia with PT/OT and ambulation (7) Hypertension Impression: stable. Plan: - continue home amlodipine and metoprolol Qualifiers: Pneumonia type: due to unspecified organism Laterality: unspecified laterality Lung location: unspecified part of lung Qualified Code(s): J18.9 - Pneumonia, unspecified organism
[2018-07-02] MEDS: SCOPOLAMINE PATCH TOP SCH (16:00)
[2018-07-02] MEDS: ACETAMINOPHEN 160 MG/5 ML SUSP UDC PEG PRN (17:27)
[2018-07-02] MEDS: SODIUM CHLORIDE 0.9% 500 ML IV PRN (20:10)
[2018-07-02] MEDS: ATORVASTATIN 40 MG TABLET PEG SCH (21:05)
[2018-07-02] MEDS: DOXAZOSIN 4 MG TABLET PEG SCH (21:05)
[2018-07-02] MEDS: MONTELUKAST 10 MG TABLET PO SCH (21:05)
[2018-07-02] MEDS: FUROSEMIDE 20 MG/2 ML VIAL IVP SCH (21:06)
[2018-07-02] MEDS: VANCOMYCIN INJ 1 GM, VANCOMYCIN INJ 250 MG in SODIUM CHLORIDE 0.9% 250 ML IV SCH (22:33)
[2018-07-02] MEDS: ALBUTEROL NEB 2.5 MG/3 ML INH PRN (23:15)
[2018-07-03] MEDS: guaiFENesin 100 MG/5 ML UDC PEG SCH ×4 (00:21→17:57)
[2018-07-03] MEDS: SODIUM CHLORIDE FLUSH 0.9% 10 ML SYRINGE IVP SCH ×3 (00:21→17:01)
[2018-07-03] MEDS: CEFEPIME 2 GM in SODIUM CHLORIDE 0.9% MINIBAG 100 ML IV SCH ×3 (04:17→20:17)
[2018-07-03] MEDS: IPRATROPIUM/ALBUTEROL 3 ML NEB INH SCH ×4 (04:53→18:22)
[2018-07-03] MEDS: BUDESONIDE 0.5 MG/2 ML NEB INH SCH (04:54)
[2018-07-03 06:27] LABS: BASOPHILS % (AUTO) 0.4 %; HGB - HEMOGLOBIN 12.5 g/dL (14.0-18.0); LYMPHOCYTES # (AUTO) 0.3 10^3/uL (1.5-3.5); LYMPHOCYTES % (AUTO) 4.2 %; MEAN CORPUSCULAR HEMOGLOBIN 26.2 pg (27.0-31.0); MEAN CORPUSCULAR HGB CONC 31.5 g/dL (32.0-36.0); MEAN CORPUSCULAR VOLUME 83.2 fL (80.0-94.0); MONOCYTES # (AUTO) 0.2 10^3/uL (0.0-1.0); MONOCYTES % (AUTO) 2.4 %; NEUTROPHILS # (AUTO) 6.5 10^3/uL (1.5-6.6); PLT - PLATELET COUNT 139 10^3/uL (130-450); RED BLOOD COUNT 4.77 10^6/uL (4.70-6.10); RED CELL DISTRIBUTION WIDTH 15.9 % (12.0-15.0); WHITE BLOOD COUNT 6.9 x10^3/uL (4.8-10.8)
[2018-07-03] MEDS: methylPREDNISolone SUCCINATE 40 MG/ML VIAL IVP SCH ×3 (06:35→21:37)
[2018-07-03] MEDS: FUROSEMIDE 20 MG/2 ML VIAL IVP SCH (06:35)
[2018-07-03] MEDS: GABAPENTIN 300 MG CAPSULE PEG SCH ×3 (06:35→23:18)
[2018-07-03 06:51] LABS: CALCIUM 8.9 mg/dL (8.5-10.3); CREATININE 0.9 mg/dL (0.6-1.2)
[2018-07-03] MEDS: MORPHINE 2 MG/ML SYRINGE IVP PRN ×4 (06:58→21:39)
[2018-07-03] MEDS: SODIUM CHLORIDE FLUSH 0.9% 10 ML SYRINGE IVP PRN (06:58)
[2018-07-03] MEDS: LORazepam 0.5 MG TABLET NG PRN ×3 (07:11→21:39)
[2018-07-03] MEDS: oxyCODONE 5 MG TABLET PEG PRN ×3 (07:11→21:38)
[2018-07-03] MEDS ORDERED: IOPAMIDOL-300 100 ML VIAL ONE (07:53)
[2018-07-03] MEDS ORDERED: INSULIN GLARGINE 300 UNIT/3 ML PEN SUBQ SCH (08:00)
[2018-07-03] MEDS ORDERED: INSULIN ASPART 300 UNIT/3 ML PEN SUBQ ONE (08:00)
[2018-07-03] MEDS: INSULIN ASPART 300 UNIT/3 ML PEN SUBQ SCH ×4 (08:42→20:35)
[2018-07-03] MEDS: PANTOPRAZOLE 40 MG TABLET NG SCH ×2 (08:56→20:47)
[2018-07-03] MEDS: METOPROLOL TARTRATE 25 MG TABLET PO SCH ×2 (08:56→20:39)
[2018-07-03] MEDS: ASPIRIN CHEW 81 MG TABLET PEG SCH (08:56)
[2018-07-03] MEDS: amLODIPine 5 MG TABLET PEG SCH (08:57)
[2018-07-03] MEDS: ENOXAPARIN 40 MG/0.4 ML SYRINGE SUBQ SCH (09:00)
[2018-07-03] MEDS: POLYETHYLENE GLYCOL 3350 17 GM PACKET PEG SCH (09:01)
[2018-07-03] MEDS: HYDROCORTISONE 1% CREAM 28 GM TUBE TOP SCH ×2 (09:03→20:46)
--- NOTE | 2018-07-03 11:44 | CT Report ---
Reason: sob Procedure Date: 07/03/2018 Accession Number: [id number] / [id number] Procedure: CT - CHEST W CPT Code: FULL RESULT: EXAM: CT CHEST EXAM DATE: 07/03/2018 10:19 AM. CLINICAL HISTORY: Shortness of breath. COMPARISONS: None. TECHNIQUE: Routine helical CT imaging was performed through the chest. IV contrast: 80 mL Isovue 300. Reconstructions: Coronal and sagittal. In accordance with CT protocol optimization, one or more of the following dose reduction techniques were utilized for this exam: automated exposure control, adjustment of mA and/or KV based on patient size, or use of iterative reconstructive technique. FINDINGS: Lungs/Pleura: There is a small right pleural effusion and a small amount of right basilar consolidation. There is bilateral interstitial thickening and groundglass, upper lobe predominant. Mediastinum: Markedly calcified aortic arch. Calcified mediastinal and right hilar lymph nodes. Noncalcified hilar nodes measure up to 1.2 cm in short axis on the right and up to 1.3 cm in short axis on the left where multiple prominent nodes are identified. Severe coronary calcifications. No pericardial effusion. Bones: Unremarkable. Visualized Abdomen: Unremarkable. Other: None. IMPRESSION: Calcified and noncalcified mediastinal and hilar lymphadenopathy. Small right pleural effusion and bilateral interstitial thickening with groundglass. The imaging appearance is nonspecific and includes infectious as well as neoplastic etiologies, importantly active tuberculosis is included in this imaging differential. [facility] The call report notification system was initiated by Dr. Brian Lew at 11:15 AM on 07/03/2018. CRITICAL RESULT: The findings were discussed with Kat on 07/03/2018 at approximately 11:20 AM.
[2018-07-03] MEDS ORDERED: IOPAMIDOL-300 100 ML VIAL IVP ONE (13:33)
[2018-07-03] MEDS ORDERED: SACCHAROMYCES BOULARDII 250 MG CAPSULE PO SCH (17:00)
--- NOTE | 2018-07-03 17:36 | DISCHARGE SUMMARY ---
Discharge Summary Discharge Date: 07/03/18 Discharging Provider: CHRISTIE Primary Care Provider: Dr. Alcantara Condition at Discharge: Poor Discharge Disposition: 02 Transfer Acute Care Hosp Dis[facility] Name: [facility] - DIAGNOSES Admission Diagnoses: (1) Pneumonia (2) Hypoxia (3) COPD (chronic obstructive pulmonary disease) (4) Diabetes (5) History of CVA (cerebrovascular accident) (6) Hypertension Discharge Diagnoses with Status of Each Condition: (1) Pneumonia (2)fever (3) Hypoxia (4) COPD (chronic obstructive pulmonary disease) (5) uncontrolled Diabetes (6) History of CVA (cerebrovascular accident) (7) Hypertension (8) lesions at lung in CT image study - HPI History of Present Illness: refer from Ms. 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 He presents to the ER today for shortness of breath and hypoxia. The patients daughter (Iris) noticed the patient developed labored breathing a couple of days ago. The daughter gave the patient his nebulizer treatment. She reports coming home from work today and checked the patient's vital signs given his work of breathing. He was found to be hypoxic with Spo2 of 70% on room air. Given the above constellation of symptoms, EMS was called and the patient was brought to the hospital. The patient is not on oxygen at home. Daughter reports that he has a chronic cough, given his COPD. Work-up in the ER revealed a normal WBC, afebrile, tachypneic in the mid 20s, CXR with new left lower lobe haziness concerning for LLL pneumonia. His blood glucose was in the 300s. He is requiring 4L NC to maintain adequate oxygenation. He was given a dose of cefepime and regular insulin. He is being admitted to the hospital for treatment of pneumonia. Patient has a POLST form at home. Per the daughter, it states the patient is a full code. - HOSPITAL COURSE Hospital Course: (1) Pneumonia several CXR reveals pt has pneumonia. pt was treated with pneumonia, but clinically pt does not have much improvement. pt still present SOB, bilateral crackles and wheezing lung sound, and cough with difficult to cough out sputum. Pt can not cough out sputum, pt had hx of severe stroke. Pt need bronchoscope and bed machine operator speciality care, and transfer to [facility] for high level of care. (2)fever resolved (3) Hypoxia improved. now pt had 93% sats on 3 liters of O2 (4) COPD (chronic obstructive pulmonary disease) pt still present wheezing lung sound, SOB, cough. transfer pt for high level of care (5) uncontrolled Diabetes continue DM2 glucose control (6) History of CVA (cerebrovascular accident) pt had left paralysis and aphasia, and G-tube for feeding, bed-bound for two and half years. (7) Hypertension controlled (8) lesions at lung in CT image study pt has CT scan today, which reveals nonspecific include infectious as well as neoplastic etiologies, possible active TB as differential. pt can not cough out sputum sample. pt need bronchoscope, and bed machine operator speciality care, we cannot provide for pt at [facility]. pt is transferred to [facility] for high level of care. - ALLERGIES Allergies/Adverse Reactions: Allergies Allergy/AdvReac Type Severity Reaction Status Date / Time No Known Drug Allergies Allergy Verified 06/25/18 16:07 - MEDICATIONS Home Medications: Ambulatory Orders Medication Instructions Recorded Confirmed Aspirin 81 mg NG DAILY 08/01/17 06/26/18 Atorvastatin Calcium 40 mg NG DAILY 08/01/17 06/26/18 Gabapentin [Neurontin] 300 mg PEG BID 08/01/17 06/26/18 Metoprolol Tartrate 25 mg PEG BID 08/01/17 06/26/18 Pantoprazole [Protonix] 40 mg PEG BID 08/01/17 06/26/18 amLODIPine [Norvasc] 5 mg NG DAILY 08/01/17 06/26/18 Cetirizine [ZyrTEC] 10 mg PEG DAILY PRN 11/19/17 06/26/18 Insulin Glargine [Lantus Solostar] 20 unit SUBQ 0800 11/19/17 06/26/18 Insulin Lispro [Humalog] 1 - 5 unit SUBQ ACHS PRN 11/19/17 06/26/18 Vitamin B Complex 1 tab PEG DAILY 11/19/17 06/26/18 Albuterol Sulf [Ventolin Hfa 1 - 2 puffs INH Q4HR PRN 03/06/18 06/26/18 Inhaler] Senna [Senokot] 1 - 2 tab PEG DAILY PRN 03/06/18 06/26/18 Albuterol 2.5 mg INH Q4H PRN #30 neb 03/10/18 06/26/18 Docusate Calcium 240 mg PEG DAILY 06/26/18 06/26/18 Doxazosin Mesylate [Cardura] 4 mg PO QPM 06/26/18 06/26/18 Polyethylene Glycol 3350 [Miralax] 17 gm PEG DAILY 06/26/18 06/26/18 - PHYSICAL EXAM AT DISCHARGE General Appearance: positive: Alert, Mild distress. negative: Lethargic Eyes Bilateral: positive: Normal inspection, PERRL, No lid inflammation, Conjunctivae nml ENT: positive: ENT inspection nml, Pharynx nml, No signs of dehydration. negative: Purulent nasal drainage, Pharyngeal erythema, Oral lesions Neck: positive: Nml inspection, Thyroid nml, No JVD, Trachea midline. negative: Thyromegaly, Lymphadenopathy (R), Lymphadenopathy (L), Stiff neck, Swelling/bruising, Tracheal deviation Respiratory: positive: Chest non-tender, Wheezes, Rales, Rhonchi. negative: No respiratory distress, Breath sounds nml Cardiovascular: positive: Regular rate & rhythm, No murmur, No gallop. negative: Irregularly irregular, Extrasystoles, Tachycardia, Bradycardia, JVD present, Systolic murmur, Diastolic murmur Peripheral Pulses: positive: 2+ Abdomen: positive: Non-tender, No organomegaly, Nml bowel sounds, No distention. negative: Tenderness, Guarding, Rebound Back: positive: Nml inspection. negative: CVA tenderness (R), CVA tenderness (L) Skin: positive: Color nml, No rash, Warm, Dry. negative: Cyanosis, Diaphoresis, Pallor Extremities: positive: Non-tender. negative: Full ROM, Nml appearance, Calf tenderness, Mariah's sign/cords Neurologic/Psychiatric: positive: Slurred/abnml speech. negative: Facial droop - LABS Result Diagrams: 07/03/18 05:10 07/03/18 05:10 - SEPSIS Current Stage of Sepsis: Sepsis Possible source of Sepsis: Pulmonary Sepsis Criteria: Recorded Temperature greater than 38.3C or Less than 36C (`), Recorded Heart Rate greater than 90 bpm - FOLLOW UP Follow Up: pt is transferred to [facility] for high level of care. - TIME SPENT Time Spent in Discharge (Minutes): 60
[2018-07-03] MEDS: INSULIN GLARGINE 300 UNIT/3 ML PEN SUBQ SCH (20:36)
[2018-07-03] MEDS: ATORVASTATIN 40 MG TABLET PEG SCH (20:39)
[2018-07-03] MEDS: MONTELUKAST 10 MG TABLET PO SCH (20:39)
[2018-07-03] MEDS: DOXAZOSIN 4 MG TABLET PEG SCH (20:39)
[2018-07-03 23:21] VITALS: BP 186/61
[2018-07-04] MEDS ORDERED: FUROSEMIDE 20 MG/2 ML VIAL IVP SCH (09:00)
== END 2018-07-03 22:05 | disposition short-term general hospital (02) | DRG 871 ==
LOC: EDSEX → EDUNIT# → ED 15:57 → MS2 17:44 → ICU 07-03 14:01
PROVIDERS: ADMIT Nurse Practitioner; ATTEND Nurse Practitioner Gerontology
DX: J18.9 Pneumonia, unspecified organism (principal); A41.9 Sepsis, unspecified organism; J18.1 Lobar pneumonia, unspecified organism; I69.354 Hemiplegia and hemiparesis following cerebral infarction affecting left non-dominant side; F03.90 Unspecified dementia, unspecified severity, without behavioral disturbance, psychotic disturbance, mood disturbance, and anxiety; E11.9 Type 2 diabetes mellitus without complications; J44.9 Chronic obstructive pulmonary disease, unspecified; I10 Essential (primary) hypertension; H91.90 Unspecified hearing loss, unspecified ear; F41.9 Anxiety disorder, unspecified; M10.9 Gout, unspecified; Z86.73 Personal history of transient ischemic attack (TIA), and cerebral infarction without residual deficits; R09.02 Hypoxemia; E11.649 Type 2 diabetes mellitus with hypoglycemia without coma; Z79.4 Long term (current) use of insulin; I69.320 Aphasia following cerebral infarction; Z74.01 Bed confinement status; Z87.891 Personal history of nicotine dependence; R06.82 Tachypnea, not elsewhere classified
CPT/HCPCS: 36415; 71045; 71046; 71260; 80048; 80053; 80202; 81001; 83036; 83605; 83690; 83735; 83880; 84100; 84134; 84484; 85025; 85610; 87040; 87275; 87276; 93005; 93306; 94640; 97163; 97530; 99283; 99284; A9270; J1650; J1815; J2270; J3370; J3490; J7120; J7512; J7626; Q9967; 87086

== ENCOUNTER 2018-10-07 14:34 | Outpatient (CLI) | payer MEDICARE, MEDICAID | END 2018-10-07 14:35 | disposition critical access hospital (66) | LOC: EMS 14:34 | PROVIDERS: ATTEND Surgery | DX: K94.23 Gastrostomy malfunction (principal) | CPT/HCPCS: A0425; A0429 ==

== ENCOUNTER 2018-10-07 14:57 | Emergency (ER) | payer MEDICARE, MEDICAID ==
--- NOTE | 2018-10-07 16:00 | ED Physician Documentation ---
History of Present Illness - Stated complaint Stated Complaint: FEEDING TUBE ISSUE - Chief complaint Chief Complaint: General - History obtained from History obtained from: Patient, Family, EMS - History of Present Illness Timing: Today Pain level max: 0 Pain level now: 0 - Additonal information Additional information: Patient with a history of a stroke, has a GJ tube, the feeding tube became clogged today. Unable to get it unclogged at home. Nothing makes it better or worse. Review of Systems Constitutional: denies: Fever GI: denies: Vomiting Skin: denies: Rash PD PAST MEDICAL HISTORY - Past Medical History Past Medical History: Yes Cardiovascular: Hypertension Respiratory: COPD Neuro: CVA Endocrine/Autoimmune: Type 2 diabetes GI: None : None HEENT: Chronic hearing loss Psych: Anxiety Musculoskeletal: Hemiplegia, Gout Derm: None Other Past Medical History: dialysis for kidney failure, saturday and saturday. pt has muñiz catheter - Past Surgical History Past Surgical History: Yes General: Other - Present Medications Home Medications: Ambulatory Orders Medication Instructions Recorded Confirmed Aspirin 81 mg NG DAILY 08/01/17 06/26/18 Atorvastatin Calcium 40 mg NG DAILY 08/01/17 06/26/18 Gabapentin [Neurontin] 300 mg PEG BID 08/01/17 06/26/18 Metoprolol Tartrate 25 mg PEG BID 08/01/17 06/26/18 Pantoprazole [Protonix] 40 mg PEG BID 08/01/17 06/26/18 amLODIPine [Norvasc] 5 mg NG DAILY 08/01/17 06/26/18 Cetirizine [ZyrTEC] 10 mg PEG DAILY PRN 11/19/17 06/26/18 Insulin Glargine [Lantus Solostar] 20 unit SUBQ 0800 11/19/17 06/26/18 Insulin Lispro [Humalog] 1 - 5 unit SUBQ ACHS PRN 11/19/17 06/26/18 Vitamin B Complex 1 tab PEG DAILY 11/19/17 06/26/18 Albuterol Sulf [Ventolin Hfa 1 - 2 puffs INH Q4HR PRN 03/06/18 06/26/18 Inhaler] Senna [Senokot] 1 - 2 tab PEG DAILY PRN 03/06/18 06/26/18 Albuterol 2.5 mg INH Q4H PRN #30 neb 03/10/18 06/26/18 Docusate Calcium 240 mg PEG DAILY 06/26/18 06/26/18 Doxazosin Mesylate [Cardura] 4 mg PO QPM 06/26/18 06/26/18 Polyethylene Glycol 3350 [Miralax] 17 gm PEG DAILY 06/26/18 06/26/18 - Allergies Allergies/Adverse Reactions: Allergies Allergy/AdvReac Type Severity Reaction Status Date / Time No Known Drug Allergies Allergy Verified 10/07/18 15:05 - Social History Does the pt smoke?: No Smoking Status: Never smoker Does the pt drink ETOH?: No Does the pt have substance abuse?: No - Immunizations Immunizations are current?: Yes - POLST Patient has POLST: No POLST Status: Full Code (The family is still deciding about CODE STATUS. The daughter however stated that she does not want him to live on a ventilator or in a vegetative state.) PD ED PE NORMAL - Vitals Vital signs reviewed: Yes - General General: Alert and oriented X 3 - HEENT HEENT: Moist mucous membranes - Neck Neck: Supple, no meningeal sign - Cardiac Cardiac: RRR - Respiratory Respiratory: No respiratory distress, Clear bilaterally - Abdomen Abdomen: Soft, Non tender - Derm Derm: Warm and dry - Neuro Neuro: Alert and oriented X 3 - Psych Psych: Normal mood, Normal affect Results - Vitals Vitals: Vital Signs - 24 hr 10/07/18 10/07/18 15:02 15:51 Temperature 36.6 C Heart Rate 99 94 Respiratory 14 16 Rate Blood Pressure 134/71 H 124/76 O2 Saturation 97 97 Oxygen O2 Source [Without Activity] Room air O2 Source Room air PD MEDICAL DECISION MAKING - ED course Complexity details: considered differential, d/w patient, d/w family ED course: Feeding tube unclogged with [employer]. No emergency medical condition at this time. Family counseled patient and family counseled regarding signs and symptoms for which I believe and urgent re-evaluation would be necessary. Patient with good understanding of and agreement to plan and is comfortable going home at this time This document was made in part using voice recognition software. While efforts are made to proofread this document, sound alike and grammatical errors may occur. Departure - Departure Disposition: 01 Home, Self Care Clinical Impression: Clogged feeding tube Condition: Stable Instructions: Tube Gastrostomy Feed Care Flush Follow-Up: Louis Alcantara MD [Primary Care Provider] - As Needed Comments: Return if you worsen.
[2018-10-07 16:18] VITALS: BP 116/60
== END 2018-10-07 16:34 | disposition home or self-care (01) ==
LOC: EDUNIT# → ED 14:57
DX: K94.23 Gastrostomy malfunction (principal); Y83.8 Other surgical procedures as the cause of abnormal reaction of the patient, or of later complication, without mention of misadventure at the time of the procedure; I12.0 Hypertensive chronic kidney disease with stage 5 chronic kidney disease or end stage renal disease; E11.22 Type 2 diabetes mellitus with diabetic chronic kidney disease; N18.6 End stage renal disease; Z99.2 Dependence on renal dialysis; I69.359 Hemiplegia and hemiparesis following cerebral infarction affecting unspecified side; Z79.4 Long term (current) use of insulin; Z79.82 Long term (current) use of aspirin
CPT/HCPCS: 99282; 99283

== ENCOUNTER 2018-10-07 16:36 | Outpatient (CLI) | payer MEDICARE, MEDICAID | END 2018-10-07 16:37 | disposition home or self-care (01) | LOC: EMS 16:36 | PROVIDERS: ATTEND Surgery | DX: K94.23 Gastrostomy malfunction (principal); I69.354 Hemiplegia and hemiparesis following cerebral infarction affecting left non-dominant side; Z74.01 Bed confinement status | CPT/HCPCS: A0425; A0428 ==

== ENCOUNTER 2018-10-27 07:20 | Outpatient (CLI) | payer MEDICARE, MEDICAID | END 2018-10-27 07:21 | disposition critical access hospital (66) | LOC: EMS 07:20 | PROVIDERS: ATTEND Surgery | DX: Z43.1 Encounter for attention to gastrostomy (principal) | CPT/HCPCS: A0425; A0429 ==

== ENCOUNTER 2018-10-27 07:41 | Emergency (ER) | payer MEDICARE, MEDICAID ==
[2018-10-27 07:48] VITALS: BP 173/54
--- NOTE | 2018-10-27 07:53 | ED Physician Documentation ---
History of Present Illness - Stated complaint Stated Complaint: G TUBE PLUGGGED - Chief complaint Chief Complaint: Abd Pain - History obtained from History obtained from: Family (daughter), EMS - History of Present Illness Timing: Today (78-year-old gentleman with history of debilitating stroke, fed by GJ tube, it was clogged this morning the daughter was using [employer] and the tube popped and now there is a leak in it and they need a new one. Of note she says she only needs a J-tube at this point because he is off of dialysis and they are no longer needing to suction any residuals.) Review of Systems Unable to obtain: AMS PD PAST MEDICAL HISTORY - Past Medical History Cardiovascular: Hypertension Respiratory: COPD Neuro: CVA Endocrine/Autoimmune: Type 2 diabetes GI: None : None HEENT: Chronic hearing loss Psych: Anxiety Musculoskeletal: Hemiplegia, Gout Derm: None - Past Surgical History Past Surgical History: Yes General: Other - Present Medications Home Medications: Ambulatory Orders Medication Instructions Recorded Confirmed Aspirin 81 mg NG DAILY 08/01/17 06/26/18 Atorvastatin Calcium 40 mg NG DAILY 08/01/17 06/26/18 Gabapentin [Neurontin] 300 mg PEG BID 08/01/17 06/26/18 Metoprolol Tartrate 25 mg PEG BID 08/01/17 06/26/18 Pantoprazole [Protonix] 40 mg PEG BID 08/01/17 06/26/18 amLODIPine [Norvasc] 5 mg NG DAILY 08/01/17 06/26/18 Cetirizine [ZyrTEC] 10 mg PEG DAILY PRN 11/19/17 06/26/18 Insulin Glargine [Lantus Solostar] 20 unit SUBQ 0800 11/19/17 06/26/18 Insulin Lispro [Humalog] 1 - 5 unit SUBQ ACHS PRN 11/19/17 06/26/18 Vitamin B Complex 1 tab PEG DAILY 11/19/17 06/26/18 Albuterol Sulf [Ventolin Hfa 1 - 2 puffs INH Q4HR PRN 03/06/18 06/26/18 Inhaler] Senna [Senokot] 1 - 2 tab PEG DAILY PRN 03/06/18 06/26/18 Albuterol 2.5 mg INH Q4H PRN #30 neb 03/10/18 06/26/18 Docusate Calcium 240 mg PEG DAILY 06/26/18 06/26/18 Doxazosin Mesylate [Cardura] 4 mg PO QPM 06/26/18 06/26/18 Polyethylene Glycol 3350 [Miralax] 17 gm PEG DAILY 06/26/18 06/26/18 - Allergies Allergies/Adverse Reactions: Allergies Allergy/AdvReac Type Severity Reaction Status Date / Time No Known Drug Allergies Allergy Verified 10/27/18 07:48 - Social History Does the pt smoke?: No Smoking Status: Never smoker Does the pt drink ETOH?: No Does the pt have substance abuse?: No - Immunizations Immunizations are current?: Yes - POLST Patient has POLST: No POLST Status: Full Code (The family is still deciding about CODE STATUS. The daughter however stated that she does not want him to live on a ventilator or in a vegetative state.) PD ED PE NORMAL - Vitals Vital signs reviewed: Yes - General General: Other (He is cooperative and he will smile, he is nonverbal) - Abdomen Abdomen: Soft, Non tender, Other (There is a GJ tube in the left upper quadrant with tape around it and an obvious leak. There is a Hammond bag attached to the gastric port with no significant drainage in it.) Results - Vitals Vitals: Vital Signs - 24 hr 10/27/18 07:46 Temperature 36.3 C L Heart Rate 81 Respiratory 22 Rate Blood Pressure 173/54 H O2 Saturation 94 Oxygen O2 Source [Without Activity] Room air O2 Source Room air PD MEDICAL DECISION MAKING - ED course ED course: Unfortubately, no 22F GJ or J tube in stock in the hospital, the only J tube we had in stock was 10F. Spoke with condenser tester surgeon Michelle by ryan recommends replace with same size (22F) G tube and outpt replacement with J tube. GJ tube removed at bedside and easily replaced with 22F G tube and XR ordered. Departure - Departure Disposition: 01 Home, Self Care Clinical Impression: Malfunction of percutaneous endoscopic gastrostomy (PEG) tube Condition: Good Record reviewed to determine appropriate education?: Yes Health Concerns: g tube malfunction Plan of Treatment: replaced, needs followup for GJ tube/J tube Care Goals: replaced g tube Assessment: as above Instructions: ED G Tube Replacement Comments: Followup with [facility] for formal J tube replacement,
[2018-10-27] MEDS ORDERED: DIATR MEGLU/DIATRIZOATE SODIUM 120 ML BOTTLE PO ONE (08:56)
--- NOTE | 2018-10-27 09:04 | XRAY Report ---
Reason: G tube replaced, contrast into G tube Procedure Date: 10/27/2018 Accession Number: [id number] / [id number] Procedure: XR - Abdomen 1 View X-Ray CPT Code: 35666 FULL RESULT: EXAM: ABDOMEN RADIOGRAPHY EXAM DATE: 10/27/2018 08:51 AM. CLINICAL HISTORY: G tube replaced, contrast into G tube. COMPARISON: ABDOMEN 1 VIEW 08/01/2017 6:00 PM. TECHNIQUE: 1 view. FINDINGS: Bowel Gas Pattern: Within normal limits. No dilated loops. Other: Contrast is seen within the stomach and proximal duodenum. IMPRESSION: Enteric tube with tip in stomach. RADIA
== END 2018-10-27 12:50 | disposition home or self-care (01) ==
LOC: EDUNIT# → ED 07:41
DX: K94.23 Gastrostomy malfunction (principal); Y83.8 Other surgical procedures as the cause of abnormal reaction of the patient, or of later complication, without mention of misadventure at the time of the procedure; E11.9 Type 2 diabetes mellitus without complications; Z79.4 Long term (current) use of insulin; I10 Essential (primary) hypertension; I69.359 Hemiplegia and hemiparesis following cerebral infarction affecting unspecified side; Z79.82 Long term (current) use of aspirin
CPT/HCPCS: 43762; 74018; 99281; 99284; Q9963

== ENCOUNTER 2018-10-27 12:51 | Outpatient (CLI) | payer MEDICARE, MEDICAID | END 2018-10-27 12:52 | disposition home or self-care (01) | LOC: EMS 12:51 | PROVIDERS: ATTEND Surgery | DX: Z74.01 Bed confinement status (principal) | CPT/HCPCS: A0425; A0428 ==

== ENCOUNTER 2018-10-30 23:19 | Outpatient (CLI) | payer MEDICARE, MEDICAID | END 2018-10-30 23:20 | disposition critical access hospital (66) | LOC: EMS 23:19 | PROVIDERS: ATTEND Surgery | DX: R06.00 Dyspnea, unspecified (principal); R53.83 Other fatigue; R50.9 Fever, unspecified | CPT/HCPCS: A0425; A0427 ==

== ENCOUNTER 2018-10-30 23:37 | Inpatient (IN) | payer MEDICARE, MEDICAID ==
[2018-10-30] MEDS ORDERED: SODIUM CHLORIDE 0.9% 1,000 ML IV ONE (23:58)
[2018-10-30] MEDS ORDERED: IPRATROPIUM/ALBUTEROL 3 ML NEB INH STA (23:59)
[2018-10-30] MEDS ORDERED: DEXAMETHASONE 10 MG/ML VIAL IVP STA (23:59)
[2018-10-30] MEDS ORDERED: ACETAMINOPHEN 1,000 MG/100 ML 100 ML IV STA (23:59)
--- NOTE | 2018-10-31 00:01 | ED Physician Documentation ---
PD HPI DYSPNEA - Stated complaint Stated Complaint: SOA/AMS - History obtained from History obtained from: Patient, Family, EMS - History of Present Illness Timing - onset: Today (daughter noted him to have some increased wheezing and work of breathing this morning, with increase through the day despite use of home nebs.) Timing - onset during: Sleep Timing - duration: Days (1) Timing - details: Gradual onset, Still present Inciting event(s): No: Out of meds, URI Improved by: Inhaler/neb Worsened by: Laying flat, Coughing Associated symptoms: Cough, Wheezing. No: Hemoptysis, Chest pain / discomfort, Bilateral edema Similar symptoms before: Diagnosis (aspiration pneumonia) Recently seen: Admitted (He was admitted several months ago with similar and did get transferred to [facility] for pulmonary evaluation. Apparently he did develop renal insufficiency during that illness and was on dialysis for 6 weeks. He was just off of dialysis the last 2 to 3 weeks and doing okay. His daughter states his last creatinine was somewhere around 1.4. He gets fed by G-tube due to a prior stroke and difficulty swallowing. This also is what makes him prone to aspiration.) Review of Systems Unable to obtain: Other (ill with poor responses, and also deaf.) Constitutional: reports: Fever Ears: reports: Loss of hearing Nose: reports: Congestion. denies: Rhinorrhea / runny nose Cardiac: denies: Chest pain / pressure Respiratory: reports: Dyspnea, Cough, Wheezing GI: denies: Abdominal Pain, Vomiting, Diarrhea : reports: Incontinent. denies: Dysuria, Frequency Neurologic: reports: Generalized weakness PD PAST MEDICAL HISTORY - Past Medical History Cardiovascular: Hypertension Respiratory: COPD Neuro: CVA Endocrine/Autoimmune: Type 2 diabetes GI: None : None HEENT: Chronic hearing loss Psych: Anxiety Musculoskeletal: Hemiplegia, Gout Derm: None - Past Surgical History Past Surgical History: Yes General: Other - Present Medications Home Medications: Ambulatory Orders Medication Instructions Recorded Confirmed Aspirin 81 mg NG DAILY 08/01/17 06/26/18 Atorvastatin Calcium 40 mg NG DAILY 08/01/17 06/26/18 Gabapentin [Neurontin] 300 mg PEG BID 08/01/17 06/26/18 Metoprolol Tartrate 25 mg PEG BID 08/01/17 06/26/18 Pantoprazole [Protonix] 40 mg PEG BID 08/01/17 06/26/18 amLODIPine [Norvasc] 5 mg NG DAILY 08/01/17 06/26/18 Cetirizine [ZyrTEC] 10 mg PEG DAILY PRN 11/19/17 06/26/18 Insulin Glargine [Lantus Solostar] 20 unit SUBQ 0800 11/19/17 06/26/18 Insulin Lispro [Humalog] 1 - 5 unit SUBQ ACHS PRN 11/19/17 06/26/18 Vitamin B Complex 1 tab PEG DAILY 11/19/17 06/26/18 Albuterol Sulf [Ventolin Hfa 1 - 2 puffs INH Q4HR PRN 03/06/18 06/26/18 Inhaler] Senna [Senokot] 1 - 2 tab PEG DAILY PRN 03/06/18 06/26/18 Albuterol 2.5 mg INH Q4H PRN #30 neb 03/10/18 06/26/18 Docusate Calcium 240 mg PEG DAILY 06/26/18 06/26/18 Doxazosin Mesylate [Cardura] 4 mg PO QPM 06/26/18 06/26/18 Polyethylene Glycol 3350 [Miralax] 17 gm PEG DAILY 06/26/18 06/26/18 - Allergies Allergies/Adverse Reactions: Allergies Allergy/AdvReac Type Severity Reaction Status Date / Time No Known Drug Allergies Allergy Verified 10/30/18 23:58 - Living Situation Living Situation: reports: With spouse/s.o. Living Arrangement: reports: At home - Social History Does the pt smoke?: No Smoking Status: Never smoker Does the pt drink ETOH?: No Does the pt have substance abuse?: No - Immunizations Immunizations are current?: Yes - POLST Patient has POLST: No POLST Status: Full Code (The family is still deciding about CODE STATUS. The daughter however stated that she does not want him to live on a ventilator or in a vegetative state.) PD ED PE NORMAL - Vitals Vital signs reviewed: Yes (fever, tachycardia. Sats 98on NC. ) - General General: No: Alert and oriented X 3 (awake and attentive. Not answering questions much. Increased work of breathing, with tachypnea and wheezing. ) - HEENT HEENT: Ears normal, Pharynx benign, Other (mouth appears dry. ). No: Moist mucous membranes - Neck Neck: Supple, no meningeal sign, No adenopathy, No JVD - Cardiac Cardiac: No murmur. No: RRR (regular but tachy.) - Respiratory Respiratory: Other (right upper chest wall with dialysis catheter without signs of infection to it.). No: Clear bilaterally (tachypnea with wheezing and work of breathing. ) - Abdomen Abdomen: Soft, Non tender, Other (Gtube in place without signs of infection. ) - Back Back: No CVA TTP - Derm Derm: Warm and dry. No: Normal color (pale) - Extremities Extremities: Normal ROM s pain, No edema, No calf tenderness / cord - Neuro Neuro: No motor deficit Eye Opening: Spontaneous Motor: Obeys Commands Verbal: Confused GCS Score: 14 Results - Vitals Vitals: Vital Signs - 24 hr 10/30/18 10/31/18 10/31/18 23:40 00:11 00:35 Temperature 39.4 C H Heart Rate 113 H 99 105 H Respiratory 27 H 42 H 30 H Rate Blood Pressure 133/66 H 135/66 H O2 Saturation 98 97 10/31/18 10/31/18 10/31/18 00:55 01:10 01:23 Temperature 37.9 C H Heart Rate 101 H 99 100 Respiratory 37 H 39 H 35 H Rate Blood Pressure 135/63 H 135/63 H O2 Saturation 99 97 10/31/18 10/31/18 10/31/18 01:32 01:53 01:54 Temperature 37.7 C H Heart Rate 100 89 91 Respiratory 30 H 29 H 29 H Rate Blood Pressure 173/62 H 173/62 H O2 Saturation 97 99 10/31/18 10/31/18 02:08 02:32 Temperature Heart Rate 92 94 Respiratory 23 25 H Rate Blood Pressure 129/49 L 129/60 O2 Saturation 97 96 Oxygen O2 Source [Without Activity] Room air O2 Source Simple Mask Oxygen Flow Rate 2.5 - Labs Labs: Microbiology 10/31/18 00:06 Respiratory Culture - Preliminary Sputum Laboratory Tests 10/30/18 10/30/18 10/30/18 23:59 23:59 23:59 WBC 13.4 H RBC 4.47 L Hgb 10.9 L Hct 40.9 L MCV 91.5 MCH 24.4 L MCHC 26.7 L RDW 21.0 H Plt Count 164 MPV 13.8 H Neut # (Auto) 9.9 H Lymph # (Auto) 2.0 [place] # (Auto) 1.0 Eos # (Auto) 0.4 Baso # (Auto) 0.1 Absolute Nucleated RBC 0.00 Nucleated RBC % 0.0 Manual Slide Review Indicated Platelet Estimate NORMAL (130-450,000) RBC Morph Micro Appear 1+ OVALOCYTES Sodium 170 H* Potassium 5.1 H Chloride 132 H* Carbon Dioxide 26 Anion Gap 12.0 BUN 78 H Creatinine 2.3 H Estimated GFR (MDRD) 28 L Glucose 286 H Lactic Acid 1.5 Calcium 9.0 Magnesium 3.4 H Total Bilirubin 0.4 AST 23 ALT 20 Alkaline Phosphatase 77 B-Natriuretic Peptide Total Protein 7.0 Albumin 2.8 L Globulin 4.2 Albumin/Globulin Ratio 0.7 L Lipase 40 Urine Color Urine Clarity Urine pH Ur Specific [place] Urine Protein Urine Glucose (UA) Urine Ketones Urine Occult Blood Urine Nitrite Urine Bilirubin Urine Urobilinogen Ur Leukocyte Esterase Urine RBC Urine WBC Ur Squamous Epith Cells Urine Bacteria Urine Casts Ur Microscopic Review Urine Culture Comments 10/31/18 10/31/18 10/31/18 00:30 00:40 01:40 WBC RBC Hgb Hct MCV MCH MCHC RDW Plt Count MPV Neut # (Auto) Lymph # (Auto) [place] # (Auto) Eos # (Auto) Baso # (Auto) Absolute Nucleated RBC Nucleated RBC % Manual Slide Review Platelet Estimate RBC Morph Micro Appear Sodium 168 H* Potassium 5.0 Chloride 136 H* Carbon Dioxide 24 Anion Gap 8.0 BUN 74 H Creatinine 2.1 H Estimated GFR (MDRD) 31 L Glucose 192 H Lactic Acid Calcium 8.2 L Magnesium Total Bilirubin AST ALT Alkaline Phosphatase B-Natriuretic Peptide 115 H Total Protein Albumin Globulin Albumin/Globulin Ratio Lipase Urine Color YELLOW Urine Clarity CLEAR Urine pH 5.5 Ur Specific [place] 1.020 Urine Protein 30 H Urine Glucose (UA) NEGATIVE Urine Ketones NEGATIVE Urine Occult Blood NEGATIVE Urine Nitrite NEGATIVE Urine Bilirubin NEGATIVE Urine Urobilinogen 0.2 (NORMAL) Ur Leukocyte Esterase NEGATIVE Urine RBC 0-5 Urine WBC 0-3 Ur Squamous Epith Cells RARE Squamous Urine Bacteria Rare Urine Casts 0-2 Granular Casts Ur Microscopic Review INDICATED Urine Culture Comments NOT INDICATED - Rads (name of study) chest xray Radiology: Prelim report reviewed (no focal infiltrates. Suspect superimposed fluid overload/CHF.), EMP read contemporaneously, See rad report PD MEDICAL DECISION MAKING - ED course Complexity details: considered differential (Consider aspiration pneumonitis versus regular pneumonia with an exacerbation of his COPD. He is improving with nebulizer treatments and suctioning of his upper airway. I have confirmed with his daughter that he is a DNR/DNI. He does have elevated creatinine and had had acute renal failure with his pneumonia illness recently. He is off dialysis just to 3 weeks ago. Given his elevated sodium level and clinically appearing dehydrated, I think his elevated creatinine is prerenal and as such more easily correctable. He is having some slight improvement just with the initial liter of IV fluids here. I talked with the hospitalist who felt the patient also would be treatable here as it does seem correctable and his respiratory symptoms are treatable here as well. The patient will be admitted for further care.), d/w patient (He is deaf and also not interacting well with his current breathing problems so much information is from his daughter.), d/w family (daughter) Departure - Departure Disposition: 66 [facility] DC/Xfer Clinical Impression: Acute exacerbation of COPD with asthma, Dyspnea, Pneumonia, Acute renal insufficiency, Dehydration Condition: Serious Record reviewed to determine appropriate education?: Yes Discharge Date/Time: 10/31/18 03:50
[2018-10-31 00:31] LABS: ALBUMIN 2.8 g/dL (3.2-5.5); ALBUMIN/GLOBULIN RATIO 0.7 (1.0-2.2); BILIRUBIN,TOTAL 0.4 mg/dL (0.2-1.0); CREATININE 2.3 mg/dL (0.6-1.2); MAGNESIUM 3.4 mg/dL (1.7-2.8)
[2018-10-31 00:34] LABS: BASOPHILS # (AUTO) 0.1 10^3/uL (0.0-0.1); BASOPHILS % (AUTO) 0.4 %; EOSINOPHILS # (AUTO) 0.4 10^3/uL (0.0-0.7); EOSINOPHILS % (AUTO) 3.1 %; HGB - HEMOGLOBIN 10.9 g/dL (14.0-18.0); LYMPHOCYTES % (AUTO) 15.2 %; MEAN CORPUSCULAR HEMOGLOBIN 24.4 pg (27.0-31.0); MEAN CORPUSCULAR HGB CONC 26.7 g/dL (32.0-36.0); MEAN CORPUSCULAR VOLUME 91.5 fL (80.0-94.0); MONOCYTES % (AUTO) 7.2 %; NEUTROPHILS # (AUTO) 9.9 10^3/uL (1.5-6.6); NEUTROPHILS % (AUTO) 73.5 %; PLT - PLATELET COUNT 164 10^3/uL (130-450); RED BLOOD COUNT 4.47 10^6/uL (4.70-6.10); WHITE BLOOD COUNT 13.4 x10^3/uL (4.8-10.8)
[2018-10-31] MEDS ORDERED: CEFEPIME 2 GM in SODIUM CHLORIDE 0.9% MINIBAG 100 ML IV STA (00:38)
[2018-10-31] MEDS ORDERED: SODIUM CHLORIDE 0.9% 1,000 ML IV ONE (00:38)
--- NOTE | 2018-10-31 00:39 | XRAY Report ---
Reason: chest pain Procedure Date: 10/31/2018 Accession Number: [id number] / [id number] Procedure: XR - Chest 1 View X-Ray CPT Code: 22333 FULL RESULT: EXAM: CHEST RADIOGRAPHY EXAM DATE: 10/31/2018 12:20 AM. CLINICAL HISTORY: Chest pain. COMPARISON: CHEST 1 VIEW 07/01/2018 11:07 AM, CHEST W/ 07/03/2018 10:19 AM. TECHNIQUE: 1 view. FINDINGS: Lungs/Pleura: Low volumes. Diffuse minimal interstitial opacities. Mild right perihilar scarring. No large effusion. No gross pneumothorax. Mediastinum: Heart mostly obscured due to low lung volumes. Patient has known mild cardiomegaly. No mediastinal shift. Calcified right hilar lymph node. Other: Right central catheter tip near the cavoatrial junction. IMPRESSION: Low lung volumes. Suspect superimposed minimal fluid overload/CHF. RADIA
[2018-10-31 00:40] LABS: MEAN PLATELET VOLUME 13.8 fL (7.4-11.4)
[2018-10-31] MEDS ORDERED: ALBUTEROL NEB 2.5 MG/3 ML INH STA (00:47)
[2018-10-31 00:52] LABS: PLATELET ESTIMATE, MANUAL NORMAL (130-450,000) (NORMAL)
[2018-10-31] MEDS ORDERED: VANCOMYCIN INJ 1 GM in SODIUM CHLORIDE 0.9% 250 ML IV SCH ×2 (01:00→09:00)
[2018-10-31 01:09] LABS: BILIRUBIN,URINE NEGATIVE (NEGATIVE); GLUCOSE, URINE (UA) NEGATIVE (NEGATIVE); KETONES,URINE (UA) NEGATIVE (NEGATIVE); LEUKOCYTE ESTERASE, URINE NEGATIVE (NEGATIVE); NITRITE,URINE NEGATIVE (NEGATIVE); OCCULT BLOOD,URINE NEGATIVE (NEGATIVE); PH,URINE 5.5 PH (5.0-7.5); PROTEIN,URINE 30 mg/dL (NEGATIVE); UROBILINOGEN,URINE 0.2 (NORMAL) E.U./dL (NORMAL)
[2018-10-31 01:10] LABS: CLARITY,URINE CLEAR (CLEAR)
[2018-10-31 01:17] LABS: BACTERIA,URINE Rare /HPF (None Seen); RBC,URINE 0-5 /HPF (0-5); SQUAMOUS EPITHELIAL CELL,UR RARE Squamous (<= Few)
[2018-10-31] MEDS ORDERED: IPRATROPIUM/ALBUTEROL 3 ML NEB INH STA (01:41)
[2018-10-31 02:19] LABS: CALCIUM 8.2 mg/dL (8.5-10.3); CREATININE 2.1 mg/dL (0.6-1.2)
[2018-10-31] MEDS ORDERED: DEXTROSE 5%-0.45% NACL 1,000 ML IV SCH ×2 (03:00→04:05)
[2018-10-31] MEDS ORDERED: LACTATED RINGERS 1,000 ML IV ONE (03:10)
--- NOTE | 2018-10-31 03:31 | HISTORY & PHYSICAL EXAMINATION ---
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 History is obtain from the daughter as the patient is too lethargic and in respiratory distress to participate in conversation. The patient's daughter states he was just seen in the ER a few days ago as his GJ tube had been dislodged. His GJ tube had to be removed and G tube was placed as there were no GJ tubes available. He was to follow up with his on outpatient bas is for placement of a GJ tube. His daughter was concerned that the patient may have been aspirating after the PEG tube was placed as the patient had issues in the past with aspiration and hence why a GJ tube was placed. She reports he does not take anything by mouth at all. She reports that the patient has not been complaining of anything over these last few days. She did notice he was warm today. She also reports administering less free water through the G tube as there were issues with flushing it. She also tells me that the patient was on dialysis up until two weeks ago. He was initially started on dialysis back in June/July of this year while hospitalized [facility]. She reports that since being off of dialysis, he has been urinating without problems and she denies decreased urine output. In the emergency department, the patient was found to be febrile, tachycardic, tachypnic, and hypoxic requiring 2L of oxygen. He had difficulty controlling his secretions and a large mucous plug was suctioned upon his arrival. Labs were significant for leukocytosis, severe hypernatremia of 170, and a creatinine of 2.3. He was given 1L of normal saline and administered Vancomycin, Cefepime, and Decadron in the ER. He will be admitted to the ICU for further management. I personally spoke with the patient's daughter regarding his critical condition and the patient's goals of care. She states that he is a DNR but that mechanical ventilation may be considered depending on clinical scenario. She can't definitively say no to the option of mechanical ventilation. She would like to be notified if mechanical ventilation is recommended and she would make a decision at that time. History - Past Medical History Cardiovascular: reports: Hypertension Respiratory: reports: COPD Neuro: reports: CVA (Residual left sided hemiparesis and dysphagia) Endocrine/Autoimmune: reports: Type 2 diabetes GI: reports: None, Other (Dysphagia requiring PEG tube) : reports: None, Renal insuffiency (Required dialysis for a few months) HEENT: reports: Chronic hearing loss Psych: reports: Anxiety Musculoskeletal: reports: Hemiplegia, Gout Derm: reports: None MRSA Hx?: No - Past Surgical History General: reports: Other (GJ tube placement) Other past surgical history: Dialysis catheter placement - Family & Social History Family History Comment/Other: Per daughter, no significant family history. One aunt on his mothers side had lung cancer that she is aware of. 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 Moved to [facility] from [place] about 5 years ago to be closer to his daughter after he had gone through a bad divorce. He currently lives with his daughter and 2 sons. The patient was previously completely independent prior to his stroke in March 2016. Patient is now completely dependent on his daughter for most of his daily activities of living. The patient was a heavy smoker until March 2016 when he had a stroke. The patient smoked up to 3 packs a day. He had been smoking over 50 years. He does not drink alcohol. - Substance History Use: Uses substance without health or social issues: NONE - POLST Patient has POLST: No POLST Status: DNR (No CPR but family may considering intubation if temporary measure.) Meds/Allgy - Home Medications Home Medications: Ambulatory Orders Medication Instructions Recorded Confirmed Aspirin 81 mg NG DAILY 08/01/17 06/26/18 Atorvastatin Calcium 40 mg NG DAILY 08/01/17 06/26/18 Gabapentin [Neurontin] 300 mg PEG BID 08/01/17 06/26/18 Metoprolol Tartrate 25 mg PEG BID 08/01/17 06/26/18 Pantoprazole [Protonix] 40 mg PEG BID 08/01/17 06/26/18 amLODIPine [Norvasc] 5 mg NG DAILY 08/01/17 06/26/18 Cetirizine [ZyrTEC] 10 mg PEG DAILY PRN 11/19/17 06/26/18 Insulin Glargine [Lantus Solostar] 20 unit SUBQ 0800 11/19/17 06/26/18 Insulin Lispro [Humalog] 1 - 5 unit SUBQ ACHS PRN 11/19/17 06/26/18 Vitamin B Complex 1 tab PEG DAILY 11/19/17 06/26/18 Albuterol Sulf [Ventolin Hfa 1 - 2 puffs INH Q4HR PRN 03/06/18 06/26/18 Inhaler] Senna [Senokot] 1 - 2 tab PEG DAILY PRN 03/06/18 06/26/18 Albuterol 2.5 mg INH Q4H PRN #30 neb 03/10/18 06/26/18 Docusate Calcium 240 mg PEG DAILY 06/26/18 06/26/18 Doxazosin Mesylate [Cardura] 4 mg PO QPM 06/26/18 06/26/18 Polyethylene Glycol 3350 [Miralax] 17 gm PEG DAILY 06/26/18 06/26/18 - Allergies Allergies/Adverse Reactions: Allergies Allergy/AdvReac Type Severity Reaction Status Date / Time No Known Drug Allergies Allergy Verified 10/30/18 23:58 Review of Systems - All Other Systems All Other Systems: reports: Other (Unable to obtain due to patient's respiratory status and lethargy.) Prior Level of Functionality: Was independent prior to his stroke in March of 2016. Now he has left sided hemiparesis and is dependent for all of his ADL's. Requires GJ tube for feedings . Exam - Vital Signs Reviewed Vital Signs: Yes Vital Signs: Vital Signs x48h Temp Pulse Resp BP Pulse Ox 10/31/18 02:32 94 25 H 129/60 96 10/31/18 02:08 92 23 129/49 L 97 10/31/18 01:54 37.7 C H 91 29 H 173/62 H 99 10/31/18 01:53 89 29 H 10/31/18 01:32 100 30 H 173/62 H 97 10/31/18 01:23 37.9 C H 100 35 H 135/63 H 97 10/31/18 01:10 99 39 H 135/63 H 99 10/31/18 00:55 101 H 37 H 10/31/18 00:35 105 H 30 H 135/66 H 97 10/31/18 00:11 99 42 H 10/30/18 23:40 39.4 C H 113 H 27 H 133/66 H 98 - Physical Exam General Appearance: positive: Moderate distress, Lethargic Eyes Bilateral: positive: Normal inspection ENT: positive: ENT inspection nml, Dry mucous membranes Neck: positive: Other (Dialysis cather in place over right chest wall without signs of erythema or tenderness.) Respiratory: positive: Chest non-tender, Rhonchi, Other (Tachypnic with some accessory muscle usage. Rhonci noted.) Cardiovascular: positive: Tachycardia. negative: Irregularly irregular, Systolic murmur Abdomen: positive: Abnml bowel sounds, Other (G tube in place with bilious fluid seeping from the insertion site. Abdomen is distended with hypoactive bowel sounds.). negative: No distention, Guarding, Rebound Skin: positive: No rash Extremities: positive: No pedal edema. negative: Pedal edema Neurologic/Psychiatric: positive: Other (Difficult to assess neurological status as patient is lethargic and has difficulty hearing. Does appear to track with his eyes but I was unable to have him follow commands. He did look at his daughter frequently likely because she is a familiar face.) Sepsis Event Note (H) - Evaluation Current Stage of Sepsis: Sepsis Possible source of Sepsis: positive: Pulmonary - Sepsis Criteria Sepsis Criteria: Recorded Temperature greater than 38.3C or Less than 36C, Recorded Heart Rate greater than 90 bpm, Recorded Respiratory Rate greater than 20, Respiratory: Increasing oxygen requirements, WBC count greater than 12,000 or less than 4000, [employer]: altered consciousness (unrelated to primary neuro pathology) Conclusion/Plan - Problem List (1) Sepsis Conclusion/Plan: He meet sepsis criteria with his fever, tachycardia, tachypnea, and hypoxia. Suspect that the source is like pneumonia given the secretions and mucous plug that was suctioned. His chest x-ray is not that impressive but suspect that pneumonia is the cause of the sepsis. His urinalysis is unremarkable. - Will continue Vancomycin, Cefepime IV for broad spectrum coverage - Will add Flagyl IV given concern for aspiration - Will administer another litre of LR - Follow up blood and respiratory cultures (2) Pneumonia Conclusion/Plan: There is concern for pneumonia despite his x-ray not being that impressive. He has rhonci with a large amount of secretions. Given his recent PEG tube exch arabella, aspiration is also a concern as a cause of his pneumonia. He is currently requiring 2L of oxygen via simple mask with saturations in the high 90's. Pneumonia Severity Index score is 199 which puts him at class V with a mortality risk of 27%. - Continue Vancomycin, Cefepime, Flagyl IV - Follow up respiratorty cultures - Supplemental oxygen as needed, will consider BiPAP if he declines from re spiratory stand point and will discuss mechanical ventilation with the daughter - The ultimate concern is that with his prior stroke, he will continue to have difficulty controlling his secretions and will be at risk for pneumonia and respiratory failure (3) Encephalopathy Conclusion/Plan: Suspect that this multifactorial secondary to the sepsis, electrolyte derangements, and hypoxia. Per daughter, he has improved slightly since arrival to the ER but he is not at his baseline and his been increasingly lethargic over the past 24 hours. - Treat underlying sepsis - Correct hypernatremia at appropriate to prevent cerebral edema - IV hydration - Oxygen as needed - Avoid medications that may promote delirium (4) Hypernatremia Conclusion/Plan: This is likely secondary to the decreased free water pushes he was receiving. Sodium is 170 on admission and has improved to 168 after 1L of NS. Free water deficit is 5.8L. - Will administer one litre of LR given that he is septic - Will initiate D5/0.45 NS at 100 mL/hr - Check BMP every 6 hours - Goal sodium is 160 within 24 hours (5) Acute renal insufficiency Conclusion/Plan: He was hospitalized earlier this year for aspiration pneumonia which was complicated by acute kidney injury requiring hemodialysis. He was on dialysis up until two weeks ago. Unclear what his new baseline creatinine is but it was 2.3 on admission and improved to 2.1 after hydration. Suspect he currently has acute kidney injury which is likely pre-renal in nature given his decreased intake, hypernatremia, and sepsis. - IV hydration - Monitor renal function and urine output. (6) COPD (chronic obstructive pulmonary disease) Conclusion/Plan: He has a history of COPD for which he does not require oxygen and is only on Albuterol PRN. There was initial concern in the ER for COPD exacerbation given his respiratory status and initial wheezing on exam. I currently do not appreciate wheezing on exam but he did receive steroids and a nebulizer treatment. - Will continue antibiotics for the pneumonia - Will start Solumedrol 40mg every 12 hours - Monitor respiratory status Qualifiers: COPD type: unspecified COPD Qualified Code(s): J44.9 - Chronic obstructive pulmonary disease, unspecified (7) Gastrostomy tube dysfunction Conclusion/Plan: He recently had a dislodged GJ tube that was replaced by a G tube. It is currently seeping occasional bilious fluid from the site. His abdomen is distended with hypoactive bowel sounds. - NPO - Stat Abdomen XR to evaluation for possible obstruction - Consider General Surgery consult (8) Cerebrovascular accident (CVA) Conclusion/Plan: He has a history of stroke in 2016 resulting in left sided hemiparesis and dysphagia requiring PEG tube placement. On Aspirin and statin. - Resume home medications once able to take medications through G tube Qualifiers: CVA mechanism: thrombosis Precerebral and cerebral artery: middle cerebral artery Laterality of affected vessel: right Qualified Code(s): I63.311 - Cerebral infarction due to thrombosis of right middle cerebral artery (9) Diabetes Conclusion/Plan: He has a history of diabetes for which he takes Lantus and Lispro PRN. Presented hyperglycemic with blood glucose of 286. - Resume Lantus + sliding scale - NPO - Nutrition consult once he is able to tolerate tube feeds again Qualifiers: Diabetes mellitus type: type 2 Diabetes mellitus jail insulin use: w ith jail use Diabetes mellitus complication status: with unspecified complications (10) Hypertension Conclusion/Plan: He is on amlodipine, metoprolol, and doxazosin at home. Currently normotensive. - Hold home medications in setting of sepsis, restart when clinically appropriate Qualifiers: Hypertension type: essential hypertension Qualified Code(s): I10 - Essential (primary) hypertension - Lab Results Lab results reviewed: Yes Fish Bones: 10/30/18 23:59 10/31/18 01:40 - Diagnostic Imaging Results Diagnostic Imaging Results: positive: Final report reviewed Core Measures - Anticipated LOS I expect patient to be DC'd or transferred within 96 hours.: Yes - Issues Hospital Issues and Management Plan: Sepsis secondary to pneumonia. Hypernatremia. Acute kidney injury. Will require IV antibiotics and fluids. - DVT/VTE - Prophylaxis VTE/DVT Device ordered at admit?: Yes VTE/DVT Prophylaxis med ordered at admit?: Yes
[2018-10-31] MEDS ORDERED: VANCOMYCIN INJ 0.75 GM in SODIUM CHLORIDE 0.9% 250 ML IV SCH (04:00)
--- NOTE | 2018-10-31 04:33 | XRAY Report ---
Reason: Abdominal distention. Rule out obstruction. Procedure Date: 10/31/2018 Accession Number: [id number] / [id number] Procedure: XR - Abdomen 1 View X-Ray CPT Code: 29603 FULL RESULT: EXAM: ABDOMEN RADIOGRAPHY EXAM DATE: 10/31/2018 03:14 AM. CLINICAL HISTORY: Abdominal distention. COMPARISON: ABDOMEN 1 VIEW 10/27/2018 8:35 AM, ABDOMEN 1 VIEW 08/01/2017 6:00 PM, ABDOMEN 2 VIEW 11/18/2016 10:45 PM, ABDOMEN 1 VIEW 11/19/2016 12:49 AM. TECHNIQUE: 1 view. A total of 2 exposures are provided for review. FINDINGS IMPRESSION: 1. There is relative paucity of small bowel gas. This is nonspecific. 2. Normal caliber colonic loops are seen within the lower abdomen, containing contrast material. 3. No abnormal air-fluid levels are noted. 4. Elevation of the right hemidiaphragm is present. 5. Faintly visualized percutaneous gastrostomy tube. 6. Appearance of the lung bases suggests mild fluid overload and/or CHF. RADIA
[2018-10-31] MEDS: metroNIDAZOLE 500 MG/100 ML 500 MG/100 ML BAG IV SCH ×3 (05:22→20:33)
[2018-10-31 05:50] LABS: BASOPHILS % (AUTO) 0.3 %; EOSINOPHILS % (AUTO) 0.4 %; HGB - HEMOGLOBIN 9.3 g/dL (14.0-18.0); LYMPHOCYTES % (AUTO) 3.3 %; MEAN CORPUSCULAR HGB CONC 26.1 g/dL (32.0-36.0); MEAN CORPUSCULAR VOLUME 92.2 fL (80.0-94.0); MONOCYTES % (AUTO) 0.8 %; NEUTROPHILS % (AUTO) 94.6 %; PLT - PLATELET COUNT 136 10^3/uL (130-450); RED BLOOD COUNT 3.87 10^6/uL (4.70-6.10); WHITE BLOOD COUNT 10.8 x10^3/uL (4.8-10.8)
[2018-10-31 05:58] LABS: CALCIUM 8.2 mg/dL (8.5-10.3); CREATININE 2.2 mg/dL (0.6-1.2)
[2018-10-31 05:59] LABS: MAGNESIUM 3.1 mg/dL (1.7-2.8); PHOSPHORUS 4.3 mg/dL (2.5-4.6)
[2018-10-31 06:05] LABS: ABNORMAL LYMPHS % (MANUAL) 0 %
[2018-10-31 06:19] LABS: BAND NEUTROPHILS % (MANUAL) 4 %; DIFFERENTIAL COMMENT MANUAL DIFFERENTIAL; LYMPHOCYTES # (MANUAL) 0.3 10^3/uL (1.5-3.5); LYMPHOCYTES % (MANUAL) 3 %; PLATELET ESTIMATE, MANUAL NORMAL (130-450,000) (NORMAL)
[2018-10-31] MEDS: PANTOPRAZOLE 40 MG VIAL IVP SCH (06:26)
[2018-10-31] MEDS: SODIUM CHLORIDE FLUSH 0.9% 10 ML SYRINGE IVP PRN (06:26)
[2018-10-31] MEDS: INSULIN REGULAR HUMAN 100 UNIT/1 ML 10 ML MDV SUBQ SCH ×3 (06:27→18:12)
[2018-10-31] MEDS ORDERED: INSULIN REGULAR HUMAN 100 UNIT/1 ML 10 ML MDV IVP STA (06:35)
[2018-10-31] MEDS: IPRATROPIUM/ALBUTEROL 3 ML NEB INH SCH ×3 (07:30→15:45)
[2018-10-31] MEDS: CEFEPIME 2 GM in SODIUM CHLORIDE 0.9% MINIBAG 100 ML IV SCH (08:00)
[2018-10-31] MEDS: INSULIN GLARGINE 300 UNIT/3 ML PEN SUBQ SCH ×2 (08:22→21:38)
[2018-10-31] MEDS: SODIUM CHLORIDE FLUSH 0.9% 10 ML SYRINGE IVP SCH ×2 (08:26→17:31)
[2018-10-31] MEDS: methylPREDNISolone SUCCINATE 40 MG/ML VIAL IVP SCH ×2 (08:26→20:34)
[2018-10-31] MEDS: HEPARIN 5,000 UNIT/ML VIAL SUBQ SCH ×2 (08:27→21:38)
[2018-10-31] MEDS: DEXTROSE 5% 1,000 ML IV SCH ×2 (09:00→18:11)
[2018-10-31 10:30] LABS: CALCIUM 8.3 mg/dL (8.5-10.3)
--- NOTE | 2018-10-31 16:03 | CONSULTATION NOTE ---
Referring Provider Name of Referring Provider:: Dr. Patel Consult Date: 10/31/18 Chief Complaint - Chief Complaint Chief Complaint: aspiration, malfunction of G-J tube History of Present Illness - Admitted From Admitted From:: ER - History Obtained From Records Reviewed: yes History obtained from: records, family Exam Limitations: pt non communicative - History of Present Illness HPI Comment/Other: 78 yo male with hemiplegia s/p CVA in 2016, s/p PEG tube for dysphagia, subsequently changed to a G-J tube due to aspiration, whose G-J tube recently malfunctioned and was replaced in the ER with a G tube pending replacement with a G-J tube as these tubes are not kept in stock at [facility]. Pt developed evidence of aspiration pneumonitis and was admitted last night. Consultation was requested for replacement of his G tube with a G-J tube. Pt is currently septic with hypoxemia, and with acute on chronic renal failure and severe hypernatremia. He was recently hospitalized for hemodialysis 2 weeks ago. History - Past Medical History Cardiovascular: reports: Hypertension Respiratory: reports: COPD Neuro: reports: CVA Endocrine/Autoimmune: reports: Type 2 diabetes GI: reports: None : reports: None HEENT: reports: Chronic hearing loss Psych: reports: Anxiety Musculoskeletal: reports: Hemiplegia, Gout Derm: reports: None MRSA Hx?: Yes Other Past Medical History: ulcers, dialysis stopped 2 weeks ago (10/2018), gout, L hemiparesis - Past Surgical History General: reports: Other (PEG, PEG-J tubes) Other past surgical history: Percutaneous tunneled central venous hemo-Dialysis catheter placement - Family & Social History Family History Comment/Other: Per daughter, no significant family history. One aunt on his mothers side had lung cancer that she is aware of. Living arrangement: At home Living Situation: With spouse/s.o. 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 Moved to [facility] from [place] about 5 years ago to be closer to his daughter after he had gone through a bad divorce. He currently lives with his daughter and 2 sons. The patient was previously completely independent prior to his stroke in March 2016. Patient is now completely dependent on his daughter for most of his daily activities of living. The patient was a heavy smoker until March 2016 when he had a stroke. The patient smoked up to 3 packs a day. He had been smoking over 50 years. He does not drink alcohol. - Substance History Use: Uses substance without health or social issues: NONE - POLST Patient has POLST: No POLST Status: Full Code (The family is still deciding about CODE STATUS. The daughter however stated that she does not want him to live on a ventilator or in a vegetative state.) Meds/Allgy - Home Medications Home Medications: Ambulatory Orders Medication Instructions Recorded Confirmed Aspirin 81 mg NG DAILY 08/01/17 10/31/18 Atorvastatin Calcium 40 mg NG DAILY 08/01/17 10/31/18 Metoprolol Tartrate 25 mg PEG BID 08/01/17 10/31/18 amLODIPine [Norvasc] 5 mg NG DAILY 08/01/17 10/31/18 Insulin Glargine [Lantus Solostar] 20 unit SUBQ 0800 11/19/17 10/31/18 Insulin Lispro [Humalog] 1 - 5 unit SUBQ ACHS PRN 11/19/17 10/31/18 Polyethylene Glycol 3350 [Miralax] 17 gm PEG DAILY 06/26/18 10/31/18 Apixaban [Eliquis] 2.5 mg JT BID 10/31/18 10/31/18 Gabapentin 100 mg JT QPM 10/31/18 10/31/18 Metoclopramide HCl 5 mg PO QID PRN 10/31/18 10/31/18 Omeprazole 20 mg JT DAILY 10/31/18 10/31/18 - Allergies Allergies/Adverse Reactions: Allergies Allergy/AdvReac Type Severity Reaction Status Date / Time No Known Drug Allergies Allergy Verified 10/30/18 23:58 Review of Systems - All Other Systems All Other Systems: reports: Other (unobtainable due to altered mental status) Exam - Vital Signs Reviewed Vital Signs: Yes Vital Signs: Vital Signs x48h Pulse Pulse Resp BP Pulse Ox 10/31/18 15:00 77 24 141/53 H 97 10/31/18 14:00 75 21 123/43 L 97 10/31/18 13:00 79 23 139/63 H 96 10/31/18 12:00 79 24 123/54 L 97 10/31/18 11:00 7 L 74 22 109/46 L 97 10/31/18 10:00 78 15 108/41 L 95 10/31/18 09:00 77 21 136/51 H 96 10/31/18 08:00 81 22 130/53 L 91 L - Physical Exam General Appearance: positive: Lethargic Eyes Bilateral: positive: No scleral icterus ENT: positive: Dry mucous membranes, Other (edentulous) Neck: positive: No JVD, Trachea midline, Other (tunneled CVP catheter entering via right IJ vein). negative: Lymphadenopathy (R), Lymphadenopathy (L) Respiratory: positive: Chest non-tender, Rhonchi (bilat anteriorly) Cardiovascular: positive: Other (distant heart sounds) Abdomen: positive: Non-tender, No organomegaly, Nml bowel sounds, Other (G tube in LUQ). negative: Guarding, Rebound, Hepatomegaly, Splenomegaly, Mass Extremities: positive: No pedal edema. negative: Calf tenderness Neurologic/Psychiatric: positive: Other (non communicative) Conclusion/Plan - Diagnosis Diagnosis: Aspiration pneumonitis and sepsis. Likely related to gastric tube feednings and loss of G-J tube. - Plan Plan: Replace g tube with G-J tube when medically stable, hopefully within the next few days. A new G-J tube has been ordered and will be available in 72 hours. Will proceed at that time if medical condition permits. PAR conference was held and consent obtained from pt's daughter, his POA.. Thanks, - Lab Results Lab results reviewed: Yes Fish Bones: 10/31/18 05:40 10/31/18 09:50 - Diagnostic Imaging Results Diagnostic Imaging Results: positive: Final report reviewed Medications/Allergies - Medications Active Medication List: Active Medications Albuterol/Ipratropium (Duoneb) 3 ml INH Q4H [facility] Last Admin: 10/31/18 15:45 Dose: 3 ml Heparin Sodium (Porcine) () 5,000 unit SUBQ BID [facility]IO Last Admin: 10/31/18 08:27 Dose: 5,000 unit Cefepime HCl 2 gm/ Sodium (Chloride) 100 mls @ 200 mls/hr IV Q24H [facility]IO Last Infusion: 10/31/18 08:30 Dose: Infused Metronidazole (Flagyl 500 Mg/100 Ml) 500 mg in 100 mls @ 100 mls/hr IV Q8H [facility]ELIO Last Infusion: 10/31/18 13:05 Dose: Infused Dextrose (D5w) 1,000 mls @ 125 mls/hr IV .Q8H [facility] Last Infusion: 10/31/18 16:00 Dose: 125 mls/hr Vancomycin HCl 1 gm/ Sodium (Chloride) 250 mls @ 167 mls/hr IV Q24H [facility]ELIO Insulin Glargine (Lantus Solostar) 10 unit SUBQ [facility]FAST [facility] Last Admin: 10/31/18 08:22 Dose: 10 unit Insulin Human Regular (Novolin R) 1 - 5 unit SUBQ Q6HR [facility]; Protocol Last Admin: 10/31/18 12:12 Dose: 5 unit Methylprednisolone (Solu-Medrol (40mg Vial)) 40 mg IVP Q12H [facility] Last Admin: 10/31/18 08:26 Dose: 40 mg Pantoprazole Sodium (Protonix) 40 mg IVP QDAC [facility] Last Admin: 10/31/18 06:26 Dose: 40 mg Sodium Chloride (Normal Saline Flush 0.9%) 10 ml IVP 0100,0900,1700 [facility] Last Admin: 10/31/18 08:26 Dose: 10 ml Sodium Chloride (Normal Saline Flush 0.9%) 10 ml IVP PRN PRN PRN Reason: NEEDED PER PROVIDER ORDERS Last Admin: 10/31/18 06:26 Dose: 10 ml Aspirin 81 mg NG DAILY 08/01/17 Atorvastatin Calcium 40 mg NG DAILY 08/01/17 Metoprolol Tartrate 25 mg PEG BID 08/01/17 amLODIPine [Norvasc] 5 mg NG DAILY 08/01/17 Insulin Glargine [Lantus Solostar] 20 unit SUBQ 0800 11/19/17 Insulin Lispro [Humalog] 1 - 5 unit SUBQ ACHS PRN 11/19/17 Polyethylene Glycol 3350 [Miralax] 17 gm PEG DAILY 06/26/18 Apixaban [Eliquis] 2.5 mg JT BID 10/31/18 Gabapentin 100 mg JT QPM 10/31/18 Metoclopramide HCl 5 mg PO QID PRN 10/31/18 Omeprazole 20 mg JT DAILY 10/31/18 - Allergies Allergies/Adverse Reactions: Allergies Allergy/AdvReac Type Severity Reaction Status Date / Time No Known Drug Allergies Allergy Verified 10/30/18 23:58
[2018-10-31 17:02] LABS: CALCIUM 8.1 mg/dL (8.5-10.3)
[2018-10-31 18:25] LABS: HB2 TOTAL 11.3 g/dL; HEMOGLOBIN A1C 0.61 g/dL; HEMOGLOBIN A1C % 7.1 % (4.6-6.2)
[2018-10-31 18:47] LABS: CALCIUM 8.3 mg/dL (8.5-10.3)
[2018-10-31 21:20] LABS: CALCIUM 8.3 mg/dL (8.5-10.3)
[2018-10-31] MEDS: SODIUM CHLORIDE 0.45% 1,000 ML IV SCH (21:38)
[2018-11-01] MEDS: IPRATROPIUM/ALBUTEROL 3 ML NEB INH SCH ×9 (00:08→21:10)
[2018-11-01] MEDS: METOCLOPRAMIDE 10 MG/2 ML VIAL IVP SCH ×4 (00:19→21:16)
[2018-11-01] MEDS: INSULIN REGULAR HUMAN 100 UNIT/1 ML 10 ML MDV SUBQ SCH ×4 (00:19→17:51)
[2018-11-01] MEDS: SODIUM CHLORIDE FLUSH 0.9% 10 ML SYRINGE IVP SCH ×3 (00:20→17:51)
[2018-11-01] MEDS ORDERED: VANCOMYCIN INJ 0.75 GM in SODIUM CHLORIDE 0.9% 250 ML IV SCH (02:00)
[2018-11-01] MEDS: VANCOMYCIN INJ 1 GM in SODIUM CHLORIDE 0.9% 250 ML IV SCH (02:01)
[2018-11-01] MEDS: metroNIDAZOLE 500 MG/100 ML 500 MG/100 ML BAG IV SCH ×3 (04:09→19:50)
[2018-11-01 05:20] LABS: BASOPHILS % (AUTO) 0.1 %; HGB - HEMOGLOBIN 8.1 g/dL (14.0-18.0); LYMPHOCYTES # (AUTO) 0.6 10^3/uL (1.5-3.5); MAGNESIUM 3.1 mg/dL (1.7-2.8); MEAN CORPUSCULAR HEMOGLOBIN 24.1 pg (27.0-31.0); MEAN CORPUSCULAR HGB CONC 26.9 g/dL (32.0-36.0); MEAN CORPUSCULAR VOLUME 89.6 fL (80.0-94.0); MONOCYTES # (AUTO) 0.3 10^3/uL (0.0-1.0); MONOCYTES % (AUTO) 2.6 %; NEUTROPHILS # (AUTO) 10.7 10^3/uL (1.5-6.6); PHOSPHORUS 4.1 mg/dL (2.5-4.6); PLT - PLATELET COUNT 131 10^3/uL (130-450); RED BLOOD COUNT 3.36 10^6/uL (4.70-6.10); RED CELL DISTRIBUTION WIDTH 20.1 % (12.0-15.0); WHITE BLOOD COUNT 11.6 x10^3/uL (4.8-10.8)
[2018-11-01 05:31] LABS: ALBUMIN 2.4 g/dL (3.2-5.5); ALBUMIN/GLOBULIN RATIO 0.6 (1.0-2.2); BILIRUBIN,TOTAL 0.3 mg/dL (0.2-1.0); CALCIUM 8.1 mg/dL (8.5-10.3); CREATININE 1.8 mg/dL (0.6-1.2); TOTAL PROTEIN 6.2 g/dL (6.7-8.2)
[2018-11-01 05:48] LABS: PLATELET MORPHOLOGY NORMAL APPEARANCE (NORMAL)
[2018-11-01 05:49] LABS: PLATELET ESTIMATE, MANUAL DECREASED (<130,000) (NORMAL)
[2018-11-01] MEDS: PANTOPRAZOLE 40 MG VIAL IVP SCH (06:18)
[2018-11-01] MEDS: SODIUM CHLORIDE 0.45% 1,000 ML IV SCH ×2 (08:19→15:14)
[2018-11-01] MEDS: CEFEPIME 2 GM in SODIUM CHLORIDE 0.9% MINIBAG 100 ML IV SCH (08:20)
[2018-11-01] MEDS: HEPARIN 5,000 UNIT/ML VIAL SUBQ SCH ×2 (08:21→21:16)
[2018-11-01] MEDS: methylPREDNISolone SUCCINATE 40 MG/ML VIAL IVP SCH (08:21)
[2018-11-01] MEDS: INSULIN GLARGINE 300 UNIT/3 ML PEN SUBQ SCH ×2 (08:23→21:17)
[2018-11-01 09:10] LABS: CALCIUM 8.2 mg/dL (8.5-10.3); CREATININE 1.8 mg/dL (0.6-1.2)
--- NOTE | 2018-11-01 11:35 | PROVIDER PROGRESS NOTE ---
Subjective - Prog Note Date Prog Note Date: 11/01/18 Prog Note Time: 11:52 - Subjective Subjective: Definitely more responsive. We will watch you and track you with his eyes when you walk in the room. Has a grunting and gurgling respiration not so much s truggling trying to speak. Between yesterday and today, IV fluids have been changed multiple times to treat his hypernatremia, hyperglycemia. Blood cultures are now positive in 3 out of 4 bottles. Tube feedings were resumed at the request of nutrition services. Unfortunately he has high residuals. This puts him at further risk for aspiration. We have already consulted with general surgery for replacing the G-tube. Current Medications - Current Medications Current Medications: Active Medications Generic Name Dose Route Start Last Admin Trade Name Talia PRN Reason Stop Dose Admin Albuterol/Ipratropium 3 ml 10/31/18 04:00 11/01/18 11:17 Duoneb INH 3 ml Q4H EVELIO Administration Heparin Sodium (Porcine) 5,000 unit 10/31/18 09:00 11/01/18 08:21 SUBQ 5,000 unit BID EVELIO Administration Cefepime HCl 2 gm/ Sodium 100 mls @ 200 mls/hr 10/31/18 08:00 11/01/18 09:00 Chloride IV Infused Q24H EVELIO Infusion Metronidazole 500 mg in 100 mls @ 100 mls/hr 10/31/18 04:00 11/01/18 04:09 Flagyl 500 Mg/100 Ml IV 100 mls/hr Q8H EVELIO Administration Vancomycin HCl 1 gm/ Sodium 250 mls @ 167 mls/hr 11/01/18 02:00 11/01/18 02:0 1 Chloride IV 167 mls/hr Q24H EVELIO Administration Sodium Chloride 1,000 mls @ 125 mls/hr 10/31/18 21:00 11/01/18 08:19 Normal Saline 0.45% IV 125 mls/hr .Q8H EVELIO Administration Insulin Glargine 10 unit 10/31/18 08:00 11/01/18 08:23 Lantus Solostar SUBQ 10 unit QDBREAKFAST EVELIO Administration Insulin Glargine 10 unit 10/31/18 21:00 10/31/18 21:38 Lantus Solostar SUBQ 10 unit QPM EVELIO Administration Insulin Human Regular 1 - 9 unit 10/31/18 18:00 11/01/18 06:18 Novolin R SUBQ 5 unit Q6HR EVELIO Administration Protocol Metoclopramide HCl 5 mg 10/31/18 23:45 11/01/18 06:17 Reglan Inj IVP 5 mg Q8HR EVELIO Administration Pantoprazole Sodium 40 mg 10/31/18 07:00 11/01/18 06:18 Protonix IVP 40 mg QDAC EVELIO Administration Sodium Chloride 10 ml 10/31/18 09:00 11/01/18 08:21 Normal Saline Flush 0.9% IVP 10 ml 0100,0900,1700 EVELIO Administration Sodium Chloride 10 ml 10/31/18 02:35 10/31/18 06:26 Normal Saline Flush 0.9% IVP 10 ml PRN PRN Administration NEEDED PER PROVIDER ORDERS Aspirin 81 mg NG DAILY 08/01/17 Atorvastatin Calcium 40 mg NG DAILY 08/01/17 Metoprolol Tartrate 25 mg PEG BID 08/01/17 amLODIPine [Norvasc] 5 mg NG DAILY 08/01/17 Insulin Glargine [Lantus Solostar] 20 unit SUBQ 0800 11/19/17 Insulin Lispro [Humalog] 1 - 5 unit SUBQ ACHS PRN 11/19/17 Polyethylene Glycol 3350 [Miralax] 17 gm PEG DAILY 06/26/18 Apixaban [Eliquis] 2.5 mg JT BID 10/31/18 Gabapentin 100 mg JT QPM 10/31/18 Metoclopramide HCl 5 mg PO QID PRN 10/31/18 Omeprazole 20 mg JT DAILY 10/31/18 Objective - Vital Signs/Intake & Output Reviewed Vital Signs: Yes Vital Signs: Vital Signs Temp Pulse Pulse Resp BP Pulse Ox 11/01/18 11:19 70 18 11/01/18 11:00 72 22 141/53 H 98 11/01/18 10:00 69 21 111/53 L 99 11/01/18 09:00 80 22 144/59 H 98 11/01/18 08:00 36.4 C L 76 24 145/56 H 98 Intake & Output: Intake & Output 10/29/18 10/30/18 10/31/18 11/01/18 23:59 23:59 23:59 23:59 Intake Total 5332.000 2340 Output Total 766 715 Balance 4582.000 1625 - Objective General Appearance: positive: Alert, Other (Eyes open, responds to voice, but no meaningful conversation. When I asked him to nod yes or shake his head no he is not able to do so.) Eyes Bilateral: positive: PERRL, EOMI ENT: positive: Dry mucous membranes Neck: positive: No JVD, Other (Back of throat with copious phlegm production that requires a suction frequently). negative: Stiff neck, Carotid bruit Respiratory: positive: Chest non-tender, Rales, Rhonchi Cardiovascular: positive: Regular rate & rhythm. negative: Gallop/S4, Friction rub Abdomen: positive: Non-tender, No organomegaly, Nml bowel sounds, Other (D istention this morning. Appears bloated. But no pain with palpation. No grimacing of pain.G-tube in place close to the left upper quadrant) Skin: positive: Warm, Dry Extremities: positive: Non-tender, No pedal edema (Both [place] hose and SCDs in place) Neurologic/Psychiatric: positive: Other (Opens eyes spontaneously, incom prehensible sounder speech, purposeful movement is painful stimulus equals 11 points Ana Coma Scale) - Lab Results Fish Bones: 11/01/18 04:45 11/01/18 08:54 Other Labs: Lab Results x24hrs 11/01/18 11/01/18 11/01/18 Range/Units 08:54 04:45 04:45 WBC (4.8-10.8) x10^3/uL RBC (4.70-6.10) 10^6/uL Hgb (14.0-18.0) g/dL Hct (42.0-52.0) % MCV (80.0-94.0) fL MCH (27.0-31.0) pg MCHC (32.0-36.0) g/dL RDW (12.0-15.0) % Plt Count (130-450) 10^3/uL Neut # (Auto) (1.5-6.6) 10^3/uL Lymph # (Auto) (1.5-3.5) 10^3/uL Catron # (Auto) (0.0-1.0) 10^3/uL Eos # (Auto) (0.0-0.7) 10^3/uL Baso # (Auto) (0.0-0.1) 10^3/uL Absolute Nucleated RBC x10^3/uL Band Neuts % (Manual) Abnorm Lymph % (Manual) Nucleated RBC % /100WBC Neutrophils # (Manual) Lymphocytes # (Manual) Monocytes # (Manual) Eosinophils # (Manual) Basophils # (Manual) Platelet Estimate (NORMAL) Platelet Morphology (NORMAL) RBC Morph Micro Appear (NORMAL) Sodium 158 H* 160 H* (135-145) mmol/L Potassium 4.6 4.7 (3.5-5.0) mmol/L Chloride 128 H* 128 H* (101-111) mmol/L Carbon Dioxide 21 22 (21-32) mmol/L Anion Gap 9.0 10.0 (6-13) BUN 68 H 70 H (6-20) mg/dL Creatinine 1.8 H 1.8 H (0.6-1.2) mg/dL Estimated GFR (MDRD) 37 L 37 L (>89) Glucose 281 H 291 H (70-100) mg/dL Glycated Hemoglobin (4.6-6.2) % Estim Average Glucose (70-100) Calcium 8.2 L 8.1 L (8.5-10.3) mg/dL Phosphorus 4.1 (2.5-4.6) mg/dL Magnesium 3.1 H (1.7-2.8) mg/dL Total Bilirubin 0.3 (0.2-1.0) mg/dL AST 18 (10-42) IU/L ALT 15 (10-60) IU/L Alkaline Phosphatase 60 (42-121) IU/L Total Protein 6.2 L (6.7-8.2) g/dL Albumin 2.4 L (3.2-5.5) g/dL Globulin 3.8 (2.1-4.2) g/dL Albumin/Globulin Ratio 0.6 L (1.0-2.2) Prealbumin 19 (18-45) mg/dL 11/01/18 10/31/18 10/31/18 Range/Units 04:45 21:05 18:29 WBC 11.6 H (4.8-10.8) x10^3/uL RBC 3.36 L (4.70-6.10) 10^6/uL Hgb 8.1 L (14.0-18.0) g/dL Hct 30.1 L (42.0-52.0) % MCV 89.6 (80.0-94.0) fL MCH 24.1 L (27.0-31.0) pg MCHC 26.9 L (32.0-36.0) g/dL RDW 20.1 H (12.0-15.0) % Plt Count 131 (130-450) 10^3/uL Neut # (Auto) 10.7 H (1.5-6.6) 10^3/uL Lymph # (Auto) 0.6 L (1.5-3.5) 10^3/uL Catron # (Auto) 0.3 (0.0-1.0) 10^3/uL Eos # (Auto) 0.0 (0.0-0.7) 10^3/uL Baso # (Auto) 0.0 (0.0-0.1) 10^3/uL Absolute Nucleated RBC 0.00 x10^3/uL Band Neuts % (Manual) Not Reportable Abnorm Lymph % (Manual) Not Reportable Nucleated RBC % 0.0 /100WBC Neutrophils # (Manual) Not Reportable Lymphocytes # (Manual) Not Reportable Monocytes # (Manual) Not Reportable Eosinophils # (Manual) Not Reportable Basophils # (Manual) Not Reportable Platelet Estimate DECREASED (<130,000) (NORMAL) Platelet Morphology NORMAL APPEARANCE (NORMAL) RBC Morph Micro Appear 1+ HYPOCHROMASIA (NORMAL) Sodium 160 H* 158 H* (135-145) mmol/L Potassium 5.0 5.2 H (3.5-5.0) mmol/L Chloride 129 H* 128 H* (101-111) mmol/L Carbon Dioxide 22 21 (21-32) mmol/L Anion Gap 9.0 9.0 (6-13) BUN 70 H 70 H (6-20) mg/dL Creatinine 2.0 H 2.0 H (0.6-1.2) mg/dL Estimated GFR (MDRD) 32 L 32 L (>89) Glucose 480 H 496 H (70-100) mg/dL Glycated Hemoglobin (4.6-6.2) % Estim Average Glucose (70-100) Calcium 8.3 L 8.3 L (8.5-10.3) mg/dL Phosphorus (2.5-4.6) mg/dL Magnesium (1.7-2.8) mg/dL Total Bilirubin (0.2-1.0) mg/dL AST (10-42) IU/L ALT (10-60) IU/L Alkaline Phosphatase (42-121) IU/L Total Protein (6.7-8.2) g/dL Albumin (3.2-5.5) g/dL Globulin (2.1-4.2) g/dL Albumin/Globulin Ratio (1.0-2.2) Prealbumin (18-45) mg/dL 10/31/18 10/30/18 Range/Units 15:35 00:30 WBC (4.8-10.8) x10^3/uL RBC (4.70-6.10) 10^6/uL Hgb (14.0-18.0) g/dL Hct (42.0-52.0) % MCV (80.0-94.0) fL MCH (27.0-31.0) pg MCHC (32.0-36.0) g/dL RDW (12.0-15.0) % Plt Count (130-450) 10^3/uL Neut # (Auto) (1.5-6.6) 10^3/uL Lymph # (Auto) (1.5-3.5) 10^3/uL Catron # (Auto) (0.0-1.0) 10^3/uL Eos # (Auto) (0.0-0.7) 10^3/uL Baso # (Auto) (0.0-0.1) 10^3/uL Absolute Nucleated RBC x10^3/uL Band Neuts % (Manual) Abnorm Lymph % (Manual) Nucleated RBC % /100WBC Neutrophils # (Manual) Lymphocytes # (Manual) Monocytes # (Manual) Eosinophils # (Manual) Basophils # (Manual) Platelet Estimate (NORMAL) Platelet Morphology (NORMAL) RBC Morph Micro Appear (NORMAL) Sodium 160 H* (135-145) mmol/L Potassium 5.3 H (3.5-5.0) mmol/L Chloride 129 H* (101-111) mmol/L Carbon Dioxide 21 (21-32) mmol/L Anion Gap 10.0 (6-13) BUN 71 H (6-20) mg/dL Creatinine 2.0 H (0.6-1.2) mg/dL Estimated GFR (MDRD) 32 L (>89) Glucose 503 H* (70-100) mg/dL Glycated Hemoglobin 7.1 H (4.6-6.2) % Estim Average Glucose 157 H (70-100) Calcium 8.1 L (8.5-10.3) mg/dL Phosphorus (2.5-4.6) mg/dL Magnesium (1.7-2.8) mg/dL Total Bilirubin (0.2-1.0) mg/dL AST (10-42) IU/L ALT (10-60) IU/L Alkaline Phosphatase (42-121) IU/L Total Protein (6.7-8.2) g/dL Albumin (3.2-5.5) g/dL Globulin (2.1-4.2) g/dL Albumin/Globulin Ratio (1.0-2.2) Prealbumin (18-45) mg/dL Sepsis Event Note (H) - Evaluation Current Stage of Sepsis: Sepsis Possible source of Sepsis: positive: Pulmonary, Implantable device Confirmed Source and Organism (if known) of Sepsis: MRSA - Sepsis Criteria Sepsis Criteria: Recorded Temperature greater than 38.3C or Less than 36C, Recorded Heart Rate greater than 90 bpm, Recorded Respiratory Rate greater than 20, Respiratory: Increasing oxygen requirements, WBC count greater than 12,000 or less than 4000, DISBURSING AGENT: altered consciousness (unrelated to primary neuro pathology) Assessment/Plan - Problem List (1) Sepsis Impression: 78-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 On tube feeds. Just finished dialysi s 2 weeks ago after a long admission for sepsis and pneumonia. He meets sepsis criteria with his fever, tachycardia, tachypnea, and hypoxia. Suspect that the source is like pneumonia given the secretions and mucous plug that was suctioned. His chest x-ray is not that impressive but suspect that pneumonia is the cause of the sepsis. His urinalysis is unremarkable. Blood cultures positive for methicillin-resistant staph aureus by very G nucleic acid test. Gram- positive cocci in clusters on the Gram stain. This is on 3 out of 4 bottles. Line site with small amount of yellow discharge at skin insertion. no fluctuence, redness. Sputum culture with gram stains indicating white cells, squamous cells, gram-positive cocci, gram-negative bacilli, gram-positive bacilli. - Will continue Vancomycin, Cefepime IV for broad spectrum coverage, Day #2 - Will add Flagyl IV given concern for aspiration - Will administer another litre of LR - I thought about de-escalating his antibiotics to only vancomycin. But will remain on broad-spectrum. -We will consult general surgery to remove his Velez catheter since he may have infected line -Repeat blood cultures once line is removed (2) Bacteremia with MRSA Most likely from Velez. Remove it. Repeat blood cultures. Plan for up to 10-14 days of abx AFTER repeat blood cultures are negative. Will have to time PICC placement correctly after repeat blood cultures negative. ECHO (3) Pneumonia Conclusion/Plan: There is concern for pneumonia despite his x-ray not being that impressive. He has rhonci with a large amount of secretions. Given his recent PEG tube exchange, aspiration is also a concern as a cause of his pneumonia. He is currently requiring 2L of oxygen via simple mask with saturations in the high 90's. Pneumonia Severity Index score is 199 which puts him at class V with a mortality risk of 27%. - Continue Vancomycin, Cefepime, Flagyl IV - Follow up respiratory cultures, in process - Supplemental oxygen as needed, will consider BiPAP if he declines from respiratory stand point and will discuss mechanical ventilation with the daughter - The ultimate concern is that with his prior stroke, he will continue to have difficulty controlling his secretions and will be at risk for pneumonia and respiratory failure as such I will stop tube feeds today until new JG tube can be placed. (4) Encephalopathy improved. Conclusion/Plan: Suspect that this multifactorial secondary to the sepsis, electrolyte derangements, and hypoxia. 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 Starting yesterday afternoon his eyes have been open. He tracks you when you speak to him. Closes his eyes and pleasure when you struck his head. But he is not answering yes or no even with a simple shake of the head. - Treat underlying sepsis - Correct hypernatremia at appropriate to prevent cerebral edema - IV hydration - Oxygen as needed - Avoid medications that may promote delirium (5) Hypernatremia improved but not resolved Conclusion/Plan: This is likely secondary to the decreased free water pushes he was receiving. Sodium is 170 on admission and had improved to 168 after 1L of NS. Free water de ficit is 5.8L. Given one litre of LR given that he is septic then he received D5/0.45 for another liter and then changed to D5 after Na still not low enough. Now Na is 158 today -change back to 0.45 since glucose very elevated. - getting water flushes in G tube (6) Acute renal insufficiency improving Conclusion/Plan: He was hospitalized earlier this year for aspiration pneumonia which was complicated by acute kidney injury requiring hemodialysis. He was on dialysis up until two weeks ago. Unclear what his new baseline creatinine is but it was 2.3 on admission and improved to 2.1 after hydration. Suspect he currently has acute kidney injury which is likely pre-renal in nature given his decreased intake, hypernatremia, and sepsis. Creat 2.3>2.1>2.0>.1.8 this am. - IV hydration - Continue to monitor renal function and urine output. (7) COPD (chronic obstructive pulmonary disease) Conclusion/Plan: He has a history of COPD for which he does not require oxygen and is only on Albuterol PRN. There was initial concern in the ER for COPD exacerbation given his respiratory status and initial wheezing on exam.Admitting MD did not appreciate wheezing on exam but he did receive steroids and a nebulizer treatment. - Will continue antibiotics for the pneumonia - Started on Solumedrol 40mg every 12 hours, since glucose high and he is responding to IVF and abx, will stop steroids. - Monitor respiratory status Qualifiers: COPD type: unspecified COPD Qualified Code(s): J44.9 - Chronic obstructive pulmonary disease, unspecified (8) Gastrostomy tube dysfunction Conclusion/Plan: He recently had a dislodged GJ tube that was replaced by a G tube. It is currently seeping occasional bilious fluid from the site. His abdomen is distended with hypoactive bowel sounds. KUB 10/31 showed Paucity of small bowel gas. Normal caliber colon loops. No air-fluid levels. Elevation right hemidiaphragm. Absence of lung bases indicate mild fluid overload or CHF. Tube feeds resumed 10/31 but he has high residuals and abd more distended this am. -stop tube feeds since he may aspirate more. -General Surgery consult ordered to replace his G tube to the original JG tube. Scheduled for 11/11. (9) Cerebrovascular accident (CVA) Conclusion/Plan: He has a history of stroke in 2016 resulting in left sided hemiparesis and dysphagia requiring PEG tube placement. On Aspirin and statin. 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 Presented hyperglycemic with blood glucose of 286. With steroids and hypernatremia, he has peaked at 503. He was also on D5 to control the hypernatremia. D5 has been stopped. Lantus was been resumed. Every 6h short acting insulin short acting started. 281 this morning. 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 Currently normotensive at 141-144 systolic this am. - Hold home medications in setting of sepsis, restart when clinically appropriate Qualifiers: Hypertension type: essential hypertension Qualified Code(s): I10 - Essential (primary) hypertension
--- NOTE | 2018-11-01 11:51 | PROVIDER PROGRESS NOTE ---
Subjective - Prog Note Date Prog Note Date: 11/01/18 Prog Note Time: 11:47 - Subjective Pt reports feeling: No change (pt is non communicative) Objective - Vital Signs/Intake & Output Reviewed Vital Signs: Yes Vital Signs: Vital Signs x48h Temp Pulse Pulse Resp BP Pulse Ox 11/01/18 11:19 70 18 11/01/18 11:00 72 22 141/53 H 98 11/01/18 10:00 69 21 111/53 L 99 11/01/18 09:00 80 22 144/59 H 98 11/01/18 08:00 36.4 C L 76 24 145/56 H 98 11/01/18 07:20 72 22 11/01/18 07:00 36.6 C 76 22 149/61 H 99 11/01/18 06:00 65 21 110/45 L 96 11/01/18 05:00 67 21 130/48 L 98 11/01/18 04:00 36.7 C 78 23 133/53 H 100 Intake & Output: Intake & Output 10/29/18 10/30/18 10/31/18 11/01/18 23:59 23:59 23:59 23:59 Intake Total 5332.000 2340 Output Total 750 715 Balance 4582.000 1625 - Objective General Appearance: positive: Lethargic Neck: positive: Other (Velez type of tunneled CVP catheter with no erythema or fluctuance but a small amount of purulent d/c can be expressed from the catheter exit site with compression of the catheter tract.) Respiratory: positive: Chest non-tender, No respiratory distress, Breath sounds nml (anteriorly) Cardiovascular: positive: Regular rate & rhythm, No murmur, No gallop Abdomen: positive: Non-tender, No organomegaly, No distention, Other (g tube in LUQ with tube feedings ongoing; nurses report high residual volumes with feeding.). negative: Guarding, Rebound, Hepatomegaly, Splenomegaly, Mass Extremities: negative: Calf tenderness - Lab Results Fish Bones: 11/01/18 04:45 11/01/18 08:54 Other Labs: Lab Results x24hrs 11/01/18 11/01/18 11/01/18 Range/Units 08:54 04:45 04:45 WBC (4.8-10.8) x10^3/uL RBC (4.70-6.10) 10^6/uL Hgb (14.0-18.0) g/dL Hct (42.0-52.0) % MCV (80.0-94.0) fL MCH (27.0-31.0) pg MCHC (32.0-36.0) g/dL RDW (12.0-15.0) % Plt Count (130-450) 10^3/uL Neut # (Auto) (1.5-6.6) 10^3/uL Lymph # (Auto) (1.5-3.5) 10^3/uL Geary # (Auto) (0.0-1.0) 10^3/uL Eos # (Auto) (0.0-0.7) 10^3/uL Baso # (Auto) (0.0-0.1) 10^3/uL Absolute Nucleated RBC x10^3/uL Band Neuts % (Manual) Abnorm Lymph % (Manual) Nucleated RBC % /100WBC Neutrophils # (Manual) Lymphocytes # (Manual) Monocytes # (Manual) Eosinophils # (Manual) Basophils # (Manual) Platelet Estimate (NORMAL) Platelet Morphology (NORMAL) RBC Morph Micro Appear (NORMAL) Sodium 158 H* 160 H* (135-145) mmol/L Potassium 4.6 4.7 (3.5-5.0) mmol/L Chloride 128 H* 128 H* (101-111) mmol/L Carbon Dioxide 21 22 (21-32) mmol/L Anion Gap 9.0 10.0 (6-13) BUN 68 H 70 H (6-20) mg/dL Creatinine 1.8 H 1.8 H (0.6-1.2) mg/dL Estimated GFR (MDRD) 37 L 37 L (>89) Glucose 281 H 291 H (70-100) mg/dL Glycated Hemoglobin (4.6-6.2) % Estim Average Glucose (70-100) Calcium 8.2 L 8.1 L (8.5-10.3) mg/dL Phosphorus 4.1 (2.5-4.6) mg/dL Magnesium 3.1 H (1.7-2.8) mg/dL Total Bilirubin 0.3 (0.2-1.0) mg/dL AST 18 (10-42) IU/L ALT 15 (10-60) IU/L Alkaline Phosphatase 60 (42-121) IU/L Total Protein 6.2 L (6.7-8.2) g/dL Albumin 2.4 L (3.2-5.5) g/dL Globulin 3.8 (2.1-4.2) g/dL Albumin/Globulin Ratio 0.6 L (1.0-2.2) Prealbumin 19 (18-45) mg/dL 11/01/18 10/31/18 10/31/18 Range/Units 04:45 21:05 18:29 WBC 11.6 H (4.8-10.8) x10^3/uL RBC 3.36 L (4.70-6.10) 10^6/uL Hgb 8.1 L (14.0-18.0) g/dL Hct 30.1 L (42.0-52.0) % MCV 89.6 (80.0-94.0) fL MCH 24.1 L (27.0-31.0) pg MCHC 26.9 L (32.0-36.0) g/dL RDW 20.1 H (12.0-15.0) % Plt Count 131 (130-450) 10^3/uL Neut # (Auto) 10.7 H (1.5-6.6) 10^3/uL Lymph # (Auto) 0.6 L (1.5-3.5) 10^3/uL Geary # (Auto) 0.3 (0.0-1.0) 10^3/uL Eos # (Auto) 0.0 (0.0-0.7) 10^3/uL Baso # (Auto) 0.0 (0.0-0.1) 10^3/uL Absolute Nucleated RBC 0.00 x10^3/uL Band Neuts % (Manual) Not Reportable Abnorm Lymph % (Manual) Not Reportable Nucleated RBC % 0.0 /100WBC Neutrophils # (Manual) Not Reportable Lymphocytes # (Manual) Not Reportable Monocytes # (Manual) Not Reportable Eosinophils # (Manual) Not Reportable Basophils # (Manual) Not Reportable Platelet Estimate DECREASED (<130,000) (NORMAL) Platelet Morphology NORMAL APPEARANCE (NORMAL) RBC Morph Micro Appear 1+ HYPOCHROMASIA (NORMAL) Sodium 160 H* 158 H* (135-145) mmol/L Potassium 5.0 5.2 H (3.5-5.0) mmol/L Chloride 129 H* 128 H* (101-111) mmol/L Carbon Dioxide 22 21 (21-32) mmol/L Anion Gap 9.0 9.0 (6-13) BUN 70 H 70 H (6-20) mg/dL Creatinine 2.0 H 2.0 H (0.6-1.2) mg/dL Estimated GFR (MDRD) 32 L 32 L (>89) Glucose 480 H 496 H (70-100) mg/dL Glycated Hemoglobin (4.6-6.2) % Estim Average Glucose (70-100) Calcium 8.3 L 8.3 L (8.5-10.3) mg/dL Phosphorus (2.5-4.6) mg/dL Magnesium (1.7-2.8) mg/dL Total Bilirubin (0.2-1.0) mg/dL AST (10-42) IU/L ALT (10-60) IU/L Alkaline Phosphatase (42-121) IU/L Total Protein (6.7-8.2) g/dL Albumin (3.2-5.5) g/dL Globulin (2.1-4.2) g/dL Albumin/Globulin Ratio (1.0-2.2) Prealbumin (18-45) mg/dL 10/31/18 10/30/18 Range/Units 15:35 00:30 WBC (4.8-10.8) x10^3/uL RBC (4.70-6.10) 10^6/uL Hgb (14.0-18.0) g/dL Hct (42.0-52.0) % MCV (80.0-94.0) fL MCH (27.0-31.0) pg MCHC (32.0-36.0) g/dL RDW (12.0-15.0) % Plt Count (130-450) 10^3/uL Neut # (Auto) (1.5-6.6) 10^3/uL Lymph # (Auto) (1.5-3.5) 10^3/uL Geary # (Auto) (0.0-1.0) 10^3/uL Eos # (Auto) (0.0-0.7) 10^3/uL Baso # (Auto) (0.0-0.1) 10^3/uL Absolute Nucleated RBC x10^3/uL Band Neuts % (Manual) Abnorm Lymph % (Manual) Nucleated RBC % /100WBC Neutrophils # (Manual) Lymphocytes # (Manual) Monocytes # (Manual) Eosinophils # (Manual) Basophils # (Manual) Platelet Estimate (NORMAL) Platelet Morphology (NORMAL) RBC Morph Micro Appear (NORMAL) Sodium 160 H* (135-145) mmol/L Potassium 5.3 H (3.5-5.0) mmol/L Chloride 129 H* (101-111) mmol/L Carbon Dioxide 21 (21-32) mmol/L Anion Gap 10.0 (6-13) BUN 71 H (6-20) mg/dL Creatinine 2.0 H (0.6-1.2) mg/dL Estimated GFR (MDRD) 32 L (>89) Glucose 503 H* (70-100) mg/dL Glycated Hemoglobin 7.1 H (4.6-6.2) % Estim Average Glucose 157 H (70-100) Calcium 8.1 L (8.5-10.3) mg/dL Phosphorus (2.5-4.6) mg/dL Magnesium (1.7-2.8) mg/dL Total Bilirubin (0.2-1.0) mg/dL AST (10-42) IU/L ALT (10-60) IU/L Alkaline Phosphatase (42-121) IU/L Total Protein (6.7-8.2) g/dL Albumin (3.2-5.5) g/dL Globulin (2.1-4.2) g/dL Albumin/Globulin Ratio (1.0-2.2) Prealbumin (18-45) mg/dL Blood C&S + MRSA x 2 Imp: 1. MRSA bacteremia, likely due to hemodialysis port, no longer being used. 2. Aspiration pneumonia, improving, likely due to gastric tube feeding and gastroparesis Rec: remove port; will schedule for later today under local anesthesia stop gastric tube feedings replace G-J tube when replacement tube is available, then resume J tube feedings ABX Reporting Has patient been on IV antibiotics over the past 48 hours?: Yes Sepsis Event Note (H) - Evaluation Current Stage of Sepsis: Sepsis Possible source of Sepsis: positive: Pulmonary, CLABSI, Implantable device (hemodialysis port) Confirmed Source and Organism (if known) of Sepsis: MRSA blood stream infection likely from infected hemodialysis port - Sepsis Criteria Sepsis Criteria: Recorded Temperature greater than 38.3C or Less than 36C, Recorded Heart Rate greater than 90 bpm, Recorded Respiratory Rate greater than 20, Respiratory: Increasing oxygen requirements, WBC count greater than 12,000 or less than 4000, [employer]: altered consciousness (unrelated to primary neuro pathology)
[2018-11-01] MEDS ORDERED: LIDOCAINE 1%-EPI 1:100000 20 ML MDV SUBQ ONE ×2 (13:45)
--- NOTE | 2018-11-01 14:59 | ANESTHESIA ---
Pre-Anesthesia VS, & Labs - Diagnosis Diagnosis Aspiration pneumonitis and sepsis. Likely related to gastric tube feednings and loss of G- J tube. - Procedure pull rodas catheter Vital Signs: Temp Pulse Resp BP Pulse Ox 37 C 89 27 H 121/51 L 99 11/01/18 12:00 11/01/18 14:00 11/01/18 14:00 11/01/18 14:00 11/01/18 14:00 Height 5 ft 5 in Weight (kg) 78 kg Body Mass Index 28.0 - NPO Other (5 hrs at 10 am) - Lab Results Current Lab Results: Laboratory Tests 11/01/18 08:54: Sodium 158 H*, Potassium 4.6, Chloride 128 H*, Carbon Dioxide 21, Anion Gap 9.0, BUN 68 H, Creatinine 1.8 H, Estimated GFR (MDRD) 37 L, Gl ucose 281 H, Calcium 8.2 L 11/01/18 04:45: Sodium 160 H*, Potassium 4.7, Chloride 128 H*, Carbon Dioxide 22, Anion Gap 10.0, BUN 70 H, Creatinine 1.8 H, Estimated GFR (MDRD) 37 L, Glucose 291 H, Calcium 8.1 L, Total Bilirubin 0.3, AST 18, ALT 15, Alkaline Phosphatase 60, Total Protein 6.2 L, Albumin 2.4 L, Globulin 3.8, Albumin/Globulin Ratio 0.6 L, Prealbumin 19 11/01/18 04:45: Phosphorus 4.1, Magnesium 3.1 H 11/01/18 04:45: WBC 11.6 H, RBC 3.36 L, Hgb 8.1 L, Hct 30.1 L, MCV 89.6, MCH 24.1 L, MCHC 26.9 L, RDW 20.1 H, Plt Count 131, Neut # (Auto) 10.7 H, Lymph # (Auto) 0.6 L, Boyle # (Auto) 0.3, Eos # (Auto) 0.0, Baso # (Auto) 0.0, Absolute Nucleated RBC 0.00, Band Neuts % (Manual) Not Reportable, Abnorm Lymph % (Manual) Not Reportable, Nucleated RBC % 0.0, Neutrophils # (Manual) Not Reportable, Lymphocytes # (Manual) Not Reportable, Monocytes # (Manual) Not Reportable, Eosinophils # (Manual) Not Reportable, Basophils # (Manual) Not Reportable, Platelet Estimate DECREASED (<130,000), Platelet Morphology NORMAL APPEARANCE, RBC Morph Micro Appear 1+ HYPOCHROMASIA 10/31/18 21:05: Sodium 160 H*, Potassium 5.0, Chloride 129 H*, Carbon Dioxide 22, Anion Gap 9.0, BUN 70 H, Creatinine 2.0 H, Estimated GFR (MDRD) 32 L, Glucose 480 H, Calcium 8.3 L 10/31/18 18:29: Sodium 158 H*, Potassium 5.2 H, Chloride 128 H*, Carbon Dioxide 21, Anion Gap 9.0, BUN 70 H, Creatinine 2.0 H, Estimated GFR (MDRD) 32 L, Glucose 496 H, Calcium 8.3 L 10/31/18 15:35: Sodium 160 H*, Potassium 5.3 H, Chloride 129 H*, Carbon Dioxide 21, Anion Gap 10.0, BUN 71 H, Creatinine 2.0 H, Estimated GFR (MDRD) 32 L, Gluc ose 503 H*, Calcium 8.1 L 10/31/18 09:50: Sodium 166 H*, Potassium 5.5 H, Chloride 135 H*, Carbon Dioxide 22, Anion Gap 9.0, BUN 73 H, Creatinine 2.0 H, Estimated GFR (MDRD) 32 L, Glucose 321 H, Calcium 8.3 L 10/31/18 05:40: Sodium 169 H*, Potassium 5.6 H, Chloride 135 H*, Carbon Dioxide 23, Anion Gap 11.0, BUN 75 H, Creatinine 2.2 H, Estimated GFR (MDRD) 29 L, Glucose 267 H, Calcium 8.2 L, Phosphorus 4.3, Magnesium 3.1 H 10/31/18 05:40: WBC 10.8, RBC 3.87 L, Hgb 9.3 L, Hct 35.7 L, MCV 92.2, MCH 24.0 L, MCHC 26.1 L, RDW 21.0 H, Plt Count 136, Neut # (Auto) Not Reportable, Lymph # (Auto) Not Reportable, Boyle # (Auto) Not Reportable, Eos # (Auto) Not Reportable, Baso # (Auto) Not Reportable, Absolute Nucleated RBC Not Reportable, Total Counted 100, Band Neuts % (Manual) 4, Abnorm Lymph % (Manual) 0, Nucleated RBC % Not Reportable, Neutrophils # (Manual) 10.5 H, Lymphocytes # (Manual) 0.3 L, Monocytes # (Manual) 0.0, Eosinophils # (Manual) 0.0, Basophils # (Manual) 0.0, Differential Comment MANUAL DIFFERENTIAL, Platelet Estimate NORMAL (130- 450,000), RBC Morph Micro Appear 1+ OVALOCYTES 10/31/18 01:40: Sodium 168 H*, Potassium 5.0, Chloride 136 H*, Carbon Dioxide 24, Anion Gap 8.0, BUN 74 H, Creatinine 2.1 H, Estimated GFR (MDRD) 31 L, Glucose 192 H, Calcium 8.2 L 10/31/18 00:30: B-Natriuretic Peptide 115 H 10/30/18 23:59: Lactic Acid 1.5 10/30/18 23:59: Sodium 170 H*, Potassium 5.1 H, Chloride 132 H*, Carbon Dioxide 26, Anion Gap 12.0, BUN 78 H, Creatinine 2.3 H, Estimated GFR (MDRD) 28 L, Glucose 286 H, Calcium 9.0, Magnesium 3.4 H, Total Bilirubin 0.4, AST 23, ALT 20, Alkaline Phosphatase 77, Total Protein 7.0, Albumin 2.8 L, Globulin 4.2, Albumin/Globulin Ratio 0.7 L, Lipase 40 10/30/18 23:59: WBC 13.4 H, RBC 4.47 L, Hgb 10.9 L, Hct 40.9 L, MCV 91.5, MCH 24.4 L, MCHC 26.7 L, RDW 21.0 H, Plt Count 164, MPV 13.8 H, Neut # (Auto) 9.9 H, Lymph # (Auto) 2.0, Boyle # (Auto) 1.0, Eos # (Auto) 0.4, Baso # (Auto) 0.1, Absolute Nucleated RBC 0.00, Nucleated RBC % 0.0, Manual Slide Review Indicated, Platelet Estimate NORMAL (130-450,000), RBC Morph Micro Appear 1+ OVALOCYTES 10/30/18 00:30: Glycated Hemoglobin 7.1 H, Estim Average Glucose 157 H Fish Bones: 11/01/18 04:45 11/01/18 08:54 Home Medications and Allergies Home Medications: Ambulatory Orders Apixaban [Eliquis] 2.5 mg JT BID 10/31/18 Gabapentin 100 mg JT QPM 10/31/18 Metoclopramide HCl 5 mg PO QID PRN 10/31/18 Omeprazole 20 mg JT DAILY 10/31/18 Active Medications Albuterol/Ipratropium (Duoneb) 3 ml INH Q4H [facility] Last Admin: 11/01/18 11:17 Dose: 3 ml Heparin Sodium (Porcine) () 5,000 unit SUBQ BID [facility] Last Admin: 11/01/18 08:21 Dose: 5,000 unit Cefepime HCl 2 gm/ Sodium (Chloride) 100 mls @ 200 mls/hr IV Q24H [facility] Last Infusion: 11/01/18 09:00 Dose: Infused Metronidazole (Flagyl 500 Mg/100 Ml) 500 mg in 100 mls @ 100 mls/hr IV Q8H [facility] Last Admin: 11/01/18 12:26 Dose: 100 mls/hr Vancomycin HCl 1 gm/ Sodium (Chloride) 250 mls @ 167 mls/hr IV Q24H [facility] Last Admin: 11/01/18 02:01 Dose: 167 mls/hr Sodium Chloride (Normal Saline 0.45%) 1,000 mls @ 125 mls/hr IV .Q8H [facility] Last Admin: 11/01/18 08:19 Dose: 125 mls/hr Insulin Glargine (Lantus Solostar) 10 unit SUBQ QDBREAKFAST [facility] Last Admin: 11/01/18 08:23 Dose: 10 unit Insulin Glargine (Lantus Solostar) 10 unit SUBQ QPM [facility] Last Admin: 10/31/18 21:38 Dose: 10 unit Insulin Human Regular (Novolin R) 1 - 9 unit SUBQ Q6HR [facility]; Protocol Last Admin: 11/01/18 12:26 Dose: 5 unit Metoclopramide HCl (Reglan Inj) 5 mg IVP Q8HR [facility] Last Admin: 11/01/18 06:17 Dose: 5 mg Pantoprazole Sodium (Protonix) 40 mg IVP QDAC [facility] Last Admin: 11/01/18 06:18 Dose: 40 mg Sodium Chloride (Normal Saline Flush 0.9%) 10 ml IVP 0100,0900,1700 [facility] Last Admin: 11/01/18 08:21 Dose: 10 ml Sodium Chloride (Normal Saline Flush 0.9%) 10 ml IVP PRN PRN PRN Reason: NEEDED PER PROVIDER ORDERS Last Admin: 10/31/18 06:26 Dose: 10 ml Aspirin 81 mg NG DAILY 08/01/17 Atorvastatin Calcium 40 mg NG DAILY 08/01/17 Metoprolol Tartrate 25 mg PEG BID 08/01/17 amLODIPine [Norvasc] 5 mg NG DAILY 08/01/17 Insulin Glargine [Lantus Solostar] 20 unit SUBQ 0800 11/19/17 Insulin Lispro [Humalog] 1 - 5 unit SUBQ ACHS PRN 11/19/17 Polyethylene Glycol 3350 [Miralax] 17 gm PEG DAILY 06/26/18 Apixaban [Eliquis] 2.5 mg JT BID 10/31/18 Gabapentin 100 mg JT QPM 10/31/18 Metoclopramide HCl 5 mg PO QID PRN 10/31/18 Omeprazole 20 mg JT DAILY 10/31/18 Allergies/Adverse Reactions: Allergies Allergy/AdvReac Type Severity Reaction Status Date / Time No Known Drug Allergies Allergy Verified 10/30/18 23:58 Anes History & Medical History - Medical History Cardiovascular: reports: Hypertension Pulmonary: reports: COPD Gastrointestinal: reports: None Urinary: reports: None Neuro: reports: CVA Musculoskeletal: reports: Hemiplegia, Gout Endocrine/Autoimmune: reports: Type 2 diabetes Blood Disorders: reports: None Skin: reports: None Smoking Status: Never smoker Other Past Medical History: ulcers, dialysis stopped 2 weeks ago (10/2018), gout, L hemiparesis - Surgical History General: Other (PEG, PEG-J tubes) Other Past Surgical History: Percutaneous tunneled central venous hemo-Dialysis catheter placement
[2018-11-01] MEDS ORDERED: LIDOCAINE 1%-EPI 1:100000 20 ML MDV ONE (15:20)
[2018-11-01 16:00] LABS: CALCIUM 8.3 mg/dL (8.5-10.3); CREATININE 1.8 mg/dL (0.6-1.2)
[2018-11-01] MEDS ORDERED: BACITRACIN OINT TOP ONE (16:24)
[2018-11-01 21:50] LABS: CREATININE 1.6 mg/dL (0.6-1.2)
[2018-11-02] MEDS: INSULIN REGULAR HUMAN 100 UNIT/1 ML 10 ML MDV SUBQ SCH ×4 (00:26→18:32)
[2018-11-02] MEDS: SODIUM CHLORIDE FLUSH 0.9% 10 ML SYRINGE IVP SCH ×3 (00:27→16:57)
[2018-11-02] MEDS: IPRATROPIUM/ALBUTEROL 3 ML NEB INH SCH ×6 (01:16→20:22)
[2018-11-02 01:49] LABS: VANCOMYCIN,TROUGH 14.6 ug/mL (10.0-20.0)
[2018-11-02] MEDS: SODIUM CHLORIDE 0.45% 1,000 ML IV SCH (02:14)
[2018-11-02] MEDS: VANCOMYCIN INJ 1 GM in SODIUM CHLORIDE 0.9% 250 ML IV SCH (02:15)
[2018-11-02] MEDS ORDERED: MUPIROCIN 2% OINT 1 GM ONE (02:42)
--- NOTE | 2018-11-02 03:08 | OPERATIVE REPORT ---
DATE OF SERVICE: 11/01/2018 Physician: Navi Marie MD TITLE OF PROCEDURE: Removal of tunneled hemodialysis venous access catheter. INDICATIONS: SUZANNE bloodstream infection, thought due to an infected hemodialysis catheter. TECHNIQUE: After informed consent, patient was taken to the operating room. His vital signs were monitored, but no sedation was used or necessary. The skin of his right neck and anterior chest wall was prepared with ChloraPrep solution and draped in the usual sterile fashion. One percent lidocaine with epinephrine was used for local infiltration anesthesia. Approximately 10 mL was used. A hemostat was used to bluntly dissect the subcutaneous tract proximal to the catheter exit site on the right anterior chest wall. A counter incision approximately a centimeter in length was made overlying the palpable cuff, approximately 5 cm proximal to the catheter exit site. The incision was carried down through subcutaneous tissues where the cuff was mobilized circumferentially bluntly. This allowed the catheter to be completely mobilized and removed, the tip of which was cut off and placed in a sterile container, and sent for Gram stain and aerobic culture. Hemostasis was achieved by continuous pressure at the internal jugular vein site, where the catheter entered the vein. This was carried out for a total of 25 minutes to provide hemostasis, following removal of this 13-[place] dual lumen hemodialysis catheter. The counter incision was loosely closed with interrupted 4-0 Monocryl subcutaneous sutures. The exit site was left open. Both sites were dressed with topical bacitracin, followed by a dry, sterile dressing. The procedure was then terminated, and patient was transferred out of the operating room in satisfactory condition. Sponge and needle counts were correct. No drains were used. Patient tolerated the procedure well. TD: 11/01/2018 20:01 [id number]
[2018-11-02] MEDS: metroNIDAZOLE 500 MG/100 ML 500 MG/100 ML BAG IV SCH ×3 (04:13→20:14)
[2018-11-02 05:23] LABS: BASOPHILS % (AUTO) 0.1 %; HGB - HEMOGLOBIN 7.7 g/dL (14.0-18.0); LYMPHOCYTES % (AUTO) 8.6 %; MEAN CORPUSCULAR HEMOGLOBIN 23.7 pg (27.0-31.0); MEAN CORPUSCULAR HGB CONC 26.6 g/dL (32.0-36.0); MEAN CORPUSCULAR VOLUME 89.2 fL (80.0-94.0); MONOCYTES % (AUTO) 4.7 %; NEUTROPHILS % (AUTO) 86.2 %; PLT - PLATELET COUNT 109 10^3/uL (130-450); RED BLOOD COUNT 3.25 10^6/uL (4.70-6.10); WHITE BLOOD COUNT 11.2 x10^3/uL (4.8-10.8)
[2018-11-02 05:39] LABS: ABNORMAL LYMPHS % (MANUAL) 0 %; BAND NEUTROPHILS % (MANUAL) 0 %
[2018-11-02 05:41] LABS: CALCIUM 7.9 mg/dL (8.5-10.3); CREATININE 1.5 mg/dL (0.6-1.2); PHOSPHORUS 4.5 mg/dL (2.5-4.6)
[2018-11-02 06:02] LABS: LYMPHOCYTES # (MANUAL) 1.6 10^3/uL (1.5-3.5); LYMPHOCYTES % (MANUAL) 14 %; MONOCYTES # (MANUAL) 0.2 10^3/uL (0.0-1.0)
[2018-11-02 06:06] LABS: PLATELET MORPHOLOGY NORMAL APPEARANCE (NORMAL)
[2018-11-02 06:07] LABS: DIFFERENTIAL COMMENT MANUAL DIFFERENTIAL; PLATELET ESTIMATE, MANUAL DECREASED (<130,000) (NORMAL)
[2018-11-02] MEDS: METOCLOPRAMIDE 10 MG/2 ML VIAL IVP SCH (06:24)
[2018-11-02] MEDS: PANTOPRAZOLE 40 MG VIAL IVP SCH (06:24)
[2018-11-02] MEDS: INSULIN GLARGINE 300 UNIT/3 ML PEN SUBQ SCH ×2 (08:21→21:09)
[2018-11-02] MEDS: CEFEPIME 2 GM in SODIUM CHLORIDE 0.9% MINIBAG 100 ML IV SCH (08:21)
--- NOTE | 2018-11-02 09:03 | PROVIDER PROGRESS NOTE ---
Subjective - Prog Note Date Prog Note Date: 11/02/18 Prog Note Time: 11:41 - Subjective Subjective: He is definitely more awake. He tracks everybody that walks in the room. The grunting is gone. He now only grunts or gestures with his hand when he wants something. Unfortunately we cannot figure out what it is he wants. He is not responding to me asking him to answer in yes or no with a nod or shake of the head. He is [place] and may be only speaks Tagalog were not sure. He is also deaf. Current Medications - Current Medications Current Medications: Active Medications Albuterol/Ipratropium (Duoneb) 3 ml INH Q4H [facility] Last Admin: 11/02/18 08:58 Dose: 3 ml Heparin Sodium (Porcine) () 5,000 unit SUBQ BID [facility] Last Admin: 11/01/18 21:16 Dose: 5,000 unit Cefepime HCl 2 gm/ Sodium (Chloride) 100 mls @ 200 mls/hr IV Q24H [facility] Last Admin: 11/02/18 08:21 Dose: 200 mls/hr Metronidazole (Flagyl 500 Mg/100 Ml) 500 mg in 100 mls @ 100 mls/hr IV Q8H [facility] Last Infusion: 11/02/18 06:28 Dose: Infused Vancomycin HCl 1 gm/ Sodium (Chloride) 250 mls @ 167 mls/hr IV Q24H [facility] Last Infusion: 11/02/18 04:07 Dose: Infused Dextrose/Sodium Chloride (D5.45ns) 1,000 mls @ 83.333 mls/hr IV .Q12H [facility] Insulin Glargine (Lantus Solostar) 10 unit SUBQ QDBREAKFAST [facility] Last Admin: 11/02/18 08:21 Dose: Not Given Insulin Glargine (Lantus Solostar) 10 unit SUBQ QPM [facility] Last Admin: 11/01/18 21:17 Dose: 10 unit Insulin Human Regular (Novolin R) 1 - 9 unit SUBQ Q6HR [facility]; Protocol Last Admin: 11/02/18 05:45 Dose: Not Given Pantoprazole Sodium (Protonix) 40 mg IVP QDAC [facility] Last Admin: 11/02/18 06:24 Dose: 40 mg Sodium Chloride (Normal Saline Flush 0.9%) 10 ml IVP 0100,0900,1700 [facility] Last Admin: 11/02/18 00:27 Dose: 10 ml Sodium Chloride (Normal Saline Flush 0.9%) 10 ml IVP PRN PRN PRN Reason: NEEDED PER PROVIDER ORDERS Last Admin: 10/31/18 06:26 Dose: 10 ml Aspirin 81 mg NG DAILY 08/01/17 Atorvastatin Calcium 40 mg NG DAILY 08/01/17 Metoprolol Tartrate 25 mg PEG BID 08/01/17 amLODIPine [Norvasc] 5 mg NG DAILY 08/01/17 Insulin Glargine [Lantus Solostar] 20 unit SUBQ 0800 11/19/17 Insulin Lispro [Humalog] 1 - 5 unit SUBQ ACHS PRN 11/19/17 Polyethylene Glycol 3350 [Miralax] 17 gm PEG DAILY 06/26/18 Apixaban [Eliquis] 2.5 mg JT BID 10/31/18 Gabapentin 100 mg JT QPM 10/31/18 Metoclopramide HCl 5 mg PO QID PRN 10/31/18 Omeprazole 20 mg JT DAILY 10/31/18 Objective - Vital Signs/Intake & Output Reviewed Vital Signs: Yes Vital Signs: Vital Signs Temp Pulse Resp BP Pulse Ox 11/02/18 08:00 36.6 C 62 26 H 119/37 L 100 11/02/18 07:00 65 23 124/42 L 100 11/02/18 06:00 66 25 H 134/49 H 100 11/02/18 05:00 65 12 134/49 H 100 Intake & Output: Intake & Output 10/30/18 10/31/18 11/01/18 11/02/18 23:59 23:59 23:59 23:59 Intake Total 5332.000 4634.583 350 Output Total 750 1451 425 Balance 4582.000 3183.583 -75 - Objective General Appearance: positive: Alert Eyes Bilateral: positive: PERRL, EOMI ENT: positive: No signs of dehydration Neck: positive: No JVD. negative: Stiff neck, Carotid bruit Respiratory: positive: Chest non-tender, Rhonchi (Much improved from yesterday to today. Still difficult for him to cough anything up. We are using suction and he does well with that.). negative: Wheezes, Rales Cardiovascular: positive: Regular rate & rhythm, Systolic murmur. negative: Gallop/S4, Friction rub Abdomen: positive: Non-tender, No organomegaly, Nml bowel sounds, No distention. negative: Guarding, Rebound Skin: positive: Warm, Dry Extremities: positive: Non-tender, Pedal edema Neurologic/Psychiatric: positive: Other (Hemiplegia, nonverbal, using his right hand to gesture but it is weak arm movement. When at rest, nursing has wrapped up towels in his hands to avoid contractures. Left hand it is not moving at all. Will rotate his head to the right and left as he follows your movement in the room. Looks at me when I speak to him but is unable to respond.) - Lab Results Fish Bones: 11/02/18 05:05 11/02/18 05:05 Other Labs: Lab Results x24hrs 11/02/18 11/02/18 11/02/18 Range/Units 05:05 05:05 01:30 WBC 11.2 H (4.8-10.8) x10^3/uL RBC 3.25 L (4.70-6.10) 10^6/uL Hgb 7.7 L (14.0-18.0) g/dL Hct 29.0 L (42.0-52.0) % MCV 89.2 (80.0-94.0) fL MCH 23.7 L (27.0-31.0) pg MCHC 26.6 L (32.0-36.0) g/dL RDW 20.0 H (12.0-15.0) % Plt Count 109 L (130-450) 10^3/uL MPV Not Reportable Neut # (Auto) Not Reportable Lymph # (Auto) Not Reportable [place] # (Auto) Not Reportable Eos # (Auto) Not Reportable Baso # (Auto) Not Reportable Absolute Nucleated RBC Not Reportable Total Counted 100 Band Neuts % (Manual) 0 (0 - 10) % Abnorm Lymph % (Manual) 0 % Nucleated RBC % Not Reportable Neutrophils # (Manual) 9.4 H (1.5-6.6) 10^3/uL Lymphocytes # (Manual) 1.6 (1.5-3.5) 10^3/uL Monocytes # (Manual) 0.2 (0.0-1.0) 10^3/uL Eosinophils # (Manual) 0.0 (0-0.7) 10^3/uL Basophils # (Manual) 0.0 (0-0.1) 10^3/uL Differential Comment MANUAL DIFFERENTIAL WBC Morphology NORMAL APPEARANCE (NORMAL) Platelet Estimate DECREASED (<130,000) (NORMAL) Platelet Morphology NORMAL APPEARANCE (NORMAL) RBC Morph Micro Appear 1+ OVALOCYTES (NORMAL) Sodium 155 H* (135-145) mmol/L Potassium 4.0 (3.5-5.0) mmol/L Chloride 124 H* (101-111) mmol/L Carbon Dioxide 20 L (21-32) mmol/L Anion Gap 11.0 (6-13) BUN 59 H (6-20) mg/dL Creatinine 1.5 H (0.6-1.2) mg/dL Estimated GFR (MDRD) 45 L (>89) Glucose 118 H (70-100) mg/dL Calcium 7.9 L (8.5-10.3) mg/dL Phosphorus 4.5 (2.5-4.6) mg/dL Magnesium 3.0 H (1.7-2.8) mg/dL Last Dose Date UNKNOWN Last Dose Time UNKNOWN Vancomycin Trough 14.6 (10.0-20.0) ug/mL 11/01/18 11/01/18 11/01/18 Range/Units 21:25 15:13 08:54 WBC (4.8-10.8) x10^3/uL RBC (4.70-6.10) 10^6/uL Hgb (14.0-18.0) g/dL Hct (42.0-52.0) % MCV (80.0-94.0) fL MCH (27.0-31.0) pg MCHC (32.0-36.0) g/dL RDW (12.0-15.0) % Plt Count (130-450) 10^3/uL MPV Neut # (Auto) Lymph # (Auto) [place] # (Auto) Eos # (Auto) Baso # (Auto) Absolute Nucleated RBC Total Counted Band Neuts % (Manual) (0 - 10) % Abnorm Lymph % (Manual) % Nucleated RBC % Neutrophils # (Manual) (1.5-6.6) 10^3/uL Lymphocytes # (Manual) (1.5-3.5) 10^3/uL Monocytes # (Manual) (0.0-1.0) 10^3/uL Eosinophils # (Manual) (0-0.7) 10^3/uL Basophils # (Manual) (0-0.1) 10^3/uL Differential Comment WBC Morphology (NORMAL) Platelet Estimate (NORMAL) Platelet Morphology (NORMAL) RBC Morph Micro Appear (NORMAL) Sodium 155 H* 158 H* 158 H* (135-145) mmol/L Potassium 4.7 4.6 4.6 (3.5-5.0) mmol/L Chloride 125 H* 127 H* 128 H* (101-111) mmol/L Carbon Dioxide 20 L 20 L 21 (21-32) mmol/L Anion Gap 10.0 11.0 9.0 (6-13) BUN 61 H 66 H 68 H (6-20) mg/dL Creatinine 1.6 H 1.8 H 1.8 H (0.6-1.2) mg/dL Estimated GFR (MDRD) 42 L 37 L 37 L (>89) Glucose 192 H 228 H 281 H (70-100) mg/dL Calcium 8.0 L 8.3 L 8.2 L (8.5-10.3) mg/dL Phosphorus (2.5-4.6) mg/dL Magnesium (1.7-2.8) mg/dL Last Dose Date Last Dose Time Vancomycin Trough (10.0-20.0) ug/mL Sepsis Event Note (H) - Evaluation Current Stage of Sepsis: Resolved Possible source of Sepsis: positive: Pulmonary, CLABSI, Implantable device (hemodialysis port) - Sepsis Criteria Sepsis Criteria: Recorded Temperature greater than 38.3C or Less than 36C, Recorded Heart Rate greater than 90 bpm, Recorded Respiratory Rate greater than 20, Respiratory: Increasing oxygen requirements, WBC count greater than 12,000 or less than 4000, OPENER TENDER: altered consciousness (unrelated to primary neuro pathology) Assessment/Plan - Problem List (1) Sepsis Impression: 78-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 On tube feeds. Just finished dialysis 2 weeks ago after a long admission for sepsis and pneumonia. He meets sepsis criteria with his fever, tachycardia, tachypnea, and hypoxia. Suspect that the source is like pneumonia given the secretions and mucous plug that was suctioned. His chest x-ray is not that impressive but suspect that pneumonia is the cause of the sepsis. His urinalysis is unremarkable. Blood cultures positive for methicillin-resistant staph aureus by very G nucleic acid test. Gram- positive cocci in clusters on the Gram stain. This is on 3 out of 4 bottles. Line site with small amount of yellow discharge at skin insertion. no fluctuence, redness. Sputum culture with gram stains indicating white cells, squamous cells, gram-positive cocci, gram-negative bacilli, gram-positive bacilli. General surgery removed line 11/01 - Will continue Vancomycin, Cefepime IV for broad spectrum coverage, Day #3 - Flagyl IV added given concern for aspiration, Day #3 - I thought about de-escalating his antibiotics 11/01 to only vancomycin. But will remain on broad-spectrum with pharmacy input. -Repeat blood cultures today now that line is removed (2) Bacteremia with MRSA Most likely from [facility]. Removed by Surgical consult 11/01 with tip sent for culture. Wound area did have pocket of purulent yellow exudate already growing GPC. Repeat blood cultures today Plan for up to 10-14 days of abx AFTER repeat blood cultures are negative. Will have to time PICC placement correctly after repeat blood cultures negative. ECHO tomorrow to verify for vegetations since no ECHO available today (3) Pneumonia Conclusion/Plan: There is concern for pneumonia despite his x-ray not being that impressive. He has rhonchi with a large amount of secretions. Given his recent PEG tube exchange, aspiration is also a concern as a cause of his pneumonia. He is currently requiring 2L of oxygen via simple mask with saturations 100% today. Stable O2 requirement this stay, not escalating. Pneumonia Severity Index score is 199 which puts him at class V with a mortality risk of 27%. Respiratory cultures have normal oropharyngeal luke. - Continue Vancomycin, Cefepime, Flagyl IV - Supplemental oxygen as needed, will consider BiPAP if he declines from respiratory stand point and will discuss mechanical ventilation with the daughter - The ultimate concern is that with his prior stroke, he will continue to have difficulty controlling his secretions and will be at risk for pneumonia and respiratory failure as such I stopped tube feeds 11/01 until new JG tube can be placed. (4) Encephalopathy improved. I don't know his baseline. Daughter says he read white board and can lip read. Not doing that now. Conclusion/Plan: Suspect that this multifactorial secondary to the sepsis, electrolyte derangements, and hypoxia. Per daughter, he has improved slightly since arrival to the ER but he is not at his baseline and his been increasingly lethargic over 24 hours TOBACCO DIPPER. Starting yesterday afternoon his eyes have been open. He tracks you when you speak to him. Closes his eyes and pleasure when you struck his head. But he is not answering yes or no even with a simple shake of the head. - Treating underlying sepsis - Correcting hypernatremia at appropriate to prevent cerebral edema - IV hydration - Oxygen as needed - Avoid medications that may promote delirium (5) Hypernatremia improved but not resolved Conclusion/Plan: This is likely secondary to the decreased free water pushes he was receiving. Sodium is 170 on admission and had improved to 168 after 1L of NS. Free water deficit is 5.8L. Given one litre of LR given that he is septic then he received D5/0.45 for another liter and then changed to D5 after Na still not low enough. Now Na is still 158 today -change to d5/0.45 today now that glucose is low. - getting water flushes in G tube (6) Acute renal insufficiency improving Conclusion/Plan: He was hospitalized earlier this year for aspiration pneumonia which was complicated by acute kidney injury requiring hemodialysis. He was on dialysis up until two weeks ago. Unclear what his new baseline creatinine is but it was 2.3 on admission and improved to 2.1 after hydration. Suspect he currently has acute kidney injury which is likely pre-renal in nature given his decreased intake, hypernatremia, and sepsis. Creat 2.3>2.1>2.0>.1.8>1.5 this am. - IV hydration - Continue to monitor renal function and urine output. (7) COPD (chronic obstructive pulmonary disease) Conclusion/Plan: He has a history of COPD for which he does not require oxygen and is only on Albuterol PRN. There was initial concern in the ER for COPD exacerbation given h is respiratory status and initial wheezing on exam.Admitting MD did not appreciate wheezing on exam but he did receive steroids and a nebulizer treatment. - Will continue antibiotics/nebs for the pneumonia - Started on Solumedrol 40mg every 12 hours, since glucose high and he is responding to IVF and abx, stopped steroids 11/01 since glucose and Na high and he had improved enough - Monitor respiratory status Qualifiers: COPD type: unspecified COPD Qualified Code(s): J44.9 - Chronic obstructive pulmonary disease, unspecified (8) Gastrostomy tube dysfunction Conclusion/Plan: He recently had a dislodged GJ tube that was replaced by a G tube. It is currently seeping occasional bilious fluid from the site. His abdomen is distended with hypoactive bowel sounds. KUB 10/31 showed Paucity of small bowel gas. Normal caliber colon loops. No air-fluid levels. Elevation right hemidiaphragm. Absence of lung bases indicate mild fluid overload or CHF. Tube feeds resumed 10/31 but he has high residuals and abd more distended and w risk of aspiration, stopped 11/01 -General Surgery consult ordered to replace his G tube to the original JG tube. Scheduled for 11/06. (9) Cerebrovascular accident (CVA) Conclusion/Plan: He has a history of stroke in 2015 resulting in left sided hemiparesis and dysphagia requiring PEG tube placement. On Aspirin and statin. 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 Presented hyperglycemic with blood glucose of 286. With steroids and hypernatremia, he has peaked at 503. He was also on D5 to control the hypernatremia. D5 has been stopped. Lantus was been resumed. Every 6h short acting insulin short acting started. Today finally low, too low now that D5 and steroids have been stopped. Will go back to D5/0.45 since his Na is still high. Hold lantus for this am. Qualifiers: Diabetes mellitus type: type 2 Diabetes mellitus [facility] insulin use: with [facility] use Diabetes mellitus complication status: with unspecified com plications (11) Hypertension Conclusion/Plan: He is on amlodipine, metoprolol, and doxazosin at home. Currently normotensive at 141-144 systolic this am. - Hold home medications in setting of sepsis, restart when clinically appropriate Qualifiers: Hypertension type: essential hypertension Qualified Code(s): I10 - Essential (primary) hypertension
[2018-11-02] MEDS: HEPARIN 5,000 UNIT/ML VIAL SUBQ SCH ×2 (09:08→21:08)
[2018-11-02] MEDS: DEXTROSE 5%-0.45% NACL 1,000 ML IV SCH ×2 (09:08→20:14)
[2018-11-02] MEDS: MUPIROCIN 2% OINT 22 GM TUBE TOP SCH ×2 (12:08→21:09)
[2018-11-03] MEDS ORDERED: ACETAMINOPHEN 1,000 MG/100 ML 100 ML IV PRN (00:02)
[2018-11-03] MEDS: INSULIN REGULAR HUMAN 100 UNIT/1 ML 10 ML MDV SUBQ SCH ×4 (00:15→18:04)
[2018-11-03] MEDS: SODIUM CHLORIDE FLUSH 0.9% 10 ML SYRINGE IVP SCH ×3 (00:16→17:56)
[2018-11-03] MEDS: VANCOMYCIN INJ 1 GM in SODIUM CHLORIDE 0.9% 250 ML IV SCH (02:09)
[2018-11-03] MEDS: metroNIDAZOLE 500 MG/100 ML 500 MG/100 ML BAG IV SCH (04:10)
[2018-11-03] MEDS: IPRATROPIUM/ALBUTEROL 3 ML NEB INH SCH ×4 (05:05→19:44)
[2018-11-03 05:58] LABS: ALBUMIN 2.4 g/dL (3.2-5.5); ALBUMIN/GLOBULIN RATIO 0.8 (1.0-2.2); BILIRUBIN,TOTAL 0.7 mg/dL (0.2-1.0); CALCIUM 8.1 mg/dL (8.5-10.3); CREATININE 1.4 mg/dL (0.6-1.2); MAGNESIUM 2.8 mg/dL (1.7-2.8); PHOSPHORUS 4.1 mg/dL (2.5-4.6); TOTAL PROTEIN 5.3 g/dL (6.7-8.2)
[2018-11-03] MEDS: PANTOPRAZOLE 40 MG VIAL IVP SCH (06:18)
--- NOTE | 2018-11-03 07:32 | PROVIDER PROGRESS NOTE ---
Subjective - Prog Note Date Prog Note Date: 11/03/18 Prog Note Time: 09:20 - Subjective Subjective: awake most of the day now. his eyes are open and tracking now all the time. I met with daughter and went over the case yesterday. Current Medications - Current Medications Current Medications: Active Medications Albuterol/Ipratropium (Duoneb) 3 ml INH RTQID [facility] Last Admin: 11/03/18 05:05 Dose: 3 ml Amlodipine Besylate (Norvasc) 5 mg PEG DAILY [facility] Last Admin: 11/03/18 09:08 Dose: 5 mg Heparin Sodium (Porcine) () 5,000 unit SUBQ BID [facility]ELIO Stop: 11/03/18 21:00 Last Admin: 11/03/18 09:19 Dose: 5,000 unit Vancomycin HCl 1 gm/ Sodium (Chloride) 250 mls @ 167 mls/hr IV Q24H [facility] Last Infusion: 11/03/18 05:26 Dose: Infused Dextrose/Sodium Chloride (D5.45ns) 1,000 mls @ 83.333 mls/hr IV .Q12H [facility] Last Admin: 11/02/18 20:14 Dose: 83.333 mls/hr Acetaminophen (Ofirmev) 100 mls @ 400 mls/hr IV Q6HR PRN PRN Reason: PAIN Last Infusion: 11/03/18 01:04 Dose: Infused Insulin Glargine (Lantus Solostar) 10 unit SUBQ QDBREAKFAST [facility] Last Admin: 11/03/18 09:20 Dose: 10 unit Insulin Glargine (Lantus Solostar) 10 unit SUBQ QPM [facility] Last Admin: 11/02/18 21:09 Dose: 10 unit Insulin Human Regular (Novolin R) 1 - 9 unit SUBQ Q6HR [facility]; Protocol Last Admin: 11/03/18 06:02 Dose: Not Given Metoprolol Tartrate (Lopressor) 25 mg PEG BID [facility] Last Admin: 11/03/18 09:09 Dose: 25 mg Mupirocin (Bactroban 2% Oint) 1 applic TOP BID [facility] Last Admin: 11/02/18 21:09 Dose: 1 ea Pantoprazole Sodium (Protonix) 40 mg IVP QDAC [facility] Last Admin: 11/03/18 06:18 Dose: 40 mg Sodium Chloride (Normal Saline Flush 0.9%) 10 ml IVP 0100,0900,1700 [facility] Last Admin: 11/03/18 09:09 Dose: 10 ml Sodium Chloride (Normal Saline Flush 0.9%) 10 ml IVP PRN PRN PRN Reason: NEEDED PER PROVIDER ORDERS Last Admin: 10/31/18 06:26 Dose: 10 ml Aspirin 81 mg NG DAILY 08/01/17 Atorvastatin Calcium 40 mg NG DAILY 08/01/17 Metoprolol Tartrate 25 mg PEG BID 08/01/17 amLODIPine [Norvasc] 5 mg NG DAILY 08/01/17 Insulin Glargine [Lantus Solostar] 20 unit SUBQ 0800 11/19/17 Insulin Lispro [Humalog] 1 - 5 unit SUBQ ACHS PRN 11/19/17 Polyethylene Glycol 3350 [Miralax] 17 gm PEG DAILY 06/26/18 Apixaban [Eliquis] 2.5 mg JT BID 10/31/18 Gabapentin 100 mg JT QPM 10/31/18 Metoclopramide HCl 5 mg PO QID PRN 10/31/18 Omeprazole 20 mg JT DAILY 10/31/18 Objective - Vital Signs/Intake & Output Reviewed Vital Signs: Yes Vital Signs: Vital Signs Temp Pulse Pulse Resp BP Pulse Ox 11/03/18 07:00 60 25 H 144/47 H 99 11/03/18 06:00 59 L 20 134/89 H 100 11/03/18 05:05 60 25 H 11/03/18 05:00 62 26 H 155/53 H 100 11/03/18 04:00 36.4 C L 65 26 H 158/58 H 98 Intake & Output: Intake & Output 10/31/18 11/01/18 11/02/18 11/03/18 23:59 23:59 23:59 23:59 Intake Total 5332.000 4634.583 1974.996 450 Output Total 750 1451 1501 460 Balance 4582.000 3183.583 473.996 -10 - Objective General Appearance: positive: Alert, Other (nonverbal, grunting to daughter yesterday in a way she understood him. he grabbed yankaur to point at nurse bc he didn't like the way she suctioned and he wanted to suction himself) Eyes Bilateral: positive: PERRL ENT: positive: Pharynx nml Neck: positive: No JVD. negative: Stiff neck, Carotid bruit Respiratory: positive: Chest non-tender, Rhonchi. negative: Wheezes, Rales Cardiovascular: positive: Regular rate & rhythm, Systolic murmur. negative: Gallop/S4, Friction rub Abdomen: positive: Non-tender, No organomegaly, Nml bowel sounds, No distention Skin: positive: Warm, Dry Extremities: positive: Full ROM, No pedal edema Neurologic/Psychiatric: positive: Other (left himeplegia, eyes open and he will track. still not answering yes or no with head) - Lab Results Fish Bones: 11/02/18 05:05 11/03/18 05:17 Other Labs: Lab Results x24hrs 11/03/18 Range/Units 05:17 Sodium 154 H (135-145) mmol/L Potassium 4.0 (3.5-5.0) mmol/L Chloride 124 H* (101-111) mmol/L Carbon Dioxide 19 L (21-32) mmol/L Anion Gap 11.0 (6-13) BUN 45 H (6-20) mg/dL Creatinine 1.4 H (0.6-1.2) mg/dL Estimated GFR (MDRD) 49 L (>89) Glucose 103 H (70-100) mg/dL Calcium 8.1 L (8.5-10.3) mg/dL Phosphorus 4.1 (2.5-4.6) mg/dL Magnesium 2.8 (1.7-2.8) mg/dL Total Bilirubin 0.7 (0.2-1.0) mg/dL AST 24 (10-42) IU/L ALT 18 (10-60) IU/L Alkaline Phosphatase 46 (42-121) IU/L Total Protein 5.3 L (6.7-8.2) g/dL Albumin 2.4 L (3.2-5.5) g/dL Globulin 2.9 (2.1-4.2) g/dL Albumin/Globulin Ratio 0.8 L (1.0-2.2) Prealbumin 19 (18-45) mg/dL Sepsis Event Note (H) - Evaluation Current Stage of Sepsis: Resolved Possible source of Sepsis: positive: Pulmonary, CLABSI, Implantable device (hemodialysis port) - Sepsis Criteria Sepsis Criteria: Recorded Temperature greater than 38.3C or Less than 36C, Recorded Heart Rate greater than 90 bpm, Recorded Respiratory Rate greater than 20, Respiratory: Increasing oxygen requirements, WBC count greater than 12,000 or less than 4000, LEATHER SPLITTER: altered consciousness (unrelated to primary neuro pathology) Assessment/Plan - Problem List (1) Sepsis Impression: Resolved. 78-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 On tube feeds. Just finished dialysis 2 weeks ago after a long admission for sepsis and pneumonia. He meets sepsis criteria with his fever, tachycardia, tachypnea, and hypoxia. Suspect that the source is like pneumonia given the secretions and mucous plug that was suctioned. His chest x-ray is not that impressive but suspect that pneumonia is the cause of the sepsis. His urinalysis is unremarkable. Blood cultures positive for methicillin-resistant staph aureus by very G nucleic acid test. Gram- positive cocci in clusters on the Gram stain. This is on 3 out of 4 bottles. Line site with small amount of yellow discharge at skin insertion. no fluctuence, redness. Sputum culture with gram stains indicating white cells, squamous cells, gram-positive cocci, gram-negative bacilli, gram-positive bacilli. General surgery removed line 11/01 - Will continue Vancomycin, Cefepime IV for broad spectrum coverage, Day #4 - Flagyl IV added given concern for aspiration, Day #4 - I thought about de-escalating his antibiotics 11/01 to only vancomycin. But remained on broad-spectrum with pharmacy input. - Will deescalate to single agent vancomycin today. -Repeated blood cultures 11/02 since Velez line is removed. In process -transfer to Med Surg status from ICU (2) Bacteremia with MRSA Most likely from Velez. Removed by Surgical consult 11/01 with tip sent for culture. Wound area did have pocket of purulent yellow exudate already growing GPC. Repeat blood cultures today Plan for up to 10-14 days of abx AFTER repeat blood cultures are negative. 11/02 blood C&S in process and pending. Will have to time PICC placement correctly after repeat blood cultures negative. ECHO today to verify for vegetations (3) Pneumonia Conclusion/Plan: There is concern for pneumonia despite his x-ray not being that impressive. He has rhonchi with a large amount of secretions. Given his recent PEG tube exchange, aspiration is also a concern as a cause of his pneumonia. He is currently requiring 2L of oxygen via simple mask with saturations 100% today. Stable O2 requirement this stay, not escalating. Pneumonia Severity Index score is 199 which puts him at class V with a mortality risk of 27%. Respiratory cultures have normal oropharyngeal luke. - Vancomycin, Cefepime, Flagyl IV given for 4 days and will stop cefepime and flagyl today. - Supplemental oxygen as needed, will consider BiPAP if he declines from respiratory stand point and will discuss mechanical ventilation with the daughter - The ultimate concern is that with his prior stroke, he will continue to have difficulty controlling his secretions and will be at risk for pneumonia and respiratory failure as such I stopped tube feeds 11/01 until new JG tube can be placed. (4) Encephalopathy improved. I don't know his baseline. Daughter says he read white board and can lip read. Not doing that now. Conclusion/Plan: Suspect that this multifactorial secondary to the sepsis, electrolyte derangements, and hypoxia. 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 Starting 11/01 afternoon his eyes have been open. He tracks you when you speak to him. Closes his eyes with pleasure when you stroke his head. But he is not answering yes or no even with a simple shake of the head. On 11/02 he was alert, grunting requests to daughter who could understand him, but I couldn't - Treating underlying sepsis - Correcting hypernatremia at appropriate to prevent cerebral edema - IV hydration - Oxygen as needed - Avoid medications that may promote delirium (5) Hypernatremia improved but not resolved Conclusion/Plan: This is likely secondary to the decreased free water pushes he was receiving. Sodium is 170 on admission and had improved to 168 after 1L of NS. Free water deficit is 5.8L. Given one litre of LR given that he is septic then he received D5/0.45 for another liter and then changed to D5 after Na still not low enough. Na 170 >168 >160 >158 >155 >154 -change to d5/0.45 11/02 now that glucose was low. - getting water flushes in G tube (6) Acute renal insufficiency improving Conclusion/Plan: He was hospitalized earlier this year for aspiration pneumonia which was complicated by acute kidney injury requiring hemodialysis. He was on dialysis up until two weeks ago. Unclear what his new baseline creatinine is but it was 2.3 on admission and improved to 2.1 after hydration. Suspect he currently has acute kidney injury which is likely pre-renal in nature given his decreased intake, hypernatremia, and sepsis. Creat 2.3>2.1>2.0>.1.8>1.5>1.4 this am. - IV hydration - Continue to monitor renal function and urine output. (7) COPD (chronic obstructive pulmonary disease) Conclusion/Plan: He has a history of COPD for which he does not require oxygen and is only on Albuterol PRN. There was initial concern in the ER for COPD exacerbation given his respiratory status and initial wheezing on exam.Admitting MD did not appreciate wheezing on exam but he did receive steroids and a nebulizer treatmen t. - Will stop antibiotics for the pneumonia since all indicators point to line sepsis. Continue nebs. - Started on Solumedrol 40mg every 12 hours, since glucose high and he is responding to IVF and abx, stopped steroids 11/01 since glucose and Na high and he had improved enough - Monitor respiratory status Qualifiers: COPD type: unspecified COPD Qualified Code(s): J44.9 - Chronic obstructive pulmonary disease, unspecified (8) Gastrostomy tube dysfunction Conclusion/Plan: He recently had a dislodged GJ tube that was replaced by a G tube. It is currently seeping occasional bilious fluid from the site. His abdomen is distended with hypoactive bowel sounds. KUB 10/31 showed Paucity of small bowel gas. Normal caliber colon loops. No air-fluid levels. Elevation right hemidiaphragm. Absence of lung bases indicate mild fluid overload or CHF. Tube feeds resumed 10/31 but he has high residuals and abd more distended and w risk of aspiration, stopped 11/01 -General Surgery consult ordered to replace his G tube to the original JG tube. Scheduled for 11/06. (9) Cerebrovascular accident (CVA) Conclusion/Plan: He has a history of stroke in 2016 resulting in left sided hemiparesis and dysphagia requiring PEG tube placement. On Aspirin and statin. 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 Presented hyperglycemic with blood glucose of 286. With steroids and hypernatremia, he has peaked at 503. He was also on D5 to control the hypernatremia. D5 has been stopped. Lantus was been resumed. Every 6h short acting insulin short acting started. On am 11/02 finally low, too low, now that D5 and steroids have been stopped. Will go back to D5/0.45 since his Na is still high. 11/02: 159, 118, 90, 104, 109, 129, 141 11/03: 154, 103 Qualifiers: Diabetes mellitus type: type 2 Diabetes mellitus fci insulin use: with fci use Diabetes mellitus complication status: with unspecified complications (11) Hypertension Conclusion/Plan: He is on amlodipine, metoprolol, and doxazosin at home. Currently normotensive b ut BP now up to 150's at times. - Home medications held in setting of sepsis, restart today. Qualifiers: Hypertension type: essential hypertension Qualified Code(s): I10 - Essential (primary) hypertension
[2018-11-03] MEDS: amLODIPine 5 MG TABLET PEG SCH (09:08)
[2018-11-03] MEDS: METOPROLOL TARTRATE 25 MG TABLET PEG SCH ×2 (09:09→21:00)
[2018-11-03] MEDS: HEPARIN 5,000 UNIT/ML VIAL SUBQ SCH ×2 (09:19→21:01)
[2018-11-03] MEDS: INSULIN GLARGINE 300 UNIT/3 ML PEN SUBQ SCH ×2 (09:20→21:02)
[2018-11-03] MEDS: MUPIROCIN 2% OINT 22 GM TUBE TOP SCH ×2 (13:11→21:03)
[2018-11-03] MEDS: DEXTROSE 5%-0.45% NACL 1,000 ML IV SCH (13:12)
[2018-11-03 16:37] LABS: VANCOMYCIN,TROUGH 25.6 ug/mL (10.0-20.0)
[2018-11-04] MEDS: INSULIN REGULAR HUMAN 100 UNIT/1 ML 10 ML MDV SUBQ SCH ×4 (00:56→18:06)
[2018-11-04] MEDS: DEXTROSE 5%-0.45% NACL 1,000 ML IV SCH ×3 (00:58→16:57)
[2018-11-04] MEDS: SODIUM CHLORIDE FLUSH 0.9% 10 ML SYRINGE IVP SCH ×3 (01:12→16:55)
[2018-11-04 01:40] LABS: VANCOMYCIN,TROUGH 22.1 ug/mL (10.0-20.0)
[2018-11-04] MEDS: VANCOMYCIN INJ 1 GM in SODIUM CHLORIDE 0.9% 250 ML IV SCH (01:49)
[2018-11-04] MEDS: PANTOPRAZOLE 40 MG VIAL IVP SCH (06:06)
[2018-11-04] MEDS: SODIUM CHLORIDE FLUSH 0.9% 10 ML SYRINGE IVP PRN (06:07)
[2018-11-04 07:08] LABS: BASOPHILS % (AUTO) 0.2 %; EOSINOPHILS # (AUTO) 0.4 10^3/uL (0.0-0.7); EOSINOPHILS % (AUTO) 5.9 %; HGB - HEMOGLOBIN 8.3 g/dL (14.0-18.0); LYMPHOCYTES % (AUTO) 15.6 %; MEAN CORPUSCULAR HEMOGLOBIN 24.2 pg (27.0-31.0); MEAN CORPUSCULAR HGB CONC 28.2 g/dL (32.0-36.0); MEAN CORPUSCULAR VOLUME 85.7 fL (80.0-94.0); MONOCYTES # (AUTO) 0.4 10^3/uL (0.0-1.0); MONOCYTES % (AUTO) 5.9 %; NEUTROPHILS # (AUTO) 4.4 10^3/uL (1.5-6.6); NEUTROPHILS % (AUTO) 71.9 %; PLT - PLATELET COUNT 117 10^3/uL (130-450); RED BLOOD COUNT 3.43 10^6/uL (4.70-6.10); RED CELL DISTRIBUTION WIDTH 19.8 % (12.0-15.0); WHITE BLOOD COUNT 6.1 x10^3/uL (4.8-10.8)
[2018-11-04 07:36] LABS: PLATELET ESTIMATE, MANUAL DECREASED (<130,000) (NORMAL); PLATELET MORPHOLOGY 1+ LARGE PLATELETS (NORMAL)
[2018-11-04 07:46] LABS: CALCIUM 8.1 mg/dL (8.5-10.3); CREATININE 1.2 mg/dL (0.6-1.2); MAGNESIUM 2.2 mg/dL (1.7-2.8); PHOSPHORUS 3.6 mg/dL (2.5-4.6)
[2018-11-04] MEDS: IPRATROPIUM/ALBUTEROL 3 ML NEB INH SCH ×4 (08:13→20:08)
[2018-11-04] MEDS: amLODIPine 5 MG TABLET PEG SCH (08:37)
[2018-11-04] MEDS: METOPROLOL TARTRATE 25 MG TABLET PEG SCH ×2 (08:38→21:01)
[2018-11-04] MEDS ORDERED: VANCOMYCIN INJ 1 GM in SODIUM CHLORIDE 0.9% 250 ML IV SCH (09:00)
[2018-11-04] MEDS ORDERED: METOPROLOL 5 MG/5 ML VIAL IVP ONE (09:00)
[2018-11-04] MEDS: INSULIN GLARGINE 300 UNIT/3 ML PEN SUBQ SCH ×2 (09:36→21:07)
[2018-11-04] MEDS: MUPIROCIN 2% OINT 22 GM TUBE TOP SCH ×2 (09:37→21:07)
--- NOTE | 2018-11-04 09:40 | PROVIDER PROGRESS NOTE ---
Assessment/Plan - Problem List (1) Dislodged gastrostomy tube Assessment/Plan: Pt appears stable enough to undergo replacement of his G-J tube via endoscopy. Discussed with radiologist who does not feel he can do procedure under flouro with equipment presently available at [facility]. plan procedure today via endoscopy. - Current Meds Current Meds: Current Medications Generic Name Dose Route Start Last Admin Trade Name Freq PRN Reason Stop Dose Admin Albuterol/Ipratropium 3 ml 11/02/18 11:00 11/04/18 08:13 Duoneb INH 3 ml RTQID EVELIO Administration Amlodipine Besylate 5 mg 11/03/18 09:00 11/04/18 08:37 Norvasc PEG Not Given DAILY EVELIO Dextrose/Sodium Chloride 1,000 mls @ 83.333 mls/hr 11/02/18 09:00 11/04/18 00:58 D5.45ns IV 83.33 mls/hr .Q12H [facility]IO Administration Acetaminophen 100 mls @ 400 mls/hr 11/03/18 00:02 11/03/18 01:04 Ofirmev IV Infused Q6HR PRN Infusion PAIN Vancomycin HCl 1 gm/ Sodium 250 mls @ 167 mls/hr 11/04/18 09:00 11/04/18 09:36 Chloride IV 167 mls/hr Q24H [facility]IO Administration Insulin Glargine 10 unit 10/31/18 08:00 11/04/18 09:36 Lantus Solostar SUBQ 10 unit QDBREAKFAST [facility]IO Administration Insulin Glargine 10 unit 10/31/18 21:00 11/03/18 21:02 Lantus Solostar SUBQ 10 unit QPM [facility]IO Administration Insulin Human Regular 1 - 9 unit 10/31/18 18:00 11/04/18 06:05 Novolin R SUBQ 1 unit Q6HR [facility]IO Administration Protocol Metoprolol Tartrate 25 mg 11/03/18 09:00 11/04/18 08:38 Lopressor PEG Not Given BID EVELIO Mupirocin 1 applic 11/02/18 10:00 11/04/18 09:37 Bactroban 2% Oint TOP 1 ea BID EVELIO Administration Pantoprazole Sodium 40 mg 10/31/18 07:00 11/04/18 06:06 Protonix IVP 40 mg QDAC EVELIO Administration Sodium Chloride 10 ml 10/31/18 09:00 11/04/18 08:38 Normal Saline Flush 0.9% IVP Not Given 0100,0900,1700 EVELIO Sodium Chloride 10 ml 10/31/18 02:35 11/04/18 06:07 Normal Saline Flush 0.9% IVP 10 ml PRN PRN Administration NEEDED PER PROVIDER ORDERS - Lab Result Lab results reviewed: Yes Fish Bone Diagrams: 11/04/18 06:54 11/04/18 06:54 - Additional Planning Condition/Complexity: Guarded Plan Discussed with:: Other (hospitalist) Time Spent: 15-30 minutes Subjective - Subjective Patient Reports: Resting Comfortably (non communicative) Objective Vital Signs: Vital Signs - 24 hr 11/03/18 11/03/18 11/03/18 11:00 11:42 14:44 Temperature Heart Rate 59 L 60 Heart Rate [ Brachial] Heart Rate [ 58 L Monitoring electrodes] Respiratory 27 H 26 H 18 Rate Blood Pressure Blood Pressure 124/93 H [Right Brachial artery] O2 Saturation 100 11/03/18 11/03/18 11/03/18 17:00 18:13 19:40 Temperature 36.7 C Heart Rate 66 Heart Rate [ Brachial] Heart Rate [ 72 Monitoring electrodes] Respiratory 24 22 Rate Blood Pressure Blood Pressure 152/50 H [Right Brachial artery] O2 Saturation 99 97 11/03/18 11/04/18 11/04/18 20:39 01:00 05:00 Temperature 36.8 C 37.1 C 36.7 C Heart Rate Heart Rate [ 70 Brachial] Heart Rate [ 81 80 Monitoring electrodes] Respiratory 20 20 30 H Rate Blood Pressure Blood Pressure 159/60 H 167/66 H 169/63 H [Right Brachial artery] O2 Saturation 94 96 100 11/04/18 11/04/18 11/04/18 08:17 08:22 09:35 Temperature 36.7 C Heart Rate 64 Heart Rate [ 72 Brachial] Heart Rate [ Monitoring electrodes] Respiratory 22 29 H Rate Blood Pressure 176/54 H Blood Pressure 176/54 H [Right Brachial artery] O2 Saturation 100 Oxygen O2 Source [Without Activity] Room air O2 Source Oxymask Oxygen Flow Rate 2.5 I&O (Last 24 Hrs): Intake and Output Totals x24h 11/02/18 11/03/18 11/04/18 23:59 23:59 23:59 Intake Total 4804.066 1930 980.516 Output Total 1501 1840 Balance 473.996 -390 980.516 General: No acute distress, Other (awake) Cardiovascular: Regular rate, No murmurs Respiratory: Chest non-tender, Rhonchi (bilat anteriorly) Abdomen: Soft, No tenderness, No hepatospenomegaly, No masses, Other (g tube in LUQ) Extremities: Other (1+ bilat pitting pedal edema) - Results Results: Laboratory Results WBC 6.1 x10^3/uL (4.8-10.8) 11/04/18 06:54 RBC 3.43 10^6/uL (4.70-6.10) L 11/04/18 06:54 Hgb 8.3 g/dL (14.0-18.0) L 11/04/18 06:54 Hct 29.4 % (42.0-52.0) L 11/04/18 06:54 MCV 85.7 fL (80.0-94.0) 11/04/18 06:54 MCH 24.2 pg (27.0-31.0) L 11/04/18 06:54 MCHC 28.2 g/dL (32.0-36.0) L 11/04/18 06:54 RDW 19.8 % (12.0-15.0) H 11/04/18 06:54 Plt Count 117 10^3/uL (130-450) L 11/04/18 06:54 MPV Not Reportable 11/02/18 05:05 Neut # (Auto) 4.4 10^3/uL (1.5-6.6) 11/04/18 06:54 Lymph # (Auto) 1.0 10^3/uL (1.5-3.5) L 11/04/18 06:54 [place] # (Auto) 0.4 10^3/uL (0.0-1.0) 11/04/18 06:54 Eos # (Auto) 0.4 10^3/uL (0.0-0.7) 11/04/18 06:54 Baso # (Auto) 0.0 10^3/uL (0.0-0.1) 11/04/18 06:54 Absolute Nucleated RBC 0.00 x10^3/uL 11/04/18 06:54 Total Counted 100 11/02/18 05:05 Band Neuts % (Manual) 0 % (0-10) 11/02/18 05:05 Abnorm Lymph % (Manual) 0 % 11/02/18 05:05 Nucleated RBC % 0.0 /100WBC 11/04/18 06:54 Neutrophils # (Manual) 9.4 10^3/uL (1.5-6.6) H 11/02/18 05:05 Lymphocytes # (Manual) 1.6 10^3/uL (1.5-3.5) 11/02/18 05:05 Monocytes # (Manual) 0.2 10^3/uL (0.0-1.0) 11/02/18 05:05 Eosinophils # (Manual) 0.0 10^3/uL (0-0.7) 11/02/18 05:05 Basophils # (Manual) 0.0 10^3/uL (0-0.1) 11/02/18 05:05 Differential Comment MANUAL DIFFERENTIAL 11/02/18 05:05 Manual Slide Review Indicated 10/30/18 23:59 WBC Morphology NORMAL APPEARANCE (NORMAL) 11/04/18 06:54 Platelet Estimate DECREASED (<130,000) (NORMAL) 11/04/18 06:54 Platelet Morphology 1+ LARGE PLATELETS (NORMAL) 11/04/18 06:54 RBC Morph Micro Appear 1+ ANISOCYTOSIS (NORMAL) 1+ HYPOCHROMASIA (NORMAL) 1+ OVALOCYTES (NORMAL) 10/31/18 05:40 RBC Morph Micro Appear 1+ ANISOCYTOSIS (NORMAL) 1+ HYPOCHROMASIA (NORMAL) 1+ OVALOCYTES (NORMAL) 10/31/18 05:40 RBC Morph Micro Appear 1+ OVALOCYTES (NORMAL) 1+ ANISOCYTOSIS (NORMAL) 1+ HYPOCHROMASIA (NORMAL) 11/01/18 04:45 RBC Morph Micro Appear 1+ OVALOCYTES (NORMAL) 1+ ANISOCYTOSIS (NORMAL) 1+ HYPOCHROMASIA (NORMAL) 11/01/18 04:45 RBC Morph Micro Appear 1+ OVALOCYTES (NORMAL) 1+ ANISOCYTOSIS (NORMAL) 1+ HYPOCHROMASIA (NORMAL) 11/01/18 04:45 RBC Morph Micro Appear 2+ HYPOCHROMASIA (NORMAL) 1+ ANISOCYTOSIS (NORMAL) 1+ OVALOCYTES (NORMAL) 11/02/18 05:05 RBC Morph Micro Appear 2+ HYPOCHROMASIA (NORMAL) 1+ ANISOCYTOSIS (NORMAL) 1+ OVALOCYTES (NORMAL) 11/02/18 05:05 RBC Morph Micro Appear 2+ HYPOCHROMASIA (NORMAL) 1+ ANISOCYTOSIS (NORMAL) 1+ OVALOCYTES (NORMAL) 11/02/18 05:05 RBC Morph Micro Appear 1+ ANISOCYTOSIS (NORMAL) 2+ HYPOCHROMASIA (NORMAL) 1+ POLYCHROMASIA (NORMAL) OVALOCYTES (NORMAL) SCHISTOCYTES (NORMAL) 11/04/18 06:54 RBC Morph Micro Appear 1+ ANISOCYTOSIS (NORMAL) 2+ HYPOCHROMASIA (NORMAL) 1+ POLYCHROMASIA (NORMAL) OVALOCYTES (NORMAL) SCHISTOCYTES (NORMAL) 11/04/18 06:54 RBC Morph Micro Appear 1+ ANISOCYTOSIS (NORMAL) 2+ HYPOCHROMASIA (NORMAL) 1+ POLYCHROMASIA (NORMAL) OVALOCYTES (NORMAL) SCHISTOCYTES (NORMAL) 11/04/18 06:54 RBC Morph Micro Appear 1+ ANISOCYTOSIS (NORMAL) 2+ HYPOCHROMASIA (NORMAL) 1+ POLYCHROMASIA (NORMAL) OVALOCYTES (NORMAL) SCHISTOCYTES (NORMAL) 11/04/18 06:54 RBC Morph Micro Appear 1+ ANISOCYTOSIS (NORMAL) 2+ HYPOCHROMASIA (NORMAL) 1+ POLYCHROMASIA (NORMAL) OVALOCYTES (NORMAL) SCHISTOCYTES (NORMAL) 11/04/18 06:54 Sodium 152 mmol/L (135-145) H 11/04/18 06:54 Potassium 3.7 mmol/L (3.5-5.0) 11/04/18 06:54 Chloride 119 mmol/L (101-111) H 11/04/18 06:54 Carbon Dioxide 22 mmol/L (21-32) 11/04/18 06:54 Anion Gap 11.0 (6-13) 11/04/18 06:54 BUN 28 mg/dL (6-20) H 11/04/18 06:54 Creatinine 1.2 mg/dL (0.6-1.2) 11/04/18 06:54 Estimated GFR (MDRD) 58 (>89) L 11/04/18 06:54 Glucose 163 mg/dL (70-100) H 11/04/18 06:54 Glycated Hemoglobin 7.1 % (4.6-6.2) H 10/30/18 00:30 Estim Average Glucose 157 (70-100) H 10/30/18 00:30 Lactic Acid 1.5 mmol/L (0.5-2.2) 10/30/18 23:59 Calcium 8.1 mg/dL (8.5-10.3) L 11/04/18 06:54 Phosphorus 3.6 mg/dL (2.5-4.6) 11/04/18 06:54 Magnesium 2.2 mg/dL (1.7-2.8) 11/04/18 06:54 Total Bilirubin 0.7 mg/dL (0.2-1.0) 11/03/18 05:17 AST 24 IU/L (10-42) 11/03/18 05:17 ALT 18 IU/L (10-60) 11/03/18 05:17 Alkaline Phosphatase 46 IU/L (42-121) 11/03/18 05:17 B-Natriuretic Peptide 115 pg/mL (5-100) H 10/31/18 00:30 Total Protein 5.3 g/dL (6.7-8.2) L 11/03/18 05:17 Albumin 2.4 g/dL (3.2-5.5) L 11/03/18 05:17 Globulin 2.9 g/dL (2.1-4.2) 11/03/18 05:17 Albumin/Globulin Ratio 0.8 (1.0-2.2) L 11/03/18 05:17 Prealbumin 19 mg/dL (18-45) 11/03/18 05:17 Lipase 40 U/L (22-51) 10/30/18 23:59 Urine Color YELLOW 10/31/18 00:40 Urine Clarity CLEAR (CLEAR) 10/31/18 00:40 Urine pH 5.5 PH (5.0-7.5) 10/31/18 00:40 Ur Specific [place] 1.020 (1.002-1.030) 10/31/18 00:40 Urine Protein 30 mg/dL (NEGATIVE) H 10/31/18 00:40 Urine Glucose (UA) NEGATIVE mg/dL (NEGATIVE) 10/31/18 00:40 Urine Ketones NEGATIVE mg/dL (NEGATIVE) 10/31/18 00:40 Urine Occult Blood NEGATIVE (NEGATIVE) 10/31/18 00:40 Urine Nitrite NEGATIVE (NEGATIVE) 10/31/18 00:40 Urine Bilirubin NEGATIVE (NEGATIVE) 10/31/18 00:40 Urine Urobilinogen 0.2 (NORMAL) E.U./dL (NORMAL) 10/31/18 00:40 Ur Leukocyte Esterase NEGATIVE (NEGATIVE) 10/31/18 00:40 Urine RBC 0-5 /HPF (0-5) 10/31/18 00:40 Urine WBC 0-3 /HPF (0-3) 10/31/18 00:40 Ur Squamous Epith Cells RARE Squamous (<= Few) 10/31/18 00:40 Urine Bacteria Rare /HPF (None Seen) 10/31/18 00:40 Urine Casts 3-5 Hyaline Casts /LPF0-2 Granular Casts /LPF 10/31/18 00:40 Urine Casts 3-5 Hyaline Casts /LPF0-2 Granular Casts /LPF 10/31/18 00:40 Ur Microscopic Review INDICATED 10/31/18 00:40 Urine Culture Comments NOT INDICATED 10/31/18 00:40 Nasal Screen MRSA (PCR) POSITIVE (NEGATIVE) A* 10/31/18 03:15 Last Dose Date UNKNOWN 11/04/18 01:25 Last Dose Time UNKNOWN 11/04/18 01:25 Vancomycin Trough 22.1 ug/mL (10.0-20.0) H 11/04/18 01:25 - Procedures Procedures: Procedures CONTROL BLEEDING IN GASTROINTESTINAL TRACT, ENDO (08/31/16) EXCISION OF DUODENUM, ENDO, DIAGN (12/28/16) EXCISION OF STOMACH, ENDO, DIAGN (12/28/16) EXCISION OF STOMACH, PYLORUS, ENDO, DIAGN (08/31/16) TRANSFUSE NONAUT RED BLOOD CELLS IN PERIPH VEIN, PERC (08/31/16) Sepsis Event Note (H) - Evaluation Current Stage of Sepsis: Resolved Possible source of Sepsis: positive: Pulmonary, CLABSI, Implantable device (hemodialysis port) - Sepsis Criteria Sepsis Criteria: Recorded Temperature greater than 38.3C or Less than 36C, Recorded Heart Rate greater than 90 bpm, Recorded Respiratory Rate greater than 20, Respiratory: Increasing oxygen requirements, WBC count greater than 12,000 or less than 4000, MANUFACTURING QUALITY ENGINEER: altered consciousness (unrelated to primary neuro pathology) ABX Reporting Has patient been on IV antibiotics over the past 48 hours?: Yes
--- NOTE | 2018-11-04 12:31 | ANESTHESIA ---
Pre-Anesthesia VS, & Labs - Diagnosis Diagnosis Aspiration pneumonitis and sepsis. Likely related to gastric tube feednings and loss of G- J tube. - Procedure gastric tube, picc line Vital Signs: Temp Pulse Resp BP Pulse Ox 36.7 C 58 L 29 H 153/52 H 100 11/04/18 08:22 11/04/18 10:00 11/04/18 08:22 11/04/18 10:00 11/04/18 08:22 Height 5 ft 5 in Weight (kg) 79 kg Body Mass Index 28.0 - NPO >8 hours - Lab Results Current Lab Results: Laboratory Tests 11/04/18 06:54: Sodium 152 H, Potassium 3.7, Chloride 119 H, Carbon Dioxide 22, Anion Gap 11.0, BUN 28 H, Creatinine 1.2, Estimated GFR (MDRD) 58 L, Glucose 163 H, Calcium 8.1 L, Phosphorus 3.6, Magnesium 2.2 11/04/18 06:54: WBC 6.1, RBC 3.43 L, Hgb 8.3 L, Hct 29.4 L, MCV 85.7, MCH 24.2 L , MCHC 28.2 L, RDW 19.8 H, Plt Count 117 L, Neut # (Auto) 4.4, Lymph # (Auto) 1.0 L, Sutton # (Auto) 0.4, Eos # (Auto) 0.4, Baso # (Auto) 0.0, Absolute Nucleated RBC 0.00, Nucleated RBC % 0.0, WBC Morphology NORMAL APPEARANCE, Platelet Estimate DECREASED (<130,000), Platelet Morphology 1+ LARGE PLATELETS, RBC Morph Micro Appear SCHISTOCYTES 11/04/18 01:25: Last Dose Date UNKNOWN, Last Dose Time UNKNOWN, Vancomycin Trough 22.1 H 11/03/18 16:19: Last Dose Date 11-03-18, Last Dose Time 09, Vancomycin Trough 25.6 H* 11/03/18 05:17: Sodium 154 H, Potassium 4.0, Chloride 124 H*, Carbon Dioxide 19 L, Anion Gap 11.0, BUN 45 H, Creatinine 1.4 H, Estimated GFR (MDRD) 49 L, Glucose 103 H, Calcium 8.1 L, Phosphorus 4.1, Magnesium 2.8, Total Bilirubin 0.7, AST 24, ALT 18, Alkaline Phosphatase 46, Total Protein 5.3 L, Albumin 2.4 L , Globulin 2.9, Albumin/Globulin Ratio 0.8 L, Prealbumin 19 11/02/18 05:05: Sodium 155 H*, Potassium 4.0, Chloride 124 H*, Carbon Dioxide 20 L, Anion Gap 11.0, BUN 59 H, Creatinine 1.5 H, Estimated GFR (MDRD) 45 L, Gluco se 118 H, Calcium 7.9 L, Phosphorus 4.5, Magnesium 3.0 H 11/02/18 05:05: WBC 11.2 H, RBC 3.25 L, Hgb 7.7 L, Hct 29.0 L, MCV 89.2, MCH 23.7 L, MCHC 26.6 L, RDW 20.0 H, Plt Count 109 L, MPV Not Reportable, Neut # (Auto) Not Reportable, Lymph # (Auto) Not Reportable, Sutton # (Auto) Not Reportable, Eos # (Auto) Not Reportable, Baso # (Auto) Not Reportable, Absolute Nucleated RBC Not Reportable, Total Counted 100, Band Neuts % (Manual) 0, Abnorm Lymph % (Manual) 0, Nucleated RBC % Not Reportable, Neutrophils # (Manual) 9.4 H , Lymphocytes # (Manual) 1.6, Monocytes # (Manual) 0.2, Eosinophils # (Manual) 0.0, Basophils # (Manual) 0.0, Differential Comment MANUAL DIFFERENTIAL, WBC Morphology NORMAL APPEARANCE, Platelet Estimate DECREASED (<130,000), Platelet Morphology NORMAL APPEARANCE, RBC Morph Micro Appear 1+ OVALOCYTES 11/02/18 01:30: Last Dose Date UNKNOWN, Last Dose Time UNKNOWN, Vancomycin Trough 14.6 11/01/18 21:25: Sodium 155 H*, Potassium 4.7, Chloride 125 H*, Carbon Dioxide 20 L, Anion Gap 10.0, BUN 61 H, Creatinine 1.6 H, Estimated GFR (MDRD) 42 L, Glucose 192 H, Calcium 8.0 L 11/01/18 15:13: Sodium 158 H*, Potassium 4.6, Chloride 127 H*, Carbon Dioxide 20 L, Anion Gap 11.0, BUN 66 H, Creatinine 1.8 H, Estimated GFR (MDRD) 37 L, Glucose 228 H, Calcium 8.3 L 11/01/18 08:54: Sodium 158 H*, Potassium 4.6, Chloride 128 H*, Carbon Dioxide 21, Anion Gap 9.0, BUN 68 H, Creatinine 1.8 H, Estimated GFR (MDRD) 37 L, Glucose 281 H, Calcium 8.2 L 11/01/18 04:45: Sodium 160 H*, Potassium 4.7, Chloride 128 H*, Carbon Dioxide 22, Anion Gap 10.0, BUN 70 H, Creatinine 1.8 H, Estimated GFR (MDRD) 37 L, Glucose 291 H, Calcium 8.1 L, Total Bilirubin 0.3, AST 18, ALT 15, Alkaline Phosphatase 60, Total Protein 6.2 L, Albumin 2.4 L, Globulin 3.8, Albumin/Globulin Ratio 0.6 L, Prealbumin 19 11/01/18 04:45: Phosphorus 4.1, Magnesium 3.1 H 11/01/18 04:45: WBC 11.6 H, RBC 3.36 L, Hgb 8.1 L, Hct 30.1 L, MCV 89.6, MCH 24.1 L, MCHC 26.9 L, RDW 20.1 H, Plt Count 131, Neut # (Auto) 10.7 H, Lymph # (Auto) 0.6 L, Sutton # (Auto) 0.3, Eos # (Auto) 0.0, Baso # (Auto) 0.0, Absolute Nucleated RBC 0.00, Band Neuts % (Manual) Not Reportable, Abnorm Lymph % (Manual) Not Reportable, Nucleated RBC % 0.0, Neutrophils # (Manual) Not Reportable, Lymphocytes # (Manual) Not Reportable, Monocytes # (Manual) Not Reportable, Eosinophils # (Manual) Not Reportable, Basophils # (Manual) Not Reportable, Platelet Estimate DECREASED (<130,000), Platelet Morphology NORMAL APPEARANCE, RBC Morph Micro Appear 1+ HYPOCHROMASIA 10/31/18 21:05: Sodium 160 H*, Potassium 5.0, Chloride 129 H*, Carbon Dioxide 22, Anion Gap 9.0, BUN 70 H, Creatinine 2.0 H, Estimated GFR (MDRD) 32 L, Glucose 480 H, Calcium 8.3 L 10/31/18 18:29: Sodium 158 H*, Potassium 5.2 H, Chloride 128 H*, Carbon Dioxide 21, Anion Gap 9.0, BUN 70 H, Creatinine 2.0 H, Estimated GFR (MDRD) 32 L, Glucose 496 H, Calcium 8.3 L 10/31/18 15:35: Sodium 160 H*, Potassium 5.3 H, Chloride 129 H*, Carbon Dioxide 21, Anion Gap 10.0, BUN 71 H, Creatinine 2.0 H, Estimated GFR (MDRD) 32 L, Glucose 503 H*, Calcium 8.1 L 10/31/18 09:50: Sodium 166 H*, Potassium 5.5 H, Chloride 135 H*, Carbon Dioxide 22, Anion Gap 9.0, BUN 73 H, Creatinine 2.0 H, Estimated GFR (MDRD) 32 L, Glucose 321 H, Calcium 8.3 L 10/31/18 05:40: Sodium 169 H*, Potassium 5.6 H, Chloride 135 H*, Carbon Dioxide 23, Anion Gap 11.0, BUN 75 H, Creatinine 2.2 H, Estimated GFR (MDRD) 29 L, Glucose 267 H, Calcium 8.2 L, Phosphorus 4.3, Magnesium 3.1 H 10/31/18 05:40: WBC 10.8, RBC 3.87 L, Hgb 9.3 L, Hct 35.7 L, MCV 92.2, MCH 24.0 L, MCHC 26.1 L, RDW 21.0 H, Plt Count 136, Neut # (Auto) Not Reportable, Lymph # (Auto) Not Reportable, Sutton # (Auto) Not Reportable, Eos # (Auto) Not Reportable, Baso # (Auto) Not Reportable, Absolute Nucleated RBC Not Reportable, Total Counted 100, Band Neuts % (Manual) 4, Abnorm Lymph % (Manual) 0, Nucleated RBC % Not Reportable, Neutrophils # (Manual) 10.5 H, Lymphocytes # (Manual) 0.3 L, Monocytes # (Manual) 0.0, Eosinophils # (Manual) 0.0, Basophils # (Manual) 0 .0, Differential Comment MANUAL DIFFERENTIAL, Platelet Estimate NORMAL (130- 450,000), RBC Morph Micro Appear 1+ OVALOCYTES 10/31/18 01:40: Sodium 168 H*, Potassium 5.0, Chloride 136 H*, Carbon Dioxide 24, Anion Gap 8.0, BUN 74 H, Creatinine 2.1 H, Estimated GFR (MDRD) 31 L, Glucose 192 H, Calcium 8.2 L 10/31/18 00:30: B-Natriuretic Peptide 115 H 10/30/18 23:59: Lactic Acid 1.5 10/30/18 23:59: Sodium 170 H*, Potassium 5.1 H, Chloride 132 H*, Carbon Dioxide 26, Anion Gap 12.0, BUN 78 H, Creatinine 2.3 H, Estimated GFR (MDRD) 28 L, Glucose 286 H, Calcium 9.0, Magnesium 3.4 H, Total Bilirubin 0.4, AST 23, ALT 20, Alkaline Phosphatase 77, Total Protein 7.0, Albumin 2.8 L, Globulin 4.2, Albumin/Globulin Ratio 0.7 L, Lipase 40 10/30/18 23:59: WBC 13.4 H, RBC 4.47 L, Hgb 10.9 L, Hct 40.9 L, MCV 91.5, MCH 24.4 L, MCHC 26.7 L, RDW 21.0 H, Plt Count 164, MPV 13.8 H, Neut # (Auto) 9.9 H, Lymph # (Auto) 2.0, Sutton # (Auto) 1.0, Eos # (Auto) 0.4, Baso # (Auto) 0.1, Absolute Nucleated RBC 0.00, Nucleated RBC % 0.0, Manual Slide Review Indicated, Platelet Estimate NORMAL (130-450,000), RBC Morph Micro Appear 1+ OVALOCYTES 10/30/18 00:30: Glycated Hemoglobin 7.1 H, Estim Average Glucose 157 H Fish Bones: 11/04/18 06:54 11/04/18 06:54 Home Medications and Allergies Home Medications: Ambulatory Orders Apixaban [Eliquis] 2.5 mg JT BID 10/31/18 Gabapentin 100 mg JT QPM 10/31/18 Metoclopramide HCl 5 mg PO QID PRN 10/31/18 Omeprazole 20 mg JT DAILY 10/31/18 Active Medications Albuterol/Ipratropium (Duoneb) 3 ml INH RTQID [facility] Last Admin: 11/04/18 11:51 Dose: 3 ml Amlodipine Besylate (Norvasc) 5 mg PEG DAILY [facility] Last Admin: 11/04/18 08:37 Dose: Not Given Dextrose/Sodium Chloride (D5.45ns) 1,000 mls @ 83.333 mls/hr IV .Q12H [facility] Last Admin: 11/04/18 00:58 Dose: 83.33 mls/hr Acetaminophen (Ofirmev) 100 mls @ 400 mls/hr IV Q6HR PRN PRN Reason: PAIN Last Infusion: 11/03/18 01:04 Dose: Infused Vancomycin HCl 1 gm/ Sodium (Chloride) 250 mls @ 167 mls/hr IV Q24H [facility] Last Infusion: 11/04/18 11:09 Dose: Infused Vancomycin HCl 0.75 gm/ Sodium (Chloride) 250 mls @ 167 mls/hr IV Q24H [facility] Insulin Glargine (Lantus Solostar) 10 unit SUBQ QDBREAKFAST [facility] Last Admin: 11/04/18 09:36 Dose: 10 unit Insulin Glargine (Lantus Solostar) 10 unit SUBQ QPM [facility] Last Admin: 11/03/18 21:02 Dose: 10 unit Insulin Human Regular (Novolin R) 1 - 9 unit SUBQ Q6HR [facility]; Protocol Last Admin: 11/04/18 06:05 Dose: 1 unit Metoprolol Tartrate (Lopressor) 25 mg PEG BID [facility] Last Admin: 11/04/18 08:38 Dose: Not Given Mupirocin (Bactroban 2% Oint) 1 applic TOP BID [facility] Last Admin: 11/04/18 09:37 Dose: 1 ea Pantoprazole Sodium (Protonix) 40 mg IVP QDAC [facility] Last Admin: 11/04/18 06:06 Dose: 40 mg Sodium Chloride (Normal Saline Flush 0.9%) 10 ml IVP 0100,0900,1700 [facility] Last Admin: 11/04/18 08:38 Dose: Not Given Sodium Chloride (Normal Saline Flush 0.9%) 10 ml IVP PRN PRN PRN Reason: NEEDED PER PROVIDER ORDERS Last Admin: 11/04/18 06:07 Dose: 10 ml Aspirin 81 mg NG DAILY 08/01/17 Atorvastatin Calcium 40 mg NG DAILY 08/01/17 Metoprolol Tartrate 25 mg PEG BID 08/01/17 amLODIPine [Norvasc] 5 mg NG DAILY 08/01/17 Insulin Glargine [Lantus Solostar] 20 unit SUBQ 0800 11/19/17 Insulin Lispro [Humalog] 1 - 5 unit SUBQ ACHS PRN 11/19/17 Polyethylene Glycol 3350 [Miralax] 17 gm PEG DAILY 06/26/18 Apixaban [Eliquis] 2.5 mg JT BID 10/31/18 Gabapentin 100 mg JT QPM 10/31/18 Metoclopramide HCl 5 mg PO QID PRN 10/31/18 Omeprazole 20 mg JT DAILY 10/31/18 Allergies/Adverse Reactions: Allergies Allergy/AdvReac Type Severity Reaction Status Date / Time No Known Drug Allergies Allergy Verified 10/30/18 23:58 Anes History & Medical History - Anesthetic History Anesthesia Complications: reports: No previous complications Family history of Anesthesia Complications: Denies Family history of Malignant Hyperthermia: Denies - Medical History Cardiovascular: reports: Hypertension Pulmonary: reports: COPD Gastrointestinal: reports: None Urinary: reports: None Neuro: reports: CVA Musculoskeletal: reports: Hemiplegia, Gout Endocrine/Autoimmune: reports: Type 2 diabetes Blood Disorders: reports: None Skin: reports: None Smoking Status: Never smoker Other Past Medical History: ulcers, dialysis stopped 2 weeks ago (10/2018), gout, L hemiparesis - Surgical History General: Other (PEG, PEG-J tubes) Other Past Surgical History: Percutaneous tunneled central venous hemo-Dialysis catheter placement Exam General: Other (not oriented) Dental: Loose/Frag Mouth Openin Fingerbreadth Neck Mobility: Reduced Mallampati classification: III Thyromental Distance: 4-6 cm Respiratory: Stridor Cardiovascular: Normal S1, Normal S2 Plan Anesthesia Type: General, MAC Consent for Procedure(s) Verified and Reviewed: No Code Status: Do Not Attempt Resuscitation ASA classification: 3-Severe systemic disease Is this case an emergency?: No
[2018-11-04] MEDS ORDERED: LACTATED RINGERS 1,000 ML IV ONE ×2 (13:35→13:36)
--- NOTE | 2018-11-04 15:33 | ANESTHESIA PROCEDURE NOTE ---
Consent for Procedure(s) Verified and Reviewed: Yes Height and Weight: Height 5 ft 5 in Weight (kg) 79 kg Body Mass Index 28.0 Vital Signs: Temp Pulse Resp BP Pulse Ox 36.7 C 58 L 29 H 153/52 H 100 11/04/18 08:22 11/04/18 10:00 11/04/18 08:22 11/04/18 10:00 11/04/18 08:22 Allergies No Known Drug Allergies Allergy (Verified 10/30/18 23:58) ASA classification: 3-Severe systemic disease Is this case an emergency?: No Anes. Monitoring and Equipment: Pulse oximetery, Central venous catheter, All ports aspirate blood, Sterile prep and drape Anes. Procedure Start Time: 14:00 Anes. Procedure Stop Time: 15:00 Procedure Notes: Requested by Dr. Marley, Anesthesiologist to insert PICC line. He had attempted several times on the right arm and was unable to secure a vein. Right arem previously prepped with chlorohexidine and sterile draped, gown, gloves, mask. Using US I identified the basilic vein and cannulated it with a 20 ga needle. Wire was easily placed and needle removed. Using modified Seldinger technique the 5 Fr catheter was advanced using the TIP tracker verified the cath was in the SVC and headed downward. The patient had an inadequate EKG to verify the cath was near the AV node so a CXR was ordered and I am awaiting the results. Both ports aspirated/flushed easily. Cath was trimmed at 42 cm with 3 cm left exposed. Cath secured with steri strips and STAT lock.
--- NOTE | 2018-11-04 15:43 | ANESTHESIA PROCEDURE NOTE ---
Diagnosis: Poor IV access Height and Weight: Height 5 ft 5 in Weight (kg) 79 kg Body Mass Index 28.0 Vital Signs: Temp Pulse Resp BP Pulse Ox 36.7 C 58 L 29 H 153/52 H 100 11/04/18 08:22 11/04/18 10:00 11/04/18 08:22 11/04/18 10:00 11/04/18 08:22 Allergies No Known Drug Allergies Allergy (Verified 10/30/18 23:58) ASA classification: 3-Severe systemic disease (The cath was a 5 Fr dual power port)
--- NOTE | 2018-11-04 15:49 | ANESTHESIA PROCEDURE NOTE ---
Diagnosis: see previous chart Consent for Procedure(s) Verified and Reviewed: Yes Height and Weight: Height 5 ft 5 in Weight (kg) 79 kg Body Mass Index 28.0 Vital Signs: Temp Pulse Resp BP Pulse Ox 36.7 C 58 L 29 H 153/52 H 100 11/04/18 08:22 11/04/18 10:00 11/04/18 08:22 11/04/18 10:00 11/04/18 08:22 Allergies No Known Drug Allergies Allergy (Verified 10/30/18 23:58) ASA classification: 3-Severe systemic disease Is this case an emergency?: No Anes. Monitoring and Equipment: Central venous catheter, All ports aspirate blood (CXr verified by Dr. Lew that tip of cath was in the distal SVC), Sterile prep and drape
--- NOTE | 2018-11-04 15:59 | PROVIDER PROGRESS NOTE ---
Assessment/Plan - Problem List (1) MRSA bacteremia Assessment/Plan: WBC improving and the last blood culture which was drawn 11/02 is now negative at 2 days. A PICC line is to be placed today. We will plan 14 days of IV antibiotics starting from 11/02/2018. The plan is to send him to SNF for 12 more days of IV antibiotics (2) Hypernatremia Assessment/Plan: Improving serum sodium. Will restart feeds per J tube that are not hypertonic, when J tube replaced and when OKd to use. Will decrease iv rate due to pleural effusion and CXR showing pulmonary edema today. (3) Clogged feeding tube Assessment/Plan: He is scheduled to have G-J tube replaced in OR today. Will then restart J-tube feeds at a slower rate than thru stomach, will re-order residual volume checks. (4) Acute renal insufficiency Assessment/Plan: Improvi g with iv fluids. Monitor BMP daily. (5) COPD (chronic obstructive pulmonary disease) Qualifiers: COPD type: unspecified COPD Qualified Code(s): J44.9 - Chronic obstructive pulmonary disease, unspecified Assessment/Plan: Continue with O2 as needed, nebs and pulmonary toilet as well. (6) History of CVA (cerebrovascular accident) Assessment/Plan: He has a history of stroke in 2016 resulting in left sided hemiparesis and dysphagia requiring PEG tube placement. . He is confused and unable to follow commands, not a PT candidate. A family memeber signs his consent forms. Resume home medications once able to take medications through G tube, on Aspirin and statin (7) Anemia Assessment/Plan: Replace if low serum levels. 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 Presented hyperglycemic with blood glucose of 286. With steroids and hypernatremia, he has peaked at 503. He was also on D5 to control the hypernatremia. D5 has been stopped. Lantus was been resumed. Every 6h short acting insulin short acting started. (9) Hypertension Qualifiers: Hypertension type: essential hypertension Qualified Code(s): I10 - Essential (primary) hypertension Assessment/Plan: IV BP meds >> per G tube meds later today. (10) Anticoagulant prescribed Assessment/Plan: In preparation for possible discharge tomorrow to SNF, his medication list from home was reviewed. He is on Eliquis. I cannot find a reason in the notes (prior A. fib, paroxysmal A. fib, documented clot, stroke prophylaxis). I will not restart the Eliquis until this is resolved, since there are history of prior GI bleeding episodes. (11) Sepsis Assessment/Plan: Resolved - Current Meds Current Meds: Current Medications Generic Name Dose Route Start Last Admin Trade Name Freq PRN Reason Stop Dose Admin Albuterol/Ipratropium 3 ml 11/02/18 11:00 11/04/18 15:34 Duoneb INH 3 ml RTQID EVELIO Administration Amlodipine Besylate 5 mg 11/03/18 09:00 11/04/18 08:37 Norvasc PEG Not Given DAILY EVELIO Dextrose/Sodium Chloride 1,000 mls @ 83.333 mls/hr 11/02/18 09:00 11/04/18 13:01 D5.45ns IV Not Given .Q12H EVELIO Acetaminophen 100 mls @ 400 mls/hr 11/03/18 00:02 11/03/18 01:04 Ofirmev IV Infused Q6HR PRN Infusion PAIN Insulin Glargine 10 unit 10/31/18 08:00 11/04/18 09:36 Lantus Solostar SUBQ 10 unit QDBREAKFAST EVELIO Administration Insulin Glargine 10 unit 10/31/18 21:00 11/03/18 21:02 Lantus Solostar SUBQ 10 unit QPM EVELIO Administration Insulin Human Regular 1 - 9 unit 10/31/18 18:00 11/04/18 13:01 Novolin R SUBQ Not Given Q6HR EVELIO Protocol Metoprolol Tartrate 25 mg 11/03/18 09:00 11/04/18 08:38 Lopressor PEG Not Given BID EVELIO Mupirocin 1 applic 11/02/18 10:00 11/04/18 09:37 Bactroban 2% Oint TOP 1 ea BID EVELIO Administration Pantoprazole Sodium 40 mg 10/31/18 07:00 11/04/18 06:06 Protonix IVP 40 mg QDAC EVELIO Administration Sodium Chloride 10 ml 10/31/18 09:00 11/04/18 08:38 Normal Saline Flush 0.9% IVP Not Given 0100,0900,1700 EVELIO Sodium Chloride 10 ml 10/31/18 02:35 11/04/18 06:07 Normal Saline Flush 0.9% IVP 10 ml PRN PRN Administration NEEDED PER PROVIDER ORDERS - Lab Result Fish Bone Diagrams: 11/04/18 06:54 11/04/18 06:54 - Additional Planning My Orders: My Active Orders 11/04/18 08:50 Miscellaenous Nursing Order [RC] ONCE 11/04/18 15:56 amLODIPine [Norvasc] 5 mg PEG ONCE ONE 11/06/18 08:30 VANCOMYCIN TROUGH [CHEM] Timed Subjective - Subjective Patient Reports: Other (Not communicative) Nursing Reports: Confused, Cough Objective Vital Signs: Vital Signs - 24 hr 11/03/18 11/03/18 11/03/18 17:00 18:13 19:40 Temperature 36.7 C Heart Rate 66 Heart Rate [ Brachial] Heart Rate [ 72 Monitoring electrodes] Respiratory 24 22 Rate Blood Pressure Blood Pressure 152/50 H [Right Brachial artery] O2 Saturation 99 97 11/03/18 11/04/18 11/04/18 20:39 01:00 05:00 Temperature 36.8 C 37.1 C 36.7 C Heart Rate Heart Rate [ 70 Brachial] Heart Rate [ 81 80 Monitoring electrodes] Respiratory 20 20 30 H Rate Blood Pressure Blood Pressure 159/60 H 167/66 H 169/63 H [Right Brachial artery] O2 Saturation 94 96 100 11/04/18 11/04/18 11/04/18 08:17 08:22 09:35 Temperature 36.7 C Heart Rate 64 Heart Rate [ 72 Brachial] Heart Rate [ Monitoring electrodes] Respiratory 22 29 H Rate Blood Pressure 176/54 H Blood Pressure 176/54 H [Right Brachial artery] O2 Saturation 100 11/04/18 11/04/18 11/04/18 09:44 10:00 15:54 Temperature 36.4 C L Heart Rate Heart Rate [ 70 Brachial] Heart Rate [ 60 58 L Monitoring electrodes] Respiratory 22 Rate Blood Pressure Blood Pressure 147/35 H 153/52 H 170/69 H [Right Brachial artery] O2 Saturation 99 Oxygen O2 Source [Without Activity] Room air O2 Source Oxymask Oxygen Flow Rate 2.5 I&O (Last 24 Hrs): Intake and Output Totals x24h 11/02/18 11/03/18 11/04/18 23:59 23:59 23:59 Intake Total 7825.612 7953 2230.516 Output Total 1501 1840 600 Balance 473.996 -390 1630.516 General: Other (Awake) HEENT: Mucous membr. moist/pink Neck: Supple Neuro: Disoriented Cardiovascular: Regular rate Respiratory: Other (Scattered rhonchi, no wheezing, he pushes caregivers way, when sputum and secretion suction is attempted) Extremities: No edema - Results Results: Laboratory Results WBC 6.1 x10^3/uL (4.8-10.8) 11/04/18 06:54 RBC 3.43 10^6/uL (4.70-6.10) L 11/04/18 06:54 Hgb 8.3 g/dL (14.0-18.0) L 11/04/18 06:54 Hct 29.4 % (42.0-52.0) L 11/04/18 06:54 MCV 85.7 fL (80.0-94.0) 11/04/18 06:54 MCH 24.2 pg (27.0-31.0) L 11/04/18 06:54 MCHC 28.2 g/dL (32.0-36.0) L 11/04/18 06:54 RDW 19.8 % (12.0-15.0) H 11/04/18 06:54 Plt Count 117 10^3/uL (130-450) L 11/04/18 06:54 MPV Not Reportable 11/02/18 05:05 Neut # (Auto) 4.4 10^3/uL (1.5-6.6) 11/04/18 06:54 Lymph # (Auto) 1.0 10^3/uL (1.5-3.5) L 11/04/18 06:54 [place] # (Auto) 0.4 10^3/uL (0.0-1.0) 11/04/18 06:54 Eos # (Auto) 0.4 10^3/uL (0.0-0.7) 11/04/18 06:54 Baso # (Auto) 0.0 10^3/uL (0.0-0.1) 11/04/18 06:54 Absolute Nucleated RBC 0.00 x10^3/uL 11/04/18 06:54 Total Counted 100 11/02/18 05:05 Band Neuts % (Manual) 0 % (0-10) 11/02/18 05:05 Abnorm Lymph % (Manual) 0 % 11/02/18 05:05 Nucleated RBC % 0.0 /100WBC 11/04/18 06:54 Neutrophils # (Manual) 9.4 10^3/uL (1.5-6.6) H 11/02/18 05:05 Lymphocytes # (Manual) 1.6 10^3/uL (1.5-3.5) 11/02/18 05:05 Monocytes # (Manual) 0.2 10^3/uL (0.0-1.0) 11/02/18 05:05 Eosinophils # (Manual) 0.0 10^3/uL (0-0.7) 11/02/18 05:05 Basophils # (Manual) 0.0 10^3/uL (0-0.1) 11/02/18 05:05 Differential Comment MANUAL DIFFERENTIAL 11/02/18 05:05 Manual Slide Review Indicated 10/30/18 23:59 WBC Morphology NORMAL APPEARANCE (NORMAL) 11/04/18 06:54 Platelet Estimate DECREASED (<130,000) (NORMAL) 11/04/18 06:54 Platelet Morphology 1+ LARGE PLATELETS (NORMAL) 11/04/18 06:54 RBC Morph Micro Appear 1+ ANISOCYTOSIS (NORMAL) 1+ HYPOCHROMASIA (NORMAL) 1+ OVALOCYTES (NORMAL) 10/31/18 05:40 RBC Morph Micro Appear 1+ ANISOCYTOSIS (NORMAL) 1+ HYPOCHROMASIA (NORMAL) 1+ OVALOCYTES (NORMAL) 10/31/18 05:40 RBC Morph Micro Appear 1+ OVALOCYTES (NORMAL) 1+ ANISOCYTOSIS (NORMAL) 1+ HYPOCHROMASIA (NORMAL) 11/01/18 04:45 RBC Morph Micro Appear 1+ OVALOCYTES (NORMAL) 1+ ANISOCYTOSIS (NORMAL) 1+ HYPOCHROMASIA (NORMAL) 11/01/18 04:45 RBC Morph Micro Appear 1+ OVALOCYTES (NORMAL) 1+ ANISOCYTOSIS (NORMAL) 1+ HYPOCHROMASIA (NORMAL) 11/01/18 04:45 RBC Morph Micro Appear 2+ HYPOCHROMASIA (NORMAL) 1+ ANISOCYTOSIS (NORMAL) 1+ OVALOCYTES (NORMAL) 11/02/18 05:05 RBC Morph Micro Appear 2+ HYPOCHROMASIA (NORMAL) 1+ ANISOCYTOSIS (NORMAL) 1+ OVALOCYTES (NORMAL) 11/02/18 05:05 RBC Morph Micro Appear 2+ HYPOCHROMASIA (NORMAL) 1+ ANISOCYTOSIS (NORMAL) 1+ OVALOCYTES (NORMAL) 11/02/18 05:05 RBC Morph Micro Appear 1+ ANISOCYTOSIS (NORMAL) 2+ HYPOCHROMASIA (NORMAL) 1+ POLYCHROMASIA (NORMAL) OVALOCYTES (NORMAL) SCHISTOCYTES (NORMAL) 11/04/18 06:54 RBC Morph Micro Appear 1+ ANISOCYTOSIS (NORMAL) 2+ HYPOCHROMASIA (NORMAL) 1+ POLYCHROMASIA (NORMAL) OVALOCYTES (NORMAL) SCHISTOCYTES (NORMAL) 11/04/18 06:54 RBC Morph Micro Appear 1+ ANISOCYTOSIS (NORMAL) 2+ HYPOCHROMASIA (NORMAL) 1+ POLYCHROMASIA (NORMAL) OVALOCYTES (NORMAL) SCHISTOCYTES (NORMAL) 11/04/18 06:54 RBC Morph Micro Appear 1+ ANISOCYTOSIS (NORMAL) 2+ HYPOCHROMASIA (NORMAL) 1+ POLYCHROMASIA (NORMAL) OVALOCYTES (NORMAL) SCHISTOCYTES (NORMAL) 11/04/18 06:54 RBC Morph Micro Appear 1+ ANISOCYTOSIS (NORMAL) 2+ HYPOCHROMASIA (NORMAL) 1+ POLYCHROMASIA (NORMAL) OVALOCYTES (NORMAL) SCHISTOCYTES (NORMAL) 11/04/18 06:54 Sodium 152 mmol/L (135-145) H 11/04/18 06:54 Potassium 3.7 mmol/L (3.5-5.0) 11/04/18 06:54 Chloride 119 mmol/L (101-111) H 11/04/18 06:54 Carbon Dioxide 22 mmol/L (21-32) 11/04/18 06:54 Anion Gap 11.0 (6-13) 11/04/18 06:54 BUN 28 mg/dL (6-20) H 11/04/18 06:54 Creatinine 1.2 mg/dL (0.6-1.2) 11/04/18 06:54 Estimated GFR (MDRD) 58 (>89) L 11/04/18 06:54 Glucose 163 mg/dL (70-100) H 11/04/18 06:54 Glycated Hemoglobin 7.1 % (4.6-6.2) H 10/30/18 00:30 Estim Average Glucose 157 (70-100) H 10/30/18 00:30 Lactic Acid 1.5 mmol/L (0.5-2.2) 10/30/18 23:59 Calcium 8.1 mg/dL (8.5-10.3) L 11/04/18 06:54 Phosphorus 3.6 mg/dL (2.5-4.6) 11/04/18 06:54 Magnesium 2.2 mg/dL (1.7-2.8) 11/04/18 06:54 Total Bilirubin 0.7 mg/dL (0.2-1.0) 11/03/18 05:17 AST 24 IU/L (10-42) 11/03/18 05:17 ALT 18 IU/L (10-60) 11/03/18 05:17 Alkaline Phosphatase 46 IU/L (42-121) 11/03/18 05:17 B-Natriuretic Peptide 115 pg/mL (5-100) H 10/31/18 00:30 Total Protein 5.3 g/dL (6.7-8.2) L 11/03/18 05:17 Albumin 2.4 g/dL (3.2-5.5) L 11/03/18 05:17 Globulin 2.9 g/dL (2.1-4.2) 11/03/18 05:17 Albumin/Globulin Ratio 0.8 (1.0-2.2) L 11/03/18 05:17 Prealbumin 19 mg/dL (18-45) 11/03/18 05:17 Lipase 40 U/L (22-51) 10/30/18 23:59 Urine Color YELLOW 10/31/18 00:40 Urine Clarity CLEAR (CLEAR) 10/31/18 00:40 Urine pH 5.5 PH (5.0-7.5) 10/31/18 00:40 Ur Specific [place] 1.020 (1.002-1.030) 10/31/18 00:40 Urine Protein 30 mg/dL (NEGATIVE) H 10/31/18 00:40 Urine Glucose (UA) NEGATIVE mg/dL (NEGATIVE) 10/31/18 00:40 Urine Ketones NEGATIVE mg/dL (NEGATIVE) 10/31/18 00:40 Urine Occult Blood NEGATIVE (NEGATIVE) 10/31/18 00:40 Urine Nitrite NEGATIVE (NEGATIVE) 10/31/18 00:40 Urine Bilirubin NEGATIVE (NEGATIVE) 10/31/18 00:40 Urine Urobilinogen 0.2 (NORMAL) E.U./dL (NORMAL) 10/31/18 00:40 Ur Leukocyte Esterase NEGATIVE (NEGATIVE) 10/31/18 00:40 Urine RBC 0-5 /HPF (0-5) 10/31/18 00:40 Urine WBC 0-3 /HPF (0-3) 10/31/18 00:40 Ur Squamous Epith Cells RARE Squamous (<= Few) 10/31/18 00:40 Urine Bacteria Rare /HPF (None Seen) 10/31/18 00:40 Urine Casts 3-5 Hyaline Casts /LPF0-2 Granular Casts /LPF 10/31/18 00:40 Urine Casts 3-5 Hyaline Casts /LPF0-2 Granular Casts /LPF 10/31/18 00:40 Ur Microscopic Review INDICATED 10/31/18 00:40 Urine Culture Comments NOT INDICATED 10/31/18 00:40 Nasal Screen MRSA (PCR) POSITIVE (NEGATIVE) A* 10/31/18 03:15 Last Dose Date UNKNOWN 11/04/18 01:25 Last Dose Time UNKNOWN 11/04/18 01:25 Vancomycin Trough 22.1 ug/mL (10.0-20.0) H 11/04/18 01:25 - Procedures Procedures: Procedures CONTROL BLEEDING IN GASTROINTESTINAL TRACT, ENDO (08/31/16) EXCISION OF DUODENUM, ENDO, DIAGN (12/28/16) EXCISION OF STOMACH, ENDO, DIAGN (12/28/16) EXCISION OF STOMACH, PYLORUS, ENDO, DIAGN (08/31/16) TRANSFUSE NONAUT RED BLOOD CELLS IN PERIPH VEIN, PERC (08/31/16) Sepsis Event Note (H) - Evaluation Current Stage of Sepsis: Resolved Possible source of Sepsis: positive: Pulmonary, CLABSI, Implantable device (hemodialysis port) - Sepsis Criteria Sepsis Criteria: Recorded Temperature greater than 38.3C or Less than 36C, Recorded Heart Rate greater than 90 bpm, Recorded Respiratory Rate greater than 20, Respiratory: Increasing oxygen requirements, WBC count greater than 12,000 or less than 4000, ELECTRICAL POWER ENGINEER: altered consciousness (unrelated to primary neuro pathology)
[2018-11-04] MEDS ORDERED: amLODIPine 5 MG TABLET PEG ONE (16:05)
--- NOTE | 2018-11-04 16:24 | XRAY Report ---
Reason: s/p PEG J tube insertion Procedure Date: 11/04/2018 Accession Number: [id number] / [id number] Procedure: XR - Abdomen 1 View X-Ray CPT Code: 92787 FULL RESULT: EXAM: ABDOMEN RADIOGRAPHY EXAM DATE: 11/04/2018 03:29 PM. CLINICAL HISTORY: S/p PEG J tube insertion. COMPARISON: ABDOMEN 1 VIEW 10/31/2018 3:14 AM. TECHNIQUE: 1 view. FINDINGS: Bowel Gas Pattern: Within normal limits. No dilated loops. There is residual small amount of oral contrast from the prior exam, in the distal sigmoid colon and rectum. Other: There is a new left abdominal percutaneous upper GI catheter with its tip in the gastric antrum; there is also opacified distal stomach to the proximal jejunum without contrast extravasation or leak.. IMPRESSION: A new left abdominal percutaneous upper GI catheter with its tip in the gastric antrum without contrast extravasation or leak. RADIA
--- NOTE | 2018-11-04 16:41 | XRAY Report ---
Reason: PICC LINE PLACEMENT Procedure Date: 11/04/2018 Accession Number: [id number] / [id number] Procedure: XR - Chest for Line Placement CPT Code: FULL RESULT: EXAM: CHEST RADIOGRAPHY EXAM DATE: 11/04/2018 03:10 PM. CLINICAL HISTORY: PICC line placement. COMPARISON: CHEST 1 VIEW 10/31/2018 12:03 AM. TECHNIQUE: 1 view. FINDINGS: Lungs/Pleura: Lung bases are obscured and there is a small left pleural effusion. Pulmonary edema is present. Mediastinum: Within exam limitations, the cardiomediastinal contour is stable with calcifications of the aortic arch and mild cardiomegaly. Other: The right approach PICC terminates in the upper SVC. IMPRESSION: PICC in the upper SVC, pulmonary edema and small left pleural effusion. RADIA
[2018-11-04] MEDS ORDERED: DEXTROSE 5%-0.45% NACL 1,000 ML IV SCH (17:15)
[2018-11-04] MEDS ORDERED: GABAPENTIN 100 MG CAPSULE JT SCH (21:00)
[2018-11-05] MEDS ORDERED: SODIUM CHLORIDE FLUSH 0.9% 10 ML SYRINGE IVP PRN (00:06)
[2018-11-05] MEDS: INSULIN REGULAR HUMAN 100 UNIT/1 ML 10 ML MDV SUBQ SCH ×3 (01:11→11:15)
[2018-11-05] MEDS: SODIUM CHLORIDE FLUSH 0.9% 10 ML SYRINGE IVP SCH ×2 (01:12→08:31)
[2018-11-05 05:10] LABS: EOSINOPHILS # (AUTO) 0.4 10^3/uL (0.0-0.7); EOSINOPHILS % (AUTO) 6.6 %; HGB - HEMOGLOBIN 8.3 g/dL (14.0-18.0); LYMPHOCYTES % (AUTO) 15.9 %; MEAN CORPUSCULAR HEMOGLOBIN 24.1 pg (27.0-31.0); MEAN CORPUSCULAR HGB CONC 28.2 g/dL (32.0-36.0); MEAN CORPUSCULAR VOLUME 85.2 fL (80.0-94.0); MONOCYTES # (AUTO) 0.4 10^3/uL (0.0-1.0); MONOCYTES % (AUTO) 5.5 %; NEUTROPHILS # (AUTO) 4.5 10^3/uL (1.5-6.6); NEUTROPHILS % (AUTO) 71.2 %; PLT - PLATELET COUNT 127 10^3/uL (130-450); RED BLOOD COUNT 3.45 10^6/uL (4.70-6.10); RED CELL DISTRIBUTION WIDTH 19.8 % (12.0-15.0); WHITE BLOOD COUNT 6.4 x10^3/uL (4.8-10.8)
[2018-11-05 05:19] LABS: CALCIUM 8.3 mg/dL (8.5-10.3); CREATININE 1.1 mg/dL (0.6-1.2)
[2018-11-05] MEDS: PANTOPRAZOLE 40 MG VIAL IVP SCH (05:22)
[2018-11-05] MEDS: SODIUM CHLORIDE FLUSH 0.9% 10 ML SYRINGE IVP PRN (05:23)
[2018-11-05] MEDS: IPRATROPIUM/ALBUTEROL 3 ML NEB INH SCH ×2 (07:54→11:31)
--- NOTE | 2018-11-05 08:23 | Discharge Plan ---
"Discharge Plan for SNF / [facility]AD[facility] - Discharge Plan And Transition Orders Problem Reviewed?: Yes Disposition: 03 SNF DC/Xfer Condition: Poor Allergies and Adverse Reactions: Allergies Allergy/AdvReac Type Severity Reaction Status Date / Time No Known Drug Allergies Allergy Verified 10/30/18 23:58 Health Concerns: Admitted with sepsis and had MRSA bacteremiafrom the temporary hemodialysis catheter, which was removed, antibiotics started and will continue via new PICC line. He was hypernatremic and gets fed via a G-J tube, which was clogged, was replaced and he was treated with iv fluids. He is deaf and is also impaired from a previous stroke. Plan of Treatment: IV antibiotics daily through 11/15/18 via a PICC line. Continue feeding and medications via a G-J tube. Care Goals: Resume meds and plan as before this hospitalization. Assessment: The family is aware and agreeable with this plan. - SNF / SHELTER Transition Orders Admit to (Facility): [facility] Discharge Diagnosis: (1) Sepsis. resolved (2) MRSA bacteremia, due to temporary hemodialysis catheter which was removed (2) Hypernatremia, improved (3) Clogged feeding tube, replaced (4) Acute renal insufficiency, resolved (5) COPD, on O2 since this admission (6) History of CVA, with hemiplegia and dysphagia (requiring a feeding tube) (7) Anemia (8) Diabetes, on Insulin (9) Hypertension (10) Deafness (11) Code status: DNR Medicare Certification Statement: I certify that [facility] care is medically necessary on a continuing basis for any of the conditions for which she/he is receiving care during hospitalization. Notify PCP of admission and forward orders to primary provider for signature. Weight on admission and: Monthly Other Notification Orders: Call PCP immediately if patient develops dyspnea, chest pain/tightness or edema. House Bowel Program: Yes Additional Bowel Program Orders: If no BM after 2 days, nurse may give M.O.M. 30ml PO PRN and/or ducolax Supp 1 OR and/or [place]UG[place] 250mg P.O., and/or senna 1-2 tabs PO. On day 3 nurse may give repeat above order until residents constipation is resolved. Annual Influenza Vaccine (between Dec 07 and July 06): Yes Two-step PPD per [facility] [phone] or approved exception documents: Yes Treatments & Other Orders: iv antibiotics via PICC line through 11/15/18, then stop. PICC line care per [facility] protocol Oxygen Orders: 1L per nasal cannula. Keep sats > 88% Lab Tests or X-ray Orders: BMP every Mon and Fri to check Sodium and BUN/creat. Vancomycin serum trough levels daily Medication Orders: PLEASE REFER TO THE DISCHARGE MEDICATION LIST. Insulin Orders?: Yes - Medications New Prescriptions: Insulin Regular Human [NovoLIN R] 1 - 9 unit SUBQ Q6HR #2 amp Acetaminophen [Tylenol] 650 mg PEG Q6H PRN #30 tab PRN Reason: Pain Or Fever > 38c (100.4f) Aspirin Chewable [[place] Aspirin] 81 mg PEG DAILY #30 tablet Insulin Glargine [Lantus Solostar] 10 unit SUBQ QDBREAKFAST #2 pen Insulin Glargine [Lantus Solostar] 10 unit SUBQ QPM #2 pen Ipratropium/Albuterol [Duoneb] 3 ml INH RTQID #90 neb Vancomycin/0.9 % Sod Chloride [Vanco 750 mg/150 ml-0.9% NaCl] 750 mg IV DAILY #10 plast..bag - Diet Type: Tube feeding ([place] 1.2 via J tube portion of G-J tube. See separate orders.) May have monthly special meal: No - Therapies | Activity Therapy: Evaluation | Treat if indicated: Speech, PT, OT, Swallowing / ST Rehabilitation Potential: Maintain present ADL Functional Activity: Activity as Tolerated Weight Bearing: No Weight Follow Up: Follow-up with PCP, which will be determined after DCh from SNF Insulin Orders - [facility] Basal | Correction | Custom Orders: Diagnosis: Diabetes Initiate hypo and hyperglycemia protocols for BG <70 and BG >375. May check BG PRN for signs/symptoms of dysglycemia. Frequency of BG checks: [AC/Meal/HS] Basal Insulin: [X] Lantus 100 units / ml inject subq as follows: [10 U b.i.d.] [] Other: [] Correction Insulin: - [Choose: Novolog]100 units /ml insulin inject subq per orders indicate below [] LOW DOSE [X] MODERATE DOSE [] MODERATE/HIGH DOSE [] HIGH DOSE GB UNITS GB UNITS GB UNITS GB UNITS 61-140 0 UNITS 61-140 0 UNITS 61-140 0 UNITS 61-140 0 UNITS 141-175 1 UNITS 141-175 1 UNITS 141-175 2 UNITS 141-175 3 UNITS 176-225 2 UNITS 176-225 3 UNITS 176-225 4 UNITS 176-225 5 UNITS 226-275 3 UNITS 226-275 5 UNITS 226-275 6 UNITS 226-275 7 UNITS 276-325 4 UNITS 276-325 7 UNITS 276-325 8 UNITS 276-325 9 UNITS 326-375 5 UNITS 326-375 9 UNITS 326-375 10 UNITS 326-375 11 UNITS >375 CONTACT MD >375 CONTACT MD >375 CONTACT MD >375 CONTACT MD"
[2018-11-05] MEDS: INSULIN GLARGINE 300 UNIT/3 ML PEN SUBQ SCH (08:28)
[2018-11-05] MEDS: METOPROLOL TARTRATE 25 MG TABLET PEG SCH (08:30)
[2018-11-05] MEDS: MUPIROCIN 2% OINT 22 GM TUBE TOP SCH (08:31)
[2018-11-05] MEDS ORDERED: ATORVASTATIN 40 MG TABLET NG SCH (09:00)
[2018-11-05] MEDS ORDERED: amLODIPine 5 MG TABLET PEG SCH (09:00)
[2018-11-05] MEDS ORDERED: ASPIRIN CHEW 81 MG TABLET NG SCH (09:00)
[2018-11-05] MEDS ORDERED: VANCOMYCIN INJ 0.75 GM in SODIUM CHLORIDE 0.9% 250 ML IV SCH (09:00)
[2018-11-05 09:27] LABS: % IRON SATURATION 8 % (20-50); IRON 17 ug/dL (45-182); TOTAL IRON BINDING CAPACITY 218 ug/dL (250-450); TRANSFERRIN 156 mg/dL (180-329)
[2018-11-05 10:36] LABS: FOLATE > 49.60 ng/mL (5.90 - >24.8)
[2018-11-05 13:53] VITALS: BP 100/60
--- NOTE | 2018-11-05 17:30 | DISCHARGE SUMMARY ---
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 History is obtain from the daughter as the patient is too lethargic and in respiratory distress to participate in conversation. The patient's daughter states he was just seen in the ER a few days ago as his GJ tube had been dislodged. His GJ tube had to be removed and G tube was placed as there were no GJ tubes available. He was to follow up with his on outpatient basis for placement of a GJ tube. His daughter was concerned that the patient may have been aspirating after the PEG tube was placed as the patient had issues in the past with aspiration and hence why a GJ tube was placed. She reports he does not take anything by mouth at all. She reports that the patient has not been complaining of anything over these last few days. She did notice he was warm today. She also reports administering less free water through the G tube as there were issues with flushing it. She also tells me that the patient was on dialysis up until two weeks ago. He was initially started on dialysis back in June/July of this year while hospitalized at [facility]. She reports that since being off of dialysis, he has been urinating without problems and she denies decreased urine output. In the emergency department, the patient was found to be febrile, tachycardic, tachypnic, and hypoxic requiring 2L of oxygen. He had difficulty controlling his secretions and a large mucous plug was suctioned upon his arrival. Labs were significant for leukocytosis, severe hypernatremia of 170, and a creatinine of 2.3. He was given 1L of normal saline and administered Vancomycin, Cefepime, and Decadron in the ER. He was be admitted to the ICU in critical condition for further management. - CONSULTS | PROCEDURES Consultations: Dr Navi Marie (General Surgery) Procedures: GJ tube replaced Plugged G tube removed PICC line placed - HOSPITAL COURSE Hospital Course: (1) Sepsis. He met sepsis criteria with his fever, tachycardia, tachypnea, and hypoxia. Suspect that the source was pneumonia given the secretions and mucous plug that was suctioned. even though his chest x-ray is not that impressive . Sputum culture gram stains had white cells, squamous cells, gram-positive cocci, gram- negative bacilli, gram-positive bacilli. His urinalysis was unremarkable. He was on iv Vancomycin, iv Cefepime and iv Flagyl for broad spectrum coverage. He received aggressive fluids with LR, and later D5 (for the hypernatremia, see below). (2) MRSA bacteremia Blood cultures turned positive for Gram-positive cocci in clusters by the second day in 3 out of 4 bottles. This was methicillin-resistant staph aureus by very G nucleic acid test. The Velez catheter site had a small amount of yellow discharge at skin insertion. no fluctuence, redness. General Surgery was consulted to remove his Velez catheter, which was done. He was on iv Vanc omycin, iv Cefepime and iv Flagyl for broad spectrum coverage. An Echo was done that did not show vegetations (although the aortic valve was calcified from early aortic stenosis). A PICC line was placed and he was discharged to complete a 14 day course of iv Vancomycin from the last neg blood culture. (2) Hypernatremia This was likely secondary to the decreased free water pushes. Sodium was 170 on admission and had improved to 168 after 1L of NS. Free water deficit was calculated at 5.8L. he got LR for sepsis then he received D5/0.45 for another liter and then changed to D5 after Na still not low enough. Water flushes in G tube were ordered. The Sodium improved slowly, it was 151 on the day of discharge. (3) Clogged feeding tube He recently had a dislodged GJ tube that was replaced by a G tube. It was seeping occasional bilious fluid from the site. His abdomen wa distended with hypoactive bowel sounds. KUB film on 10/31/18 showed paucity of small bowel gas, normal caliber colon loops, no air-fluid levels, elevation right hemidiaphragm seen, and absence of lung bases seen indicated mild fluid overload or CHF. Tube feeds were tried but he had high residuals and became more distended. The tube feeds were stopped until General Surgery placed a GJ tube in the OR on 11/04/18. Isosource tube feeds were restarted. The plan is for more free water intake per GJ tube. (4) Acute renal insufficiency He was hospitalized earlier this year for aspiration pneumonia which was complicated by acute kidney injury requiring hemodialysis for several weeks. He was on dialysis up until two weeks ago. Unclear what his new baseline creatinine is but it was 2.3 on admission and improved to 1.1 after hydration throughout the hospitalization. (5) COPD, on O2 since this admission The CXR did not reveal an infiltrate. He was started on steroids which were stopped when there was no wheezing. After several days the iv Cefepime and iv Flagyl were stopped. He required supplemental oxygen which was only able to be weaned to 1L per n.c. by discharge. He was managed with nebulizers qid. (6) History of CVA, with hemiplegia and dysphagia (requiring a feeding tube) He has a history of stroke in 2016 resulting in left sided hemiparesis and dysphagia requiring PEG tube placement. He was on Aspirin and statin, which were resumed after the new GJ tube. (7) Iron deficiency anemia Admission hemoglobin was 10.9 which dropped to as low as 7.7, from all his IV hydration during this hospitalization. B12 and folate levels were adequate. Iron levels were very low and serum testing. He was started on iron gluconate replacement per NG tube and discharged on this (8) Diabetes, on Insulin He has a history of diabetes for which he took Lantus and Lispro PRN. He presented hyperglycemic with blood glucose of 286. With initial steroids and hypernatremia, he peaked at 503, but he was also on D5 iv to control the hypernatremia. Lantus was resumedand q6h short acting insulin started. (9) Hypertension He is on Amlodipine, Metoprolol, and Doxazosin at home. At presentation, he was normotensive. Later during this hospitalization his BP meds were resumed. (10) Deafness (11) Code status: DNR - ALLERGIES Allergies/Adverse Reactions: Allergies Allergy/AdvReac Type Severity Reaction Status Date / Time No Known Drug Allergies Allergy Verified 10/30/18 23:58 - MEDICATIONS Home Medications: Ambulatory Orders Medication Instructions Recorded Confirmed Atorvastatin Calcium 40 mg NG DAILY 08/01/17 10/31/18 Metoprolol Tartrate 25 mg PEG BID 08/01/17 10/31/18 amLODIPine [Norvasc] 5 mg NG DAILY 08/01/17 10/31/18 Polyethylene Glycol 3350 [Miralax] 17 gm PEG DAILY 06/26/18 10/31/18 Gabapentin 100 mg JT QPM 10/31/18 10/31/18 Metoclopramide HCl 5 mg PO QID PRN 10/31/18 10/31/18 Omeprazole 20 mg JT DAILY 10/31/18 10/31/18 Acetaminophen [Tylenol] 650 mg PEG Q6H PRN #30 tab 11/05/18 Aspirin Chewable [[place] 81 mg PEG DAILY #30 tablet 11/05/18 Aspirin] Insulin Glargine [Lantus Solostar] 10 unit SUBQ QDBREAKFAST #2 pen 11/05/18 Insulin Glargine [Lantus Solostar] 10 unit SUBQ QPM #2 pen 11/05/18 Insulin Regular Human [NovoLIN R] 1 - 9 unit SUBQ Q6HR #2 amp 11/05/18 Ipratropium/Albuterol [Duoneb] 3 ml INH RTQID #90 neb 11/05/18 Vancomycin/0.9 % Sod Chloride 750 mg IV DAILY #10 plast..bag 11/05/18 [Vanco 750 mg/150 ml-0.9% NaCl] - PHYSICAL EXAM AT DISCHARGE General Appearance: positive: No acute distress Eyes Bilateral: positive: Normal inspection ENT: positive: Other (On O2 per n.c.) Neck: positive: Nml inspection Respiratory: positive: No respiratory distress Cardiovascular: positive: Regular rate & rhythm Abdomen: positive: Non-tender Extremities: positive: No pedal edema Neurologic/Psychiatric: positive: Disoriented to person, Other (Left sided weakness) - LABS Result Diagrams: 11/05/18 04:45 11/05/18 04:45 - DIAGNOSTIC IMAGING Diagnostic Imaging Results: Final report reviewed - SEPSIS Current Stage of Sepsis: Resolved Possible source of Sepsis: Pulmonary, CLABSI, Implantable device (hemodialysis port) Confirmed Source and Organism (if known) of Sepsis: MRSA Bacteremia from Velez catheter Sepsis Criteria: Recorded Temperature greater than 38.3C or Less than 36C, Recorded Heart Rate greater than 90 bpm, Recorded Respiratory Rate greater than 20, Respiratory: Increasing oxygen requirements, WBC count greater than 12,000 or less than 4000, 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
== END 2018-11-05 14:30 | DRG 314 ==
LOC: EDUNIT# → EDBD → ED 23:37 → ICU 10-31 02:35 → MS2 11-03 19:24
PROVIDERS: ADMIT Internal Medicine; ATTEND Internal Medicine
PROC: 05PY33Z Removal of Infusion Device from Upper Vein, Percutaneous Approach (ICD-10-PCS; principal; 2018-11-01 15:30)
PROC: 0D20XUZ Change Feeding Device in Upper Intestinal Tract, External Approach (ICD-10-PCS; 2018-11-04)
PROC: 0DB98ZX Excision of Duodenum, Via Natural or Artificial Opening Endoscopic, Diagnostic (ICD-10-PCS; 2018-11-04)
PROC: 0DB78ZX Excision of Stomach, Pylorus, Via Natural or Artificial Opening Endoscopic, Diagnostic (ICD-10-PCS; 2018-11-04)
PROC: 02HV33Z Insertion of Infusion Device into Superior Vena Cava, Percutaneous Approach (ICD-10-PCS; 2018-11-04)
DX: J44.1 Chronic obstructive pulmonary disease with (acute) exacerbation (principal); J44.0 Chronic obstructive pulmonary disease with (acute) lower respiratory infection; J18.9 Pneumonia, unspecified organism; E86.0 Dehydration; T80.211A Bloodstream infection due to central venous catheter, initial encounter; N28.9 Disorder of kidney and ureter, unspecified; A41.02 Sepsis due to Methicillin resistant Staphylococcus aureus; G93.41 Metabolic encephalopathy; I10 Essential (primary) hypertension; E11.9 Type 2 diabetes mellitus without complications; R65.20 Severe sepsis without septic shock; J69.0 Pneumonitis due to inhalation of food and vomit; N17.9 Acute kidney failure, unspecified; I69.354 Hemiplegia and hemiparesis following cerebral infarction affecting left non-dominant side; Z93.1 Gastrostomy status; E87.0 Hyperosmolality and hypernatremia; K94.23 Gastrostomy malfunction; I69.391 Dysphagia following cerebral infarction; R13.10 Dysphagia, unspecified; T17.990A Other foreign object in respiratory tract, part unspecified in causing asphyxiation, initial encounter; Y83.3 Surgical operation with formation of external stoma as the cause of abnormal reaction of the patient, or of later complication, without mention of misadventure at the time of the procedure; Y92.009 Unspecified place in unspecified non-institutional (private) residence as the place of occurrence of the external cause; E11.65 Type 2 diabetes mellitus with hyperglycemia; E11.22 Type 2 diabetes mellitus with diabetic chronic kidney disease; J44.9 Chronic obstructive pulmonary disease, unspecified; I35.0 Nonrheumatic aortic (valve) stenosis; I12.9 Hypertensive chronic kidney disease with stage 1 through stage 4 chronic kidney disease, or unspecified chronic kidney disease; N18.9 Chronic kidney disease, unspecified; D50.9 Iron deficiency anemia, unspecified; H91.90 Unspecified hearing loss, unspecified ear; K31.7 Polyp of stomach and duodenum; K31.9 Disease of stomach and duodenum, unspecified; Z66 Do not resuscitate; Z79.82 Long term (current) use of aspirin; Z79.4 Long term (current) use of insulin; Z79.899 Other long term (current) drug therapy; Z87.891 Personal history of nicotine dependence; Z79.01 Long term (current) use of anticoagulants; Z87.19 Personal history of other diseases of the digestive system
CPT/HCPCS: 36415; 51701; 71045; 74018; 80048; 80053; 80202; 81001; 82607; 82746; 83036; 83540; 83605; 83690; 83735; 83880; 84100; 84134; 84466; 85025; 87040; 87070; 87071; 87077; 87150; 87181; 87205; 93005; 93306; 94640; 96365; 96367; 96368; 96375; 99285; A9270; C1751; J0131; J1815; J2765; J3370; J7120; 81003; 82947; 87086